=== PATIENT | female | born 1930 | race Caucasian/White ===

== ENCOUNTER 2016-09-10 16:58 | Inpatient (IN) | payer OTHER ==
[~2016-09-10] VITALS: Ht 160 cm; Wt 58.8 kg
[~2016-09-10 16:58] MED LIST: ANT25 PO; ASPI-435 PO; ATEN-175 PO; ATOR-22 PO; CHOL100027 PO; CITA10TA8 PO; DOCU100C PO; DOXE10CA PO; GABA1CAP4 PO; LEVO100T7 PO; LOSA1TAB PO; MULTTAB58 PO; PRD/1 PO; SALI0.6517 NAE; ZNTT/150 PO; ZOLP5TAB PO
[2016-09-10] MEDS ORDERED: SODIUM CHLORIDE 0.9% 1000ML 1,000 ML IV SCH (17:04)
--- NOTE | 2016-09-10 17:08 | EMERGENCY ROOM VISIT NOTE ---
History Report prepared by Marianna: Oz Fish Under the Supervision of: Dr. Shane Francois D.O. First contact with patient: 16:58 Stated Complaint: SEVERE HEADACHE, RT EYE VISION WEAKNESS History of Present Illness The patient is an 85 year old female who presents to the Emergency Room with complaints of a possible acute left-sided CVA that was detected on MRI prior to arrival. The patient had a [facility] for right vision changes she has been having. The patient was missing half of her visual field from the right eye, which has been slowly recovering but is still not back to normal. The patient has had a diffuse headache all week. She denies nausea, vomiting, chest pain, or shortness of breath. The paramedics note no neurological deficits. The patient denies tobacco or alcohol use. The patient had two strokes this past year for which she has seen a Neurologist. She denies any recent head trauma. 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 A total of 10 systems reviewed and were otherwise negative. Past Medical & Surgical Medical Problems: (1) Cerebrovascular disease (2) Chronic steroid use (3) CKD (chronic kidney disease), stage III (4) Depression (5) Diabetes mellitus, type II (6) Diverticular disease of colon (7) Dyslipidemia (8) Essential hypertension (9) History of adenomatous polyp of colon (10) Hypothyroidism (11) Osteoporosis (12) Pancreatic cyst (13) Paroxysmal atrial fibrillation (14) Polymyalgia rheumatica Surgical Problems: (1) Status post cholecystectomy (2) Status post hysterectomy Family History Heart disease FATHER MOTHER Social History Alcohol Use: none Occupation Status: retired Current/Historical Medications Scheduled Aspirin (Aspirin), 325 MG PO DAILY Atenolol (Tenormin), 100 MG PO DAILY Atorvastatin (Lipitor), 20 MG PO DAILY Cholecalciferol (Vitamin D 1000 Unit), 5,000 INTER.UNIT PO DAILY Citalopram Hydrobromide (Celexa), 10 MG PO DAILY Cyclosporine (Ophth) (Restasis), 1 DROP OPB DAILY Doxepin (Sinequan), 10 MG PO HS Fluticasone Propionate (Nasal) (Flonase Allergy Relief), 2 SPRAYS DEBBIE DAILY Gabapentin (Gabapentin), 300 MG PO QAM Gabapentin (Gabapentin), 600 MG PO QPM Levothyroxine Sodium (Levothyroxine Sodium), 1 TAB PO DAILY Losartan Potassium (Cozaar), 1 TAB PO DAILY Multiple Vitamin (Multivitamin), 1 TAB PO DAILY Polyethylene (Miralax), 17 GM PO DAILY Prednisone (Prednisone), 2 MG PO DAILY Scheduled PRN Acetaminophen (Tylenol), 650 MG PO BID PRN for Pain Meclizine HCl (Meclizine HCl), 25 MG PO TID PRN for DIZZINESS Ranitidine (Zantac), 150 MG PO DAILY PRN for INDIGESTION Zolpidem Tartrate (Ambien), 5 MG PO HS PRN for Sleep Allergies Coded Allergies: Lisinopril (Verified Allergy, Intermediate, RASH, 09/10/16) Penicillins (Verified Allergy, Intermediate, EDEMA, 09/10/16) Codeine (Verified Adverse Reaction, Intermediate, NAUSEA, VOMITING, 09/10/16 ) Physical Exam Vital Signs Date Time Temp Pulse Resp B/P Pulse Ox O2 Delivery O2 Flow Rate FiO2 09/10/16 18:00 66 20 207/79 99 Room Air 09/10/16 17:13 63 09/10/16 17:08 97 Room Air 09/10/16 17:08 36.5 61 16 220/103 97 Room Air Physical Exam GENERAL: Patient is awake, alert, and in no acute distress. Patient is resting comfortably and showing no signs of anxiety EYES: The conjunctivae are clear. The pupils are round and reactive. EARS, NOSE, MOUTH AND THROAT: The nose is without any evidence of any deformity. Mucous membranes are moist tongue is midline NECK: The neck is nontender and supple. RESPIRATORY: Normal respiratory effort is noted there is no evidence of wheezing rhonchi or rales CARDIOVASCULAR: Regular rate and rhythm noted there no murmurs rubs or gallops normal S1 normal S2 GASTROINTESTINAL: The abdomen is soft. Bowel sounds are present in all quadrants. Abdomen is nontender MUSCULOSKELETAL/EXTREMITIES: There is no evidence of gross deformity full range of motion is noted in the hips and shoulders SKIN: There is no obvious evidence of any rash. There are no petechiae, pallor or cyanosis noted. NEUROLOGIC: Patient is awake alert and oriented x3 strength is symmetric patellar reflexes are 2+ bilaterally Medical Decision & Procedures ER Provider Diagnostic Interpretation: X-ray results as stated below per interpretation by me and the radiologist. SINGLE VIEW CHEST CLINICAL HISTORY: Headache. Visual changes. FINDINGS: 2 AP, portable, upright chest radiographs are compared to study dated 07/12/2015. The examination is degraded by portable technique and patient rotation. The heart is top normal for projection. The mediastinal contour is within normal limits. The pulmonary vasculature is noncongested. Chronic interstitial thickening is unchanged. The lungs and pleural spaces are clear. No pneumothorax is seen. The skeletal structures are osteopenic. The bony thorax is grossly intact. IMPRESSION: No active disease in the chest. Electronically signed by: Maged Rosario M.D. 09/10/2016 5:30 PM Dictated Date/Time: 09/10/2016 5:29 PM Laboratory Results 09/10/16 17:55 Red Blood Count 4.83, Mean Corpuscular Volume 89.9, Mean Corpuscular Hemoglobin 29.8, Mean Corpuscular Hemoglobin Concent 33.2, Mean Platelet Volume 12.0, Neutrophils (%) (Auto) 61.2, Lymphocytes (%) (Auto) 30.4, Monocytes (%) (Auto) 5.5, Eosinophils (%) (Auto) 2.1, Basophils (%) (Auto) 0.5, Neutrophils # (Auto) 6.84, Lymphocytes # (Auto) 3.40, Monocytes # (Auto) 0.61, Eosinophils # (Auto) 0.23, Basophils # (Auto) 0.06 09/10/16 17:55 Test 09/10/16 17:04 09/10/16 17:30 09/10/16 17:55 Bedside Glucose 127 mg/dl (70-90) White Blood Count 11.17 K/uL (4.8-10.8) Red Blood Count 4.83 M/uL (4.2-5.4) Hemoglobin 14.4 g/dL (12.0-16.0) Hematocrit 43.4 % (37-47) Mean Corpuscular Volume 89.9 fL (80-100) Mean Corpuscular Hemoglobin 29.8 pg (25-34) Mean Corpuscular Hemoglobin Concent 33.2 g/dl (32-36) Platelet Count 135 K/uL (130-400) Mean Platelet Volume 12.0 fL (7.4-10.4) Neutrophils (%) (Auto) 61.2 % Lymphocytes (%) (Auto) 30.4 % Monocytes (%) (Auto) 5.5 % Eosinophils (%) (Auto) 2.1 % Basophils (%) (Auto) 0.5 % Neutrophils # (Auto) 6.84 K/uL (1.4-6.5) Lymphocytes # (Auto) 3.40 K/uL (1.2-3.4) Monocytes # (Auto) 0.61 K/uL (0.11-0.59) Eosinophils # (Auto) 0.23 K/uL (0-0.5) Basophils # (Auto) 0.06 K/uL (0-0.2) RDW Standard Deviation 43.0 fL (36.4-46.3) RDW Coefficient of Variation 13.0 % (11.5-14.5) Immature Granulocyte % (Auto) 0.3 % Immature Granulocyte # (Auto) 0.03 K/uL (0.00-0.02) Prothrombin Time 9.9 SECONDS (9.0-12.0) Prothromb Time International Ratio 0.9 (0.9-1.1) Activated Partial Thromboplast Time 24.1 SECONDS (21.0-31.0) Partial Thromboplastin Ratio 0.9 Anion Gap 9.0 mmol/L (3-11) Est Creatinine Clear Calc Drug Dose 35.6 ml/min Estimated GFR () 61.1 Estimated GFR (Non- 52.7 BUN/Creatinine Ratio 22.3 (10-20) Calcium Level 9.3 mg/dl (8.5-10.1) Total Creatine Kinase 45 U/L (26-192) Creatine Kinase MB 0.8 ng/ml (0.5-3.6) Creatine Kinase MB Ratio 1.8 (0-3.0) Troponin I < 0.015 ng/ml (0-0.045) Laboratory results per my review. Medications Administered Medications (Trade) Dose Ordered Sig/Nicolasa Route Start Time Stop Time Status Last Admin Dose Admin Sodium Chloride (Nss 1000ml) 1,000 ml @ 50 mls/hr Q20H IV 09/10/16 17:04 10/10/16 17:03 09/10/16 17:49 50 MLS/HR Labetalol HCl (Normodyne IV) 10 mg NOW STAT IV 09/10/16 17:32 09/10/16 17:33 DC 09/10/16 17:39 10 MG ECG Indication: other Rate (beats per minute): 65 Rhythm: sinus rhythm Findings: PVC, no acute ischemic change Comparison ECG Date: 2015 Change: no significant change ED Course 1700: The patient was evaluated in room B9. A complete history and physical examination were performed. 170: NSS 1000 ml @ 50 mls/hr. 1714: Spoke with [facility]. The patient will be evaluated. 173: Labetalol HCl 10 mg IV. Medical Decision Prior records/ancillary studies reviewed and summarized above. Nursing notes reviewed. The patient's history was concerning for CVA. Differential diagnosis: Etiologies such as metabolic, infection, hypo/hyperglycemia, electrolyte abnormalities, cardiac sources, intracerebral event, toxicologic, neurologic, as well as others were entertained. The patient is an 85-year-old female who presented to the emergency department for a stroke. The patient has been having posterior circulation complaints including difficulty with her right I and visual complaints with her right eye over the last week. She saw her primary care physician and was scheduled for an MRI the brain. The patient had the MRI the brain today and was sent directly over to our emergency department for what appears to be a subacute occipital ischemic stroke. I discussed the patient's laboratory and radiographic studies with her. Her visual complaints have improved at this time. Her blood pressure was very elevated and she was treated with IV labetalol. [facility] They have agreed to evaluate the patient in the emergency department for formal stroke workup. Given the number of ischemic strokes were noted on the MRI I do feel the patient may need a formal evaluation for a dysrhythmia which could be causing the patient's repeated ischemic stroke. Consults Time Called: 1709 Consulting Physician: [facility]. Returned Call: [phone]: Spoke with [facility]. The patient will be evaluated. Impression Primary Impression: Acute CVA (cerebrovascular accident) Scribe Attestation The scribe's documentation has been prepared under my direction and personally reviewed by me in its entirety. I confirm that the note above accurately reflects all work, treatment, procedures, and medical decision making performed by me. Departure Information Dispostion Being Evaluated By Hospitalist
[2016-09-10] MEDS ORDERED: LABETALOL HCL IV 5 MG/ML 20ML ONE (17:29)
--- NOTE | 2016-09-10 17:31 | DIAGNOSTIC IMAGING REPORT ---
SINGLE VIEW CHEST CLINICAL HISTORY: Headache. Visual changes. FINDINGS: 2 AP, portable, upright chest radiographs are compared to study dated 07/12/2015. The examination is degraded by portable technique and patient rotation. The heart is top normal for projection. The mediastinal contour is within normal limits. The pulmonary vasculature is noncongested. Chronic interstitial thickening is unchanged. The lungs and pleural spaces are clear. No pneumothorax is seen. The skeletal structures are osteopenic. The bony thorax is grossly intact. IMPRESSION: No active disease in the chest. Electronically signed by: Maged Rosario M.D. 09/10/2016 5:30 PM Dictated Date/Time: 09/10/2016 5:29 PM
[2016-09-10] MEDS ORDERED: LABETALOL HCL IV 5 MG/ML 20ML IV STA (17:32)
[2016-09-10] MEDS ORDERED: ACETAMINOPHEN 500 MG TAB PO STA (18:08)
[2016-09-10] MEDS ORDERED: CLOPIDOGREL BISULFATE 75 MG TAB PO ONE (18:08)
[2016-09-10 18:10] LABS: BASO % 0.5 %; BASO ABS # 0.06 K/uL (0-0.2); COMPLETE YES; EOS % 2.1 %; HEMATOCRIT 43.4 % (37-47); IG% 0.3 %; LYMPH % 30.4 %; MEAN CELL VOLUME 89.9 fL (80-100); MEAN CORPUSCULAR HEMOGLOBIN 29.8 pg (25-34); MEAN CORPUSCULAR HGB CONC 33.2 g/dl (32-36); MONO % 5.5 %; NEUT % 61.2 %; PLATELET COUNT 135 K/uL (130-400); RED BLOOD COUNT 4.83 M/uL (4.2-5.4); WHITE BLOOD COUNT 11.17 K/uL (4.8-10.8)
[2016-09-10] MEDS ORDERED: ONDANSETRON INJ 2 MG/ML 2 ML VIAL IV PRN (18:15)
[2016-09-10] MEDS ORDERED: PHARMACIST DISCHARGE MED REC CONSULT PRN (18:15)
[2016-09-10] MEDS ORDERED: ACETAMINOPHEN 500 MG TAB PO ONE (18:26)
[2016-09-10] MEDS ORDERED: ASPI325T45 PO (18:28)
[2016-09-10] MEDS ORDERED: MRLP17X PO (18:28)
[2016-09-10] MEDS ORDERED: FLUT0.15 NAE (18:28)
[2016-09-10] MEDS ORDERED: LOSA100T65 PO (18:28)
[2016-09-10] MEDS ORDERED: TYL325X PO (18:28)
[2016-09-10] MEDS ORDERED: MECLIZINE HCL 25 MG TAB PO PRN (18:30)
[2016-09-10] MEDS ORDERED: RANITIDINE HCL 150 MG TAB PO PRN (18:30)
[2016-09-10] MEDS ORDERED: CLOPIDOGREL BISULFATE 75 MG TAB ONE (18:31)
[2016-09-10] MEDS ORDERED: CYCL0.052 OPB (18:32)
[2016-09-10 18:33] LABS: BLOOD UREA NITROGEN 22 mg/dl (7-18); BUN/CREATININE RATIO 22.3 (10-20); CALCIUM 9.3 mg/dl (8.5-10.1); CARBON DIOXIDE 26 mmol/L (21-32); CHLORIDE 107 mmol/L (98-107); CREATININE 0.99 mg/dl (0.60-1.20); GLUCOSE 127 mg/dl (70-99); INR 0.9 (0.9-1.1); PARTIAL THROMBOPLASTIN RATIO 0.9; POTASSIUM 3.7 mmol/L (3.5-5.1); PROTHROMBIN TIME (PATIENT) 9.9 SECONDS (9.0-12.0); SODIUM 142 mmol/L (136-145)
[2016-09-10 18:38] LABS: CKMB/CK RATIO 1.8 (0-3.0)
[2016-09-10] MEDS ORDERED: GLUCAGON FOR INJ 1 MG VIAL SQ PRN (18:45)
[2016-09-10] MEDS ORDERED: DEXTROSE 50% 50 ML SYR IV PRN (18:45)
[2016-09-10] MEDS ORDERED: GLUCOSE 10 TABS/TUBE PO PRN (18:45)
[2016-09-10] MEDS ORDERED: GLUCOSE 40% GEL 15 GM TUBE PO PRN (18:45)
[2016-09-10 19:22] VITALS: BP_SYST 193; BP_SYST 205; BP_DIAS 75; BP_DIAS 96; PULSE 69; TEMP 36.5; O2SAT 94; Ht 160 cm; Wt 58.8 kg
[2016-09-10 19:45] VITALS: BP 193/96; PULSE 70; TEMP 36.5; O2SAT 96
[2016-09-10] MEDS: GABAPENTIN 600 MG TAB PO SCH (20:35)
[2016-09-10] MEDS: DOXEPIN HCL 10 MG CAP PO SCH (20:35)
--- NOTE | 2016-09-10 21:11 | History and Physical ---
History & Physical Date & Time of Service: Sep 10, 2016 at 18:31 Chief Complaint: Severe Headache, Rt Eye Vision Weakness Primary Care Physician: Liu Antunez M.D. History of Present Illness Source: patient, clinic records This is an 85 y/o female with PMH of multiple CVAs, chart history of PAF, DM type 2, HTN, HL, and other problems listed below who was sent to the ED by ambulance for abnormal outpatient brain MRI. Pt follows with Dr. Antunez for primary care and Dr. Miguel for neurology. Pt reports right eye vision loss and headache starting 1.5 weeks ago. She did not go the ER. She was seen by Dr. Antunez for routine follow up on 09/03 and MRI was ordered. Pt states vision loss has gradually improved but still slightly off from baseline. She states GALINDO felt like ice pick stabbing between her eyes at onset but now is frontal pressure. GALINDO partially improves with Tylenol at home. She did not take Tylenol yet today. Currently rates pain 5/10. She admits to similar headaches in the past. She reports chronic intermittent palpitations. Denies photophobia, phonophobia, diplopia, speech or swallowing difficultly, focal weakness or numbness, balance chest pain, SOB, abdominal pain, N/V/D, urinary changes. Pt admits to hx of PAF but is unsure when it was diagnosed. States last cardiology visit was 10 years ago in [place]. She has not been on anticoagulation. She had a Holter done in 2012 without any sustained arrhythmias. Her 2012 and 2013 EKGs in [facility] show sinus rhythm. No hx of brain bleed or GI bleed. Pt had similar vision loss in 2015. Aspirin was increased to 325 mg daily by PCP. MRI showed no acute infarct. She was seen by neurology, Dr. Miguel and aspirin was continued. Pt denies missing any medications including aspirin and BP meds. Past Medical/Surgical History Medical Problems: (1) Cerebrovascular disease Permanent Comment: s/p right occipital stroke per MRI Status: Chronic (2) Chronic steroid use Permanent Comment: on prednisone for PMR Status: Chronic (3) CKD (chronic kidney disease), stage III Status: Chronic (4) Depression Status: Chronic (5) Diabetes mellitus, type II Permanent Comment: diet-controlled Status: Chronic (6) Diverticular disease of colon Status: Chronic (7) Dyslipidemia Status: Chronic (8) Essential hypertension Status: Chronic (9) History of adenomatous polyp of colon Status: Chronic (10) Hypothyroidism Status: Chronic (11) Osteoporosis Status: Chronic (12) Pancreatic cyst Status: Chronic (13) Paroxysmal atrial fibrillation Status: Chronic (14) Polymyalgia rheumatica Status: Chronic Surgical Problems: (1) Status post cholecystectomy Status: Chronic (2) Status post hysterectomy Status: Chronic Family History Heart disease FATHER MOTHER Social History Smoking Status: Never Smoker Alcohol Use: adamately states no etoh use for past 1 year. outside of the room family told nurse 3 drinks per week. Drug Use: none Occupational Status: retired Immunizations History of Influenza Vaccine: Yes History of Pneumococcal: Yes Allergies Coded Allergies: Lisinopril (Verified Allergy, Intermediate, RASH, 09/10/16) Penicillins (Verified Allergy, Intermediate, EDEMA, 09/10/16) Codeine (Verified Adverse Reaction, Intermediate, NAUSEA, VOMITING, 09/10/16 ) Home Medications Scheduled Apixaban (Eliquis), 5 MG PO BID Atenolol (Tenormin), 100 MG PO DAILY Atorvastatin (Lipitor), 20 MG PO DAILY Cholecalciferol (Vitamin D 1000 Unit), 5,000 INTER.UNIT PO DAILY Citalopram Hydrobromide (Celexa), 10 MG PO DAILY Cyclosporine (Ophth) (Restasis), 1 DROP OPB DAILY Doxepin (Sinequan), 10 MG PO HS Fluticasone Propionate (Nasal) (Flonase Allergy Relief), 2 SPRAYS DEBBIE DAILY Gabapentin (Gabapentin), 300 MG PO QAM Gabapentin (Gabapentin), 600 MG PO QPM Levothyroxine Sodium (Levothyroxine Sodium), 1 TAB PO DAILY Losartan Potassium (Cozaar), 1 TAB PO DAILY Multiple Vitamin (Multivitamin), 1 TAB PO DAILY Polyethylene (Miralax), 17 GM PO DAILY Prednisone (Prednisone), 2 MG PO DAILY Scheduled PRN Acetaminophen (Tylenol), 650 MG PO BID PRN for Pain Meclizine HCl (Meclizine HCl), 25 MG PO TID PRN for DIZZINESS Ranitidine (Zantac), 150 MG PO DAILY PRN for INDIGESTION Zolpidem Tartrate (Ambien), 5 MG PO HS PRN for Sleep Review of Systems Ten point review of systems performed with pertinent positives and negatives noted in HPI. Physical Exam Vital Signs Date Time Temp Pulse Resp B/P Pulse Ox O2 Delivery O2 Flow Rate FiO2 09/10/16 18:00 66 20 207/79 99 Room Air 09/10/16 17:13 63 09/10/16 17:08 97 Room Air 09/10/16 17:08 36.5 61 16 220/103 97 Room Air General Appearance: WD/WN, no apparent distress, + pertinent finding (pleasant alert elderly female, no distress, family at bedside) Head: normocephalic, atraumatic Eyes: normal inspection, PERRL, EOMI, sclerae normal ENT: hearing grossly normal, pharynx normal Neck: supple, trachea midline Respiratory/Chest: lungs clear, normal breath sounds, no respiratory distress, no accessory muscle use Cardiovascular: regular rate, rhythm, no murmur Abdomen/GI: normal bowel sounds, non tender, soft Extremities/Musculoskelatal: no calf tenderness, no pedal edema Neurologic/Psych: meat hostess II-XII nml as tested, no motor/sensory deficits, alert, normal mood/affect, oriented x 3, + pertinent finding (visual field testing WNL bilatererally. finger to nose intact) Skin: normal color, warm/dry Diagnostics Laboratory Results Results Past 24 Hours Test 09/10/16 17:04 09/10/16 17:30 09/10/16 17:55 Range/Units Creatine Kinase MB Ratio 0-3.0 Bedside Glucose 127 70-90 mg/dl White Blood Count 11.17 4.8-10.8 K/uL Red Blood Count 4.83 4.2-5.4 M/uL Hemoglobin 14.4 12.0-16.0 g/dL Hematocrit 43.4 37-47 % Mean Corpuscular Volume 89.9 80-100 fL Mean Corpuscular Hemoglobin 29.8 25-34 pg Mean Corpuscular Hemoglobin Concent 33.2 32-36 g/dl Platelet Count 135 130-400 K/uL Mean Platelet Volume 12.0 7.4-10.4 fL Neutrophils (%) (Auto) 61.2 % Lymphocytes (%) (Auto) 30.4 % Monocytes (%) (Auto) 5.5 % Eosinophils (%) (Auto) 2.1 % Basophils (%) (Auto) 0.5 % Neutrophils # (Auto) 6.84 1.4-6.5 K/uL Lymphocytes # (Auto) 3.40 1.2-3.4 K/uL Monocytes # (Auto) 0.61 0.11-0.59 K/uL Eosinophils # (Auto) 0.23 0-0.5 K/uL Basophils # (Auto) 0.06 0-0.2 K/uL RDW Standard Deviation 43.0 36.4-46.3 fL RDW Coefficient of Variation 13.0 11.5-14.5 % Immature Granulocyte % (Auto) 0.3 % Immature Granulocyte # (Auto) 0.03 0.00-0.02 K/uL Diagnostic Radiology SINGLE VIEW CHEST CLINICAL HISTORY: Headache. Visual changes. FINDINGS: 2 AP, portable, upright chest radiographs are compared to study dated 07/12/2015. The examination is degraded by portable technique and patient rotation. The heart is top normal for projection. The mediastinal contour is within normal limits. The pulmonary vasculature is noncongested. Chronic interstitial thickening is unchanged. The lungs and pleural spaces are clear. No pneumothorax is seen. The skeletal structures are osteopenic. The bony thorax is grossly intact. IMPRESSION: No active disease in the chest. Outpatient MRI brain without contrast 09/10/16 impression per radiologist: 1. Acute infarct in the left occipital region; possibilities include boundary zone infarction between the left MCA and left FIELD AIDE territory, less likely embolic in this region. No evidence of hemorrhagic conversion on gradient echo. 2. Old infarcts in the right occipital region, unchanged from 07/02/2016, finding also a raise in the possibility of boundary zone infarct. Changes of laminar cortical necrosis are present. 3. Neighboring but distinct old right parietal region infarct, unchanged from 07/02/2016. 4. Mild -moderate old infarct is again noted in the upper left temporal lobe, unchanged from prior. 5. Small old infarcts again noted in the posterolateral left occipital lobe, unchanged from prior. 6. Very small old left cerebellar infarct. 7. Old lacunar infarcts in the bilateral deep hale nuclei, unchanged. 8. Mild chronic white matter microvascular ischemic changes are again noted, unchanged. EKG sinus rhythm with occasional PVC, rate 65, no ST or T wave abnormality Impression Assessment and Plan ACUTE LEFT OCCIPITAL INFARCT Onset of symptoms 1.5 weeks ago Outpatient MRI brain 09/10/16 + acute left occipital infarct, + multiple old strokes Check carotid doppler, echo w/ bubble study On aspirin 324 mg; states she is compliant; will add Plavix Risk factors- DM well controlled- recent A1c 7.1; HL- continue statin, check lipid panel in am, HTN- received labetalol for SBP of 220 in ER -> improved to 180s- 190s; hx PAF not on anticoagulation currently in NSR Neuro checks Consult neurology Consult cardiology to assess for cardioembolic source PT and OT evaluations HEADACHE Try acetaminophen as it helped her at home Consult neurology HYPERTENSION BP was elevated to 220 systolic in ER; given Labetalol -> improved to 180s-190s Held losartan and decreased atenolol to 50 mg daily to avoid aggressive lowering of BP Monitor BP closely PAROXYSMAL ATRIAL FIBRILLATION Currently in NSR Continue atenolol at reduced dose for now Not on anticoagulation Holter in 2012 without any sustained arrhythmias; 2012 and 2013 EKGs in [facility] show sinus rhythm DM TYPE 2 Diet controlled A1c 7.1 on 09/03/16 HYPOTHYROIDISM Continue levothyroxine POLYMYALGIA RHEUMATICA Continue chronic prednisone DEPRESSION Continue citalopram and doxepin DVT PROPHYLAXIS SCDs since patient is on aspirin and plavix CODE STATUS Full code per my discussion with the patient DISPOSITION Lives alone Follows with Dr. Antunez for primary care Patient seen in collaboration with Dr. Billy. Please see his addendum. Attending Addendum Pt was seen and examined. Agreed with [facility]'s assessment and Plan. 85 y/o female with PMH of multiple CVAs, chart history of PAF, DM type 2, HTN, HL was sent to the ED by ambulance after MRI head showed acute left occipital infarct. The MRI was ordered for right eye vision loss and headache starting 1.5 weeks ago. Denies any numbness, weakness, slurred speech, palpitation and SOB. General- No acute distress Head- atraumatic Eyes- PERRL, EOMI ENT- oropharynx clear Neck- supple, no JVD Lungs- clear to auscultation and percussion Heart- regular rhythm; no murmur Abdomen- normal bowel sounds, soft Extremities- no calf tenderness; peripheral pulses intact Neuro- alert, oriented x 3; PERRL, EOMI; no facial palsy; no dysarthria; motor 5 /5 bilaterally A/P ACUTE LEFT OCCIPITAL INFARCT Recent Outpatient MRI brain showed 09/10/16 showed acute left occipital infarct, + multiple old strokes Check carotid doppler, echo w/ bubble study Asa and plavix Neuro checks Consult neurology Consult cardiology to assess for cardioembolic source PT and OT evaluation Lab, Imaging and ekg reviewed Please refer to [facility]'s documentation for other problems Rip Billy MD VTE Prophylaxis VTE Risk Assessment Done? Y/N: Yes Risk Level: High
[2016-09-10 21:20] VITALS: BP 152/77; PULSE 68; TEMP 36.5; O2SAT 93
[2016-09-10] MEDS ORDERED: ZOLPIDEM TARTRATE 5 MG TAB PO ONE (21:45)
--- NOTE | 2016-09-10 22:32 | DIAGNOSTIC IMAGING REPORT ---
ULTRASOUND OF THE CAROTID ARTERIES CLINICAL HISTORY: Strokelike symptoms. Headache. Visual change. COMPARISON STUDY: No priors. TECHNIQUE: Real-time, grayscale, and color Doppler sonography of the carotid arteries is performed. Images are reviewed in the transverse and longitudinal planes. FINDINGS: Blood pressure in the right arm measures 157/61 and blood pressure in the left arm measures 171/75. The carotid arteries are patent bilaterally and demonstrate antegrade flow. There is mild to moderate echogenic shadowing atherosclerotic plaque seen in the carotid bulbs bilaterally. Normal doppler arterial waveforms are seen throughout. Velocity measurements are listed below. Common carotid peak systolic velocity (cm/sec): RIGHT: 69 LEFT: 71 ICA proximal peak systolic velocity (cm/sec): RIGHT: 51 LEFT: 43 ICA mid peak systolic velocity (cm/sec): RIGHT: 57 LEFT: 50 ICA distal peak systolic velocity (cm/sec): RIGHT: 62 LEFT: 48 ICA/CC peak systolic ratio: RIGHT: 0.9 LEFT: 0.7 Antegrade flow was shown in the vertebral arteries. The external carotid arteries are patent. IMPRESSION: 1. Atherosclerotic plaque with no sonographic evidence of hemodynamically significant stenosis in the right or left carotid arterial system. 2. Antegrade flow is shown in the vertebral arteries. Electronically signed by: Maged Rosario M.D. 09/10/2016 10:31 PM Dictated Date/Time: 09/10/2016 10:29 PM
[2016-09-11] VITALS (9 sets, daily range): BP systolic 120–186; BP diastolic 71–95; PULSE 60–74; TEMP 36.3–36.7; O2SAT 94–99
[2016-09-11] MEDS: ACETAMINOPHEN 325 MG TAB PO PRN ×2 (00:16→07:48)
[2016-09-11] MEDS ORDERED: ZOLPIDEM TARTRATE 5 MG TAB PO SCH (00:45)
[2016-09-11] MEDS: LEVOTHYROXINE 100 MCG TAB PO SCH (06:32)
[2016-09-11 07:13] LABS: BASO % 0.6 %; BASO ABS # 0.05 K/uL (0-0.2); COMPLETE YES; EOS % 5.1 %; HEMATOCRIT 40.2 % (37-47); IG% 0.1 %; LYMPH % 35.7 %; LYMPH ABS # 2.88 K/uL (1.2-3.4); MEAN CELL VOLUME 92.2 fL (80-100); MEAN CORPUSCULAR HEMOGLOBIN 30.3 pg (25-34); MEAN CORPUSCULAR HGB CONC 32.8 g/dl (32-36); MEAN PLATELET VOLUME 11.8 fL (7.4-10.4); MONO % 8.3 %; NEUT % 50.2 %; PLATELET COUNT 121 K/uL (130-400); RED BLOOD COUNT 4.36 M/uL (4.2-5.4); WHITE BLOOD COUNT 8.07 K/uL (4.8-10.8)
[2016-09-11 07:39] LABS: BUN/CREATININE RATIO 23.8 (10-20); CALCIUM 8.6 mg/dl (8.5-10.1); CREATININE 0.88 mg/dl (0.60-1.20); POTASSIUM 3.6 mmol/L (3.5-5.1)
[2016-09-11 07:42] LABS: CHOLESTEROL/HDL RATIO 2.8
[2016-09-11] MEDS: ATORVASTATIN 20 MG TAB PO SCH (07:48)
[2016-09-11] MEDS: CITALOPRAM 20 MG TAB PO SCH (07:48)
[2016-09-11] MEDS: GABAPENTIN 300 MG CAP PO SCH (07:48)
[2016-09-11] MEDS: CLOPIDOGREL BISULFATE 75 MG TAB PO SCH (07:49)
[2016-09-11] MEDS: MULTIVITAMIN TAB PO SCH (07:49)
[2016-09-11] MEDS: POLYETHYLENE (MIRALAX) 17 GM PACK PO SCH (07:51)
[2016-09-11] MEDS: FLUTICASONE PROPIONATE NA SPR 16 GM BTL NAE SCH (07:51)
[2016-09-11] MEDS: CHOLECALCIFEROL 1000 INTER.UNIT TAB PO SCH (07:51)
--- NOTE | 2016-09-11 08:56 | ECHOCARDIOGRAM REPORT ---
*NOTICE TO RECEIVING [employer] [employer] [facility] This information is strictly Confidential and protected under [place] law. [place] law prohibits you from making any further disclosure of this information unless further disclosure is expressly permitted by the written consent of the person to whom it pertains or is authorized by law. A general authorization for the release of medical or other information is not sufficient for this purpose. Hospital accepts no responsibility if the information is made available to any other person, INCLUDING THE PATIENT. Interpretation Summary * Name: BENJI GUERRERO Study Date: 09/11/2016 06:55 AM BP: 169/73 mmHg * Patient Location: 216 HR: 67 * : 1930 (M/d/yyyy) Gender: Female Height: 63 in * Age: 85 yrs Ethnicity: CA Weight: 134 lb * Ordering Physician: Sapphire Yates * Referring Physician: ANTONETTE * Performed By: Cynthia Alfaro RDCS * * Reason For Study: STROKE * BSA: 1.6 m2 * History: STROKE * The study was technically adequate. * There is no comparison study available. * -- Conclusions -- * Left ventricular systolic function is normal. * Ejection Fraction = 65-70%. * There is moderate concentric left ventricular hypertrophy. * The left atrium is mildly dilated. * Grade I diastolic dysfunction, (abnormal relaxation pattern). * Mild aortic regurgitation. * There is mild mitral regurgitation. Procedure Details * A saline contrast injection was performed to assess for cardiac shunting. * The injection was performed through an intravenous line in the left arm. * The attending nurse who injected the saline contrast was LENO NG. * A total of 20 cc of agitated saline was given. * A complete two-dimensional transthoracic echocardiogram was performed (2D, M-mode, Doppler and color flow Doppler). Left Ventricle * The left ventricle is normal in size. * There is moderate concentric left ventricular hypertrophy. * Ejection Fraction = 65-70%. * Left ventricular systolic function is normal. * The left ventricular wall motion is normal. Right Ventricle * The right ventricle is normal size. * The right ventricular systolic function is normal as assessed by tricuspid annular plane systolic excursion (TAPSE) (normal >1.5 cm). Atria * The left atrium is mildly dilated. * Right atrial size is normal. * There is no evidence of atrial septal defect, but resolution does not allow assessment for a patent foramen ovale. Mitral Valve * The mitral valve is normal. * There is no mitral valve stenosis. * There is mild mitral regurgitation. Tricuspid Valve * The tricuspid valve is normal. * There is no tricuspid stenosis. * There is trace tricuspid regurgitation. * Doppler findings do not suggest pulmonary hypertension. Aortic Valve * The aortic valve is trileaflet. * Aortic stenosis is absent. * Mild aortic regurgitation. Pulmonic Valve * The pulmonary valve is not well seen, but the Doppler examination is normal without significant regurgitation or stenosis. Great Vessels * The aortic root is normal size. Pericardium/Pleural * There is no pericardial effusion. Great Vessels * Normal inferior vena cava diameter and respiratory variation suggests normal central venous pressure. Left Ventricular Diastolic Function * Grade I diastolic dysfunction, (abnormal relaxation pattern). MMode 2D Measurements and Calculations IVSd 1.5 cm IVSs 1.8 cm LVIDd 3.3 cm LVIDs 2.0 cm LVPWd 1.3 cm LVPWs 1.5 cm IVS/LVPW 1.1 FS 38.8 % EDV(Teich) 44.5 ml ESV(Teich) 13.1 ml EF(Teich) 70.4 % EDV(cubed) 36.3 ml ESV(cubed) 8.3 ml EF(cubed) 77.1 % % IVS thick 25.7 % % LVPW thick 11.3 % LV mass(C)d 160.4 grams LV mass(C)dI 98.3 grams/m\S\2 LV mass(C)s 121.4 grams LV mass(C)sI 74.5 grams/m\S\2 SV(Teich) 31.3 ml SI(Teich) 19.2 ml/m\S\2 SV(cubed) 28.0 ml SI(cubed) 17.1 ml/m\S\2 Ao root diam 3.3 cm Ao root area 8.4 cm\S\2 LA dimension 4.3 cm LA/Ao 1.3 LVAd ap4 18.1 cm\S\2 LVLd ap4 7.1 cm EDV(MOD-sp4) 41.8 ml LVAs ap4 7.8 cm\S\2 LVLs ap4 5.0 cm ESV(MOD-sp4) 13.1 ml EF(MOD-sp4) 68.7 % LVAd ap2 16.6 cm\S\2 LVLd ap2 6.7 cm EDV(MOD-sp2) 34.3 ml LVAs ap2 7.2 cm\S\2 LVLs ap2 4.9 cm ESV(MOD-sp2) 11.1 ml EF(MOD-sp2) 67.6 % SV(MOD-sp4) 28.7 ml SI(MOD-sp4) 17.6 ml/m\S\2 SV(MOD-sp2) 23.2 ml SI(MOD-sp2) 14.2 ml/m\S\2 Doppler Measurements and Calculations MV E max mini 52.4 cm/sec MV A max imni 76.6 cm/sec MV E/A 0.68 MV dec time 0.38 sec Ao V2 max 80.2 cm/sec Ao max PG 2.6 mmHg Ao max PG (full) 1.3 mmHg LV V1 max PG 1.2 mmHg LV V1 max 55.8 cm/sec TR max mini 210.4 cm/sec
[2016-09-11] MEDS ORDERED: ASPIRIN 325 MG ECTAB PO SCH (09:00)
--- NOTE | 2016-09-11 09:30 | Progress Note ---
Medicine Progress Note Date & Time of Visit: Sep 11, 2016 at 09:06. Subjective Pt was seen and examined She was in the bathroom doing her make up Pt said that she feels fine she denies any chest pain, palpitation dizziness and sob she said that her peripheral vision is better she is very anxious to go home today Objective Last 8 Hrs Date Time Temp Pulse Resp B/P Pulse Ox O2 Delivery O2 Flow Rate FiO2 09/11/16 07:58 36.7 67 18 169/73 94 Room Air 09/11/16 04:21 36.3 61 18 120/71 97 Room Air 09/11/16 04:00 Room Air Physical Exam: General- very pleasant, no acute distress Head- atraumatic Eyes- PERRL, EOMI, anicteric ENT- oropharynx clear Neck- supple, no JVD Lungs- clear to auscultation and percussion Heart- regular rhythm; no murmur Abdomen- normal bowel sounds, soft Extremities- no pretibial edema, no calf tenderness Neuro- alert, oriented x 3; PERRL, EOMI; no facial palsy; no dysarthria Skin- warm & dry Laboratory Results: Last 24 Hours Test 09/10/16 17:04 09/10/16 17:30 09/10/16 17:55 09/10/16 20:18 Bedside Glucose 127 mg/dl 133 mg/dl White Blood Count 11.17 K/uL Red Blood Count 4.83 M/uL Hemoglobin 14.4 g/dL Hematocrit 43.4 % Mean Corpuscular Volume 89.9 fL Mean Corpuscular Hemoglobin 29.8 pg Mean Corpuscular Hemoglobin Concent 33.2 g/dl Platelet Count 135 K/uL Mean Platelet Volume 12.0 fL Neutrophils (%) (Auto) 61.2 % Lymphocytes (%) (Auto) 30.4 % Monocytes (%) (Auto) 5.5 % Eosinophils (%) (Auto) 2.1 % Basophils (%) (Auto) 0.5 % Neutrophils # (Auto) 6.84 K/uL Lymphocytes # (Auto) 3.40 K/uL Monocytes # (Auto) 0.61 K/uL Eosinophils # (Auto) 0.23 K/uL Basophils # (Auto) 0.06 K/uL RDW Standard Deviation 43.0 fL RDW Coefficient of Variation 13.0 % Immature Granulocyte % (Auto) 0.3 % Immature Granulocyte # (Auto) 0.03 K/uL Prothrombin Time 9.9 SECONDS Prothromb Time International Ratio 0.9 Activated Partial Thromboplast Time 24.1 SECONDS Partial Thromboplastin Ratio 0.9 Sodium Level 142 mmol/L Potassium Level 3.7 mmol/L Chloride Level 107 mmol/L Carbon Dioxide Level 26 mmol/L Anion Gap 9.0 mmol/L Blood Urea Nitrogen 22 mg/dl Creatinine 0.99 mg/dl Est Creatinine Clear Calc Drug Dose 35.6 ml/min Estimated GFR () 61.1 Estimated GFR (Non- 52.7 BUN/Creatinine Ratio 22.3 Random Glucose 127 mg/dl Calcium Level 9.3 mg/dl Total Creatine Kinase 45 U/L Creatine Kinase MB 0.8 ng/ml Creatine Kinase MB Ratio 1.8 Troponin I < 0.015 ng/ml Test 09/11/16 06:30 09/11/16 06:59 White Blood Count 8.07 K/uL Red Blood Count 4.36 M/uL Hemoglobin 13.2 g/dL Hematocrit 40.2 % Mean Corpuscular Volume 92.2 fL Mean Corpuscular Hemoglobin 30.3 pg Mean Corpuscular Hemoglobin Concent 32.8 g/dl Platelet Count 121 K/uL Mean Platelet Volume 11.8 fL Neutrophils (%) (Auto) 50.2 % Lymphocytes (%) (Auto) 35.7 % Monocytes (%) (Auto) 8.3 % Eosinophils (%) (Auto) 5.1 % Basophils (%) (Auto) 0.6 % Neutrophils # (Auto) 4.05 K/uL Lymphocytes # (Auto) 2.88 K/uL Monocytes # (Auto) 0.67 K/uL Eosinophils # (Auto) 0.41 K/uL Basophils # (Auto) 0.05 K/uL RDW Standard Deviation 44.8 fL RDW Coefficient of Variation 13.1 % Immature Granulocyte % (Auto) 0.1 % Immature Granulocyte # (Auto) 0.01 K/uL Sodium Level 143 mmol/L Potassium Level 3.6 mmol/L Chloride Level 108 mmol/L Carbon Dioxide Level 26 mmol/L Anion Gap 9.0 mmol/L Blood Urea Nitrogen 21 mg/dl Creatinine 0.88 mg/dl Est Creatinine Clear Calc Drug Dose 40.1 ml/min Estimated GFR () 70.4 Estimated GFR (Non- 60.8 BUN/Creatinine Ratio 23.8 Random Glucose 124 mg/dl Calcium Level 8.6 mg/dl Triglycerides Level 96 mg/dl Cholesterol Level 146 mg/dl HDL Cholesterol 53 mg/dl LDL Cholesterol, Calculated 74 mg/dl VLDL Cholesterol, Calculated 19 mg/dl Cholesterol/HDL Ratio 2.8 Bedside Glucose 125 mg/dl Assessment & Plan ACUTE LEFT OCCIPITAL INFARCT Onset of symptoms 1.5 weeks ago Hx of P. Afib not on anticoagulant Possible cardiac etiology MRI brain done outpatient on 09/10/16 showed acute left occipital infarct, + multiple old strokes Carotid u/s shown no Atherosclerotic plaque with no sonographic evidence of hemodynamically significant stenosis in the right or left carotid arterial system Will get an MRA of the head Echo showed normal wall motion with normal EF On plavix and aspirin for now will discussed with Neuro if ok to start her on eliquis 5 mg BID for the Afib If we ok with neuro, will d/c aspirin and will not continue plavix since pt has no significant vascular disease Continue Neuro checks Neurology consulting, waiting for input HEADACHE Try acetaminophen as it helped her at home Stable HYPERTENSION BP was elevated to 220 systolic in ER; given Labetalol -> improved to 180s-190s Held losartan and decreased atenolol to 50 mg daily to avoid aggressive lowering of BP Monitor BP closely PAROXYSMAL ATRIAL FIBRILLATION Currently in NSR Continue atenolol Not on anticoagulation Holter in 2013 without any sustained arrhythmias; 2012 and 2013 EKGs in [facility] show sinus rhythm Case discussed with Cardiology that recommends to start pt on Eliquis 5 mg BID if ok with neuro due to the recent stroke (risk of hemorrhage) Echo Left ventricular systolic function is normal. * Ejection Fraction = 65-70%. * There is moderate concentric left ventricular hypertrophy. * The left atrium is mildly dilated. * Grade I diastolic dysfunction, (abnormal relaxation pattern). * Mild aortic regurgitation. * There is mild mitral regurgitation. DM TYPE 2 Diet controlled A1c 7.1 on 09/03/16 HYPOTHYROIDISM Continue levothyroxine POLYMYALGIA RHEUMATICA Continue chronic prednisone DEPRESSION Continue citalopram and doxepin DVT PROPHYLAXIS SCDs since patient is on aspirin and plavix CODE STATUS Full code DISPOSITION Consultants: Cardiology Neuro Current Inpatient Medications: Current Inpatient Medications Medications (Trade) Dose Ordered Sig/Nicolasa Route Start Time Stop Time Status Last Admin Dose Admin Clopidogrel Bisulfate (plAVix TAB) 75 mg QAM PO 09/11/16 09:00 4/2/17 08:59 09/11/16 07:49 75 MG Miscellaneous Information (Pharmacist Discharge Med Rec Consult) 1 ea UD PRN N/A 09/10/16 18:15 10/10/16 18:14 Acetaminophen (Tylenol Tab) 650 mg Q4H PRN PO 09/10/16 18:15 10/10/16 18:14 09/11/16 07:48 650 MG Ondansetron HCl (Zofran Inj) 4 mg Q6H PRN IV 09/10/16 18:15 10/10/16 18:14 Aspirin (Ecotrin Tab) 325 mg DAILY PO 09/11/16 09:00 10/11/16 08:59 09/11/16 07:49 325 MG Atorvastatin Calcium (Lipitor Tab) 20 mg DAILY PO 09/11/16 09:00 10/11/16 08:59 09/11/16 07:48 20 MG Cholecalciferol (Vitamin D Tab) 5,000 inter.unit DAILY PO 09/11/16 09:00 10/11/16 08:59 09/11/16 07:51 5,000 INTER.UNIT Citalopram Hydrobromide (celeXA TAB) 10 mg DAILY PO 09/11/16 09:00 10/11/16 08:59 09/11/16 07:48 10 MG Doxepin HCl (Sinequan Cap) 10 mg HS PO 09/10/16 21:00 10/10/16 20:59 09/10/16 20:35 10 MG Fluticasone Propionate (Flonase Nasal [place]) 2 sprays DAILY DEBBIE 09/11/16 09:00 10/11/16 08:59 09/11/16 07:51 2 SPRAYS Gabapentin (Neurontin Cap) 300 mg QAM PO 09/11/16 09:00 10/11/16 08:59 09/11/16 07:48 300 MG Gabapentin (Neurontin Tab) 600 mg QPM PO 09/10/16 21:00 10/10/16 20:59 09/10/16 20:35 600 MG Levothyroxine Sodium (Synthroid Tab) 100 mcg DAILYBB PO 09/11/16 06:00 10/11/16 06:59 09/11/16 06:32 100 MCG Meclizine HCl (Antivert Tab) 25 mg TID PRN PO 09/10/16 18:30 10/10/16 18:29 Multivitamins (Multivitamin Tab) 1 tab DAILY PO 09/11/16 09:00 10/11/16 08:59 09/11/16 07:49 1 TAB Polyethylene (Miralax Powder Packet) 17 gm DAILY PO 09/11/16 09:00 10/11/16 08:59 09/11/16 07:51 17 GM Prednisone (PredniSONE TAB) 2 mg DAILY PO 09/11/16 09:00 10/11/16 08:59 09/11/16 07:50 2 MG Ranitidine HCl (zANTac TAB) 150 mg DAILY PRN PO 09/10/16 18:30 10/10/16 18:29 09/11/16 07:49 150 MG Atenolol (Tenormin Tab) 50 mg DAILY PO 09/11/16 09:00 10/11/16 08:59 09/11/16 07:50 50 MG Glucose (Glucose 40% Gel) 15-30 GRAMS 15 GRAMS... UD PRN PO 09/10/16 18:45 10/10/16 18:44 Glucose (Glucose Chew Tab) 4-8 Tablets 4 Tabl... UD PRN PO 09/10/16 18:45 10/10/16 18:44 Dextrose (Dextrose 50% 50ML Syringe) 25-50ML OF 50% DW IV FOR... UD PRN IV 09/10/16 18:45 10/10/16 18:44 Glucagon (Glucagon Inj) 1 mg UD PRN SQ 09/10/16 18:45 10/10/16 18:44
--- NOTE | 2016-09-11 10:03 | CARDIOLOGY CONSULTATION ---
DATE OF CONSULTATION: 09/11/2016 REFERRING PHYSICIAN: Rip Billy MD REASON FOR CONSULTATION: Cerebrovascular accident, rule out cardioembolic source. CHIEF COMPLAINT ON ADMISSION: Headache and visual changes. HISTORY OF PRESENT ILLNESS: Ms. Hinojosa is an 85-year-old female with a past medical history of multiple cerebrovascular accident, diabetes, hypertension, and atrial fibrillation. She presented to her family physician's office secondary to right-sided visual field deficit and headache, which began approximately 2 weeks ago. An MRI was ordered and performed as an outpatient, demonstrating an acute infarct in the left occipital region with the boundary between the MCA and POWER LINEMAN territory. She was referred to the Emergency Department. The patient was admitted to the progressive care unit. Telemetry demonstrates sinus rhythm. Her headache is mild this morning. Her visual field deficit has resolved. Denies palpitations, lightheadedness, dizziness, syncope or near syncope. A 24-hour Holter monitor was performed in 2012 and read as short salvos of atrial fibrillation. Repeat ECG since that time had demonstrated sinus rhythm. She was prescribed Plavix by the internal medicine service. A neurology consult is pending. REVIEW OF SYSTEMS: The pertinent positive noted above, a comprehensive 10-system review is otherwise negative. PAST MEDICAL HISTORY: 1. Cerebrovascular disease with MRI evidence of multiple prior cerebrovascular accidents in multiple territories including lacunar infarcts. 2. Paroxysmal atrial fibrillation per 24-hour Holter monitor on 08/18/2012. 3. Hypothyroidism. 4. Hypertension. 5. Diabetes. 6. Dyslipidemia. 7. Polymyalgia rheumatica. 8. Tremor. 9. TMJ disorder. 10. Depression. 11. Alcohol abuse. 12. Pancreatic cyst. 13. Multiple PACs. PAST SURGICAL HISTORY: 1. Umbilical hernia repair. 2. Laparoscopic cholecystectomy. 3. Hysterectomy. 4. Breast biopsy. 5. Colonoscopy. 6. EGD. FAMILY HISTORY: Negative for premature CAD or sudden cardiac ; however noncontributory given the patient's advanced age. SOCIAL HISTORY: Lifelong nonsmoker. Former alcohol abuse; however, no alcohol use for 1 year. Per review of records, a family friend told the medical staff that she drinks approximately 3 alcoholic beverages per week. ALLERGIES: LISINOPRIL, PENICILLIN, AND CODEINE. HOME MEDICATIONS: 1. Aspirin 325 mg daily. 2. Atenolol 100 mg daily. 3. Lipitor 20 mg daily. 4. Celexa 10 mg daily. 5. Doxepin 10 mg at bedtime. 6. Restasis daily. 7. Flonase 2 sprays daily. 8. Gabapentin 300 mg in morning and 600 at night. 9. Synthroid 1 tab daily. 10. Losartan 100 mg daily. 11. Multivitamin daily. 12. Polyethylene glycol 17 grams daily. 13. Prednisone daily. 14. Tylenol as needed. 15. Meclizine as needed. 16. Zantac as needed. 17. Ambien as needed. CAROTID DUPLEX: Mild bilateral plaque without hemodynamically significant stenosis, anterograde flow noted in the vertebral arteries. CHEST X-RAY: No active disease. LABORATORY DATA: White blood cell count 8.07, hemoglobin is 13.2, and platelet count is 121. Sodium 142, potassium 2.6, chloride 100, CO2 is 26, BUN is 29, and creatinine 0.88. Troponin negative. LDL is 74. INR is 0.9. Tox screen is pending. Telemetry demonstrates sinus rhythm. PHYSICAL EXAMINATION: VITAL SIGNS: Temperature is 36.7 degrees centigrade, pulse 67 beats per minute and regular, respiratory rate 18 breaths, and blood pressure 169/73. GENERAL: NAD, awake, alert and oriented x3. HEENT: Mucous membranes are moist. No scleral icterus. Conjunctivae pink. NECK: Supple without JVD or HJR. No carotid bruit. HEART: Regular with a normal S1 and S2. There is no murmur, rub, or gallop. LUNGS: Clear without rales, rhonchi or wheeze. ABDOMEN: Soft and nontender. No rebound or guarding. EXTREMITIES: Warm and dry without clubbing, cyanosis, or edema. NEUROLOGIC: Demonstrates no focal motor deficit. No evidence of visual field deficit. Cranial nerves are grossly intact. FINAL IMPRESSION: 1. Complex 85-year-old female admitted with acute left occipital region infarct per outpatient MRI. Evidence of multiple old infarcts per imaging. 2. Paroxysmal atrial fibrillation, currently sinus rhythm. 3. Preserved left ventricular systolic function with evidence of hypertensive heart disease. 4. Hypertension -- uncontrolled on admission in the setting of cerebrovascular accident -- trending downward. 5. Diabetes type 2. 6. Polymyalgia rheumatica. 7. Mild carotid vascular plaque. PLAN AND RECOMMENDATIONS: I had a long discussion with the patient regarding her imaging study demonstrating multiple old cerebrovascular accidents as well as evidence of acute infarct as described above. With prior 24-hour Holter monitor demonstrating short salvos of atrial fibrillation, I recommend anticoagulation. The risks versus benefits of DOAC versus Coumadin were reviewed at length. The patient is agreeable to Eliquis 5 mg twice daily. With recent infarct, beginning of anticoagulation will be reviewed with neurology. If there is no objection from their perspective, we will begin Eliquis today. Aspirin will be discontinued as well as Plavix. She will continue statin therapy in addition to her current antihypertensive medications. I would not aggressively lower her blood pressure today. Recommend a gradual reduction over the next 48 hours. Consider low-dose calcium channel jorgel uis if needed. Continue telemetry monitoring during hospitalization. Thanks for allowing me to take part in the care of your patient. JULES
[2016-09-11 10:13] LABS: URINE APPEARANCE CLEAR (CLEAR); URINE BILIRUBIN NEG (NEG); URINE COLOR YELLOW; URINE NITRITE NEG (NEG); URINE SPECIFIC GRAVITY 1.014 (1.000-1.030); UROBILINOGEN NEG (NEG)
[2016-09-11 10:17] LABS: MANUAL MICROSCOPIC REQUIRED? NO; REVIEW REQ? NO
[2016-09-11 10:43] LABS: BENZODIAZEPINE, URINE NEG (NEG); COCAINE,URINE NEG (NEG); PHENCYCLIDINE, URINE NEG (NEG)
--- NOTE | 2016-09-11 12:55 | Neurology Consultation ---
Neurology Consultation Date of Consultation: Sep 11, 2016. Attending Physician: Rip Billy M.D. Primary Care Physician: Liu Antunez M.D. Reason for Consultation: CVA History of Present Illness Source: patient Mera is a 85 year old female with PMH of multiple CVAs, AF, DM type 2, HTN, HL. She was at the outpatient MRI unit in [place] and an acute stroke was see. She states right eye vision loss and headache starting 1.5 weeks ago. When she was at her PCP appointment an MRI was ordered. She did have a ice pick stabbing between her eyes at onset but now is frontal pressure. She has chronic headaches. She reports chronic intermittent palpitations. She is on no anticoagulation for her afib aspirin only . She had a Holter done in 2012 without any sustained arrhythmias. She denies CP, SOB, abdominal pain, weakness , numbness tingling, N, V, falls, +right peripheral vision changes, Past Medical/Surgical History Medical Problems: (1) Acute CVA (cerebrovascular accident) Status: Acute (2) Hypertensive urgency Status: Acute (3) Intractable abdominal pain Status: Acute Social History Alcohol Use: adamately states no etoh use for past 1 year. outside of the room family told nurse 3 drinks per week. Drug Use: none Occupation Status: retired Allergies Coded Allergies: Lisinopril (Verified Allergy, Intermediate, RASH, 09/10/16) Penicillins (Verified Allergy, Intermediate, EDEMA, 09/10/16) Codeine (Verified Adverse Reaction, Intermediate, NAUSEA, VOMITING, 09/10/16 ) Current Inpatient Medications Current Inpatient Medications Medications (Trade) Dose Ordered Sig/Nicolasa Route Start Time Stop Time Status Last Admin Dose Admin Clopidogrel Bisulfate (plAVix TAB) 75 mg QAM PO 09/11/16 09:00 10/11/16 08:59 09/11/16 07:49 75 MG Miscellaneous Information (Pharmacist Discharge Med Rec Consult) 1 ea UD PRN N/A 09/10/16 18:15 10/10/16 18:14 Acetaminophen (Tylenol Tab) 650 mg Q4H PRN PO 09/10/16 18:15 10/10/16 18:14 09/11/16 07:48 650 MG Ondansetron HCl (Zofran Inj) 4 mg Q6H PRN IV 09/10/16 18:15 10/10/16 18:14 Atorvastatin Calcium (Lipitor Tab) 20 mg DAILY PO 09/11/16 09:00 10/11/16 08:59 09/11/16 07:48 20 MG Cholecalciferol (Vitamin D Tab) 5,000 inter.unit DAILY PO 09/11/16 09:00 10/11/16 08:59 09/11/16 07:51 5,000 INTER.UNIT Citalopram Hydrobromide (celeXA TAB) 10 mg DAILY PO 09/11/16 09:00 10/11/16 08:59 09/11/16 07:48 10 MG Doxepin HCl (Sinequan Cap) 10 mg HS PO 09/10/16 21:00 10/10/16 20:59 09/10/16 20:35 10 MG Fluticasone Propionate (Flonase Nasal [place]) 2 sprays DAILY DEBBIE 09/11/16 09:00 10/11/16 08:59 09/11/16 07:51 2 SPRAYS Gabapentin (Neurontin Cap) 300 mg QAM PO 09/11/16 09:00 10/11/16 08:59 09/11/16 07:48 300 MG Gabapentin (Neurontin Tab) 600 mg QPM PO 09/10/16 21:00 10/10/16 20:59 09/10/16 20:35 600 MG Levothyroxine Sodium (Synthroid Tab) 100 mcg DAILYBB PO 09/11/16 06:00 10/11/16 06:59 09/11/16 06:32 100 MCG Meclizine HCl (Antivert Tab) 25 mg TID PRN PO 09/10/16 18:30 10/10/16 18:29 Multivitamins (Multivitamin Tab) 1 tab DAILY PO 09/11/16 09:00 10/11/16 08:59 09/11/16 07:49 1 TAB Polyethylene (Miralax Powder Packet) 17 gm DAILY PO 09/11/16 09:00 10/11/16 08:59 09/11/16 07:51 17 GM Prednisone (PredniSONE TAB) 2 mg DAILY PO 09/11/16 09:00 10/11/16 08:59 09/11/16 07:50 2 MG Ranitidine HCl (zANTac TAB) 150 mg DAILY PRN PO 09/10/16 18:30 10/10/16 18:29 09/11/16 07:49 150 MG Atenolol (Tenormin Tab) 50 mg DAILY PO 09/11/16 09:00 10/11/16 08:59 09/11/16 07:50 50 MG Glucose (Glucose 40% Gel) 15-30 GRAMS 15 GRAMS... UD PRN PO 09/10/16 18:45 10/10/16 18:44 Glucose (Glucose Chew Tab) 4-8 Tablets 4 Tabl... UD PRN PO 09/10/16 18:45 10/10/16 18:44 Dextrose (Dextrose 50% 50ML Syringe) 25-50ML OF 50% DW IV FOR... UD PRN IV 09/10/16 18:45 10/10/16 18:44 Glucagon (Glucagon Inj) 1 mg UD PRN SQ 09/10/16 18:45 10/10/16 18:44 Physical Exam Vital Signs (Past 24 Hrs): Date Time Temp Pulse Resp B/P Pulse Ox O2 Delivery O2 Flow Rate FiO2 09/11/16 11:36 36.5 61 18 157/72 96 Room Air 09/11/16 08:52 74 96 09/11/16 08:00 Room Air 09/11/16 07:58 36.7 67 18 169/73 94 Room Air 09/11/16 04:21 36.3 61 18 120/71 97 Room Air 09/11/16 04:00 Room Air 09/11/16 01:01 177/81 09/11/16 00:16 36.6 62 18 186/92 97 Room Air 09/10/16 23:59 Room Air 09/10/16 21:20 36.5 68 16 152/77 93 Room Air 09/10/16 20:00 Room Air 09/10/16 19:45 36.5 70 16 193/96 96 Room Air 09/10/16 19:22 36.5 69 18 193/96 94 Room Air 205/75 09/10/16 18:35 70 15 213/98 97 Room Air 09/10/16 18:00 66 20 207/79 99 Room Air 09/10/16 17:13 63 09/10/16 17:08 97 Room Air 09/10/16 17:08 36.5 61 16 220/103 97 Room Air Physical Exam: Constitutional: appearance nourished, healthy and normal Ears, Nose, Mouth and Throat: mucous membranes moist, no injection and skin normal, eyes normal Cardiovascular: normal S-1 and S-2 and regular rate and rhythm Respiratory: clear to auscultation (CTA) and no rales, rhonchi or wheeze Musculoskeletal: no peripheral edema and good distal pulses Skin: no stigmata of neurocutaneous disease noted and normal and intact Eyes: extraocular muscles intact (EOMI) and pupils equal, round and reactive to light (PERRL), gross peripheral vision intact NEUROLOGIC EXAMINATION: Mental status: Alert and interactive Oriented to full date and location Oriented to person Speech fluent with no evidence of aphasia Cranial Nerves smile eye brow raise symmetric, tongue midline Reflexes: Deep tendon reflexes were symmetrical and graded 2/5. Plantar responses were flexor. Sensory: no deficit to cool or vibration Coordination: Romberg absent Gait/Stance: Posture normal. Gait normal: with steady with steps, base, and tandem gait. Motor: Negative for pronator drift of out stretched arms with eyes closed. Strength: biceps triceps hand director of corporate strategy intrinsics 5/5 bilaterally, hip flex plantar flex ext 5 /5 bilaterally Laboratory Results Past 24 Hours: 09/11/16 06:30 Red Blood Count 4.36, Mean Corpuscular Volume 92.2, Mean Corpuscular Hemoglobin 30.3, Mean Corpuscular Hemoglobin Concent 32.8, Mean Platelet Volume 11.8, Neutrophils (%) (Auto) 50.2, Lymphocytes (%) (Auto) 35.7, Monocytes (%) (Auto) 8.3, Eosinophils (%) (Auto) 5.1, Basophils (%) (Auto) 0.6, Neutrophils # (Auto) 4.05, Lymphocytes # (Auto) 2.88, Monocytes # (Auto) 0.67, Eosinophils # (Auto) 0.41, Basophils # (Auto) 0.05 09/11/16 06:30 Test 09/10/16 17:55 09/11/16 06:30 09/11/16 09:44 09/11/16 11:01 Prothrombin Time 9.9 SECONDS (9.0-12.0) Prothromb Time International Ratio 0.9 (0.9-1.1) Activated Partial Thromboplast Time 24.1 SECONDS (21.0-31.0) Partial Thromboplastin Ratio 0.9 Total Creatine Kinase 45 U/L (26-192) Creatine Kinase MB 0.8 ng/ml (0.5-3.6) Creatine Kinase MB Ratio 1.8 (0-3.0) Troponin I < 0.015 ng/ml (0-0.045) White Blood Count 8.07 K/uL (4.8-10.8) Red Blood Count 4.36 M/uL (4.2-5.4) Hemoglobin 13.2 g/dL (12.0-16.0) Hematocrit 40.2 % (37-47) Mean Corpuscular Volume 92.2 fL (80-100) Mean Corpuscular Hemoglobin 30.3 pg (25-34) Mean Corpuscular Hemoglobin Concent 32.8 g/dl (32-36) Platelet Count 121 K/uL (130-400) Mean Platelet Volume 11.8 fL (7.4-10.4) Neutrophils (%) (Auto) 50.2 % Lymphocytes (%) (Auto) 35.7 % Monocytes (%) (Auto) 8.3 % Eosinophils (%) (Auto) 5.1 % Basophils (%) (Auto) 0.6 % Neutrophils # (Auto) 4.05 K/uL (1.4-6.5) Lymphocytes # (Auto) 2.88 K/uL (1.2-3.4) Monocytes # (Auto) 0.67 K/uL (0.11-0.59) Eosinophils # (Auto) 0.41 K/uL (0-0.5) Basophils # (Auto) 0.05 K/uL (0-0.2) RDW Standard Deviation 44.8 fL (36.4-46.3) RDW Coefficient of Variation 13.1 % (11.5-14.5) Immature Granulocyte % (Auto) 0.1 % Immature Granulocyte # (Auto) 0.01 K/uL (0.00-0.02) Anion Gap 9.0 mmol/L (3-11) Est Creatinine Clear Calc Drug Dose 40.1 ml/min Estimated GFR () 70.4 Estimated GFR (Non- 60.8 BUN/Creatinine Ratio 23.8 (10-20) Calcium Level 8.6 mg/dl (8.5-10.1) Triglycerides Level 96 mg/dl (0-150) Cholesterol Level 146 mg/dl (0-200) HDL Cholesterol 53 mg/dl LDL Cholesterol, Calculated 74 mg/dl VLDL Cholesterol, Calculated 19 mg/dl Cholesterol/HDL Ratio 2.8 Urine Color YELLOW Urine Appearance CLEAR (CLEAR) Urine pH 6.0 (4.5-7.5) Urine Specific [place] 1.014 (1.000-1.030) Urine Protein NEG (NEG) Urine Glucose (UA) TRACE (NEG) Urine Ketones NEG (NEG) Urine Occult Blood NEG (NEG) Urine Nitrite NEG (NEG) Urine Bilirubin NEG (NEG) Urine Urobilinogen NEG (NEG) Urine Leukocyte Esterase NEG (NEG) Urine Opiates Screen NEG (NEG) Urine Methadone, Qualitative NEG (NEG) Urine Barbiturates NEG (NEG) Urine Phencyclidine (PCP) Level NEG (NEG) Ur Amphetamine/Methamphetamine NEG (NEG) MDMA (Ecstasy) Screen NEG (NEG) Urine Benzodiazepines Screen NEG (NEG) Urine Cocaine Metabolite NEG (NEG) Urine Marijuana (THC) NEG (NEG) Bedside Glucose 158 mg/dl (70-90) Imaging Carotid doppler- Atherosclerotic plaque with no sonographic evidence of hemodynamically significant stenosis in the right or left carotid arterial system. Antegrade flow is shown in the vertebral arteries. CXR- No active disease in the chest. TTE Left ventricular systolic function is normal. * Ejection Fraction = 65-70%. * There is moderate concentric left ventricular hypertrophy. * The left atrium is mildly dilated. * Grade I diastolic dysfunction, (abnormal relaxation pattern). * Mild aortic regurgitation. * There is mild mitral regurgitation. NO ASD Impression 85 year old female s/p acute CVA with history of past CVA and afib Plan 1. optimize blood pressure control, LDL <70, and any other controllable risk factors 2. PT/OT/Speech-does not appear to be any needs or deficit 3. cards would like to start Eliquis for afib- ok from neurology stand point would stop plavix when started 4. ophthalmology exam as an outpatient due to vision changes 5. cardiology for follow up with afib- likely the cause of the multiple history of stroke 6. would wait 48 hours to start eliquis CT head prior to starting. I have seen and discussed above patient with Dr Sandoval Miguel, neurology I know this woman from prior visits about one year ago she is now here for a recent left occipital cva with virtually no symptoms and virtualy nothing on exam which is what happened lsst year MRI show old areas of right occipital infarction and a new area in the left occiput and the interpretaion suggesss "watershed mechanisms " rather than embolic but she has a history of paroxysmal a fib and was on asa she now has continued hypertension but the images do not look like PRES apparently and she does have a migraine hstory. At present would go with asa and plavix but will defer to cardilogy if they want to go with eliquis as long as we get and the imaging study to exclude secondary post cva bleeding ( not uncommon in occipital cva ) discussed with Su Mathews and agree with above will check bck tomorrow Sandoval Miguel MD
[2016-09-11] MEDS ORDERED: ZOLPIDEM TARTRATE 5 MG TAB PO PRN (18:30)
[2016-09-11] MEDS: GABAPENTIN 600 MG TAB PO SCH (20:39)
[2016-09-11] MEDS: DOXEPIN HCL 10 MG CAP PO SCH (20:39)
[2016-09-12 00:18] VITALS: BP 130/71; PULSE 72; TEMP 36.3; O2SAT 95
[2016-09-12 03:58] VITALS: BP 130/74; PULSE 73; TEMP 36.7; O2SAT 94
[2016-09-12] MEDS: LEVOTHYROXINE 100 MCG TAB PO SCH (06:23)
[2016-09-12 06:54] LABS: BASO % 0.7 %; BASO ABS # 0.05 K/uL (0-0.2); COMPLETE YES; EOS % 6.6 %; HEMATOCRIT 40.2 % (37-47); IG% 0.1 %; LYMPH % 34.7 %; LYMPH ABS # 2.58 K/uL (1.2-3.4); MEAN CELL VOLUME 90.7 fL (80-100); MEAN CORPUSCULAR HEMOGLOBIN 30.2 pg (25-34); MEAN CORPUSCULAR HGB CONC 33.3 g/dl (32-36); MEAN PLATELET VOLUME 11.9 fL (7.4-10.4); MONO % 8.3 %; NEUT % 49.6 %; PLATELET COUNT 130 K/uL (130-400); RED BLOOD COUNT 4.43 M/uL (4.2-5.4); WHITE BLOOD COUNT 7.43 K/uL (4.8-10.8)
[2016-09-12 07:21] LABS: BUN/CREATININE RATIO 26.1 (10-20); CALCIUM 8.8 mg/dl (8.5-10.1); CREATININE 0.94 mg/dl (0.60-1.20); POTASSIUM 3.9 mmol/L (3.5-5.1)
[2016-09-12] MEDS: POLYETHYLENE (MIRALAX) 17 GM PACK PO SCH (07:57)
[2016-09-12] MEDS: MULTIVITAMIN TAB PO SCH (07:57)
[2016-09-12] MEDS: FLUTICASONE PROPIONATE NA SPR 16 GM BTL NAE SCH (07:57)
[2016-09-12] MEDS: ATORVASTATIN 20 MG TAB PO SCH (07:58)
[2016-09-12] MEDS: GABAPENTIN 300 MG CAP PO SCH (07:58)
[2016-09-12] MEDS: CITALOPRAM 20 MG TAB PO SCH (07:58)
[2016-09-12] MEDS: CLOPIDOGREL BISULFATE 75 MG TAB PO SCH (07:58)
[2016-09-12] MEDS: CHOLECALCIFEROL 1000 INTER.UNIT TAB PO SCH (08:00)
[2016-09-12 08:07] VITALS: BP 166/89; PULSE 69; TEMP 36.5; O2SAT 98
--- NOTE | 2016-09-12 09:10 | Progress Note ---
Medicine Progress Note Date & Time of Visit: Sep 12, 2016 at 09:01. Subjective Pt was seen and examined Lying in bed comfortable with no distress Pt said that she feels fine she said that her peripheral vision is back to normal she is very anxious to go home tonight because she plans to go dancing denies any chest pain, palpitation, dizziness and sob Objective Last 8 Hrs Date Time Temp Pulse Resp B/P Pulse Ox O2 Delivery O2 Flow Rate FiO2 09/12/16 08:07 36.5 69 18 166/89 98 Room Air 09/12/16 08:00 Room Air 09/12/16 04:00 Room Air 09/12/16 03:58 36.7 73 17 130/74 94 Room Air Physical Exam: General- very pleasant, no acute distress Head- atraumatic Eyes- PERRL, EOMI ENT- oropharynx clear Neck- supple, no JVD Lungs- clear to auscultation and percussion Heart- regular rhythm; no murmur Abdomen- normal bowel sounds, soft Extremities- no pretibial edema, no calf tenderness Neuro- alert, oriented x 3; PERRL, EOMI; no facial palsy; no dysarthria Skin- warm & dry Laboratory Results: Last 24 Hours Test 09/11/16 09:44 09/11/16 11:01 09/11/16 16:17 09/11/16 20:40 Urine Color YELLOW Urine Appearance CLEAR Urine pH 6.0 Urine Specific [place] 1.014 Urine Protein NEG Urine Glucose (UA) TRACE Urine Ketones NEG Urine Occult Blood NEG Urine Nitrite NEG Urine Bilirubin NEG Urine Urobilinogen NEG Urine Leukocyte Esterase NEG Urine Opiates Screen NEG Urine Methadone, Qualitative NEG Urine Barbiturates NEG Urine Phencyclidine (PCP) Level NEG Ur Amphetamine/Methamphetamine NEG MDMA (Ecstasy) Screen NEG Urine Benzodiazepines Screen NEG Urine Cocaine Metabolite NEG Urine Marijuana (THC) NEG Bedside Glucose 158 mg/dl 175 mg/dl 185 mg/dl Test 09/12/16 06:32 09/12/16 06:35 Bedside Glucose 137 mg/dl White Blood Count 7.43 K/uL Red Blood Count 4.43 M/uL Hemoglobin 13.4 g/dL Hematocrit 40.2 % Mean Corpuscular Volume 90.7 fL Mean Corpuscular Hemoglobin 30.2 pg Mean Corpuscular Hemoglobin Concent 33.3 g/dl Platelet Count 130 K/uL Mean Platelet Volume 11.9 fL Neutrophils (%) (Auto) 49.6 % Lymphocytes (%) (Auto) 34.7 % Monocytes (%) (Auto) 8.3 % Eosinophils (%) (Auto) 6.6 % Basophils (%) (Auto) 0.7 % Neutrophils # (Auto) 3.68 K/uL Lymphocytes # (Auto) 2.58 K/uL Monocytes # (Auto) 0.62 K/uL Eosinophils # (Auto) 0.49 K/uL Basophils # (Auto) 0.05 K/uL RDW Standard Deviation 43.5 fL RDW Coefficient of Variation 13.2 % Immature Granulocyte % (Auto) 0.1 % Immature Granulocyte # (Auto) 0.01 K/uL Sodium Level 143 mmol/L Potassium Level 3.9 mmol/L Chloride Level 107 mmol/L Carbon Dioxide Level 30 mmol/L Anion Gap 6.0 mmol/L Blood Urea Nitrogen 25 mg/dl Creatinine 0.94 mg/dl Est Creatinine Clear Calc Drug Dose 37.5 ml/min Estimated GFR () 65.0 Estimated GFR (Non- 56.1 BUN/Creatinine Ratio 26.1 Random Glucose 148 mg/dl Calcium Level 8.8 mg/dl Assessment & Plan ACUTE LEFT OCCIPITAL INFARCT Onset of symptoms 1.5 weeks ago Hx of P. Afib not on anticoagulant Possible cardiac etiology MRI brain done outpatient on 09/10/16 showed acute left occipital infarct, + multiple old strokes Carotid u/s shown no Atherosclerotic plaque with no sonographic evidence of hemodynamically significant stenosis in the right or left carotid arterial system Will get an MRA of the head Echo showed normal wall motion with normal EF On plavix and aspirin for now will discussed with Neuro if ok to start her on eliquis 5 mg BID for the Afib If we ok with neuro, will d/c aspirin and will not continue plavix since pt has no significant vascular disease Continue Neuro checks Neurology consulting, waiting for input 09/12 Neuro recommends to repeat the CT to r/o any post cva bleeding CT head pending will waiting for the ct result before starting the eliquis if ok with neuro continue neuro check HEADACHE Try acetaminophen as it helped her at home Stable HYPERTENSION BP was elevated to 220 systolic in ER; given Labetalol -> improved to 180s-190s will resume her BP meds Monitor BP closely PAROXYSMAL ATRIAL FIBRILLATION Currently in NSR Continue atenolol Not on anticoagulation Holter in 2013 without any sustained arrhythmias; 2013 and 2013 EKGs in [facility] show sinus rhythm Case discussed with Cardiology that recommends to start pt on Eliquis 5 mg BID if ok with neuro due to the recent stroke (risk of hemorrhage) Echo Left ventricular systolic function is normal. * Ejection Fraction = 65-70%. * There is moderate concentric left ventricular hypertrophy. * The left atrium is mildly dilated. * Grade I diastolic dysfunction, (abnormal relaxation pattern). * Mild aortic regurgitation. * There is mild mitral regurgitation. DM TYPE 2 Diet controlled A1c 7.1 on 09/03/16 HYPOTHYROIDISM Continue levothyroxine POLYMYALGIA RHEUMATICA Continue chronic prednisone DEPRESSION Continue citalopram and doxepin DVT PROPHYLAXIS SCDs since patient is on aspirin and plavix CODE STATUS Full code DISPOSITION Consultants: Cardiology Neuro PT/OT Current Inpatient Medications: Current Inpatient Medications Medications (Trade) Dose Ordered Sig/Nicolasa Route Start Time Stop Time Status Last Admin Dose Admin Clopidogrel Bisulfate (plAVix TAB) 75 mg QAM PO 09/11/16 09:00 10/11/16 08:59 09/12/16 07:58 75 MG Miscellaneous Information (Pharmacist Discharge Med Rec Consult) 1 ea UD PRN N/A 09/10/16 18:15 10/10/16 18:14 Acetaminophen (Tylenol Tab) 650 mg Q4H PRN PO 09/10/16 18:15 10/10/16 18:14 09/11/16 07:48 650 MG Ondansetron HCl (Zofran Inj) 4 mg Q6H PRN IV 09/10/16 18:15 10/10/16 18:14 Atorvastatin Calcium (Lipitor Tab) 20 mg DAILY PO 09/11/16 09:00 10/11/16 08:59 09/12/16 07:58 20 MG Cholecalciferol (Vitamin D Tab) 5,000 inter.unit DAILY PO 09/11/16 09:00 10/11/16 08:59 09/11/16 07:51 5,000 INTER.UNIT Citalopram Hydrobromide (celeXA TAB) 10 mg DAILY PO 09/11/16 09:00 10/11/16 08:59 09/12/16 07:58 10 MG Doxepin HCl (Sinequan Cap) 10 mg HS PO 09/10/16 21:00 10/10/16 20:59 09/11/16 20:39 10 MG Fluticasone Propionate (Flonase Nasal [place]) 2 sprays DAILY DEBBIE 09/11/16 09:00 10/11/16 08:59 09/12/16 07:57 2 SPRAYS Gabapentin (Neurontin Cap) 300 mg QAM PO 09/11/16 09:00 10/11/16 08:59 09/12/16 07:58 300 MG Gabapentin (Neurontin Tab) 600 mg QPM PO 09/10/16 21:00 10/10/16 20:59 09/11/16 20:39 600 MG Levothyroxine Sodium (Synthroid Tab) 100 mcg DAILYBB PO 09/11/16 06:00 10/11/16 06:59 09/12/16 06:23 100 MCG Meclizine HCl (Antivert Tab) 25 mg TID PRN PO 09/10/16 18:30 10/10/16 18:29 Multivitamins (Multivitamin Tab) 1 tab DAILY PO 09/11/16 09:00 10/11/16 08:59 09/12/16 07:57 1 TAB Polyethylene (Miralax Powder Packet) 17 gm DAILY PO 09/11/16 09:00 10/11/16 08:59 09/11/16 07:51 17 GM Prednisone (PredniSONE TAB) 2 mg DAILY PO 09/11/16 09:00 10/11/16 08:59 09/12/16 07:58 2 MG Ranitidine HCl (zANTac TAB) 150 mg DAILY PRN PO 09/10/16 18:30 10/10/16 18:29 09/11/16 07:49 150 MG Atenolol (Tenormin Tab) 50 mg DAILY PO 09/11/16 09:00 10/11/16 08:59 09/12/16 07:59 50 MG Glucose (Glucose 40% Gel) 15-30 GRAMS 15 GRAMS... UD PRN PO 09/10/16 18:45 10/10/16 18:44 Glucose (Glucose Chew Tab) 4-8 Tablets 4 Tabl... UD PRN PO 09/10/16 18:45 10/10/16 18:44 Dextrose (Dextrose 50% 50ML Syringe) 25-50ML OF 50% DW IV FOR... UD PRN IV 09/10/16 18:45 10/10/16 18:44 Glucagon (Glucagon Inj) 1 mg UD PRN SQ 09/10/16 18:45 10/10/16 18:44 Zolpidem Tartrate (Ambien Tab) 5 mg HS PRN PO 09/11/16 18:30 10/11/16 18:29 09/11/16 21:57 5 MG
--- NOTE | 2016-09-12 10:08 | DIAGNOSTIC IMAGING REPORT ---
CT SCAN OF THE BRAIN WITHOUT IV CONTRAST CLINICAL HISTORY: Stroke. COMPARISON STUDY: CT of the brain dated 12/01/2013. TECHNIQUE: Unenhanced axial CT scan of the brain is performed from the vertex to the skull base. CT DOSE: 537.48 mGy.cm FINDINGS: Brain parenchyma: There are small subacute versus chronic cortical infarcts identified in the right posterior parietal lobe and both occipital lobes. A small chronic lacunar infarct is identified in the right caudate head. There are age-related involutional changes noting [id number] patchy subcortical and periventricular microangiopathic change. There is no hemorrhage, mass effect, or evidence of acute territorial ischemia by CT criteria. Bernal-white matter is preserved. No extra-axial fluid collection is seen. Ventricles, sulci, cisterns: Prominent secondary to involutional change. Intracranial vasculature: There is atherosclerotic calcification of the cavernous carotid arteries. Calvarium: Unremarkable. Sinuses and mastoids: The visualized paranasal sinuses are clear. The mastoid air cells are well pneumatized. Orbits: The bony orbits are grossly intact. There are bilateral ocular lens implants. IMPRESSION: 1. There is no hemorrhage, mass effect, or evidence of acute territorial ischemia by CT criteria. 2. There are small and subacute versus chronic cortical infarcts identified in the right posterior parietal lobe and both occipital lobes. These are age indeterminant but new from 2013. Correlation with the clinical history and any interval outside imaging studies will be required. Electronically signed by: Maged Rosario M.D. 09/12/2016 10:07 AM Dictated Date/Time: 09/12/2016 10:02 AM
[2016-09-12] MEDS ORDERED: LOSARTAN POTASSIUM 50 MG TAB PO ONE (10:45)
[2016-09-12 11:56] VITALS: BP 159/79; PULSE 84; TEMP 36.7; O2SAT 97
--- NOTE | 2016-09-12 13:35 | PROGRESS NOTE ---
DATE: 09/12/2016 SUBJECTIVE: Mera looks well today. She is absolutely asymptomatic according to her in terms of her visual field loss and her headache is better. Certainly on exam she is awake, alert, oriented in 3 spheres with no cranial nerve deficits. Visual john are full to confrontation. I really cannot pick out any field cut on the right, which was the new area of involvement nor can I find anything on the left, which was the site of her prior event about a year or so ago. She has normal gait, station and coordination. There is no drift or pronation sign. Reflexes are symmetrical. Toes downgoing. Her CAT scan done today reveals no evidence for hemorrhage in the area of infarction, but does reveal the zones of infarction described on the MRI, although less well defined by CT. Cardiology has apparently been contacted about her, a 2-week CardioNet monitor is going to be placed and Eliquis is going to be started at 5 mg twice a day, so at this point Dr. Billy and I discussed her case and I recommended that we stop the aspirin and the Plavix, start her on the Eliquis. She is going to have to see Dr. Mabry in followup and I can probably look at her again in a month. She does have headaches. It is possible that some of these events have been migrainous with complicated features including stroke, but she does have a history of atrial fibrillation, not that well documented by her EKGs, but with subjective palpitations from time to time. If indeed we can document this then continued Eliquis therapy would be reasonable. She is insisting on going home today, so at this point I think plans are pretty well outlined and followups will be arranged. JULES
[2016-09-12] MEDS ORDERED: APIXABAN 2.5 MG TAB PO ONE (14:30)
[2016-09-12] MEDS ORDERED: APIX1TAB3 PO (15:55)
--- NOTE | 2016-09-12 16:08 | Discharge Instructions ---
Discharge Instructions Admission Reason for Admission: Acute Cva (Cerebrovascular Accident) Discharge Discharge Diagnosis / Problem: ACUTE LEFT OCCIPITAL INFARCT, HTN, Paroxysmal AFIB Discharge Goals Goal(s): Decrease discomfort, Improve function, Improve disease control Activity Recommendations Activity Limitations: resume your previous activity (as tolerated) . Instructions / Follow-Up Instructions / Follow-Up Please follow up with your primary care physician dr. Antunez on 09/18 @1:30 pm Follow up with Cardiology Dr. Mabry on 10/09 @2:45 pm at [facility] Follow up with Neurology Dr. Miguel on 10/08 @ 1:50 pm Please stop the aspirin. Since your are on blood thinner, avoid taking NSAID such as motrin, ibuprofen, aleve, naproxen due to the risk of bleeding If you become at risk of fall, please notify your physicians that they can stop the eliquis Medication Instructions: Eliquis Your condition is typically treated with an anticoagulant. Anticoagulants will thin your blood to help prevent new clots. * You should take her medication exactly as directed. * Never skip a dose. * Never take a double dose. If you miss a dose, take it as soon as you remember. Call your Primary Care doctor if you experience any of the following: * Chest Pain * Sudden Shortness of Breath * Rapid or pounding heart beat * Fainting * Dizziness * Cough with blood or bloody sputum * Bruises * Heavy or uncontrolled bleeding * Blood in your urine, stool or vomit * Black or tarry stools Follow Up: It is important for you to keep your follow up appointments with your medical provider. Risk Factors for Stroke: You can reduce your chances of stroke by working with your medical provider to adopt a healthy lifestyle. Some specific ways to lower your chance of stroke are: * If you are a smoker, now is the time to stop smoking cigarettes * If you are diabetic, improve the control of your blood sugars * Avoid excessive amounts of alcohol * Control high blood pressure * Lose weight if you are overweight * Be sure to lead an active lifestyle * Eat a healthy diet low in salt, cholesterol and fat You should know about other risk factors for stroke that you are unable to control. These include: * Age 55 years or older * Male gender * Certain racial groups: , or / * Family History of Stroke, Mini stroke or Heart Attack * Sickle Cell Disease Follow Up: It is important for you to keep your follow up appointments with your medical provider. Current Hospital Diet Patient's current hospital diet: AHA Diet (Heart Healthy), Diabetes Type 2 Diet Discharge Diet Recommended Diet: AHA Diet (Heart Healthy) Pending Studies Studies pending at discharge: no Laboratory Results Lipid Panel Test 09/11/16 06:30 Range/Units Triglycerides Level 96 0-150 mg/dl Cholesterol Level 146 0-200 mg/dl HDL Cholesterol 53 mg/dl Cholesterol/HDL Ratio 2.8 LDL Cholesterol, Calculated 74 mg/dl Medical Emergencies . Who to Call and When: Medical Emergencies: Call 911 immediately if you experience any of the following warning signs and symptoms of Stroke: * Sudden numbness or weakness of the face, arm or leg, especially on one side of the body * Sudden confusion, trouble speaking or understanding * Sudden trouble seeing in one or both eyes * Sudden trouble walking, dizziness, loss of balance or coordination * Sudden severe headache with no cause Do not delay calling 911 if you experience any warning signs or symptoms of a stroke. Delay in seeking medical attention may affect what treatments can be given to you. . Non-Emergent Contact Non-Emergency issues call your: Primary Care Provider Call Non-Emergent contact if: you have any medication questions . . "Provider Documentation" section prepared by Rip Billy. Stroke Core Measures Reason no t-PA for Stroke: Treatment not indicated Reason no antithrom by day 2: Treatment not indicated Reason no antithrom at D/C: Treatment not indicated Reason no statin at D/C: Treatment provided - N/A Reason no anticoag w/a fib: Treatment provided - N/A VTE Core Measure Inpt VTE Proph given/why not?: Other Anticoagulation
[2016-09-12 16:17] VITALS: BP 159/79; PULSE 84; TEMP 36.7; O2SAT 97
--- NOTE | 2016-09-12 19:10 | Pharmacy Progress Note ---
Pharmacist Stroke Counseling Date of Service Sep 12, 2016. Scope Pharmacy has been consulted to provide medication discharge counseling for this patient admitted with ischemic stroke as per the Pharmacist Discharge Counseling for Stroke Patients Protocol. Medications on Discharge New Medications: Apixaban (Eliquis) 5 Mg Tab 5 MG PO BID for 30 Days, #60 TAB Continued Medications: Acetaminophen (Tylenol) 325 Mg Tab 650 MG PO BID PRN for Pain Atenolol (Tenormin) 100 Mg Tab 100 MG PO DAILY, TAB Atorvastatin (Lipitor) 20 Mg Tab 20 MG PO DAILY, TAB Cholecalciferol (Vitamin D 1000 Unit) 1,000 Unit Cap 5000 INTER.UNIT PO DAILY, CAP Citalopram Hydrobromide (Celexa) 10 Mg Tab 10 MG PO DAILY, TAB Cyclosporine (Ophth) (Restasis) 0.05 % Emu 1 DROP OPB DAILY, #60 Doxepin (Sinequan) 10 Mg Cap 10 MG PO HS, CAP Fluticasone Propionate (Nasal) (Flonase Allergy Relief) 50 Mcg/Act Spr 2 SPRAYS DEBBIE DAILY Gabapentin (Gabapentin) 300 Mg Cap 300 MG PO QAM for 30 Days, #90 CAP 1 Refill Gabapentin (Gabapentin) 300 Mg Cap 600 MG PO QPM for 30 Days, #90 CAP 3 Refills Levothyroxine Sodium (Levothyroxine Sodium) 100 Mcg Tab 1 TAB PO DAILY for 90 Days, #90 TAB 3 Refills Losartan Potassium (Cozaar) 100 Mg Tab 1 TAB PO DAILY for 30 Days, #30 TAB 5 Refills Meclizine HCl (Meclizine HCl) 25 Mg Tab 25 MG PO TID PRN for DIZZINESS Multiple Vitamin (Multivitamin) 1 Tab Tab 1 TAB PO DAILY, TAB Polyethylene (Miralax) 17 Gm Pow 17 GM PO DAILY Prednisone (Prednisone) 1 Mg Tab 2 MG PO DAILY, TAB Ranitidine (Zantac) 150 Mg Tab 150 MG PO DAILY PRN for INDIGESTION, TAB Zolpidem Tartrate (Ambien) 5 Mg Tab 5 MG PO HS PRN for Sleep, TAB Discontinued Medications: Aspirin (Aspirin) 325 Mg Tab 325 MG PO DAILY Action The above medications, specifically ones for stroke treatment/prophylaxis, have been reviewed in detail with the patient and/or patient procurement representative(s) prior to discharge. This includes indication, common adverse reactions, drug interactions, and medication administration. Medication counseling has been employed using the teach-back method to ensure understanding. Outcome The patient and/or patient procurement representative(s) have demonstrated understanding of the medications. Please note, they are aware that the pharmacist will call them within 72 hours post-discharge to confirm that the appropriate medications are being taken and answer any further medication related questions the patient might have at that time. Contact information Individual to be contacted: Patient Relationship to patient (if applicable): N/A Phone number: [phone] Best time to call: N/A Additional comments: Spoke with patient regarding starting Eliquis and stopping full strength aspirin. She indicated she understood fully. She was not having problems with the aspirin but had failed it. She will take an additional dose of Eliquis tonight. She was made aware of side effects. She has been on Lipitor for quite sometime and does not have any problems with it. Thank you for allowing pharmacy to be involved in the care of this patient. Please call [phone] or [phone] with any additional questions
[2016-09-12] MEDS ORDERED: APIXABAN 2.5 MG TAB PO SCH (22:00)
[2016-09-13] MEDS ORDERED: LOSARTAN POTASSIUM 50 MG TAB PO SCH (09:00)
[2016-09-13] MEDS ORDERED: APIX1TAB3 PO (14:57)
--- NOTE | 2016-09-14 14:23 | Pharmacy Progress Note ---
Pharmacist Post D/C Phone Note Date of phone call: Sep 14, 2016. Individual with whom pharmacist spoke to: patient The following questions were reviewed during the phone call with responses listed below each: Can you tell me the medications that you are currently taking as well as when and how you take each medication? - yes within reason. Knew that she was taking Eliquis and NOT aspirin. Able to list off a good number and I verified some important ones. When have you missed any doses of your medications? - Yes. There was a mix up with the pharmacy and who had the prescription. 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 Took one dose on Wednesday. What side effects are you having from your medications? - None so far What questions do you have about your medications? - Questioned if she could take acetaminophen. Counseled to take only 3 grams /day maximum. What problems are you having obtaining your medications? - See above. When is your next appointment with your primary care doctor? - Additional comments: - patient very knowledgeable. As per the Pharmacist Discharge Counseling for Stroke Patients Protocol, this phone call has been completed within 72 hours of discharge. Thank you for allowing us to be involved in the care of this patient.
--- NOTE | 2016-09-15 08:33 | Discharge Summary ---
Discharge Summary Date of Service Sep 15, 2016. Discharge Summary Admission Date: Sep 10, 2016 at 18:07 Discharge Date: Sep 12, 2016 Discharge Disposition: Home Principal Diagnosis: ACUTE LEFT OCCIPITAL INFARCT Secondary Diagnoses/Problems: ACUTE LEFT OCCIPITAL INFARCT HTN Paroxysmal AFIB HYPOTHYROIDISM HTN Headache POLYMYALGIA RHEUMATICA DM II Procedures: CT SCAN OF THE BRAIN WITHOUT IV CONTRAST CLINICAL HISTORY: Stroke. COMPARISON STUDY: CT of the brain dated 12/01/2013. TECHNIQUE: Unenhanced axial CT scan of the brain is performed from the vertex to the skull base. CT DOSE: 537.48 mGy.cm FINDINGS: Brain parenchyma: There are small subacute versus chronic cortical infarcts identified in the right posterior parietal lobe and both occipital lobes. A small chronic lacunar infarct is identified in the right caudate head. There are age-related involutional changes noting [id number] patchy subcortical and periventricular microangiopathic change. There is no hemorrhage, mass effect, or evidence of acute territorial ischemia by CT criteria. Bernal-white matter is preserved. No extra-axial fluid collection is seen. Ventricles, sulci, cisterns: Prominent secondary to involutional change. Intracranial vasculature: There is atherosclerotic calcification of the cavernous carotid arteries. Calvarium: Unremarkable. Sinuses and mastoids: The visualized paranasal sinuses are clear. The mastoid air cells are well pneumatized. Orbits: The bony orbits are grossly intact. There are bilateral ocular lens implants. IMPRESSION: 1. There is no hemorrhage, mass effect, or evidence of acute territorial ischemia by CT criteria. 2. There are small and subacute versus chronic cortical infarcts identified in the right posterior parietal lobe and both occipital lobes. These are age indeterminant but new from 2013. Correlation with the clinical history and any interval outside imaging studies will be required. Electronically signed by: Maged Rosario M.D. 09/12/2016 10:07 AM Dictated Date/Time: 09/12/2016 10:02 AM ULTRASOUND OF THE CAROTID ARTERIES CLINICAL HISTORY: Strokelike symptoms. Headache. Visual change. COMPARISON STUDY: No priors. TECHNIQUE: Real-time, grayscale, and color Doppler sonography of the carotid arteries is performed. Images are reviewed in the transverse and longitudinal planes. FINDINGS: Blood pressure in the right arm measures 157/61 and blood pressure in the left arm measures 171/75. The carotid arteries are patent bilaterally and demonstrate antegrade flow. There is mild to moderate echogenic shadowing atherosclerotic plaque seen in the carotid bulbs bilaterally. Normal doppler arterial waveforms are seen throughout. Velocity measurements are listed below. Common carotid peak systolic velocity (cm/sec): RIGHT: 69 LEFT: 71 ICA proximal peak systolic velocity (cm/sec): RIGHT: 51 LEFT: 43 ICA mid peak systolic velocity (cm/sec): RIGHT: 57 LEFT: 50 ICA distal peak systolic velocity (cm/sec): RIGHT: 62 LEFT: 48 ICA/CC peak systolic ratio: RIGHT: 0.9 LEFT: 0.7 Antegrade flow was shown in the vertebral arteries. The external carotid arteries are patent. IMPRESSION: 1. Atherosclerotic plaque with no sonographic evidence of hemodynamically significant stenosis in the right or left carotid arterial system. 2. Antegrade flow is shown in the vertebral arteries. Electronically signed by: Maged Rosario M.D. 09/10/2016 10:31 PM Dictated Date/Time: 09/10/2016 10:29 PM Consultations: Cardiology Neuro PT/OT Medication Reconciliation New Medications: Apixaban (Eliquis) 5 Mg Tab 5 MG PO BID for 30 Days, #60 TAB Continued Medications: Acetaminophen (Tylenol) 325 Mg Tab 650 MG PO BID PRN for Pain Atenolol (Tenormin) 100 Mg Tab 100 MG PO DAILY, TAB Atorvastatin (Lipitor) 20 Mg Tab 20 MG PO DAILY, TAB Cholecalciferol (Vitamin D 1000 Unit) 1,000 Unit Cap 5000 INTER.UNIT PO DAILY, CAP Citalopram Hydrobromide (Celexa) 10 Mg Tab 10 MG PO DAILY, TAB Cyclosporine (Ophth) (Restasis) 0.05 % Emu 1 DROP OPB DAILY, #60 Doxepin (Sinequan) 10 Mg Cap 10 MG PO HS, CAP Fluticasone Propionate (Nasal) (Flonase Allergy Relief) 50 Mcg/Act Spr 2 SPRAYS DEBBIE DAILY Gabapentin (Gabapentin) 300 Mg Cap 300 MG PO QAM for 30 Days, #90 CAP 1 Refill Gabapentin (Gabapentin) 300 Mg Cap 600 MG PO QPM for 30 Days, #90 CAP 3 Refills Levothyroxine Sodium (Levothyroxine Sodium) 100 Mcg Tab 1 TAB PO DAILY for 90 Days, #90 TAB 3 Refills Losartan Potassium (Cozaar) 100 Mg Tab 1 TAB PO DAILY for 30 Days, #30 TAB 5 Refills Meclizine HCl (Meclizine HCl) 25 Mg Tab 25 MG PO TID PRN for DIZZINESS Multiple Vitamin (Multivitamin) 1 Tab Tab 1 TAB PO DAILY, TAB Polyethylene (Miralax) 17 Gm Pow 17 GM PO DAILY Prednisone (Prednisone) 1 Mg Tab 2 MG PO DAILY, TAB Ranitidine (Zantac) 150 Mg Tab 150 MG PO DAILY PRN for INDIGESTION, TAB Zolpidem Tartrate (Ambien) 5 Mg Tab 5 MG PO HS PRN for Sleep, TAB Discontinued Medications: Aspirin (Aspirin) 325 Mg Tab 325 MG PO DAILY Admission Information HPI (per Admitting provider): This is an 85 y/o female with PMH of multiple CVAs, chart history of PAF, DM type 2, HTN, HL, and other problems listed below who was sent to the ED by ambulance for abnormal outpatient brain MRI. Pt follows with Dr. Antunez for primary care and Dr. Miguel for neurology. Pt reports right eye vision loss and headache starting 1.5 weeks ago. She did not go the ER. She was seen by Dr. Antunez for routine follow up on 09/03 and MRI was ordered. Pt states vision loss has gradually improved but still slightly off from baseline. She states GALINDO felt like ice pick stabbing between her eyes at onset but now is frontal pressure. GALINDO partially improves with Tylenol at home. She did not take Tylenol yet today. Currently rates pain 5/10. She admits to similar headaches in the past. She reports chronic intermittent palpitations. Denies photophobia, phonophobia, diplopia, speech or swallowing difficultly, focal weakness or numbness, balance chest pain, SOB, abdominal pain, N/V/D, urinary changes. Pt admits to hx of PAF but is unsure when it was diagnosed. [facility] last cardiology visit was 10 years ago in [place]. She has not been on anticoagulation. She had a Holter done in 2013 without any sustained arrhythmias. Her 2012 and 2013 EKGs in [facility] show sinus rhythm. No hx of brain bleed or GI bleed. Pt had similar vision loss in 2015. Aspirin was increased to 325 mg daily by PCP. MRI showed no acute infarct. She was seen by neurology, Dr. Miguel and aspirin was continued. Pt denies missing any medications including aspirin and BP meds. 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 finger to nose intact) Skin: normal color, warm/dry Hospital Course ACUTE LEFT OCCIPITAL INFARCT Onset of symptoms 1.5 weeks ago Hx of P. Afib not on anticoagulant Possible cardiac etiology MRI brain done outpatient on 09/10/16 showed acute left occipital infarct, + multiple old strokes Carotid u/s shown no Atherosclerotic plaque with no sonographic evidence of hemodynamically significant stenosis in the right or left carotid arterial system Will get an MRA of the head Echo showed normal wall motion with normal EF On plavix and aspirin for now will discussed with Neuro if ok to start her on eliquis 5 mg BID for the Afib If we ok with neuro, will d/c aspirin and will not continue plavix since pt has no significant vascular disease Continue Neuro checks Neurology consulting, waiting for input 09/12 Neuro recommends to repeat the CT to r/o any post cva bleeding CT head pending will waiting for the ct result before starting the eliquis if ok with neuro continue neuro check HEADACHE Try acetaminophen as it helped her at home Stable HYPERTENSION BP was elevated to 220 systolic in ER; given Labetalol -> improved to 180s-190s will resume her BP meds Monitor BP closely PAROXYSMAL ATRIAL FIBRILLATION Currently in NSR Continue atenolol Not on anticoagulation Holter in 2012 without any sustained arrhythmias; 2012 and 2013 EKGs in [facility] show sinus rhythm Case discussed with Cardiology that recommends to start pt on Eliquis 5 mg BID if ok with neuro due to the recent stroke (risk of hemorrhage) Echo Left ventricular systolic function is normal. * Ejection Fraction = 65-70%. * There is moderate concentric left ventricular hypertrophy. * The left atrium is mildly dilated. * Grade I diastolic dysfunction, (abnormal relaxation pattern). * Mild aortic regurgitation. * There is mild mitral regurgitation. DM TYPE 2 Diet controlled A1c 7.1 on 09/03/16 HYPOTHYROIDISM Continue levothyroxine POLYMYALGIA RHEUMATICA Continue chronic prednisone DEPRESSION Continue citalopram and doxepin DVT PROPHYLAXIS SCDs since patient is on aspirin and plavix CODE STATUS Full code DISPOSITION Total time spent on discharge = 35 minutes This includes examination of the patient, discharge planning, medication reconciliation, and communication with other providers. Discharge Instructions Discharge Instructions Admission Reason for Admission: Acute Cva (Cerebrovascular Accident) Discharge Discharge Diagnosis / Problem: ACUTE LEFT OCCIPITAL INFARCT, HTN, Paroxysmal AFIB Discharge Goals Goal(s): Decrease discomfort, Improve function, Improve disease control Activity Recommendations Activity Limitations: resume your previous activity (as tolerated) . Instructions / Follow-Up Instructions / Follow-Up Please follow up with your primary care physician dr. Antunez on 09/18 @1:30 pm Follow up with Cardiology Dr. Mabry on 10/09 @2:45 pm at [facility] Follow up with Neurology Dr. Miguel on 10/08 @ 1:50 pm Please stop the aspirin. Since your are on blood thinner, avoid taking NSAID such as motrin, ibuprofen, aleve, naproxen due to the risk of bleeding If you become at risk of fall, please notify your physicians that they can stop the eliquis Medication Instructions: Eliquis Your condition is typically treated with an anticoagulant. Anticoagulants will thin your blood to help prevent new clots. * You should take her medication exactly as directed. * Never skip a dose. * Never take a double dose. If you miss a dose, take it as soon as you remember. Call your Primary Care doctor if you experience any of the following: * Chest Pain * Sudden Shortness of Breath * Rapid or pounding heart beat * Fainting * Dizziness * Cough with blood or bloody sputum * Bruises * Heavy or uncontrolled bleeding * Blood in your urine, stool or vomit * Black or tarry stools Follow Up: It is important for you to keep your follow up appointments with your medical provider. Risk Factors for Stroke: You can reduce your chances of stroke by working with your medical provider to adopt a healthy lifestyle. Some specific ways to lower your chance of stroke are: * If you are a smoker, now is the time to stop smoking cigarettes * If you are diabetic, improve the control of your blood sugars * Avoid excessive amounts of alcohol * Control high blood pressure * Lose weight if you are overweight * Be sure to lead an active lifestyle * Eat a healthy diet low in salt, cholesterol and fat You should know about other risk factors for stroke that you are unable to control. These include: * Age 55 years or older * Male gender * Certain racial groups: , or / * Family History of Stroke, Mini stroke or Heart Attack * Sickle Cell Disease Follow Up: It is important for you to keep your follow up appointments with your medical provider. Current Hospital Diet Patient's current hospital diet: AHA Diet (Heart Healthy), Diabetes Type 2 Diet Discharge Diet Recommended Diet: AHA Diet (Heart Healthy) Pending Studies Studies pending at discharge: no Laboratory Results Lipid Panel Test 09/11/16 06:30 Range/Units Triglycerides Level 96 0-150 mg/dl Cholesterol Level 146 0-200 mg/dl HDL Cholesterol 53 mg/dl Cholesterol/HDL Ratio 2.8 LDL Cholesterol, Calculated 74 mg/dl Medical Emergencies . Who to Call and When: Medical Emergencies: Call 911 immediately if you experience any of the following warning signs and symptoms of Stroke: * Sudden numbness or weakness of the face, arm or leg, especially on one side of the body * Sudden confusion, trouble speaking or understanding * Sudden trouble seeing in one or both eyes * Sudden trouble walking, dizziness, loss of balance or coordination * Sudden severe headache with no cause Do not delay calling 911 if you experience any warning signs or symptoms of a stroke. Delay in seeking medical attention may affect what treatments can be given to you. . Non-Emergent Contact Non-Emergency issues call your: Primary Care Provider Call Non-Emergent contact if: you have any medication questions . . "Provider Documentation" section prepared by Rip Billy. Stroke Core Measures Reason no t-PA for Stroke: Treatment not indicated Reason no antithrom by day 2: Treatment not indicated Reason no antithrom at D/C: Treatment not indicated Reason no statin at D/C: Treatment provided - N/A Reason no anticoag w/a fib: Treatment provided - N/A VTE Core Measure Inpt VTE Proph given/why not?: Other Anticoagulation Additional Copies To Liu Antunez M.D.
== END 2016-09-12 17:02 | disposition home or self-care (01) | DRG 66 ==
LOC: ENRESERVTM → CANRESERV → ENRESERVDT → EDBD 16:58 → C.EDB 17:00 → C.2T 18:07
PROVIDERS: ADMIT Internal Medicine; ATTEND Internal Medicine
DX: I63.8 Other cerebral infarction (principal); H54.61 Unqualified visual loss, right eye, normal vision left eye; R51 Headache; I48.0 Paroxysmal atrial fibrillation; I11.9 Hypertensive heart disease without heart failure; E11.9 Type 2 diabetes mellitus without complications; M35.3 Polymyalgia rheumatica; G43.909 Migraine, unspecified, not intractable, without status migrainosus; E03.9 Hypothyroidism, unspecified; E78.5 Hyperlipidemia, unspecified; F32.9 Major depressive disorder, single episode, unspecified; Z79.52 Long term (current) use of systemic steroids; Z79.82 Long term (current) use of aspirin; Z79.899 Other long term (current) drug therapy

== ENCOUNTER 2019-01-12 11:48 | Inpatient (IN) ==
[2019-01-12] MEDS ORDERED: SODIUM CHLORIDE 0.9% 1000ML 1,000 ML IV SCH (12:45)
[2019-01-12 13:04] LABS: Basophils # (auto) 0.03 K/uL (0-0.2); Basophils % (auto) 0.2 %; Eosinophils # (auto) 0.96 K/uL (0-0.5); Eosinophils % (auto) 7.2 %; Hematocrit (blood only) 36.1 % (37-47); Hemoglobin 11.3 g/dL (12.0-16.0); Immature Granulocytes # (auto) 0.07 K/uL (0.00-0.02); Immature Granulocytes % (auto) 0.5 %; Lymphocytes % (auto) 11.2 %; Mean Corpuscular Hgb Conc 31.3 g/dL (32-36); Mean Corpuscular Volume 85.5 fL (80-100); Mean Platelet Volume 11.4 fL (7.4-10.4); Monocytes # (auto) 0.55 K/uL (0.11-0.59); Monocytes % (auto) 4.1 %; Neutrophils # (auto) 10.31 K/uL (1.4-6.5); Neutrophils % (auto) 76.8 %; Platelet Count 137 K/uL (130-400); RDW Coefficient of Variation 15.3 % (11.5-14.5); RDW Standard Deviation 47.4 fL (36.4-46.3); Red Blood Count 4.22 M/uL (4.2-5.4); White Blood Count 13.42 K/uL (4.8-10.8)
[2019-01-12 13:05] LABS: Appearance Urine Clear (Clear); Bilirubin Urine Negative (Negative); Blood Urine Negative (Negative); Color Urine Yellow; Glucose Urine UA Negative (Negative); Ketones Urine Negative (Negative); Leukocyte Esterase Urine Negative (Negative); Nitrite Urine Negative (Negative); Protein Urine Negative (Negative); Urobilinogen Urine Negative (Negative); pH Urine 6.5 (4.5-7.5)
[2019-01-12 13:16] LABS: Partial Thromboplastin Ratio 0.9; Partial Thromboplastin Time 23.5 Seconds (21.0-31.0); Prothrombin Time 9.9 Seconds (9.0-12.0)
[2019-01-12 13:21] LABS: BUN Creatinine Ratio 28.4 (10-20); Calcium 8.8 mg/dl (8.5-10.1); Creatinine Clr Calc Pharmacy 40.2 ml/min; Est GFR (Non-African American) 63.9
[2019-01-12] MEDS: MoRPHine SULFATE 2 MG/ML CARP IV PRN ×3 (13:23→20:23)
--- NOTE | 2019-01-12 13:39 | XRay Report ---
XR hip RT min 2V HISTORY: 88 years-old Female hip injury acute right hip pain status post trauma COMPARISON: None available TECHNIQUE: 2 views of the right hip FINDINGS: There is acute transcervical fracture about the right proximal femur demonstrating several millimeter s impaction with 11 mm superior lateral displacement. Mild right hip osteoarthritis. Demineralized ap pearance of the bones. No acute pelvic fracture notified. Moderate soft tissue swelling. IMPRESSION: Acute displaced and mildly impacted transcervical fracture of the right femur. The above report was generated using voice recognition software. It may contain grammatical, syntax o r spelling errors. Electronically signed by: Juan C Dsouza M.D. 01/12/2019 1:38 PM
--- NOTE | 2019-01-12 13:42 | XRay Report ---
XR chest 1V portable HISTORY: 88 years-old Female hip injury acute right hip fracture status post fall COMPARISON: Chest radiograph 06/16/2018 TECHNIQUE: Supine AP view of the chest FINDINGS: Cardiomediastinal and hilar silhouettes are within normal limits. Calcification of the thoracic aorti c arch. There is no pneumothorax, pleural effusion, focal airspace consolidation or overt pulmonary e emily. Degenerative changes of the shoulders and spine. IMPRESSION: No acute process. The above report was generated using voice recognition software. It may contain grammatical, syntax o r spelling errors. Electronically signed by: Juan C Dsouza M.D. 01/12/2019 1:41 PM
[2019-01-12] MEDS ORDERED: MoRPHine SULFATE 2 MG/ML CARP IV STA (14:16)
--- NOTE | 2019-01-12 14:23 | History & Physical Report ---
Date of Service January 12, 2019 Assessment & Plan (1) Closed right femoral fracture: Hip fracture S/P mechanical Fall Hip X ray: Acute mildly displaced and impacted transcervical fracture of the right femur redemonstrated. Mid and distal portions of the right femur appear intact. Pain control, IV fluids Type and cross CXR: no acute process DVT Px: SCDs for now Orthopedics consulted NPO after midnight Hold Aspirin, Eliquis bowel regimen to prevent constipation PT/OT when appropriate May need rehab placement Monitor for for post op anemia Patient is at moderate risk fo for cardiopulmonary complications given her comorbidities and age. HTN BP elevated likely situational due to pain Missed HTN meds today Restart home medications: Leukocytosis No obvious source of infection UA: Normal CXR: no acute process Monitor DM II: Will hold oral diabetic meds Last A1c: 6.6 on 06/23/18 started on ISS, Accu checks, Diabetic diet Paroxysmal afib On Eliquis for anticoagulation Currently in sinus Continue atenolol Hypothyroidism Continue levothyroxine Dyslipidemia Continue atorvastatin Polymyalgia rheumatica on chronic prednisone Check vitamin D level H/O CVA Continue aspirin, Lipitor CKD III Cr at baseline Monitor renal function Avoid Nephrotoxic agents as able DVT Px: SCDs for now Re: Needs Surgical Procedure History of Present Illness Chief Complaint: Fall, Right Hip Pian Primary Care Provider: Liu Antunez MD Patient is an 88-year-old female with history of diabetes, depression, paroxysmal afib on Eliquis, hypothyroidism, hypertension, dyslipidemia, polymyalgia rheumatica on chronic prednisone, history of CVA, CKD III and other problems presents with right hip pain after a fall this morning. Patient was trying to get out of bed but accidentally stepped on a rug leading to slipping and fall on her right side. Patient complains of right hip pain, [id number], sharp, worsens with any movement, improves with pain medications and rest. She reports chronic numbness in feet due to diabetes which has been unchanged. Her blood pressure is elevated, while in ED likely situational secondary to severe pain. She admits to not taking her medications today. Her last Eliquis dose is yesterday morning. Denies any history of chest pain, SOB, dizziness, pedal edema, diaphoresis, cough, wheezing, fever, chills, head trauma, LOC, headache, change in vision, double/blurry vision, nausea, vomiting, abdominal pain, dysuria, diarrhea. Allergies Allergy/AdvReac Type Severity Reaction Status Date / Time ertapenem [From [facility]] Allergy Intermediate RASH/ITCHIN Verified 01/12/19 12:53 G lisinopril Allergy Intermediate RASH Verified 01/12/19 12:53 Penicillins Allergy Intermediate EDEMA Verified 01/12/19 12:53 codeine AdvReac Intermediate NAUSEA, Verified 01/12/19 12:53 VOMITING Home Medications Home Medications Medication Instructions Recorded Confirmed Type apixaban 5 mg PO BIDM 06/13/18 01/12/19 History aspirin [Aspirin Low Dose] 81 mg PO QAM 06/13/18 01/12/19 History atorvastatin 40 mg PO QAM 06/13/18 01/12/19 History citalopram 10 mg PO QAM 06/13/18 01/12/19 History fluticasone propionate [Flonase 1 spray INTRANASAL UD 06/13/18 01/12/19 History Allergy Relief] gabapentin 300 mg PO BIDM 06/13/18 01/12/19 History metformin 500 mg PO BIDM 06/13/18 01/12/19 History prednisone 2 mg PO QAM 06/13/18 01/12/19 History albuterol sulfate 2 inha INH Q6H PRN #6.7 gm 06/17/18 01/12/19 Rx acetaminophen [Tylenol Extra 500 mg PO Q6H PRN 01/12/19 01/12/19 History Strength] atenolol 50 mg PO QAM 01/12/19 01/12/19 History biotin 1,000 mcg PO DAILY 01/12/19 01/12/19 History cyclosporine 1 drp OPHTHALMIC (EYE) DAILY 01/12/19 01/12/19 History docusate sodium 100 mg PO BID 01/12/19 01/12/19 History doxepin 10 mg PO HS 01/12/19 01/12/19 History gabapentin 600 mg PO HS 01/12/19 01/12/19 History levothyroxine 50 mcg PO QAM 01/12/19 01/12/19 History losartan 25 mg PO QAM 01/12/19 01/12/19 History magnesium chloride [Mag 64] 128 mg PO BID 01/12/19 01/12/19 History meclizine 25 mg PO TID PRN 01/12/19 01/12/19 History ranitidine HCl 150 mg PO BID 01/12/19 01/12/19 History Past Med/Surg History Medical History Essential hypertension (Chronic) Osteoporosis (Chronic) Cerebrovascular disease (Chronic) "s/p right occipital stroke per MRI" Hypothyroidism (Chronic) Polymyalgia rheumatica (Chronic) Diabetes mellitus, type II (Chronic) CKD (chronic kidney disease), stage III (Chronic) Pancreatic cyst (Chronic) Dyslipidemia (Chronic) History of adenomatous polyp of colon (Chronic) Diverticular disease of colon (Chronic) Paroxysmal atrial fibrillation (Chronic) Depression (Chronic) Surgical History History of hernia repair (Resolved) Status post cholecystectomy (Chronic) Status post hysterectomy (Chronic) Family History Other Family history non-contributory Social History Preferred Language: Cymro Communication Ability: Effective Radiology Services Manager Required: Yes Beliefs That Will Affect Care: None marital status: / Current Living Situation: Alone Current Living Situation Comment: family assists w/ care Other Information That Helps Us Care for You: No other: uses cane occassionally Feels Safe at Home: Yes Safety Concerns: Feels Safe At This Time Smoking Status: Never smoker Hx Alcohol Use: Yes Alcohol type: wine Hx Substance Use: No Review of Systems Review of Systems: All systems reviewed & are unremarkable except as noted in HPI & below Physical Exam Physical Exam: Physical Exam: Vitals signs as noted above General Appearance:Elderly, Moderately built and nourished, Mild distress due to leg pain Head: normocephalic, Atraumatic Eyes: normal inspection, EOMI Neck: supple, Trachea midline Respiratory/Chest: Normal breath sounds, CTA Cardiovascular: S1, S2, No murmur Abdomen/GI:Soft, Non tender, Bowel sounds present Extremities/Musculoskelatal:normal inspection, no edema, RLE shortened and externally rotated Neurologic/Psych:AAOX3, grossly no focal neurological deficits Skin: normal color, warm Results & Data Vital Signs (Past 12 Hours) Vital Signs Temp Pulse Pulse Resp BP BP Pulse Ox 01/12/19 13:21 70 20 184/99 H 94 01/12/19 12:03 36.7 C 80 18 190/77 H 98 Laboratory Results Short CBC 01/12/19 Range/Units 12:54 WBC 13.42 H (4.8-10.8) K/uL Hgb 11.3 L (12.0-16.0) g/dL Hct 36.1 L (37-47) % Plt Count 137 (130-400) K/uL BMP 01/12/19 12:54 Sodium 144 Potassium 4.0 Chloride 110 H Carbon Dioxide 28 BUN 24 H Creatinine 0.83 Glucose 151 H Calcium 8.8 Urine 01/12/19 Range/Units 12:00 Urine Color Yellow Urine Appearance Clear (Clear) Urine pH 6.5 (4.5-7.5) Ur Specific [place] 1.010 (1.000-1.030) Urine Protein Negative (Negative) Urine Glucose (UA) Negative (Negative) Diagnostic Findings Femur X ray: 1. Acute mildly displaced and impacted transcervical fracture of the right femur redemonstrated. 2. Mid and distal portions of the right femur appear intact. CXR: No acute process. ECG Additional Comments: EKG: NSR, QTC:457, no significant change when compared to prior EKG . (1) Closed right femoral fracture Encounter type: initial encounter Fracture alignment: displaced
--- NOTE | 2019-01-12 14:32 | Emergency Department Note ---
Entered by Shantel Kee acting as a scribe for History of Present Illness General Chief complaint: Hip Pain Stated complaint: Hip pain Time Seen by Provider: 01/12/19 12:28 Source: patient and RN notes reviewed Mode of arrival: EMS Limitations: no limitations History of Present Illness Provider complaint: fall Onset (ago): hour(s) ([facility]) Location: hip and right Pain Consistency: + other (episode) Maximum Pain Intensity: 10 Current Pain Intensity: 10 Quality: + other (fall) Associated symptoms: + other (right hip pain) The patient is an 88 year old female who presents to the ER via EMS following a fall that occurred this morning. The RN reports that the patient fell and slipped on her rug this morning, landing on her right side. The patient states that she has had right hip pain since which she notes is exacerbated by movement and relieved by lying still. She rates her pain a 10/10 with movement. Home Medications Home Medications Medication Instructions Recorded Confirmed Type apixaban 5 mg PO BIDM 06/13/18 01/12/19 History aspirin [Aspirin Low Dose] 81 mg PO QAM 06/13/18 01/12/19 History atorvastatin 40 mg PO QAM 06/13/18 01/12/19 History citalopram 10 mg PO QAM 06/13/18 01/12/19 History fluticasone propionate [Flonase 1 spray INTRANASAL UD 06/13/18 01/12/19 History Allergy Relief] gabapentin 300 mg PO BIDM 06/13/18 01/12/19 History metformin 500 mg PO BIDM 06/13/18 01/12/19 History prednisone 2 mg PO QAM 06/13/18 01/12/19 History albuterol sulfate 2 inha INH Q6H PRN #6.7 gm 06/17/18 01/12/19 Rx acetaminophen [Tylenol Extra 500 mg PO Q6H PRN 01/12/19 01/12/19 History Strength] atenolol 50 mg PO QAM 01/12/19 01/12/19 History biotin 1,000 mcg PO DAILY 01/12/19 01/12/19 History gabapentin 600 mg PO HS 01/12/19 01/12/19 History levothyroxine 50 mcg PO QAM 01/12/19 01/12/19 History losartan 25 mg PO QAM 01/12/19 01/12/19 History magnesium chloride [Mag 64] 128 mg PO BID 01/12/19 01/12/19 History meclizine 25 mg PO TID PRN 01/12/19 01/12/19 History Allergies Allergy/AdvReac Type Severity Reaction Status Date / Time ertapenem [From [facility]] Allergy Intermediate RASH/ITCHIN Verified 01/12/19 12:53 G lisinopril Allergy Intermediate RASH Verified 01/12/19 12:53 Penicillins Allergy Intermediate EDEMA Verified 01/12/19 12:53 codeine AdvReac Intermediate NAUSEA, Verified 01/12/19 12:53 VOMITING Past Med/Surg History Medical History Essential hypertension (Chronic) Osteoporosis (Chronic) Cerebrovascular disease (Chronic) "s/p right occipital stroke per MRI" Hypothyroidism (Chronic) Polymyalgia rheumatica (Chronic) Diabetes mellitus, type II (Chronic) CKD (chronic kidney disease), stage III (Chronic) Pancreatic cyst (Chronic) Dyslipidemia (Chronic) History of adenomatous polyp of colon (Chronic) Diverticular disease of colon (Chronic) Paroxysmal atrial fibrillation (Chronic) Depression (Chronic) Surgical History History of hernia repair (Resolved) Status post cholecystectomy (Chronic) Status post hysterectomy (Chronic) Family History Other Family history non-contributory Social History Preferred Language: Urdu Communication Ability: Effective Beliefs That Will Affect Care: None marital status: / Current Living Situation: Alone Current Living Situation Comment: family assists w/ care other: uses cane occassionally Feels Safe at Home: Yes Smoking Status: Never smoker Hx Alcohol Use: Yes Alcohol type: wine Hx Substance Use: No Review of Systems See HPI for pertinent positives & negatives. and A total of 10 systems reviewed and were otherwise negative Physical Exam Vital Signs Vital Signs - 24 hr 01/12/19 12:03 01/12/19 13:21 01/12/19 13:23 Temperature 36.7 C Temperature Source Oral Sepsis Recent Fever Within 48 Hours No Sepsis New/Unexplained Change in Mental Status No Sepsis Action Taken by Nursing No Action Required Pulse Rate 80 75 Pulse Rate [Apical] 70 Pulse Rate from SpO2 Sensor Respiratory Rate 18 20 17 Blood Pressure 190/77 H 210/83 H Blood Pressure [Left Arm] 184/99 H Blood Pressure Mean 114 125 Blood Pressure Mean [Left Arm] 127 Pulse Oximetry 98 94 Oxygen Delivery Method Room Air Room Air 01/12/19 13:30 01/12/19 13:32 01/12/19 13:40 Temperature Temperature Source Sepsis Recent Fever Within 48 Hours Sepsis New/Unexplained Change in Mental Status Sepsis Action Taken by Nursing Pulse Rate 75 74 77 Pulse Rate [Apical] Pulse Rate from SpO2 Sensor 75 74 78 Respiratory Rate 16 18 19 Blood Pressure 213/91 H Blood Pressure [Left Arm] Blood Pressure Mean 131 Blood Pressure Mean [Left Arm] Pulse Oximetry 92 93 93 Oxygen Delivery Method 01/12/19 13:50 01/12/19 14:00 01/12/19 14:01 Temperature Temperature Source Sepsis Recent Fever Within 48 Hours Sepsis New/Unexplained Change in Mental Status Sepsis Action Taken by Nursing Pulse Rate 77 75 74 Pulse Rate [Apical] Pulse Rate from SpO2 Sensor 77 76 74 Respiratory Rate 24 16 15 Blood Pressure 179/94 H Blood Pressure [Left Arm] Blood Pressure Mean 122 Blood Pressure Mean [Left Arm] Pulse Oximetry 92 95 Oxygen Delivery Method 01/12/19 14:10 01/12/19 14:15 01/12/19 14:17 Temperature Temperature Source Sepsis Recent Fever Within 48 Hours Sepsis New/Unexplained Change in Mental Status Sepsis Action Taken by Nursing Pulse Rate 72 75 78 Pulse Rate [Apical] Pulse Rate from SpO2 Sensor 72 75 77 Respiratory Rate 16 19 14 Blood Pressure 179/94 H 179/94 H Blood Pressure [Left Arm] Blood Pressure Mean 122 122 Blood Pressure Mean [Left Arm] Pulse Oximetry 92 92 90 Oxygen Delivery Method 01/12/19 14:18 01/12/19 14:19 01/12/19 14:20 Temperature Temperature Source Sepsis Recent Fever Within 48 Hours Sepsis New/Unexplained Change in Mental Status Sepsis Action Taken by Nursing Pulse Rate 74 73 72 Pulse Rate [Apical] Pulse Rate from SpO2 Sensor 74 73 72 Respiratory Rate 18 22 19 Blood Pressure 179/94 H 179/94 H Blood Pressure [Left Arm] Blood Pressure Mean 122 122 Blood Pressure Mean [Left Arm] Pulse Oximetry 94 92 90 Oxygen Delivery Method CONSTITUTIONAL/VITAL SIGNS: Reviewed / noted above. GENERAL: Non-toxic in appearance. INTEGUMENTARY: Warm, dry, and [place]. HEAD: Normocephalic. EYES: without scleral icterus or trauma. ENT/OROPHARYNX: clear and moist. LYMPHADENOPATHY/NECK: Is supple without lymphadenopathy or meningismus. RESPIRATORY: Lungs clear and equal. CARDIOVASCULAR: Regular rate and rhythm. GI/ABDOMEN: Soft and nontender. No organomegaly or pulsatile mass. No rebound or guarding. Normal bowel sounds. EXTREMITIES: Warm and well perfused. Tenderness to palpation of the right hip. Pain in right hip with axial loading of right leg. BACK: No CVA tenderness. NEUROLOGICAL: Intact without focal deficits. PSYCHIATRIC: normal affect. MUSCULOSKELETAL: Normally developed with good muscle tone. Course 1236: Past medical records reviewed. The patient was evaluated in room C3. A complete history and physical examination was performed. 1420: I discussed the [facility] He will evaluate the patient for further management. 1435: [facility] was consulted about the case. Administered Medications Sodium Chloride (Nss 1000ml) 1,000 mls @ 150 mls/hr IV .[id number] [facility] Stop: 01/12/19 19:24 Last Admin: 01/12/19 13:23 Dose: 150 mls/hr Documented by: [id number] Morphine Sulfate (Morphine Sulfate) 2 mg IV Q1H PRN PRN Reason: Moderate Pain (Rating 3,4,5,6) Stop: 01/26/19 12:44 Last Admin: 01/12/19 13:23 Dose: 2 mg Documented by: [id number] Discontinued Medications Morphine Sulfate (Morphine Sulfate) 2 mg IV NOW STA Stop: 01/12/19 14:17 Last Admin: 01/12/19 14:20 Dose: 2 mg Documented by: [id number] Medical Decision Making Differential Diagnosis Differential diagnosis includes: fracture, dislocation, neurovascular compromise, compartment syndrome, soft tissue injury, as well as others were entertained. Medical Records Attestation: I reviewed the patient's medical records. Home Medications Current Medication List: was personally reviewed by me Laboratory Data Attestation: I reviewed the patient's lab results. Result diagrams: 01/12/19 12:54 01/12/19 12:54 Lab Results 01/12/19 01/12/19 01/12/19 Range/Units 12:00 12:54 12:54 WBC 13.42 H (4.8-10.8) K/uL RBC 4.22 (4.2-5.4) M/uL Hgb 11.3 L (12.0-16.0) g/dL Hct 36.1 L (37-47) % MCV 85.5 (80-100) fL MCH 26.8 (25-34) pg MCHC 31.3 L (32-36) g/dL RDW Std Deviation 47.4 H (36.4-46.3) fL RDW Coeff of Umm 15.3 H (11.5-14.5) % Plt Count 137 (130-400) K/uL MPV 11.4 H (7.4-10.4) fL Immature Gran % (Auto) 0.5 % Neut % (Auto) 76.8 % Lymph % (Auto) 11.2 % [place] % (Auto) 4.1 % Eos % (Auto) 7.2 % Baso % (Auto) 0.2 % Immature Gran # (Auto) 0.07 H (0.00-0.02) K/uL Neut # (Auto) 10.31 H (1.4-6.5) K/uL Lymph # (Auto) 1.50 (1.2-3.4) K/uL [place] # (Auto) 0.55 (0.11-0.59) K/uL Eos # (Auto) 0.96 H (0-0.5) K/uL Baso # (Auto) 0.03 (0-0.2) K/uL PT 9.9 (9.0-12.0) Seconds INR 1.0 (0.9-1.1) APTT 23.5 (21.0-31.0) Seconds PTT Ratio 0.9 Sodium (136-145) mmol/L Potassium (3.5-5.1) mmol/L Chloride (98-107) mmol/L Carbon Dioxide (21-32) mmol/L Anion Gap (3-11) BUN (7-18) mg/dl Creatinine (0.6-1.2) mg/dl Est Cr Clr Drug Dosing ml/min Est GFR ( Amer) Est GFR (Non-Af Amer) BUN/Creatinine Ratio (10-20) Glucose (70-99) mg/dl Calcium (8.5-10.1) mg/dl Urine Color Yellow Urine Appearance Clear (Clear) Urine pH 6.5 (4.5-7.5) Ur Specific [place] 1.010 (1.000-1.030) Urine Protein Negative (Negative) Urine Glucose (UA) Negative (Negative) Urine Ketones Negative (Negative) Urine Blood Negative (Negative) Urine Nitrite Negative (Negative) Urine Bilirubin Negative (Negative) Urine Urobilinogen Negative (Negative) Ur Leukocyte Esterase Negative (Negative) Blood Type Antibody Screen 01/12/19 01/12/19 Range/Units 12:54 13:12 WBC (4.8-10.8) K/uL RBC (4.2-5.4) M/uL Hgb (12.0-16.0) g/dL Hct (37-47) % MCV (80-100) fL MCH (25-34) pg MCHC (32-36) g/dL RDW Std Deviation (36.4-46.3) fL RDW Coeff of Umm (11.5-14.5) % Plt Count (130-400) K/uL MPV (7.4-10.4) fL Immature Gran % (Auto) % Neut % (Auto) % Lymph % (Auto) % [place] % (Auto) % Eos % (Auto) % Baso % (Auto) % Immature Gran # (Auto) (0.00-0.02) K/uL Neut # (Auto) (1.4-6.5) K/uL Lymph # (Auto) (1.2-3.4) K/uL [place] # (Auto) (0.11-0.59) K/uL Eos # (Auto) (0-0.5) K/uL Baso # (Auto) (0-0.2) K/uL PT (9.0-12.0) Seconds INR (0.9-1.1) APTT (21.0-31.0) Seconds PTT Ratio Sodium 144 (136-145) mmol/L Potassium 4.0 (3.5-5.1) mmol/L Chloride 110 H (98-107) mmol/L Carbon Dioxide 28 (21-32) mmol/L Anion Gap 6.0 (3-11) BUN 24 H (7-18) mg/dl Creatinine 0.83 (0.6-1.2) mg/dl Est Cr Clr Drug Dosing 40.2 ml/min Est GFR ( Amer) 74.0 Est GFR (Non-Af Amer) 63.9 BUN/Creatinine Ratio 28.4 H (10-20) Glucose 151 H (70-99) mg/dl Calcium 8.8 (8.5-10.1) mg/dl Urine Color Urine Appearance (Clear) Urine pH (4.5-7.5) Ur Specific [place] (1.000-1.030) Urine Protein (Negative) Urine Glucose (UA) (Negative) Urine Ketones (Negative) Urine Blood (Negative) Urine Nitrite (Negative) Urine Bilirubin (Negative) Urine Urobilinogen (Negative) Ur Leukocyte Esterase (Negative) Blood Type B Positive Antibody Screen NEGATIVE Imaging Data Radiologist's Impression: Radiology results as stated below per my review and the radiologist's interpretation: XR hip RT min 2V HISTORY: 88 years-old Female hip injury acute right hip pain status post trauma COMPARISON: None available TECHNIQUE: 2 views of the right hip FINDINGS: There is acute transcervical fracture about the right proximal femur demonstrating several millimeters impaction with 11 mm superior lateral displacement. Mild right hip osteoarthritis. Demineralized appearance of the bones. No acute pelvic fracture notified. Moderate soft tissue swelling. IMPRESSION: Acute displaced and mildly impacted transcervical fracture of the right femur. The above report was generated using voice recognition software. It may contain grammatical, syntax or spelling errors. Electronically signed by: Juan C Dsouza M.D. 01/12/2019 1:38 PM XR chest 1V portable HISTORY: 88 years-old Female hip injury acute right hip fracture status post fall COMPARISON: Chest radiograph 06/16/2018 TECHNIQUE: Supine AP view of the chest FINDINGS: Cardiomediastinal and hilar silhouettes are within normal limits. Calcification of the thoracic aortic arch. There is no pneumothorax, pleural effusion, focal airspace consolidation or overt pulmonary edema. Degenerative changes of the shoulders and spine. IMPRESSION: No acute process. The above report was generated using voice recognition software. It may contain grammatical, syntax or spelling errors. Electronically signed by: Juan C Dsouza M.D. 01/12/2019 1:41 PM ECG Data Attestation: I personally reviewed and interpreted this ECG as follows: Indication: weakness Rate (beats per minute): 72 Rhythm: normal sinus Findings: no ST elevation and no ectopy Blood Pressure Blood Pressure Findings: Elevated blood pressure Blood Pressure Disposition: further management by hospitalist MARISOL Narrative This is an 88-year-old female who presents to the ED with a chief complaint of right hip pain after slipping on a rug at home. The patient denies loss of consciousness. She complains of right hip pain. An x-ray reveals an acute displaced transcervical fracture of the right femur. The patient's blood work was unremarkable. Chest x-ray was clear. I spoke with the hospitalist, Dr. Watt as well as Dr. Burroughs from orthopedics. The patient will be admitted. She was treated here with IV morphine for pain. She was also given some maintenance IV fluids. Blood work was unremarkable. Urine did not show infection. Impression & Plan Closed right femoral fracture Discharge Plan Visit Data Chief Complaint: Hip Pain Stated Complaint: Hip pain ED Provider: Ricardo Burch Discharge Problem: Closed right femoral fracture Patient Disposition: Being Evaluated by Hospitalist Forms Stand Alone Forms: My [facility] Prescriptions Prescriptions: No Action atorvastatin 40 mg Tablet 40 mg PO QAM RF: 0 aspirin [Aspirin Low Dose] 81 mg Tablet,Delayed Release (Dr/Ec) 81 mg PO QAM RF: 0 fluticasone propionate [Flonase Allergy Relief] 50 mcg/actuation [place],Suspension 1 spray Intranasal UD RF: 0 metformin 500 mg Tablet 500 mg PO BIDM RF: 0 citalopram 10 mg Tablet 10 mg PO QAM RF: 0 prednisone 1 mg Tablet 2 mg PO QAM RF: 0 gabapentin 300 mg Capsule 300 mg PO BIDM RF: 0 apixaban 5 mg Tablet 5 mg PO BIDM RF: 0 albuterol sulfate 90 mcg/actuation HFA aerosol inhaler 2 inha INH Q6H PRN (Reason: shortness of breath or wheezing) Qty: 6.7 RF: 3 acetaminophen [Tylenol Extra Strength] 500 mg Tablet 500 mg PO Q6H PRN (Reason: Pain) RF: 0 meclizine 25 mg Tablet 25 mg PO TID PRN (Reason: Vertigo) RF: 0 levothyroxine 50 mcg tablet 50 mcg PO QAM RF: 0 losartan 25 mg tablet 25 mg PO QAM RF: 0 gabapentin 300 mg capsule 600 mg PO HS RF: 0 atenolol 50 mg tablet 50 mg PO QAM RF: 0 magnesium chloride [Mag 64] 64 mg tablet,delayed release (DR/EC) 128 mg PO BID RF: 0 biotin 1,000 mcg Tablet,Chewable 1,000 mcg PO DAILY RF: 0 Referrals Referrals: Liu Antunez MD [Primary Care Provider] - Discharge Problem: Closed right femoral fracture Qualifiers: Encounter type: initial encounter Fracture alignment: displaced The scribe's documentation has been prepared under my direction and personally reviewed by me in its entirety. I confirm that the note above accurately reflects all work, treatment, procedures, and medical decision making performed by me.
--- NOTE | 2019-01-12 15:36 | XRay Report ---
XR femur RT 2V routine HISTORY: 88 years-old Female hip fx follow-up study in a patient with acute right hip fracture COMPARISON: Right hip radiographs of same day TECHNIQUE: 2 views of the right femur FINDINGS: Demineralized appearance of the bones. Mildly displaced and impacted transcervical fracture of the ri ght femur redemonstrated. The mid and distal portions of the right femur appear intact. 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 IMPRESSION: 1. Acute mildly displaced and impacted transcervical fracture of the right femur redemonstrated. 2. Mid and distal portions of the right femur appear intact. The above report was generated using voice recognition software. It may contain grammatical, syntax o r spelling errors. Electronically signed by: Juan C Dsouza M.D. 01/12/2019 3:35 PM
[2019-01-12] MEDS ORDERED: ALBUT/IPRATROP 3MG/0.5MG NEB 3 ML VIAL NEB PRN (16:45)
[2019-01-12] MEDS ORDERED: ACETAMINOPHEN 1,000 MG/100 ML VIAL IV PRN (16:45)
[2019-01-12] MEDS ORDERED: ONDANSETRON INJ 2 MG/ML 2 ML VIAL IV PRN (16:45)
[2019-01-12] MEDS ORDERED: DEXTROSE 50% 50 ML SYRINGE IV PRN (16:45)
[2019-01-12] MEDS ORDERED: GLUCOSE 10 TABS/TUBE PO PRN (16:45)
[2019-01-12] MEDS ORDERED: NALOXONE HCL 0.4 MG/1 ML VIAL/CARP IV PRN (16:45)
[2019-01-12] MEDS ORDERED: GLUCOSE 40% GEL 15 GM TUBE PO PRN (16:45)
[2019-01-12] MEDS ORDERED: OXYCODONE HCL IR 5 MG TAB (IMMEDIATE RELEASE) PO PRN (16:45)
[2019-01-12] MEDS ORDERED: MECLIZINE HCL 25 MG TAB PO PRN (16:45)
[2019-01-12] MEDS ORDERED: GLUCAGON FOR INJ 1 MG VIAL SQ PRN (16:45)
[2019-01-12] MEDS ORDERED: CARBOHYDRATES FOR HYPOGLYCEMIA PO PRN (16:45)
[2019-01-12] MEDS ORDERED: POLYETHYLENE (MIRALAX) 17 GM PACK PO PRN (16:45)
[2019-01-12] MEDS: INSULIN ASPART 100 UNITS/ML 3 ML PEN SC SCH ×2 (18:19→20:30)
[2019-01-12] MEDS: LOSARTAN POTASSIUM 25 MG TAB PO SCH (18:21)
[2019-01-12] MEDS: GABAPENTIN 300 MG CAP PO SCH ×2 (18:21→20:29)
[2019-01-12] MEDS: ATENOLOL 50 MG TABLET PO SCH (18:21)
[2019-01-12] MEDS: SODIUM CHLORIDE 0.9% 1000ML 1,000 ML IV SCH (18:34)
[2019-01-12] MEDS ORDERED: ALBUTEROL 0.083% NEBU SOLN 3 ML VIAL NEB PRN (18:52)
[2019-01-12] MEDS ORDERED: LABETALOL HCL IV 5 MG/ML 20ML IV PRN (19:52)
[2019-01-12] MEDS: DOCUSATE SODIUM 100 MG CAP PO SCH (20:26)
[2019-01-12] MEDS: DOXEPIN HCL 10 MG CAPSULE PO SCH (20:28)
[2019-01-12] MEDS: MAGNESIUM CHLORIDE 64MG DELAYED REL TAB PO SCH (20:29)
--- NOTE | 2019-01-12 20:56 | Orthopedic Consultation ---
Date of Consultation January 12, 2019 Assessment & Plan (1) Closed right femoral fracture: The patient is a 89-year-old female with displaced right femoral neck fracture sustained after a fall from standing height. I indicated the patient for right hip hemiarthroplasty. The patient was informed of the risks and benefits of surgery, which include but not limited to infection, bleeding, blood clots, damage to nerves, vessels, bone and soft tissue, dislocation, leg length discrepancy, need for additional surgery and . The patient chose to move forward with surgical intervention and informed consent was obtained. Alternatives included no surgery and risks of no surgery would result in inability to ambulate, bedbound medical complications including ulcerations pneumonia DVTs. Patient wished to proceed with surgical intervention. 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 after midnight Thank you for the consultation History of Present Illness Reason for Consultation: Right hip fracture Attending Physician: Sandoval Guan MD History of Present Illness Patient is an 88-year-old female with significant past medical history of diabetes, depression, paroxysmal afib on Eliquis, hypothyroidism, hypertension, dyslipidemia, polymyalgia rheumatica on chronic prednisone, history of CVA, CKD III and other problems presents with right hip pain after a fall this morning. Patient reports fall after getting out of bed this morning onto her right side. Immediate pain and inability to ambulate on her right leg. Denies any associated injuries. Denies hitting head or loss of consciousness. Patient reports the last time she took her Eliquis medication was 7 3 AM. Denies any numbness and tingling to right lower extremity. Allergies Allergy/AdvReac Type Severity Reaction Status Date / Time ertapenem [From Invanz] Allergy Intermediate RASH/ITCHIN Verified 01/12/19 12:53 G lisinopril Allergy Intermediate RASH Verified 01/12/19 12:53 Penicillins Allergy Intermediate EDEMA Verified 01/12/19 12:53 codeine AdvReac Intermediate NAUSEA, Verified 01/12/19 12:53 VOMITING Home Medications Home Medications Medication Instructions Recorded Confirmed Type apixaban 5 mg PO BIDM 06/13/18 01/12/19 History aspirin [Aspirin Low Dose] 81 mg PO QAM 06/13/18 01/12/19 History atorvastatin 40 mg PO QAM 06/13/18 01/12/19 History citalopram 10 mg PO QAM 06/13/18 01/12/19 History fluticasone propionate [Flonase 1 spray INTRANASAL UD 06/13/18 01/12/19 History Allergy Relief] gabapentin 300 mg PO BIDM 06/13/18 01/12/19 History metformin 500 mg PO BIDM 06/13/18 01/12/19 History prednisone 2 mg PO QAM 06/13/18 01/12/19 History albuterol sulfate 2 inha INH Q6H PRN #6.7 gm 06/17/18 01/12/19 Rx acetaminophen [Tylenol Extra 500 mg PO Q6H PRN 01/12/19 01/12/19 History Strength] atenolol 50 mg PO QAM 01/12/19 01/12/19 History biotin 1,000 mcg PO DAILY 01/12/19 01/12/19 History cyclosporine 1 drp OPHTHALMIC (EYE) DAILY 01/12/19 01/12/19 History docusate sodium 100 mg PO BID 01/12/19 01/12/19 History doxepin 10 mg PO HS 01/12/19 01/12/19 History gabapentin 600 mg PO HS 01/12/19 01/12/19 History levothyroxine 50 mcg PO QAM 01/12/19 01/12/19 History losartan 25 mg PO QAM 01/12/19 01/12/19 History magnesium chloride [Mag 64] 128 mg PO BID 01/12/19 01/12/19 History meclizine 25 mg PO TID PRN 01/12/19 01/12/19 History ranitidine HCl 150 mg PO BID 01/12/19 01/12/19 History Patient History Medical History Essential hypertension (Chronic) Osteoporosis (Chronic) Cerebrovascular disease (Chronic) "s/p right occipital stroke per MRI" Hypothyroidism (Chronic) Polymyalgia rheumatica (Chronic) Diabetes mellitus, type II (Chronic) CKD (chronic kidney disease), stage III (Chronic) Pancreatic cyst (Chronic) Dyslipidemia (Chronic) History of adenomatous polyp of colon (Chronic) Diverticular disease of colon (Chronic) Paroxysmal atrial fibrillation (Chronic) Depression (Chronic) Surgical History History of hernia repair (Resolved) Status post cholecystectomy (Chronic) Status post hysterectomy (Chronic) Family History Other Family history non-contributory Social History Preferred Language: Icelandic Communication Ability: sleeping District Agent Required: Yes Beliefs That Will Affect Care: None marital status: / Current Living Situation: Alone Current Living Situation Comment: family assists w/ care Other Information That Helps Us Care for You: No other: uses cane occassionally Feels Safe at Home: Yes Safety Concerns: Feels Safe At This Time Smoking Status: Never smoker Hx Alcohol Use: Yes Alcohol type: wine Hx Substance Use: No Review of Systems Review of Systems: All systems reviewed & are unremarkable except as noted in HPI & below Constitutional: as per Subjective / HPI Physical Exam Physical Exam: RLE NVSI +EHL/FHL/TA/GS SILT grossly, +2 DP pulse, compartments soft NT, short and externally rotated. Skin overlying right hip clean dry and intact. Constitutional: WD/WN, vitals as above Results & Data Vital Signs (Past 12 Hours) Vital Signs Temp Pulse Pulse Resp BP BP BP 01/12/19 19:00 36.7 C 87 18 122/78 01/12/19 18:45 36.7 C 86 20 184/109 H 01/12/19 18:04 113 H 22 161/87 H 01/12/19 16:45 92 H 01/12/19 16:07 86 18 151/119 H 01/12/19 15:50 85 01/12/19 15:40 83 22 01/12/19 15:31 83 125/94 01/12/19 15:30 36.7 C 82 90 18 191/109 H 184/109 H 01/12/19 15:27 81 27 H 191/109 H 01/12/19 15:23 79 20 191/109 H 01/12/19 15:20 79 20 01/12/19 15:10 78 20 01/12/19 15:01 83 18 191/109 H 01/12/19 15:00 85 21 01/12/19 14:50 81 17 01/12/19 14:40 115 H 17 01/12/19 14:31 72 21 146/66 H 01/12/19 14:30 74 16 01/12/19 14:20 72 19 01/12/19 14:19 73 22 179/94 H 01/12/19 14:18 74 18 179/94 H 01/12/19 14:17 78 14 179/94 H 01/12/19 14:15 75 19 179/94 H 01/12/19 14:10 72 16 01/12/19 14:01 74 15 179/94 H 01/12/19 14:00 75 16 01/12/19 13:50 77 24 01/12/19 13:40 77 19 01/12/19 13:32 74 18 01/12/19 13:30 75 16 213/91 H 01/12/19 13:23 75 17 210/83 H 01/12/19 13:21 70 20 184/99 H 01/12/19 12:03 36.7 C 80 18 190/77 H Pulse Ox 01/12/19 19:00 96 01/12/19 18:45 96 01/12/19 18:04 95 01/12/19 16:45 01/12/19 16:07 100 01/12/19 15:50 100 01/12/19 15:40 99 01/12/19 15:31 99 01/12/19 15:30 96 01/12/19 15:27 93 01/12/19 15:23 97 01/12/19 15:20 99 01/12/19 15:10 97 01/12/19 15:01 96 01/12/19 15:00 94 01/12/19 14:50 99 01/12/19 14:40 90 01/12/19 14:31 90 01/12/19 14:30 93 01/12/19 14:20 90 01/12/19 14:19 92 01/12/19 14:18 94 01/12/19 14:17 90 01/12/19 14:15 92 01/12/19 14:10 92 01/12/19 14:01 95 01/12/19 14:00 01/12/19 13:50 92 01/12/19 13:40 93 01/12/19 13:32 93 01/12/19 13:30 92 01/12/19 13:23 01/12/19 13:21 94 01/12/19 12:03 98 Diagnostic Findings XR femur RT 2V routine HISTORY: 88 years-old Female hip fx follow-up study in a patient with acute right hip fracture COMPARISON: Right hip radiographs of same day TECHNIQUE: 2 views of the right femur FINDINGS: Demineralized appearance of the bones. Mildly displaced and impacted transcervical fracture of the right femur redemonstrated. The mid and distal portions of the right femur appear intact. 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 IMPRESSION: 1. Acute mildly displaced and impacted transcervical fracture of the right femur redemonstrated. 2. Mid and distal portions of the right femur appear intact. XR hip RT min 2V HISTORY: 88 years-old Female hip injury acute right hip pain status post trauma COMPARISON: None available TECHNIQUE: 2 views of the right hip FINDINGS: There is acute transcervical fracture about the right proximal femur demonstrating several millimeters impaction with 11 mm superior lateral displacement. Mild right hip osteoarthritis. Demineralized appearance of the bones. No acute pelvic fracture notified. Moderate soft tissue swelling. IMPRESSION: Acute displaced and mildly impacted transcervical fracture of the right femur. (1) Closed right femoral fracture Encounter type: initial encounter Fracture alignment: displaced
[2019-01-12] MEDS ORDERED: FLUTICASONE PROPIONATE NA SPR 16 GM BTL PRN (21:00)
[2019-01-12] MEDS: CYCLOSPORINE EYE SCH (23:38)
[2019-01-13] MEDS ORDERED: CLINDAMYCIN 600 MG/54 ML BAG IV SCH (06:00)
[2019-01-13] MEDS ORDERED: ROPIVACAINE 0.5% HCL/PF 150 MG, BUPIVACAINE 0.5% MPF 30 ML, EPINEPHrine 0.15 MG, Ketoro... INFIL SCH (06:00)
[2019-01-13] MEDS ORDERED: CEFAZOLIN 2000MG 2,000 MG/15 ML SYR IV SCH (06:00)
[2019-01-13] MEDS: LEVOTHYROXINE SODIUM 50 MCG TABLET PO SCH (06:08)
[2019-01-13] MEDS: SODIUM CHLORIDE 0.9% 1000ML 1,000 ML IV SCH ×3 (06:08→20:41)
[2019-01-13 07:05] LABS: Basophils # (auto) 0.03 K/uL (0-0.2); Basophils % (auto) 0.2 %; Eosinophils # (auto) 1.08 K/uL (0-0.5); Eosinophils % (auto) 8.1 %; Hematocrit (blood only) 35.4 % (37-47); Hemoglobin 10.6 g/dL (12.0-16.0); Immature Granulocytes # (auto) 0.03 K/uL (0.00-0.02); Immature Granulocytes % (auto) 0.2 %; Lymphocytes # (auto) 1.89 K/uL (1.2-3.4); Lymphocytes % (auto) 14.2 %; Mean Corpuscular Hgb Conc 29.9 g/dL (32-36); Mean Corpuscular Volume 89.4 fL (80-100); Mean Platelet Volume 12.1 fL (7.4-10.4); Monocytes # (auto) 0.62 K/uL (0.11-0.59); Monocytes % (auto) 4.7 %; Neutrophils # (auto) 9.64 K/uL (1.4-6.5); Neutrophils % (auto) 72.6 %; Platelet Count 138 K/uL (130-400); RDW Coefficient of Variation 15.2 % (11.5-14.5); RDW Standard Deviation 50.1 fL (36.4-46.3); Red Blood Count 3.96 M/uL (4.2-5.4); White Blood Count 13.29 K/uL (4.8-10.8)
[2019-01-13 07:38] LABS: Estimated Average Glucose 154 mg/dl
[2019-01-13 07:43] LABS: BUN Creatinine Ratio 27.1 (10-20); Calcium 8.2 mg/dl (8.5-10.1); Creatinine Clr Calc Pharmacy 36.3 ml/min; Est GFR (African American) 65.3; Est GFR (Non-African American) 56.4; Potassium 4.1 mmol/L (3.5-5.1)
[2019-01-13] MEDS: INSULIN ASPART 100 UNITS/ML 3 ML PEN SC SCH ×4 (08:54→22:44)
[2019-01-13] MEDS: CYCLOSPORINE EYE SCH ×2 (08:55→16:28)
[2019-01-13] MEDS: GABAPENTIN 300 MG CAP PO SCH ×3 (08:56→21:46)
[2019-01-13] MEDS: MAGNESIUM CHLORIDE 64MG DELAYED REL TAB PO SCH ×2 (08:57→21:47)
[2019-01-13] MEDS: CITALOPRAM 20 MG TAB PO SCH (08:57)
[2019-01-13] MEDS: LOSARTAN POTASSIUM 25 MG TAB PO SCH (08:58)
[2019-01-13] MEDS: DOCUSATE SODIUM 100 MG CAP PO SCH ×2 (08:59→21:45)
[2019-01-13] MEDS: ATORVASTATIN 40 MG TAB PO SCH (08:59)
[2019-01-13] MEDS: ATENOLOL 50 MG TABLET PO SCH (09:00)
[2019-01-13] MEDS: predniSONE 1 MG TAB PO SCH (09:00)
[2019-01-13] MEDS: MoRPHine SULFATE 2 MG/ML CARP IV PRN (09:13)
[2019-01-13] MEDS ORDERED: ORTHO JOINT ANESTHETIC ONE (13:17)
[2019-01-13] MEDS ORDERED: BACITRACIN INJ 50,000 UNIT VIAL ONE (13:17)
--- NOTE | 2019-01-13 13:38 | Anesthesiology Consultation ---
Date of Service January 13, 2019 Assessment & Plan (1) Encounter for pre-operative examination: Chart Review Chart Review: Acceptable Risk for Surgery History Surgery Operation Date: 01/13/19 07:00 Proposed Procedures p Right Hip Hemiarthroplasty - Bradford Marcano DO Height/Weight Height: 5 ft 3 in Weight: 56.699 kg Allergies Allergy/AdvReac Type Severity Reaction Status Date / Time ertapenem [From Invanz] Allergy Intermediate RASH/ITCHIN Verified 01/12/19 12:53 G lisinopril Allergy Intermediate RASH Verified 01/12/19 12:53 Penicillins Allergy Intermediate EDEMA Verified 01/12/19 12:53 codeine AdvReac Intermediate NAUSEA, Verified 01/12/19 12:53 VOMITING Medications Home Medications Medication Instructions Recorded Confirmed Last Taken apixaban 5 mg PO BIDM 06/13/18 01/12/19 01/11/19 aspirin [Aspirin Low Dose] 81 mg PO QAM 06/13/18 01/12/19 01/11/19 atorvastatin 40 mg PO QAM 06/13/18 01/12/19 01/11/19 citalopram 10 mg PO QAM 06/13/18 01/12/19 01/11/19 fluticasone propionate [Flonase 1 spray INTRANASAL UD 06/13/18 01/12/19 01/11/19 Allergy Relief] gabapentin 300 mg PO BIDM 06/13/18 01/12/19 01/11/19 metformin 500 mg PO BIDM 06/13/18 01/12/19 01/11/19 prednisone 2 mg PO QAM 06/13/18 01/12/19 01/11/19 albuterol sulfate 2 inha INH Q6H PRN #6.7 gm 06/17/18 01/12/19 Unknown acetaminophen [Tylenol Extra 500 mg PO Q6H PRN 01/12/19 01/12/19 01/11/19 14:00 Strength] 1000mg atenolol 50 mg PO QAM 01/12/19 01/12/19 01/11/19 biotin 1,000 mcg PO DAILY 01/12/19 01/12/19 01/11/19 cyclosporine 1 drp OPHTHALMIC (EYE) DAILY 01/12/19 01/12/19 Unknown docusate sodium 100 mg PO BID 01/12/19 01/12/19 Unknown doxepin 10 mg PO HS 01/12/19 01/12/19 Unknown gabapentin 600 mg PO HS 01/12/19 01/12/19 01/11/19 levothyroxine 50 mcg PO QAM 01/12/19 01/12/19 01/11/19 losartan 25 mg PO QAM 01/12/19 01/12/19 01/11/19 magnesium chloride [Mag 64] 128 mg PO BID 01/12/19 01/12/19 01/11/19 meclizine 25 mg PO TID PRN 01/12/19 01/12/19 Unknown ranitidine HCl 150 mg PO BID 01/12/19 01/12/19 Unknown Active Medications Generic Name Dose Route Start Last Admin Trade Name Karlosq PRN Reason Stop Dose Admin Atenolol 50 mg 01/12/19 16:45 01/13/19 09:00 Tenormin PO 02/11/19 16:44 50 mg QAM YAMEL Administration Atorvastatin Calcium 40 mg 01/13/19 09:00 01/13/19 08:59 Lipitor PO 02/12/19 08:59 40 mg QAM YAMEL Administration Citalopram Hydrobromide 10 mg 01/13/19 09:00 01/13/19 08:57 Celexa PO 02/12/19 08:59 10 mg QAM YAMEL Administration Docusate Sodium 100 mg 01/12/19 21:00 01/13/19 08:59 Colace PO 02/11/19 20:59 100 mg BID YAMEL Administration Doxepin HCl 10 mg 01/12/19 21:00 01/12/19 20:28 Doxepin Hcl PO 02/11/19 20:59 10 mg HS YAMEL Administration Gabapentin 300 mg 01/12/19 17:00 01/13/19 08:56 Neurontin PO 02/11/19 16:59 300 mg BIDM YAMEL Administration Gabapentin 600 mg 01/12/19 21:00 01/12/19 20:29 Neurontin PO 02/11/19 20:59 600 mg HS YAMEL Administration Sodium Chloride 1,000 mls @ 75 mls/hr 01/12/19 16:45 01/13/19 06:08 Nss 1000ml IV 02/11/19 16:44 75 mls/hr .[id number] YAMEL Administration Acetaminophen 1,000 mg in 100 mls @ 400 mls/hr 01/12/19 16:45 01/12/19 18:34 Ofirmev IV 02/11/19 16:44 Infused Q8H PRN Infusion Pain Insulin Aspart 0 units 01/12/19 16:45 01/13/19 12:01 Novolog Flexpen SC 02/11/19 16:44 Not Given ACHS YAMEL Levothyroxine Sodium 50 mcg 01/13/19 06:30 01/13/19 06:08 Synthroid PO 02/12/19 06:29 50 mcg DAILYBB YAMEL Administration Losartan Potassium 25 mg 01/12/19 16:45 01/13/19 08:58 Cozaar PO 02/11/19 16:44 25 mg QAM YAMEL Administration Magnesium Chloride 128 mg 01/12/19 21:00 01/13/19 08:57 Slow-Mag PO 02/11/19 20:59 128 mg BID YAMEL Administration Miscellaneous 1 ea 01/13/19 00:00 01/13/19 08:55 Order Awaiting Action N/A 02/12/19 00:00 Not Given QS YAMEL Morphine Sulfate 2 mg 01/12/19 16:45 01/13/19 09:13 Morphine Sulfate IV 01/26/19 16:44 2 mg Q3H PRN Administration Pain Oxycodone HCl 5 mg 01/12/19 16:45 01/13/19 06:08 Roxicodone Immediate Rel PO 01/26/19 16:44 5 mg Q4H PRN Administration MODERATE Pain (Scale 4,5,6) Prednisone 2 mg 01/13/19 09:00 01/13/19 09:00 Prednisone PO 02/12/19 08:59 2 mg QAM YAMEL Administration Ranitidine HCl 150 mg 01/12/19 21:00 01/13/19 08:57 Zantac PO 02/11/19 20:59 150 mg BID YAMEL Administration NPO Date Last Intake of Fluids: 01/13/19 Time Last Intake of Fluids: 08:00 Last Intake of Fluids Comment: sip if water with meds Date Last Intake of Solids: 01/12/19 Time Last Intake of Solids: 18:00 Past Medical History Medical History Essential hypertension (Chronic) Osteoporosis (Chronic) Cerebrovascular disease (Chronic) "s/p right occipital stroke per MRI" Hypothyroidism (Chronic) Polymyalgia rheumatica (Chronic) Diabetes mellitus, type II (Chronic) CKD (chronic kidney disease), stage III (Chronic) Pancreatic cyst (Chronic) Dyslipidemia (Chronic) History of adenomatous polyp of colon (Chronic) Diverticular disease of colon (Chronic) Paroxysmal atrial fibrillation (Chronic) Depression (Chronic) Past Family History Family History Other Family history non-contributory Past Surgical History Surgical History History of hernia repair (Resolved) Status post cholecystectomy (Chronic) Status post hysterectomy (Chronic) Social History Smoking Status: Never smoker Hx Alcohol Use: Yes Alcohol type: wine alcohol intake frequency: holidays/special occasions only Hx Substance Use: No Physical Exam Vital Signs Last Vital Signs Temp 36.6 C 01/13/19 13:16 Pulse 79 01/13/19 13:16 Resp 18 01/13/19 13:16 BP 141/69 H 01/13/19 13:16 Pulse Ox 97 01/13/19 13:16 Testing Laboratory Results 01/13/19 06:26 01/13/19 06:26 PT 9.9 Seconds (9.0-12.0) 01/12/19 12:54 INR 1.0 (0.9-1.1) 01/12/19 12:54 APTT 23.5 Seconds (21.0-31.0) 01/12/19 12:54 Hemoglobin A1c 7.0 % (4.5-5.6) H 01/13/19 06:26 Urine Color Yellow 01/12/19 12:00 Urine Appearance Clear (Clear) 01/12/19 12:00 Urine pH 6.5 (4.5-7.5) 01/12/19 12:00 Ur Specific [place] 1.010 (1.000-1.030) 01/12/19 12:00 Urine Protein Negative (Negative) 01/12/19 12:00 Urine Glucose (UA) Negative (Negative) 01/12/19 12:00 Urine Ketones Negative (Negative) 01/12/19 12:00 Urine Nitrite Negative (Negative) 01/12/19 12:00 Ur Leukocyte Esterase Negative (Negative) 01/12/19 12:00 Blood Type B Positive 01/12/19 13:12 Antibody Screen NEGATIVE 01/12/19 13:12 01/13/19 01/13/19 11:05 07:16 POC Glucose 128 H 129 H Electrocardiogram Date: 01/12/19 Findings: + NSR @ (72) Chest X-Ray Date: 01/12/19 Findings: + NAD Echocardiogram Date: 12/31/18 EF: 60% LV Function: normal Valvular Disease: + no significant valvular disease
[2019-01-13] MEDS ORDERED: fentaNYL citrate 100 MCG/2 ML VIAL ONE ×2 (13:42→14:48)
[2019-01-13] MEDS ORDERED: PROPOFOL IV EMULSION 10 MG/ML 20 ML VIAL IV ONE (13:42)
[2019-01-13] MEDS ORDERED: LIDOCAINE HCL 2% 2 ML VIAL/AMP(20MG/ML) INFIL ONE (13:42)
[2019-01-13] MEDS ORDERED: MIDAZOLAM HCL 1 MG/ML 2ML VIAL ONE (13:42)
[2019-01-13] MEDS ORDERED: ATROPINE SULFATE 0.1 MG/ML 10ML SYR IV PRN (13:52)
[2019-01-13] MEDS ORDERED: HYDROmorphone INJ 1 MG/ML SYRINGE IV PRN (13:52)
[2019-01-13] MEDS ORDERED: ONDANSETRON INJ 2 MG/ML 2 ML VIAL IV PRN (13:52)
[2019-01-13] MEDS ORDERED: LABETALOL HCL IV 5 MG/ML 20ML IV PRN (13:52)
--- NOTE | 2019-01-13 14:09 | History & Physical Bridge Note ---
Date of Service January 13, 2019 History & Physical Bridge Note I have examined the patient, reviewed the History & Physical and in the interval since the performance of the History & Physical I have noted the following changes of clinical significance: no changes noted
[2019-01-13] MEDS ORDERED: HYDROmorphone INJ 2 MG/ML SYR/VIAL ONE (15:01)
[2019-01-13] MEDS ORDERED: NEOSTIGMINE METHYLSULFATE 5 MG/5 ML SYR ONE (15:01)
[2019-01-13] MEDS ORDERED: ONDANSETRON INJ 2 MG/ML 2 ML VIAL ONE (15:01)
[2019-01-13] MEDS ORDERED: GLYCOPYRROLATE 0.2 MG/ML VIAL ONE (15:01)
--- NOTE | 2019-01-13 16:19 | Post Operative Brief Note ---
Immediate Post Op Note v1 Date of Surgery January 13, 2019 Pre & Post Diagnosis Operation Date: 01/13/19 07:00 Pre-Op Diagnosis: RIGHT HIP FRACTURE Post-Op Diagnosis: RIGHT HIP FRACTURE Procedure Operation Date: 01/13/19 07:00 Actual Procedures p Right Hip Hemiarthroplasty(Right) - Bradford Marcano DO Surgeon Bradford Marcano DO Fluorescent Solution Mixer none Estimated Blood Loss 85 Findings Consistent with Post-Op Diagnosis Fluids 1000 CC LR Specimens femoral head Drains Tejeda Catheter (16 indonesian) Complications none Disposition Disposition: Recovery Room Overlapping Procedure I was present for: the critical portions of procedure. I was immediately available: during the entire case. Back up surgeon: was not required during procedure.
--- NOTE | 2019-01-13 16:21 | Operative Report ---
Post Operative Report Pre & Post Diagnosis Operation Date: 01/13/19 07:00 Pre-Op Diagnosis: RIGHT HIP FRACTURE Post-Op Diagnosis: RIGHT HIP FRACTURE Procedure Operation Date: 01/13/19 07:00 Actual Procedures p Right Hip Hemiarthroplasty(Right) - Bradford Marcano DO Surgeon Bradford Marcano DO Portable Grinding Machine Operator none Estimated Blood Loss 85 Findings Consistent with Post-Op Diagnosis Specimens Femoral head Drains None Disposition Disposition: Recovery Room Indications The patient is a 88-year-old female with displaced right femoral neck fracture sustained after a fall from standing height. The patient was medically stabilized on 01/13/2019. I indicated the patient for right hip hemiarthroplasty. The patient in for was informed of the risks and benefits of surgery, which include but not limited to infection, bleeding, blood clots, damage to nerves, vessels, bone and soft tissue, dislocation, leg length discrepancy, need for additional surgery and . The patient in for collectively chose to move forward with surgical intervention and informed consent was obtained. Description of Procedure Following induction of adequate general anesthesia, the patient was transferred to the OR table and placed in the lateral decubitus position with left hip down. The right hip was prepped and draped in usual sterile manner. A posterior incision was made. Subcutaneous tissue was sharply dissected. Electro cautery was used for hemostasis. Fascia was incised throughout the length of the wound and the piriformis was identified. A #1 Vicryl suture was used to tage the piriformis. The short external rotators were divided from the posterior aspect of the femur and a capsulotomy was performed. A second #1 Vicryl suture was used to tag the capsule. Next, I turned my attention to the femoral neck fracture. The fracture was relatively high on the calcar and decision was made to proceed with the oscillating saw and create the calcar osteotomy. This bone fragment was removed. Following this, tenaculum and cob elevater was utilized to remove the femoral head. The head was measured on the back table and the 47 mm femoral head was chosen as the size to be used. Next, attention was turned to the acetabulum which was found to have no significant arthritis. All bony debris was removed. A sponge was placed in the acetabulum. Attention was then turned to the proximal femur where box osteotome was used to gain access to the femoral canal. A canal finder and power lateralizing reamer were utilized to further open. Sequential raspings were taken up to a size 13, which was sunk completely and trial reduction was carried out and a 28 +3.5 mm femoral head was chosen the size to be used with the 46 bipolar cup. Following a trial reduction, the hip was found to be stable to 45 degrees of internal rotation and 90 degrees of flexion with equal leg lengths. The calcar reamer was utilized to smooth the calcar and the instruments and trial components were removed. The hip was thoroughly irrigated with pulsatile irrigation. The canal was irrigated and dried, cement restrictor was placed and [place] cement was mixed. The size 12 low demand fracture stem was placed with a 11 mm centralizer and this was held in position well. All excess cement was removed and cement hardened. Following insertion of final stem component another trial reduction was carried out and again a +3 point neck size was chosen as the size to be used. The final head and neck was impacted into position and the hip was reduced and stablity assess and was found to be stable to 45 degrees of internal rotation and 90 degrees of flexion. The wound was again irrigated. Mago-incisional soft tissue was injected with the [place] [employer] which includes a combination of Ropivicaine 0.5% 150mg, Bupivicaine 0.5%/Epinephrine 1:200,000 30ml, Toradol 30mg, Dexamethasone 4mg, Ketamine 10mg, Clonidine 100mcg and NSS 30ml solution. The capsulebwas repaired using #5 fiberwire sutures through drill holes. Following this, the short external rotators were reapproximated to the posterior aspect of the femur also through drill holes and these were tied. Once again the wound was copiously irrigated with sterile saline solution with bacitracin. Fascia was closed using #1 Vicryl [id number] sutures, subcutaneous tissue was closed using 2-0 vicryl, and skin was closed with bakari. Sterile dress ings Silverlon were applied and abduction pillow placed between the legs. The patient tolerated the procedure well and was taken to recovery room in stable condition. I attest to the content of the Intraoperative Record and any orders documented therein. Any exceptions are noted below.
--- NOTE | 2019-01-13 16:44 | Orthopedic Progress Note ---
Date of Service January 13, 2019 Assessment & Plan (1) Closed right femoral fracture: Status post right hip hemiarthroplasty -Clinda x24 -DVT prophylaxis: SCDs, teds, Lovenox daily -Weight-bear as tolerates right lower extremity -Posterior hip precautions -PT/OT when medically stable -Maintain Silverlon dressing x7 days -Postoperative x-ray pending -A.m. labs Subjective Postoperative progress note The patient was seen and examined resting in the PACU, still waking up from general anesthesia, arousable, comfortable appearing. Review of Systems Review of Systems: All systems reviewed & are unremarkable except as noted in HPI & below Constitutional: as per Subjective / HPI Physical Exam Physical Exam: Physical exam is limited secondary to patient still coming out of general anesthesia, +2 dorsalis pedis pulse, compartment soft nontender, augie ssing clean dry and intact, abduction pillow in place. Constitutional: WD/WN, vitals as above Results & Data Vital Signs (Past 12 Hours) Vital Signs Temp Pulse Pulse Resp BP BP Pulse Ox 01/13/19 13:16 36.6 C 79 18 141/69 H 97 01/13/19 11:47 83 01/13/19 11:24 36.5 C 62 20 134/79 96 01/13/19 07:10 36.8 C 81 20 141/81 H 93 (1) Closed right femoral fracture Encounter type: initial encounter Fracture alignment: displaced
[2019-01-13] MEDS ORDERED: PHENYLEPHRINE 100MCG/ML 5ML SYR ONE (16:46)
[2019-01-13] MEDS ORDERED: ALBUMIN HUMAN 5% 12.5 GM/250 ML VIAL IV ONE (16:48)
--- NOTE | 2019-01-13 17:31 | XRay Report ---
XR hip RT min 2V CLINICAL HISTORY: Post-Operative implant position COMPARISON STUDY: Right femur 01/12/2019. FINDINGS: The patient is status post a right hip hemiarthroplasty. The hardware appears intact. No fr acture or dislocation. Soft tissue gas within the lateral right hip consistent with postoperative flavia nge. IMPRESSION: Status post right hip hemiarthroplasty. No evidence for hardware complication. Electronically signed by: Jeffrey Sloan M.D. 01/13/2019 5:30 PM
--- NOTE | 2019-01-13 17:51 | Anesthesiology Progress Note ---
Date of Service January 13, 2019 Anesthesia Post Procedure Vital Signs Vital Signs: Temp Pulse Pulse Resp BP BP BP 01/13/19 17:20 74 12 105/53 L 01/13/19 17:16 77 20 96/47 L 01/13/19 17:15 84 19 01/13/19 17:10 76 14 105/53 L 01/13/19 17:05 76 14 92/49 L 01/13/19 17:00 75 14 93/52 L 01/13/19 16:55 76 20 92/52 L 01/13/19 16:51 77 14 105/69 01/13/19 16:50 79 16 01/13/19 16:48 78 13 62/49 L 01/13/19 16:46 76 14 67/35 L 01/13/19 16:45 77 14 01/13/19 16:43 75 14 86/41 L 01/13/19 16:42 76 19 01/13/19 16:40 76 17 90/52 L 01/13/19 16:39 78 19 91/45 L 01/13/19 16:38 37.4 C 78 76 17 83/46 L 105/69 01/13/19 13:16 36.6 C 79 18 141/69 H 01/13/19 11:47 83 01/13/19 11:24 36.5 C 62 20 134/79 01/13/19 07:10 36.8 C 81 20 141/81 H 01/13/19 03:16 36.9 C 81 22 130/71 01/13/19 00:10 75 01/12/19 23:25 36.7 C 72 22 116/75 01/12/19 19:00 36.7 C 87 18 122/78 01/12/19 18:45 36.7 C 86 20 184/109 H 01/12/19 18:04 113 H 22 161/87 H Pulse Ox 01/13/19 17:20 95 01/13/19 17:16 01/13/19 17:15 01/13/19 17:10 97 01/13/19 17:05 94 01/13/19 17:00 100 01/13/19 16:55 95 01/13/19 16:51 100 01/13/19 16:50 95 01/13/19 16:48 87 L 01/13/19 16:46 94 01/13/19 16:45 95 01/13/19 16:43 94 01/13/19 16:42 92 01/13/19 16:40 92 01/13/19 16:39 92 01/13/19 16:38 92 01/13/19 13:16 97 01/13/19 11:47 01/13/19 11:24 96 01/13/19 07:10 93 01/13/19 03:16 95 01/13/19 00:10 01/12/19 23:25 94 01/12/19 19:00 96 01/12/19 18:45 96 01/12/19 18:04 95 Pain Intensity Right Hip: Pain Intensity: 0 Transfer of Care Handoff Completed per policy Notes Mental Status: alert / awake / arousable and participated in evaluation Patient Amnestic to Procedure: Yes Nausea / Vomiting: adequately controlled Pain: adequately controlled Airway Patency, RR, SpO2: stable & adequate BP & HR: stable & adequate Hydration State: stable & adequate Anesthetic Complications: no major complications apparent and Pt Satisfied with anesthetic care Notes: Ms. Hinojosa was mildly hypotensive in the recovery room and was treated with several doses of phenylephrine and 250ml 5% albumin. Her blood pressure responded nicely and she then maintained her blood pressure without any support. She became more awake and alert. Oxygen was slowly weaned but will still require supplemental oxygen on the floor. I felt it was best to go back to her telemetry bed where she can be monitored more closely as opposed to a regular med-surg room. She will be ordered continuous pulse oximetry.
[2019-01-13] MEDS ORDERED: ACETAMINOPHEN 325 MG TAB PO PRN (18:49)
[2019-01-13] MEDS ORDERED: OXYCODONE HCL IR 5 MG TAB (IMMEDIATE RELEASE) PO PRN (18:49)
[2019-01-13] MEDS ORDERED: NALOXONE HCL 0.4 MG/1 ML VIAL/CARP IV PRN (18:49)
[2019-01-13] MEDS ORDERED: COUGH DROP (SUGAR FREE) LOZ 24 LOZ/1 BOX BUCCAL PRN (18:49)
[2019-01-13] MEDS: DOXEPIN HCL 10 MG CAPSULE PO SCH (21:46)
[2019-01-13] MEDS: CLINDAMYCIN 600 MG in DEXTROSE 5% 50 ML IV SCH (21:47)
[2019-01-13] MEDS: SENNA 8.6 MG TAB PO SCH ×2 (21:48→22:02)
--- NOTE | 2019-01-13 21:57 | Hospitalist Progress Note ---
Date of Service January 13, 2019 Assessment & Plan (1) Closed right femoral fracture: Suffered transcervical fracture of right hip after mechanical fall. Right hip arthroplasty performed by Dr. Marcano. (2) Paroxysmal atrial fibrillation: Currently in normal sinus rhythm. Continue a atenolol. Resume apixaban when okay from surgical perspective. (3) Cerebrovascular disease: History of occipital stroke. Underlying paroxysmal atrial fibrillation. Resume apixaban when able. (4) Essential hypertension: Continue atenolol and losartan. (5) CKD (chronic kidney disease), stage III: Serum creatinine this morning 0.92. Follow. (6) Diabetes mellitus, type II: Diabetes mellitus type 2 managed with metformin at home. Hold metformin during hospital stay. Lantus/NovoLog per protocol. Fasting blood sugar today = 129. (7) Hypothyroidism: Continue levothyroxine. (8) Osteoporosis: 25 hydroxy vitamin D level 15. Start vitamin D supplementation postoperatively. (9) Polymyalgia rheumatica: Continue prednisone. (10) DNR (do not resuscitate): Per advanced directives. (11) DVT prophylaxis: SCDs. Resume apixaban when able. Ambulate as tolerated. (12) Discharge planning issues: Anticipated need for skilled care. Family Medicine follow-up with Dr. Antunez. Subjective Recheck for hip fracture and other problems. Patient seen in their room around 19:30. Right hip arthroplasty performed this afternoon by Dr. Marcano. EBL 85 ml. Received 1 L IV fluids. Still sedated at time of my assessment. Review of Systems Review of Systems: Unobtainable due to reduced consciousness Physical Exam Constitutional: no acute distress Respiratory: no respiratory distress Auscultation: lungs clear to auscultation bilaterally Cardiovascular: Rate/Rhythm: regular rate and regular rhythm Heart Sounds: no gallop Vessels: no JVD Extremities: no calf tenderness and no edema Gastrointestinal (Abdomen): normal bowel sounds, soft, nontender, no hepatosplenomegaly Musculoskeletal: TEDS and SCD's applied Skin: no rashes, warm and dry Psychiatric: Orientation: + not alert Results & Data Vital Signs (Past 12 Hours) Vital Signs Temp Pulse Pulse Resp BP BP BP 01/13/19 19:45 36.6 C 72 22 110/68 01/13/19 18:52 36.6 C 72 16 95/59 L 01/13/19 18:27 37.1 C 01/13/19 18:25 71 16 01/13/19 18:20 72 12 104/62 01/13/19 18:15 67 14 109/68 01/13/19 18:10 70 18 111/50 L 01/13/19 18:05 71 14 111/49 L 01/13/19 18:00 68 20 109/66 01/13/19 17:55 71 13 101/55 L 01/13/19 17:53 37.1 C 01/13/19 17:50 72 17 01/13/19 17:45 69 15 99/56 L 01/13/19 17:40 72 13 98/55 L 01/13/19 17:35 72 14 93/44 L 01/13/19 17:30 70 12 104/63 01/13/19 17:29 70 12 104/56 L 01/13/19 17:25 71 13 01/13/19 17:20 74 12 105/53 L 01/13/19 17:16 77 20 96/47 L 01/13/19 17:15 84 19 01/13/19 17:10 76 14 105/53 L 01/13/19 17:05 76 14 92/49 L 01/13/19 17:00 75 14 93/52 L 01/13/19 16:55 76 20 92/52 L 01/13/19 16:51 77 14 105/69 01/13/19 16:50 79 16 01/13/19 16:48 78 13 62/49 L 01/13/19 16:46 76 14 67/35 L 01/13/19 16:45 77 14 01/13/19 16:43 75 14 86/41 L 01/13/19 16:42 76 19 01/13/19 16:40 76 17 90/52 L 01/13/19 16:39 78 19 91/45 L 01/13/19 16:38 37.4 C 78 76 17 83/46 L 105/69 01/13/19 13:16 36.6 C 79 18 141/69 H 01/13/19 11:47 83 01/13/19 11:24 36.5 C 62 20 134/79 Pulse Ox 01/13/19 19:45 97 01/13/19 18:52 92 01/13/19 18:27 94 01/13/19 18:25 96 01/13/19 18:20 91 01/13/19 18:15 93 01/13/19 18:10 91 01/13/19 18:05 96 01/13/19 18:00 92 01/13/19 17:55 92 01/13/19 17:53 93 01/13/19 17:50 94 01/13/19 17:45 93 01/13/19 17:40 94 01/13/19 17:35 96 01/13/19 17:30 95 01/13/19 17:29 98 01/13/19 17:25 93 01/13/19 17:20 95 01/13/19 17:16 01/13/19 17:15 01/13/19 17:10 97 01/13/19 17:05 94 01/13/19 17:00 100 01/13/19 16:55 95 01/13/19 16:51 100 01/13/19 16:50 95 01/13/19 16:48 87 L 01/13/19 16:46 94 01/13/19 16:45 95 01/13/19 16:43 94 01/13/19 16:42 92 01/13/19 16:40 92 01/13/19 16:39 92 01/13/19 16:38 92 01/13/19 13:16 97 01/13/19 11:47 01/13/19 11:24 96 (1) Closed right femoral fracture Encounter type: initial encounter Fracture alignment: displaced
[2019-01-14] MEDS: CYCLOSPORINE EYE SCH ×3 (00:41→15:44)
[2019-01-14] MEDS: LEVOTHYROXINE SODIUM 50 MCG TABLET PO SCH (06:02)
[2019-01-14] MEDS: CLINDAMYCIN 600 MG in DEXTROSE 5% 50 ML IV SCH (06:02)
--- NOTE | 2019-01-14 06:26 | Orthopedic Progress Note ---
Date of Service January 14, 2019 Assessment & Plan (1) Closed right femoral fracture: POD #1 Status post right hip hemiarthroplasty -Clinda x24 -DVT prophylaxis: SCDs, teds, Lovenox daily -Weight-bear as tolerates right lower extremity -Posterior hip precautions -PT/OT when medically stable -Maintain Silverlon dressing x7 days -Post op X-ray demonstrates s/p right hip hemiarthroplasty, no evidence of hardware complications -A.m. labs- pending Subjective POD #1 s/p right hip hemiarthroplasty denies CP/SOB denies Fever/Chills somewhat confused this am but intermittent, able to answer most questions appropriately Physical Exam Physical Exam: Vital Signs Temp 36.1 C L 01/14/19 04:00 Pulse 76 01/14/19 04:00 Resp 18 01/14/19 04:00 BP 122/72 01/14/19 04:00 Pulse Ox 92 01/14/19 04:00 Intake & Output 01/13/19 01/13/19 01/14/19 06:59 18:59 06:59 Intake Total 867.5 / 1562.5 3341.25 / 4139.25 798 / 4139.25 Output Total 1725 / 1725 85 / 335 250 / 335 Balance -857.5 / -162.5 3256.25 / 3804.25 548 / 3804.25 Weight 56.699 kg Intake: IV 867.5 / 1562.5 951.25 / 1199.25 248 / 1199.25 Cleocin 600 mg In D5w 50 ml @ 54 / 54 100 mls/hr IV Q8H YAMEL Rx#: [id number] CLEOCIN 600 mg In 54 ml @ 100 54 / 54 mls/hr IV PREO P YAMEL Rx#: [id number] Nss 1000ML 1,0 00 ml @ 75 mls/hr 867.5 / 867.5 951.25 / 1091.25 140 / 1091.25 IV .[id number] SC H Rx#:[id number] IV Perioperative 1999 / 1999 Oral 0 / 0 390 / 940 550 / 940 Output: Estimated Blood Loss 85 / 85 Urine Amount (Ca theter) 1725 / 1725 250 / 250 Tejeda/Indwelli ng 1725 / 1725 250 / 250 Constitutional: no acute distress Musculoskeletal: Right Hip: silverlon dressing clean and dry, calf SNT, NVDI, able to wiggle toes, ankle plantar/dorsiflexion without pain Results & Data Vital Signs (Past 12 Hours) Vital Signs Temp Pulse Pulse Resp BP Pulse Ox 01/14/19 04:00 36.1 C L 76 18 122/72 92 01/13/19 23:54 37 C 78 20 102/63 96 01/13/19 20:00 71 01/13/19 19:45 36.6 C 72 22 110/68 97 01/13/19 18:52 36.6 C 72 16 95/59 L 92 01/13/19 18:27 37.1 C 94 01/13/19 18:25 71 16 96 Laboratory Results labs pending Diagnostic Findings XR hip RT min 2V CLINICAL HISTORY: Post-Operative implant position COMPARISON STUDY: Right femur 01/12/2019. FINDINGS: The patient is status post a right hip hemiarthroplasty. The hardware appears intact. No fracture or dislocation. Soft tissue gas within the lateral right hip consistent with postoperative change. IMPRESSION: Status post right hip hemiarthroplasty. No evidence for hardware complication. (1) Closed right femoral fracture Encounter type: initial encounter Fracture alignment: displaced
[2019-01-14 06:33] LABS: Basophils # (auto) 0.03 K/uL (0-0.2); Basophils % (auto) 0.3 %; Eosinophils % (auto) 5.1 %; Hematocrit (blood only) 28.2 % (37-47); Hemoglobin 8.5 g/dL (12.0-16.0); Immature Granulocytes # (auto) 0.03 K/uL (0.00-0.02); Immature Granulocytes % (auto) 0.3 %; Lymphocytes # (auto) 1.12 K/uL (1.2-3.4); Lymphocytes % (auto) 9.5 %; Mean Corpuscular Hgb Conc 30.1 g/dL (32-36); Mean Corpuscular Volume 90.1 fL (80-100); Mean Platelet Volume 11.7 fL (7.4-10.4); Monocytes # (auto) 0.61 K/uL (0.11-0.59); Monocytes % (auto) 5.2 %; Neutrophils # (auto) 9.38 K/uL (1.4-6.5); Neutrophils % (auto) 79.6 %; Platelet Count 104 K/uL (130-400); RDW Coefficient of Variation 15.6 % (11.5-14.5); RDW Standard Deviation 51.2 fL (36.4-46.3); Red Blood Count 3.13 M/uL (4.2-5.4); White Blood Count 11.77 K/uL (4.8-10.8)
[2019-01-14 07:07] LABS: Calcium 7.6 mg/dl (8.5-10.1); Creatinine Clr Calc Pharmacy 42.4 ml/min; Est GFR (African American) 69.9; Est GFR (Non-African American) 60.3; Potassium 4.7 mmol/L (3.5-5.1)
[2019-01-14] MEDS: SODIUM CHLORIDE 0.9% 1000ML 1,000 ML IV SCH (07:47)
[2019-01-14] MEDS: ATORVASTATIN 40 MG TAB PO SCH (07:47)
[2019-01-14] MEDS: CITALOPRAM 20 MG TAB PO SCH (07:47)
[2019-01-14] MEDS: predniSONE 1 MG TAB PO SCH (07:50)
[2019-01-14] MEDS: LOSARTAN POTASSIUM 25 MG TAB PO SCH (07:50)
[2019-01-14] MEDS: DOCUSATE SODIUM 100 MG CAP PO SCH ×2 (07:51→20:30)
[2019-01-14] MEDS: MAGNESIUM CHLORIDE 64MG DELAYED REL TAB PO SCH ×2 (07:51→20:22)
[2019-01-14] MEDS: ATENOLOL 50 MG TABLET PO SCH (07:52)
[2019-01-14] MEDS: ENOXAPARIN INJ 40 MG/0.4 ML SYR SQ SCH (07:52)
[2019-01-14] MEDS: INSULIN ASPART 100 UNITS/ML 3 ML PEN SC SCH ×4 (07:57→20:25)
[2019-01-14] MEDS: GABAPENTIN 300 MG CAP PO SCH ×3 (07:58→20:26)
--- NOTE | 2019-01-14 08:27 | XRay Report ---
XR chest 1V portable HISTORY: hypoxia COMPARISON: Chest 01/12/2019. FINDINGS: Small linear density left lung base favor subsegmental atelectasis. Otherwise, lungs are cl ear. The heart is normal in size. No pleural effusions. No pneumothorax. IMPRESSION: No acute process. Electronically signed by: Jeffrey Sloan M.D. 01/14/2019 8:25 AM
--- NOTE | 2019-01-14 10:09 | Anesthesiology Progress Note ---
Date of Service January 14, 2019 Anesthesia Post Procedure Vital Signs Vital Signs: Temp Pulse Pulse Resp BP BP BP 01/14/19 08:00 36.9 C 74 74 H 102/66 01/14/19 07:30 01/14/19 07:00 36.6 C 79 20 98/62 L 01/14/19 04:00 36.1 C L 76 18 122/72 01/13/19 23:54 37 C 78 20 102/63 01/13/19 20:00 71 01/13/19 19:45 36.6 C 72 22 110/68 01/13/19 18:52 36.6 C 72 16 95/59 L 01/13/19 18:27 37.1 C 01/13/19 18:25 71 16 01/13/19 18:20 72 12 104/62 01/13/19 18:15 67 14 109/68 01/13/19 18:10 70 18 111/50 L 01/13/19 18:05 71 14 111/49 L 01/13/19 18:00 68 20 109/66 01/13/19 17:55 71 13 101/55 L 01/13/19 17:53 37.1 C 01/13/19 17:50 72 17 01/13/19 17:45 69 15 99/56 L 01/13/19 17:40 72 13 98/55 L 01/13/19 17:35 72 14 93/44 L 01/13/19 17:30 70 12 104/63 01/13/19 17:29 70 12 104/56 L 01/13/19 17:25 71 13 01/13/19 17:20 74 12 105/53 L 01/13/19 17:16 77 20 96/47 L 01/13/19 17:15 84 19 01/13/19 17:10 76 14 105/53 L 01/13/19 17:05 76 14 92/49 L 01/13/19 17:00 75 14 93/52 L 01/13/19 16:55 76 20 92/52 L 01/13/19 16:51 77 14 105/69 01/13/19 16:50 79 16 01/13/19 16:48 78 13 62/49 L 01/13/19 16:46 76 14 67/35 L 01/13/19 16:45 77 14 01/13/19 16:43 75 14 86/41 L 01/13/19 16:42 76 19 01/13/19 16:40 76 17 90/52 L 01/13/19 16:39 78 19 91/45 L 01/13/19 16:38 37.4 C 78 76 17 83/46 L 105/69 01/13/19 13:16 36.6 C 79 18 141/69 H 01/13/19 11:47 83 01/13/19 11:24 36.5 C 62 20 134/79 Pulse Ox Pulse Ox 01/14/19 08:00 95 95 01/14/19 07:30 95 01/14/19 07:00 98 01/14/19 04:00 92 01/13/19 23:54 96 01/13/19 20:00 01/13/19 19:45 97 01/13/19 18:52 92 01/13/19 18:27 94 01/13/19 18:25 96 01/13/19 18:20 91 01/13/19 18:15 93 01/13/19 18:10 91 01/13/19 18:05 96 01/13/19 18:00 92 01/13/19 17:55 92 01/13/19 17:53 93 01/13/19 17:50 94 01/13/19 17:45 93 01/13/19 17:40 94 01/13/19 17:35 96 01/13/19 17:30 95 01/13/19 17:29 98 01/13/19 17:25 93 01/13/19 17:20 95 01/13/19 17:16 01/13/19 17:15 01/13/19 17:10 97 01/13/19 17:05 94 01/13/19 17:00 100 01/13/19 16:55 95 01/13/19 16:51 100 01/13/19 16:50 95 01/13/19 16:48 87 L 01/13/19 16:46 94 01/13/19 16:45 95 01/13/19 16:43 94 01/13/19 16:42 92 01/13/19 16:40 92 01/13/19 16:39 92 01/13/19 16:38 92 01/13/19 13:16 97 01/13/19 11:47 01/13/19 11:24 96 Pain Intensity Right Hip: Pain Intensity: 0 Head: Pain Intensity: 6 Transfer of Care Handoff Completed per policy Notes Mental Status: alert / awake / arousable and participated in evaluation Patient Amnestic to Procedure: Yes Nausea / Vomiting: adequately controlled Pain: adequately controlled Airway Patency, RR, SpO2: stable & adequate BP & HR: stable & adequate Hydration State: stable & adequate Anesthetic Complications: no major complications apparent and Pt Satisfied with anesthetic care
[2019-01-14] MEDS: HYDROmorphone INJ 0.5 MG/0.5 ML SYR IV PRN ×2 (12:40→20:17)
[2019-01-14] MEDS ORDERED: HYDROCORTISONE SOD SUCCINATE 100 MG/2 ML VIAL IV ONE (14:36)
--- NOTE | 2019-01-14 18:54 | Hospitalist Progress Note ---
Date of Service January 14, 2019 Assessment & Plan (1) Closed right femoral fracture: Suffered transcervical fracture of right hip after mechanical fall. Right hip arthroplasty performed by Dr. Marcano 01/13. POD # 1. Analgesics, PT, OT. (2) Paroxysmal atrial fibrillation: Currently in normal sinus rhythm. Continue atenolol. Resume apixaban when okay from surgical perspective. (3) Cerebrovascular disease: History of occipital stroke. Underlying paroxysmal atrial fibrillation. Resume apixaban when able. (4) Essential hypertension: BP's low at times. Continue atenolol and losartan with hold parameters. (5) CKD (chronic kidney disease), stage III: Serum creatinine this morning 0.87. Follow. (6) Diabetes mellitus, type II: Diabetes mellitus type 2 managed with metformin at home. Hold metformin during hospital stay. Lantus/NovoLog per protocol. Fasting blood sugar today = 136. (7) Hypothyroidism: Continue levothyroxine. (8) Osteoporosis: 25 hydroxy vitamin D level 15. Start vitamin D supplementation postoperatively. (9) Polymyalgia rheumatica: Continue prednisone. (10) Chronic steroid use: Chronic prednisone therapy for PMR. Systolic BP in 90's this morning. IV hydrocortisone 25 mg today; repeat PRN. (11) Altered mental status: Postop delirium. Treat postop pain as needed, but try to use low dose analgesics. Avoid meds with anticholinergic side effects whenever possible. (12) Acute blood loss anemia: Hgb 11.3 --> 8.5. Acute blood loss anemia secondary to hip fracture. No need for transfusion at this time per guidelines. Follow. (13) DNR (do not resuscitate): Per advanced directives. (14) DVT prophylaxis: SCDs. Resume apixaban when able. Ambulate as tolerated. (15) Discharge planning issues: Anticipated need for skilled care. Family Medicine follow-up with Dr. Antunez. Son given update by phone. Jairo Kee Subjective Recheck for hip fracture and other problems. Patient seen in their room around 15:00. Confused. Desats when not wearing O2. No fever. No chest pain. No cough or SOB. Not passing any stool yet. Still has Tejeda catheter. Pain well-controlled. Review of Systems: Constitutional- no fever. Cardiac- as noted above. Pulmonary- as noted above. GI- as noted above. - as noted above. Otherwise, as noted above. Physical Exam Constitutional: no acute distress Respiratory: no respiratory distress Auscultation: lungs clear to auscultation bilaterally Cardiovascular: Rate/Rhythm: regular rate and regular rhythm Heart Sounds: no gallop Vessels: no JVD Extremities: no calf tenderness and no edema Gastrointestinal (Abdomen): normal bowel sounds, soft, nontender, no hepatosplenomegaly Skin: no rashes, warm and dry Psychiatric: Orientation: alert; + not oriented x 3 (oriented to person and hospital, not date) Results & Data Vital Signs (Past 12 Hours) Vital Signs Temp Pulse Pulse Resp BP BP Pulse Ox 01/14/19 16:00 01/14/19 15:27 36.3 C L 68 18 116/72 100 01/14/19 11:57 36.4 C L 78 17 96/60 L 95 01/14/19 08:00 36.9 C 74 74 H 102/66 95 01/14/19 07:30 01/14/19 07:00 36.6 C 79 20 98/62 L 98 Pulse Ox 01/14/19 16:00 95 01/14/19 15:27 01/14/19 11:57 01/14/19 08:00 95 01/14/19 07:30 95 01/14/19 07:00 Laboratory Results Abnormal Lab Results 01/13/19 01/14/19 01/14/19 20:56 06:16 06:16 WBC 11.77 H RBC 3.13 L Hgb 8.5 L Hct 28.2 L MCV 90.1 MCH 27.2 MCHC 30.1 L RDW Std Deviation 51.2 H RDW Coeff of Umm 15.6 H Plt Count 104 L MPV 11.7 H Immature Gran % (Auto) 0.3 Neut % (Auto) 79.6 Lymph % (Auto) 9.5 [place] % (Auto) 5.2 Eos % (Auto) 5.1 Baso % (Auto) 0.3 Immature Gran # (Auto) 0.03 H Neut # (Auto) 9.38 H Lymph # (Auto) 1.12 L [place] # (Auto) 0.61 H Eos # (Auto) 0.60 H Baso # (Auto) 0.03 Sodium 138 Potassium 4.7 Chloride 109 H Carbon Dioxide 24 Anion Gap 5.0 BUN 25 H Creatinine 0.87 Est Cr Clr Drug Dosing 42.4 Est GFR ( Amer) 69.9 Est GFR (Non-Af Amer) 60.3 BUN/Creatinine Ratio 29.0 H Glucose 136 H POC Glucose 137 H Calcium 7.6 L 01/14/19 01/14/19 12:15 16:17 WBC RBC Hgb Hct MCV MCH MCHC RDW Std Deviation RDW Coeff of Umm Plt Count MPV Immature Gran % (Auto) Neut % (Auto) Lymph % (Auto) [place] % (Auto) Eos % (Auto) Baso % (Auto) Immature Gran # (Auto) Neut # (Auto) Lymph # (Auto) [place] # (Auto) Eos # (Auto) Baso # (Auto) Sodium Potassium Chloride Carbon Dioxide Anion Gap BUN Creatinine Est Cr Clr Drug Dosing Est GFR ( Amer) Est GFR (Non-Af Amer) BUN/Creatinine Ratio Glucose POC Glucose 182 H 141 H Calcium Diagnostic Findings PORTABLE CHEST X-RAY: IMPRESSION: No acute process. Electronically signed by: Jeffrey Sloan M.D. 01/14/2019 8:25 AM (1) Closed right femoral fracture Encounter type: initial encounter Fracture alignment: displaced
[2019-01-14] MEDS: DOXEPIN HCL 10 MG CAPSULE PO SCH (20:23)
[2019-01-14] MEDS: SENNA 8.6 MG TAB PO SCH (20:23)
[2019-01-14] MEDS: ACETAMINOPHEN 500 MG TAB PO SCH (20:31)
[2019-01-15] MEDS: CYCLOSPORINE EYE SCH ×4 (00:16→23:48)
[2019-01-15] MEDS: LEVOTHYROXINE SODIUM 50 MCG TABLET PO SCH (05:19)
--- NOTE | 2019-01-15 06:13 | Orthopedic Progress Note ---
Date of Service January 15, 2019 Assessment & Plan (1) Closed right femoral fracture: POD #2 Status post right hip hemiarthroplasty -DVT prophylaxis: SCDs, teds, ok to resume anticoagulants -Weight-bear as tolerates right lower extremity -Posterior hip precautions -PT/OT when medically stable -Maintain Silverlon dressing x7 days -Post op X-ray demonstrates s/p right hip hemiarthroplasty, no evidence of hardware complications -A.m. labs- pending; H/H on 01/14/19 was 8.5/28.2, recheck today Subjective POD #1 s/p right hip hemiarthroplasty denies CP/SOB denies Fever/Chills somewhat confused, however is aware that she has had hip surgery Review of Systems Cardiovascular: no chest pain and no dyspnea Physical Exam Physical Exam: Vital Signs Temp 36.6 C 01/15/19 03:14 Pulse 74 01/15/19 03:14 Resp 19 01/15/19 03:14 BP 167/68 H 01/15/19 03:16 Pulse Ox 100 01/15/19 03:14 Intake & Output 01/14/19 01/14/19 01/15/19 06:59 18:59 06:59 Intake Total 852 / 4193.25 1795.667 / 2595.66 7 800 / 2595.667 Output Total 250 / 335 200 / 500 300 / 500 Balance 602 / 3858.25 1595.667 / 2095.66 7 500 / 2095.667 Weight 66 kg 66 kg Intake: IV 302 / 1253.25 1620.667 / 1620.66 7 Cleocin 600 mg In D5w 50 ml @ 108 / 108 100 mls/hr IV Q8H YAMEL Rx#: [id number] CLEOCIN 600 mg In 54 ml @ 100 54 / 54 mls/hr IV PREO P YAMEL Rx#: [id number] Nss 1000ML 1,0 00 ml @ 85 mls/hr 140 / 1091.25 1620.667 / 1620.66 7 IV .[id number] SC H Rx#:[id number] Oral 550 / 940 175 / 975 800 / 975 Output: Urine Amount (Ca theter) 250 / 250 200 / 500 300 / 500 Tejeda/Indwelli ng 250 / 250 200 / 500 300 / 500 Constitutional: no acute distress Musculoskeletal: Right Hip: silverlon dressing clean and dry, calf SNT, NVDI, able to wiggle toes, ankle plantar/dorsiflexion without pain Results & Data Vital Signs (Past 12 Hours) Vital Signs Temp Pulse Resp BP BP Pulse Ox 01/15/19 03:16 167/68 H 01/15/19 03:14 36.6 C 74 19 172/82 H 100 01/14/19 23:25 36.4 C L 69 19 167/76 H 99 01/14/19 19:13 36.7 C 75 18 105/56 L 96 Laboratory Results Laboratory Results WBC 11.77 K/uL (4.8-10.8) H 01/14/19 06:16 RBC 3.13 M/uL (4.2-5.4) L 01/14/19 06:16 Hgb 8.5 g/dL (12.0-16.0) L 01/14/19 06:16 Hct 28.2 % (37-47) L 01/14/19 06:16 MCV 90.1 fL (80-100) 01/14/19 06:16 MCH 27.2 pg (25-34) 01/14/19 06:16 MCHC 30.1 g/dL (32-36) L 01/14/19 06:16 RDW Std Deviation 51.2 fL (36.4-46.3) H 01/14/19 06:16 RDW Coeff of Umm 15.6 % (11.5-14.5) H 01/14/19 06:16 Plt Count 104 K/uL (130-400) L 01/14/19 06:16 MPV 11.7 fL (7.4-10.4) H 01/14/19 06:16 Immature Gran % (Auto) 0.3 % 01/14/19 06:16 Neut % (Auto) 79.6 % 01/14/19 06:16 Lymph % (Auto) 9.5 % 01/14/19 06:16 [place] % (Auto) 5.2 % 01/14/19 06:16 Eos % (Auto) 5.1 % 01/14/19 06:16 Baso % (Auto) 0.3 % 01/14/19 06:16 Immature Gran # (Auto) 0.03 K/uL (0.00-0.02) H 01/14/19 06:16 Neut # (Auto) 9.38 K/uL (1.4-6.5) H 01/14/19 06:16 Lymph # (Auto) 1.12 K/uL (1.2-3.4) L 01/14/19 06:16 [place] # (Auto) 0.61 K/uL (0.11-0.59) H 01/14/19 06:16 Eos # (Auto) 0.60 K/uL (0-0.5) H 01/14/19 06:16 Baso # (Auto) 0.03 K/uL (0-0.2) 01/14/19 06:16 PT 9.9 Seconds (9.0-12.0) 01/12/19 12:54 INR 1.0 (0.9-1.1) 01/12/19 12:54 APTT 23.5 Seconds (21.0-31.0) 01/12/19 12:54 PTT Ratio 0.9 01/12/19 12:54 Sodium 138 mmol/L (136-145) 01/14/19 06:16 Potassium 4.7 mmol/L (3.5-5.1) 01/14/19 06:16 Chloride 109 mmol/L (98-107) H 01/14/19 06:16 Carbon Dioxide 24 mmol/L (21-32) 01/14/19 06:16 Anion Gap 5.0 (3-11) 01/14/19 06:16 BUN 25 mg/dl (7-18) H 01/14/19 06:16 Creatinine 0.87 mg/dl (0.6-1.2) 01/14/19 06:16 Est Cr Clr Drug Dosing 42.4 ml/min 01/14/19 06:16 Est GFR ( Amer) 69.9 01/14/19 06:16 Est GFR (Non-Af Amer) 60.3 01/14/19 06:16 BUN/Creatinine Ratio 29.0 (10-20) H 01/14/19 06:16 Glucose 136 mg/dl (70-99) H 01/14/19 06:16 POC Glucose 162 (70-99) H 01/14/19 20:03 Estimat Average Glucose 154 mg/dl 07/05/19 06:26 Hemoglobin A1c 7.0 % (4.5-5.6) H 01/13/19 06:26 Calcium 7.6 mg/dl (8.5-10.1) L 01/14/19 06:16 Magnesium 2.0 mg/dl (1.8-2.4) 01/13/19 06:26 25-OH Vitamin D Total 15.0 ng/ml (30-100) L 01/13/19 06:26 Urine Color Yellow 01/12/19 12:00 Urine Appearance Clear (Clear) 01/12/19 12:00 Urine pH 6.5 (4.5-7.5) 01/12/19 12:00 Ur Specific [place] 1.010 (1.000-1.030) 01/12/19 12:00 Urine Protein Negative (Negative) 01/12/19 12:00 Urine Glucose (UA) Negative (Negative) 01/12/19 12:00 Urine Ketones Negative (Negative) 01/12/19 12:00 Urine Blood Negative (Negative) 01/12/19 12:00 Urine Nitrite Negative (Negative) 01/12/19 12:00 Urine Bilirubin Negative (Negative) 01/12/19 12:00 Urine Urobilinogen Negative (Negative) 01/12/19 12:00 Ur Leukocyte Esterase Negative (Negative) 01/12/19 12:00 Blood Type B Positive 01/12/19 13:12 Antibody Screen NEGATIVE 01/12/19 13:12 (1) Closed right femoral fracture Encounter type: initial encounter Fracture alignment: displaced
[2019-01-15 06:43] LABS: Hematocrit (blood only) 25.9 % (37-47); Mean Corpuscular Hgb Conc 30.9 g/dL (32-36); Mean Corpuscular Volume 88.4 fL (80-100); Mean Platelet Volume 12.1 fL (7.4-10.4); Platelet Count 112 K/uL (130-400); RDW Coefficient of Variation 15.3 % (11.5-14.5); RDW Standard Deviation 49.5 fL (36.4-46.3); Red Blood Count 2.93 M/uL (4.2-5.4); White Blood Count 10.19 K/uL (4.8-10.8)
[2019-01-15 06:44] LABS: Basophils # (auto) 0.01 K/uL (0-0.2); Basophils % (auto) 0.1 %; Eosinophils # (auto) 0.24 K/uL (0-0.5); Eosinophils % (auto) 2.4 %; Immature Granulocytes # (auto) 0.02 K/uL (0.00-0.02); Immature Granulocytes % (auto) 0.2 %; Lymphocytes # (auto) 1.12 K/uL (1.2-3.4); Monocytes # (auto) 0.66 K/uL (0.11-0.59); Monocytes % (auto) 6.5 %; Neutrophils # (auto) 8.14 K/uL (1.4-6.5); Neutrophils % (auto) 79.8 %; Platelet Estimate Decreased (Normal)
[2019-01-15 06:57] LABS: BUN Creatinine Ratio 28.7 (10-20); Calcium 8.5 mg/dl (8.5-10.1); Creatinine Clr Calc Pharmacy 36.9 ml/min; Est GFR (African American) 59.1; Potassium 4.9 mmol/L (3.5-5.1)
[2019-01-15] MEDS: GABAPENTIN 300 MG CAP PO SCH ×3 (07:22→21:07)
[2019-01-15] MEDS: MAGNESIUM CHLORIDE 64MG DELAYED REL TAB PO SCH ×2 (07:23→21:07)
[2019-01-15] MEDS: ACETAMINOPHEN 500 MG TAB PO SCH ×2 (07:23→21:07)
[2019-01-15] MEDS: ATORVASTATIN 40 MG TAB PO SCH (07:24)
[2019-01-15] MEDS: ATENOLOL 50 MG TABLET PO SCH (07:24)
[2019-01-15] MEDS: CITALOPRAM 20 MG TAB PO SCH (07:24)
[2019-01-15] MEDS: predniSONE 1 MG TAB PO SCH (07:25)
[2019-01-15] MEDS: LOSARTAN POTASSIUM 25 MG TAB PO SCH (07:26)
[2019-01-15] MEDS: ENOXAPARIN INJ 40 MG/0.4 ML SYR SQ SCH (07:27)
[2019-01-15] MEDS: INSULIN ASPART 100 UNITS/ML 3 ML PEN SC SCH ×4 (07:52→21:13)
[2019-01-15] MEDS: DOCUSATE SODIUM 100 MG CAP PO SCH ×2 (09:36→21:05)
--- NOTE | 2019-01-15 17:24 | Hospitalist Progress Note ---
Date of Service January 15, 2019 Assessment & Plan (1) Closed right femoral fracture: Suffered transcervical fracture of right hip after mechanical fall. Right hip arthroplasty performed by Dr. Marcano 01/13. POD # 2. Analgesics, PT, OT. (2) Paroxysmal atrial fibrillation: Currently in normal sinus rhythm. Continue atenolol. Resume apixaban when okay from surgical perspective. (3) Cerebrovascular disease: History of occipital stroke. Underlying paroxysmal atrial fibrillation. Resume apixaban when able. (4) Essential hypertension: Hemodynamically stable. Continue atenolol and losartan with hold parameters. (5) CKD (chronic kidney disease), stage III: Serum creatinine this morning 1.00. Follow. (6) Diabetes mellitus, type II: Diabetes mellitus type 2 managed with metformin at home. Hold metformin during hospital stay. Lantus/NovoLog per protocol. Fasting blood sugar today = 173. (7) Hypothyroidism: Continue levothyroxine. (8) Osteoporosis: 25 hydroxy vitamin D level 15. Start vitamin D supplementation postoperatively. (9) Polymyalgia rheumatica: Continue prednisone. (10) Chronic steroid use: Chronic prednisone therapy for PMR. IV hydrocortisone PRN for physiologic stress / hemodynamic instability. (11) Altered mental status: Postop delirium. Treat postop pain as needed, but try to use low dose analgesics. Avoid meds with anticholinergic side effects whenever possible. (12) Acute blood loss anemia: Hgb 11.3 --> 8.0. Acute blood loss anemia secondary to hip fracture. No need for transfusion at this time per guidelines. Follow. (13) DNR (do not resuscitate): Per advanced directives. (14) DVT prophylaxis: SCDs preop. SQ enoxaparin initially postop. Transition to chronic anticoagulation with apixaban. Ambulate as tolerated. (15) Discharge planning issues: Anticipated need for skilled care. Family Medicine follow-up with Dr. Antunez. Contact info: Jairo Kee (son) Subjective Recheck for hip fracture and other problems. Patient seen in their room around 09:30. Ongoing confusion. No fever. No chest pain. No cough or SOB. Not passing any stool yet. Still has Tejeda catheter. Pain well-controlled. Review of Systems: Constitutional- no fever. Cardiac- as noted above. Pulmonary- as noted above. GI- as noted above. - as noted above. Otherwise, as noted above. Physical Exam Constitutional: no acute distress Respiratory: no respiratory distress Auscultation: lungs clear to auscultation bilaterally Cardiovascular: Rate/Rhythm: regular rate and regular rhythm Heart Sounds: no gallop Vessels: no JVD Extremities: no calf tenderness and no edema Gastrointestinal (Abdomen): normal bowel sounds, soft, nontender, no hepatosplenomegaly Skin: no rashes, warm and dry Psychiatric: Orientation: alert and oriented to person; + not oriented to place and + not oriented to time Cognition: + recent memory not intact Results & Data Vital Signs (Past 12 Hours) Vital Signs Temp Pulse Pulse Resp BP Pulse Ox Pulse Ox 01/15/19 15:21 36.5 C 69 20 173/86 H 100 01/15/19 11:00 36.6 C 69 16 168/90 H 99 99 01/15/19 09:00 68 01/15/19 08:00 36.6 C 74 18 146/76 H 99 99 01/15/19 07:00 36.6 C 72 18 146/76 H 99 99 Laboratory Results Laboratory Results - last 24 hr 01/14/19 01/15/19 01/15/19 20:03 05:59 05:59 WBC 10.19 RBC 2.93 L Hgb 8.0 L Hct 25.9 L MCV 88.4 MCH 27.3 MCHC 30.9 L RDW Std Deviation 49.5 H RDW Coeff of Umm 15.3 H Plt Count 112 L MPV 12.1 H Immature Gran % (Auto) 0.2 Neut % (Auto) 79.8 Lymph % (Auto) 11.0 [place] % (Auto) 6.5 Eos % (Auto) 2.4 Baso % (Auto) 0.1 Immature Gran # (Auto) 0.02 Neut # (Auto) 8.14 H Lymph # (Auto) 1.12 L [place] # (Auto) 0.66 H Eos # (Auto) 0.24 Baso # (Auto) 0.01 Platelet Estimate Decreased L Sodium 137 Potassium 4.9 Chloride 108 H Carbon Dioxide 23 Anion Gap 6.0 BUN 29 H Creatinine 1.00 Est Cr Clr Drug Dosing 36.9 Est GFR ( Amer) 59.1 Est GFR (Non-Af Amer) 51.0 BUN/Creatinine Ratio 28.7 H Glucose 169 H POC Glucose 162 H Calcium 8.5 01/15/19 01/15/19 01/15/19 07:48 12:06 16:52 WBC RBC Hgb Hct MCV MCH MCHC RDW Std Deviation RDW Coeff of Umm Plt Count MPV Immature Gran % (Auto) Neut % (Auto) Lymph % (Auto) [place] % (Auto) Eos % (Auto) Baso % (Auto) Immature Gran # (Auto) Neut # (Auto) Lymph # (Auto) [place] # (Auto) Eos # (Auto) Baso # (Auto) Platelet Estimate Sodium Potassium Chloride Carbon Dioxide Anion Gap BUN Creatinine Est Cr Clr Drug Dosing Est GFR ( Amer) Est GFR (Non-Af Amer) BUN/Creatinine Ratio Glucose POC Glucose 173 H 166 H 146 H Calcium (1) Closed right femoral fracture Encounter type: initial encounter Fracture alignment: displaced
[2019-01-15] MEDS: SENNA 8.6 MG TAB PO SCH (21:07)
[2019-01-15] MEDS: DOXEPIN HCL 10 MG CAPSULE PO SCH (21:10)
[2019-01-15] MEDS ORDERED: COUGH DROP (SUGAR FREE) LOZ 24 LOZ/1 BOX BUCCAL PRN (21:58)
[2019-01-15] MEDS: TRAMADOL HCL 50 MG TABLET PO PRN (23:35)
[2019-01-16] MEDS: LEVOTHYROXINE SODIUM 50 MCG TABLET PO SCH (06:00)
[2019-01-16 07:09] LABS: Basophils # (auto) 0.03 K/uL (0-0.2); Basophils % (auto) 0.3 %; Eosinophils # (auto) 1.15 K/uL (0-0.5); Eosinophils % (auto) 10.5 %; Hematocrit (blood only) 27.7 % (37-47); Hemoglobin 8.2 g/dL (12.0-16.0); Immature Granulocytes # (auto) 0.03 K/uL (0.00-0.02); Immature Granulocytes % (auto) 0.3 %; Lymphocytes % (auto) 16.4 %; Mean Corpuscular Hgb Conc 29.6 g/dL (32-36); Mean Corpuscular Volume 88.8 fL (80-100); Monocytes # (auto) 0.82 K/uL (0.11-0.59); Monocytes % (auto) 7.5 %; Neutrophils # (auto) 7.16 K/uL (1.4-6.5); Platelet Count 162 K/uL (130-400); RDW Coefficient of Variation 15.6 % (11.5-14.5); RDW Standard Deviation 50.7 fL (36.4-46.3); Red Blood Count 3.12 M/uL (4.2-5.4); White Blood Count 10.99 K/uL (4.8-10.8)
[2019-01-16 07:27] LABS: BUN Creatinine Ratio 28.9 (10-20); Calcium 9.2 mg/dl (8.5-10.1); Creatinine Clr Calc Pharmacy 37.9 ml/min; Est GFR (African American) 60.5; Est GFR (Non-African American) 52.2; Potassium 4.6 mmol/L (3.5-5.1)
--- NOTE | 2019-01-16 07:40 | Anesthesiology Progress Note ---
Date of Service January 16, 2019 Anesthesia Post Procedure Vital Signs Vital Signs: Temp Pulse Pulse Pulse Resp BP BP 01/16/19 00:08 36.9 C 73 14 173/82 H 01/15/19 15:21 36.5 C 69 20 173/86 H 01/15/19 11:00 36.6 C 69 16 168/90 H 01/15/19 09:00 68 01/15/19 08:00 36.6 C 74 18 146/76 H Pulse Ox Pulse Ox 01/16/19 00:08 98 01/15/19 15:21 100 01/15/19 11:00 99 99 01/15/19 09:00 01/15/19 08:00 99 99 Pain Intensity Right Hip: Pain Intensity: 8 Head: Pain Intensity: 5 Notes Mental Status: alert / awake / arousable Patient Amnestic to Procedure: Yes Nausea / Vomiting: adequately controlled Pain: adequately controlled Airway Patency, RR, SpO2: stable & adequate BP & HR: stable & adequate Hydration State: stable & adequate Anesthetic Complications: no major complications apparent and Pt Satisfied with anesthetic care
[2019-01-16] MEDS: APIXABAN 5 MG TABLET PO SCH ×2 (09:05→16:25)
[2019-01-16] MEDS: MAGNESIUM CHLORIDE 64MG DELAYED REL TAB PO SCH ×2 (09:05→20:02)
[2019-01-16] MEDS: LOSARTAN POTASSIUM 25 MG TAB PO SCH (09:06)
[2019-01-16] MEDS: ATORVASTATIN 40 MG TAB PO SCH (09:06)
[2019-01-16] MEDS: CITALOPRAM 20 MG TAB PO SCH (09:06)
[2019-01-16] MEDS: ATENOLOL 50 MG TABLET PO SCH (09:06)
[2019-01-16] MEDS: predniSONE 1 MG TAB PO SCH (09:06)
[2019-01-16] MEDS: GABAPENTIN 300 MG CAP PO SCH ×3 (09:06→20:02)
[2019-01-16] MEDS: CYCLOSPORINE EYE SCH ×3 (09:07→23:20)
[2019-01-16] MEDS: INSULIN ASPART 100 UNITS/ML 3 ML PEN SC SCH ×4 (09:08→20:51)
[2019-01-16] MEDS: ACETAMINOPHEN 500 MG TAB PO SCH ×2 (09:17→20:02)
[2019-01-16] MEDS: DOCUSATE SODIUM 100 MG CAP PO SCH ×2 (09:18→20:02)
--- NOTE | 2019-01-16 12:38 | Orthopedic Progress Note ---
Date of Service January 16, 2019 Assessment & Plan (1) Closed right femoral fracture: Status post right hip hemiarthroplasty POD#3 -DVT prophylaxis: SCDs, teds, ok to resume anticoagulants -Weight-bear as tolerates right lower extremity -Posterior hip precautions -PT/OT when medically stable -Maintain Silverlon dressing x7 days -Post op X-ray demonstrates s/p right hip hemiarthroplasty, no evidence of hardware complications -A.m. labs- Hgb 8.2 Orthopedics will sign off, DC instructions provided Subjective Post Operative Progress Note Patient seen sitting up in bed, comfortable, denies complaints, pain well controlled, no acute issues. Review of Systems Review of Systems: All systems reviewed & are unremarkable except as noted in HPI & below Constitutional: as per Subjective / HPI Physical Exam Physical Exam: RLE NVSI +EHL/FHL/TA/GS SILT grossly, +2 DP pulse, compartments soft NT, dressing cdi. Constitutional: WD/WN, vitals as above Results & Data Vital Signs (Past 12 Hours) Vital Signs Temp Pulse Resp BP Pulse Ox 01/16/19 10:33 91 01/16/19 08:06 36.7 C 72 18 169/91 H 100 (1) Closed right femoral fracture Encounter type: initial encounter Fracture alignment: displaced
--- NOTE | 2019-01-16 19:26 | Hospitalist Progress Note ---
Date of Service January 16, 2019 Assessment & Plan (1) Closed right femoral fracture: Suffered transcervical fracture of right hip after mechanical fall. Right hip arthroplasty performed by Dr. Marcano 01/13. POD # 3. Weight bearing as tolerated / posterior hip precautions. Analgesics, PT, OT. (2) Paroxysmal atrial fibrillation: Currently in normal sinus rhythm. Continue atenolol. Resume apixaban. (3) Cerebrovascular disease: History of occipital stroke. Underlying paroxysmal atrial fibrillation. Resume apixaban. (4) Essential hypertension: Hemodynamically stable. Continue atenolol and losartan with hold parameters. (5) CKD (chronic kidney disease), stage III: Serum creatinine this morning 0.98. Follow. (6) Diabetes mellitus, type II: Diabetes mellitus type 2 managed with metformin at home. Hold metformin during hospital stay. Lantus/NovoLog per protocol. Fasting blood sugar today = 143. (7) Hypothyroidism: Continue levothyroxine. (8) Osteoporosis: 25 hydroxy vitamin D level 15. Start vitamin D supplementation postoperatively. (9) Polymyalgia rheumatica: Continue prednisone. (10) Chronic steroid use: Chronic prednisone therapy for PMR. IV hydrocortisone PRN for physiologic stress / hemodynamic instability. (11) Altered mental status: Postop delirium. Improving. Treat postop pain as needed, but try to use low dose analgesics. Avoid meds with anticholinergic side effects whenever possible. (12) Acute blood loss anemia: Hgb 11.3 --> 8.0 --> 8.2. Acute blood loss anemia secondary to hip fracture. No need for transfusion at this time per guidelines. Follow. (13) DNR (do not resuscitate): Per advanced directives. (14) DVT prophylaxis: SCDs preop. SQ enoxaparin initially postop. Transition to chronic anticoagulation with apixaban. Ambulate as tolerated. (15) Discharge planning issues: Anticipated need for skilled care. Family Medicine follow-up with Dr. Antunez. Granddaughter visiting this morning and given update. Contact info: Jairo Kee (son) Subjective Recheck for hip fracture and other problems. Patient seen in their room around 12:10. Less confused. No fever. No chest pain. No cough or SOB. Passing flatus and stool. Tejeda cath removed; voiding without difficulty. Pain well-controlled. Review of Systems: Constitutional- no fever. Cardiac- as noted above. Pulmonary- as noted above. GI- as noted above. - as noted above. Otherwise, as noted above. Physical Exam Constitutional: no acute distress Respiratory: no respiratory distress Auscultation: lungs clear to auscultation bilaterally Cardiovascular: Rate/Rhythm: regular rate and regular rhythm Heart Sounds: no gallop Vessels: no JVD Extremities: no calf tenderness and no edema Gastrointestinal (Abdomen): normal bowel sounds, soft, nontender, no hepatosplenomegaly Musculoskeletal: Extremities: + extremities abnormal to inspection (right hip bandaged) Skin: no rashes, warm and dry Psychiatric: Orientation: alert, oriented to person and oriented to place; + not oriented to time ("January 1919") Results & Data Vital Signs (Past 12 Hours) Vital Signs Temp Pulse Resp BP Pulse Ox 01/16/19 14:59 36.7 C 67 18 168/74 H 92 01/16/19 10:33 91 01/16/19 08:06 36.7 C 72 18 169/91 H 100 Laboratory Results Laboratory Results - last 24 hr 01/15/19 01/16/19 01/16/19 20:58 06:41 06:41 WBC 10.99 H RBC 3.12 L Hgb 8.2 L Hct 27.7 L MCV 88.8 MCH 26.3 MCHC 29.6 L RDW Std Deviation 50.7 H RDW Coeff of Umm 15.6 H Plt Count 162 MPV 12.0 H Immature Gran % (Auto) 0.3 Neut % (Auto) 65.0 Lymph % (Auto) 16.4 [place] % (Auto) 7.5 Eos % (Auto) 10.5 Baso % (Auto) 0.3 Immature Gran # (Auto) 0.03 H Neut # (Auto) 7.16 H Lymph # (Auto) 1.80 [place] # (Auto) 0.82 H Eos # (Auto) 1.15 H Baso # (Auto) 0.03 Sodium 139 Potassium 4.6 Chloride 110 H Carbon Dioxide 22 Anion Gap 7.0 BUN 28 H Creatinine 0.98 Est Cr Clr Drug Dosing 37.9 Est GFR ( Amer) 60.5 Est GFR (Non-Af Amer) 52.2 BUN/Creatinine Ratio 28.9 H Glucose 148 H POC Glucose 194 H Calcium 9.2 07/08/19 07/08/19 07/08/19 08:10 12:15 17:10 WBC RBC Hgb Hct MCV MCH MCHC RDW Std Deviation RDW Coeff of Umm Plt Count MPV Immature Gran % (Auto) Neut % (Auto) Lymph % (Auto) [place] % (Auto) Eos % (Auto) Baso % (Auto) Immature Gran # (Auto) Neut # (Auto) Lymph # (Auto) [place] # (Auto) Eos # (Auto) Baso # (Auto) Sodium Potassium Chloride Carbon Dioxide Anion Gap BUN Creatinine Est Cr Clr Drug Dosing Est GFR ( Amer) Est GFR (Non-Af Amer) BUN/Creatinine Ratio Glucose POC Glucose 143 H 166 H 139 H Calcium (1) Closed right femoral fracture Encounter type: initial encounter Fracture alignment: displaced
[2019-01-16] MEDS: DOXEPIN HCL 10 MG CAPSULE PO SCH (20:02)
[2019-01-16] MEDS: SENNA 8.6 MG TAB PO SCH (20:02)
[2019-01-16] MEDS: CALCIUM 600MG + VIT D 400 IU TAB PO SCH (20:06)
[2019-01-16] MEDS ORDERED: INSULIN GLARGINE SOLOSTAR 100 UNITS/ML 3 ML PEN SC STA (21:45)
[2019-01-16] MEDS ORDERED: LOSARTAN POTASSIUM 50 MG TAB PO STA (23:51)
[2019-01-17] MEDS: TRAMADOL HCL 50 MG TABLET PO PRN (02:39)
[2019-01-17] MEDS: LEVOTHYROXINE SODIUM 50 MCG TABLET PO SCH (05:51)
[2019-01-17 07:13] LABS: Basophils # (auto) 0.06 K/uL (0-0.2); Basophils % (auto) 0.6 %; Eosinophils # (auto) 1.42 K/uL (0-0.5); Eosinophils % (auto) 13.6 %; Hemoglobin 8.4 g/dL (12.0-16.0); Immature Granulocytes # (auto) 0.05 K/uL (0.00-0.02); Immature Granulocytes % (auto) 0.5 %; Lymphocytes # (auto) 2.29 K/uL (1.2-3.4); Mean Corpuscular Hgb Conc 31.1 g/dL (32-36); Mean Corpuscular Volume 87.4 fL (80-100); Mean Platelet Volume 11.2 fL (7.4-10.4); Monocytes # (auto) 0.81 K/uL (0.11-0.59); Monocytes % (auto) 7.8 %; Neutrophils # (auto) 5.78 K/uL (1.4-6.5); Neutrophils % (auto) 55.5 %; Platelet Count 171 K/uL (130-400); RDW Coefficient of Variation 15.6 % (11.5-14.5); RDW Standard Deviation 50.2 fL (36.4-46.3); Red Blood Count 3.09 M/uL (4.2-5.4); White Blood Count 10.41 K/uL (4.8-10.8)
[2019-01-17] MEDS: CYCLOSPORINE EYE SCH ×3 (08:33→23:33)
[2019-01-17] MEDS: CITALOPRAM 20 MG TAB PO SCH (08:36)
[2019-01-17] MEDS: APIXABAN 5 MG TABLET PO SCH ×2 (08:36→17:02)
[2019-01-17] MEDS: ATORVASTATIN 40 MG TAB PO SCH (08:37)
[2019-01-17] MEDS: CALCIUM 600MG + VIT D 400 IU TAB PO SCH ×2 (08:37→20:55)
[2019-01-17] MEDS: GABAPENTIN 300 MG CAP PO SCH ×3 (08:37→20:55)
[2019-01-17] MEDS: ATENOLOL 50 MG TABLET PO SCH (08:38)
[2019-01-17] MEDS: MAGNESIUM CHLORIDE 64MG DELAYED REL TAB PO SCH ×2 (08:38→20:55)
[2019-01-17] MEDS: ACETAMINOPHEN 500 MG TAB PO SCH ×2 (08:39→20:53)
[2019-01-17] MEDS: DOCUSATE SODIUM 100 MG CAP PO SCH ×2 (08:39→20:53)
[2019-01-17] MEDS: INSULIN ASPART 100 UNITS/ML 3 ML PEN SC SCH ×4 (08:41→21:02)
[2019-01-17] MEDS: INSULIN GLARGINE SOLOSTAR 100 UNITS/ML 3 ML PEN SC SCH ×2 (08:42→21:01)
[2019-01-17] MEDS: predniSONE 1 MG TAB PO SCH (09:21)
[2019-01-17 15:11] LABS: Appearance Urine Clear (Clear); Bilirubin Urine Negative (Negative); Blood Urine Negative (Negative); Color Urine Yellow; Glucose Urine UA Negative (Negative); Ketones Urine Negative (Negative); Leukocyte Esterase Urine Negative (Negative); Nitrite Urine Negative (Negative); Protein Urine Negative (Negative); Specific Gravity Urine 1.013 (1.000-1.030); Urobilinogen Urine Negative (Negative); pH Urine 6.5 (4.5-7.5)
--- NOTE | 2019-01-17 15:11 | Hospitalist Progress Note ---
Date of Service January 17, 2019 Assessment & Plan (1) Lightheadedness: C/o Light headedness today AM -Vitals stable -H & H stable -Monitor (2) Closed right femoral fracture: -Suffered transcervical fracture of right hip after mechanical fall. -Right hip arthroplasty performed by Dr. Marcano / - POD # 4. -Weight bearing as tolerated / posterior hip precautions. -Pain Mx -PT/OT (3) Paroxysmal atrial fibrillation: -Currently in normal sinus rhythm. -Continue atenolol. -Resume apixaban. (4) Cerebrovascular disease: -History of occipital stroke. -Underlying paroxysmal atrial fibrillation. -Resume apixaban. (5) Essential hypertension: -Hemodynamically stable. -Continue atenolol and losartan with hold parameters. (6) CKD (chronic kidney disease), stage III: Stable (7) Diabetes mellitus, type II: Diabetes mellitus type 2 managed with metformin at home. -Hold metformin during hospital stay. -Lantus/NovoLog per protocol. (8) Hypothyroidism: -Continue levothyroxine. (9) Osteoporosis: -25 hydroxy vitamin D level 15. -Started vitamin D supplementation postoperatively. (10) Polymyalgia rheumatica: -Continue prednisone 2 mg daily. (11) Chronic steroid use: -Chronic prednisone therapy for PMR. -IV hydrocortisone PRN for physiologic stress / hemodynamic instability. (12) Altered mental status: -Postop delirium- Improved. -Avoid meds with anticholinergic side effects whenever possible. (13) Acute blood loss anemia: Hgb 11.3 --> 8.0 --> 8.4 -Acute blood loss anemia secondary to hip fracture. -Monitor (14) DNR (do not resuscitate): -Per advanced directives. (15) DVT prophylaxis: SCDs preop. SQ enoxaparin initially postop. Transition to chronic anticoagulation with apixaban. Ambulate as tolerated. (16) Discharge planning issues: -Anticipated need for skilled care- has a bed at [facility]. Likely discharge in AM -Family Medicine follow-up with Dr. Antunez. Contact info: Jairo Kee (son) Subjective Patient felt a little lightheaded today. Vitals were stable. Continues to feel a little weak. Denies any nausea, vomiting, diarrhea. No chest pain, shortness of breath, fever, chills. Physical Exam Physical Exam: GENERAL- AAOX3, No acute distress NECK- Supple, no JVD LUNGS- Air entry bilaterally equal. No rales, rhonchi, crackles, wheezes heard. HEART- Regular rate and rhythm. No murmurs ABDOMEN- Soft, non tender, non distended, Bowel sounds heard. EXTREMITIES- S/P Right hip arthroplasty NEUROMUSCULAR- AAOX3, Grossly no focal deficits Results & Data Vital Signs (Past 12 Hours) Vital Signs Temp Pulse Resp BP BP Pulse Ox 01/17/19 12:15 70 18 192/79 H 96 01/17/19 09:28 169/86 H 01/17/19 07:48 36.9 C 74 18 183/98 H 185/87 H 94 01/17/19 04:00 76 177/87 H (1) Closed right femoral fracture Encounter type: initial encounter Fracture alignment: displaced
[2019-01-17] MEDS: DOXEPIN HCL 10 MG CAPSULE PO SCH (20:54)
[2019-01-17] MEDS: SENNA 8.6 MG TAB PO SCH (20:55)
--- NOTE | 2019-01-17 23:23 | Hospitalist Progress Note ---
Date of Service January 17, 2019 Subjective Made aware by RN of uncontrolled SBP. SBP 170-200s the last 24 hours. Patient asymptomatic as per RN. Cardiac rate 60s to 70s AP Hypertensive urgency Top normal potassium levels Change Atenolol to Coreg. Continue losartan at current dose, consider increasing level in a.m. if BP still uncontrolled and serum potassium less than 4.5. Will relay to AM provider. Results & Data Vital Signs (Past 12 Hours) Vital Signs Temp Pulse Resp BP BP Pulse Ox 01/17/19 23:07 36.9 C 72 16 207/94 H 190/92 H 93 01/17/19 15:58 91 01/17/19 15:15 36.7 C 71 18 198/85 H 96 01/17/19 12:15 70 18 192/79 H 96
[2019-01-17] MEDS ORDERED: CARVEDILOL 3.125 MG TAB PO SCH (23:25)
[2019-01-18] MEDS: TRAMADOL HCL 50 MG TABLET PO PRN (04:05)
[2019-01-18 05:15] LABS: Basophils # (auto) 0.07 K/uL (0-0.2); Basophils % (auto) 0.6 %; Eosinophils # (auto) 1.78 K/uL (0-0.5); Eosinophils % (auto) 15.3 %; Hemoglobin 9.3 g/dL (12.0-16.0); Immature Granulocytes # (auto) 0.05 K/uL (0.00-0.02); Immature Granulocytes % (auto) 0.4 %; Lymphocytes # (auto) 2.25 K/uL (1.2-3.4); Lymphocytes % (auto) 19.3 %; Mean Platelet Volume 10.5 fL (7.4-10.4); Monocytes # (auto) 1.03 K/uL (0.11-0.59); Monocytes % (auto) 8.8 %; Neutrophils # (auto) 6.47 K/uL (1.4-6.5); Neutrophils % (auto) 55.6 %; Platelet Count 195 K/uL (130-400); RDW Coefficient of Variation 15.4 % (11.5-14.5); Red Blood Count 3.49 M/uL (4.2-5.4); White Blood Count 11.65 K/uL (4.8-10.8)
[2019-01-18] MEDS ORDERED: CARVEDILOL 3.125 MG TAB PO SCH (05:30)
[2019-01-18] MEDS: LEVOTHYROXINE SODIUM 50 MCG TABLET PO SCH (05:39)
[2019-01-18 05:44] LABS: BUN Creatinine Ratio 21.2 (10-20); Calcium 9.5 mg/dl (8.5-10.1); Creatinine Clr Calc Pharmacy 43.6 ml/min; Est GFR (African American) 71.9; Potassium 3.4 mmol/L (3.5-5.1)
[2019-01-18] MEDS ORDERED: POTASSIUM CHLORIDE 20 MEQ TABCR PO STA ×2 (06:57→13:08)
[2019-01-18] MEDS ORDERED: LOSARTAN POTASSIUM 50 MG TAB PO SCH ×2 (07:00→09:00)
[2019-01-18] MEDS: CALCIUM 600MG + VIT D 400 IU TAB PO SCH (08:05)
[2019-01-18] MEDS: GABAPENTIN 300 MG CAP PO SCH (08:05)
[2019-01-18] MEDS: CITALOPRAM 20 MG TAB PO SCH (08:05)
[2019-01-18] MEDS: MAGNESIUM CHLORIDE 64MG DELAYED REL TAB PO SCH (08:05)
[2019-01-18] MEDS: ATORVASTATIN 40 MG TAB PO SCH (08:05)
[2019-01-18] MEDS: CYCLOSPORINE EYE SCH (08:06)
[2019-01-18] MEDS: predniSONE 1 MG TAB PO SCH (08:06)
[2019-01-18] MEDS: APIXABAN 5 MG TABLET PO SCH (08:06)
[2019-01-18] MEDS: ACETAMINOPHEN 500 MG TAB PO SCH (08:07)
[2019-01-18] MEDS: DOCUSATE SODIUM 100 MG CAP PO SCH (08:07)
[2019-01-18] MEDS: INSULIN ASPART 100 UNITS/ML 3 ML PEN SC SCH ×2 (09:35→13:07)
[2019-01-18] MEDS: INSULIN GLARGINE SOLOSTAR 100 UNITS/ML 3 ML PEN SC SCH (09:36)
--- NOTE | 2019-01-18 13:34 | Hospitalist Progress Note ---
Date of Service January 18, 2019 Assessment & Plan (1) Closed right femoral fracture: -Suffered transcervical fracture of right hip after mechanical fall. -Right hip arthroplasty performed by Dr. Marcano 7/5 - POD # 5. -Weight bearing as tolerated / posterior hip precautions. -Pain Mx -PT/OT (2) Paroxysmal atrial fibrillation: -Currently in normal sinus rhythm. -Continue atenolol. -Resumed apixaban. (3) Cerebrovascular disease: -History of occipital stroke. -Underlying paroxysmal atrial fibrillation. -Resumed apixaban. (4) Essential hypertension: -Elevated but now down to 158/81 -Atenolol was changed to coreg overnight -Monitor closely outpatient. If continues to have elevated BP, consider increasing dose of losartan (5) CKD (chronic kidney disease), stage III: -Stable near baseline (6) Diabetes mellitus, type II: Diabetes mellitus type 2 managed with metformin at home. -Hold metformin during hospital stay. -Lantus/NovoLog per protocol. (7) Hypothyroidism: -Continue levothyroxine. (8) Osteoporosis: -25 hydroxy vitamin D level 15. -Started vitamin D supplementation postoperatively. (9) Polymyalgia rheumatica: -Continue prednisone 2 mg daily. (10) Chronic steroid use: -Chronic prednisone therapy for PMR. (11) Altered mental status: -Postop delirium- Resolved, back to baseline- AAOX2 -Avoid meds with anticholinergic side effects whenever possible. (12) Acute blood loss anemia: Hgb 11.3 --> 8.0 --> 8.4 -Acute blood loss anemia secondary to hip fracture. -Monitor (13) DNR (do not resuscitate): -Per advanced directives. (14) DVT prophylaxis: SCDs preop. SQ enoxaparin post op for at least 2 weeks Transition to chronic anticoagulation with apixaban. Ambulate as tolerated. (15) Discharge planning issues: -Ok to discharge to [facility] today -Family Medicine follow-up with Dr. Antunez. Contact info: Jairo Kee (son) Updated him about discharge plan. Subjective Patient is doing much better. Patient does have some generalized weakness. Eager to be discharged. Pain is tolerable. No chest pain, nausea, vomiting, lightheadedness, fever, chills. Physical Exam Physical Exam: GENERAL- AAOX3, No acute distress NECK- Supple, no JVD LUNGS- Air entry bilaterally equal. No rales, rhonchi, crackles, wheezes heard. HEART- Regular rate and rhythm. No murmurs ABDOMEN- Soft, non tender, non distended, Bowel sounds heard. EXTREMITIES- S/P Right hip arthroplasty NEUROMUSCULAR- AAOX3, Grossly no focal deficits Results & Data Vital Signs (Past 12 Hours) Vital Signs Temp Pulse Pulse Pulse Resp BP BP 01/18/19 10:37 158/81 H 01/18/19 07:36 36.6 C 79 18 178/80 H 181/91 H 01/18/19 05:38 77 180/92 H 01/18/19 04:51 78 172/96 H Pulse Ox 01/18/19 10:37 01/18/19 07:36 95 01/18/19 05:38 01/18/19 04:51 (1) Closed right femoral fracture Encounter type: initial encounter Fracture alignment: displaced
--- NOTE | 2019-01-18 13:43 | Discharge Summary ---
Date of Service January 18, 2019 Admission HPI Per Admitting Provider Patient is an 88-year-old female with history of diabetes, depression, paroxysmal afib on Eliquis, hypothyroidism, hypertension, dyslipidemia, polymyalgia rheumatica on chronic prednisone, history of CVA, CKD III and other problems presents with right hip pain after a fall this morning. Patient was trying to get out of bed but accidentally stepped on a rug leading to slipping and fall on her right side. Patient complains of right hip pain, [id number], sharp, worsens with any movement, improves with pain medications and rest. She reports chronic numbness in feet due to diabetes which has been unchanged. Her blood pressure is elevated, while in ED likely situational secondary to severe pain. She admits to not taking her medications today. Her last Eliquis dose is yesterday morning. Denies any history of chest pain, SOB, dizziness, pedal edema, diaphoresis, cough, wheezing, fever, chills, head trauma, LOC, headache, change in vision, double/blurry vision, nausea, vomiting, abdominal pain, dysuria, diarrhea. Principal Diagnosis 1. Closed right femoral fracture S/P Right Hip Arthroplasty 2. Post operative delirium 3. HTN, uncont 4. Hypokalemia 5. Acute blood loss anemia Secondary diagnoses on discharge 1. CKD stage 3 2. Diabetes mellitus type 2 3. History of occipital stroke 4. History of paroxysmal atrial fibrillation 5. Hypothyroidism 6. Vitamin D deficiency/osteoporosis 7. Polymyalgia rheumatica on chronic steroids 8. Physical deconditioning Discharge Exam GENERAL- AAOX3, No acute distress NECK- Supple, no JVD LUNGS- Air entry bilaterally equal. No rales, rhonchi, crackles, wheezes heard. HEART- Regular rate and rhythm. No murmurs ABDOMEN- Soft, non tender, non distended, Bowel sounds heard. EXTREMITIES- S/P Right hip arthroplasty NEUROMUSCULAR- AAOX3, Grossly no focal deficits Discharge Data Allergies Allergy/AdvReac Type Severity Reaction Status Date / Time ertapenem [From Invanz] Allergy Intermediate RASH/ITCHIN Verified 01/12/19 12:53 G lisinopril Allergy Intermediate RASH Verified 01/12/19 12:53 Penicillins Allergy Intermediate EDEMA Verified 01/12/19 12:53 codeine AdvReac Intermediate NAUSEA, Verified 01/12/19 12:53 VOMITING Consultations 01/12/19 14:40 Consult Orthopedic Surgery Stat 01/12/19 16:45 Consult Case Management - Discharge Planning Routine Consult Orthopedic Surgery Routine 01/13/19 18:49 Consult Case Management - Discharge Planning Routine Procedures Performed Operation Date: 01/13/19 07:00 Actual Procedures p Right Hip Hemiarthroplasty(Right) - Bradford Marcano DO Hospital Course (1) Closed right femoral fracture: -Suffered transcervical fracture of right hip after mechanical fall. -Right hip arthroplasty performed by Dr. Marcano 7/5 - POD # 5. -Weight bearing as tolerated / posterior hip precautions. -Pain Mx -PT/OT (2) Paroxysmal atrial fibrillation: -Currently in normal sinus rhythm. -Continue atenolol. -Resumed apixaban. (3) Cerebrovascular disease: -History of occipital stroke. -Underlying paroxysmal atrial fibrillation. -Resumed apixaban. (4) Essential hypertension: -Elevated but now down to 158/81 -Atenolol was changed to coreg overnight -Monitor closely outpatient. If continues to have elevated BP, consider increasi ng dose of losartan (5) CKD (chronic kidney disease), stage III: -Stable near baseline (6) Diabetes mellitus, type II: Diabetes mellitus type 2 managed with metformin at home. -Hold metformin during hospital stay. -Lantus/NovoLog per protocol. (7) Hypothyroidism: -Continue levothyroxine. (8) Osteoporosis: -25 hydroxy vitamin D level 15. -Started vitamin D supplementation postoperatively. (9) Polymyalgia rheumatica: -Continue prednisone 2 mg daily. (10) Chronic steroid use: -Chronic prednisone therapy for PMR. (11) Altered mental status: -Postop delirium- Resolved, back to baseline- AAOX2 -Avoid meds with anticholinergic side effects whenever possible. (12) Acute blood loss anemia: Hgb 11.3 --> 8.0 --> 8.4 -Acute blood loss anemia secondary to hip fracture. -Monitor (13) DNR (do not resuscitate): -Per advanced directives. (14) DVT prophylaxis: SCDs preop. SQ enoxaparin post op for at least 2 weeks Transition to chronic anticoagulation with apixaban. Ambulate as tolerated. (15) Discharge planning issues: -Ok to discharge to [facility] today -Family Medicine follow-up with Dr. Antunez. Contact info: Jairo Kee (son) Updated him about discharge plan. Total Time Total Time Spent Total Time Spent (In Minutes): 40 minutes Discharge Plan Discharge Items Patient Disposition: Transfer Inpatient Rehab Fac Reason For Visit: RIGHT HIP FRACTURE Discharge Diagnosis: 1. Closed right femoral fracture status post right hip arthroplasty 2. Acute blood loss anemia 3. Postoperative delirium Discharge Goals: Decrease discomfort and Improve function Activity: As commented below Activity Comment: PT/OT for right hip arthroplasty as recommended Non-emergency contact: Primary Care Provider Call non-emergency contact if: your symptoms worsen Follow-up/Referrals: Liu Antunez MD [Primary Care Provider] - (Arrange for outpatient follow-up visit within 1 week of discharge from the rehab) Diet: Carb Consistent or DM2 and Heart Healthy Addtl Provider Instructions: Medication changes 1. Discontinued atenolol and started her on Coreg 6.25 mg p.o. twice a day due to uncontrolled blood pressure. 2. New medication- Tramadol 25 mg 6 hours as needed for moderate pain 3. New medication- Tylenol 650 mg PO q 4-6 hours as needed for mild-moderate pain 4. New medication- Senna q HS and colace bid- made adjustments per response Monitor 1. Blood pressure as changes made to medications during this admission. If continues to have elevated blood pressure, consider increasing dose of losartan UOC DISCHARGE INSTRUCTIONS: HIP FRACTURE SELF CARE INSTRUCTIONS: A. You are to ambulate with a walker or crutches for approximately 6 weeks. B. You are WEIGHT BEARING TOLERATE on your operative lower extremity for at least 6 weeks. C. Wear low heeled shoes with non-slip soles D. Be sure that your floors are free of things that could trip you throw rugs, electrical cords, and small objects. Avoid wet and waxed floors, especially with crutches/walker/cane. E. Try to walk several times a day with rest periods between. F. You may shower 48 hours after surgery and get the incision area wet, but DO NOT soak or submerge incision area in water. (No baths, swimming pools, hot tubs) G. You may have a large, band-aid like dressing over your incision (Aquacel). This will remain on your incision for 7 days, and then can be removed. You CAN shower with this on. If incision is leaking through the dressing, please call the office . H. Do NOT apply soap or any ointment/lotions directly over incision. I. You may use ice as needed to operative site. J. Maintain posterior hip precautions at all times. No bending, crossing legs, laying on your side or squatting past 90 degrees. SPECIAL CARE INSTRUCTIONS: VERY IMPORTANT TO READ AND REVIEW A. You may be at risk for phlebitis or blood clots. a. Wear surgical stockings (DAISY hose) for 2 weeks after surgery to improve circulation and reduce swelling. b. Take home medication Eliquis as directed. This is your blood thinner. c. If you are on Coumadin- you will have daily/weekly blood work to monitor your levels. This will be done by either your family physician/drainage engineer (if you are on Coumadin chronically) versus your orthopedic surgeon. Expect a phone call the day of or the day after your blood work is drawn to adjust your dose accordingly. B. There are a few signs you need to watch for after you are home. Call [facility] at [phone] if you experience any of the following: a. If you have a temperature of 101 degrees or higher. b. Sudden increase in pain in your hip not relieved by rest or pain medication. c. Any fluid or drainage from the incision; redness of the incision. d. Shortness of breath or chest pain. C. Call your physician if: a. Temperature is greater than 101 degrees (F). b. Pain is not relieved by prescribed pain medications. c. Increase drainage or redness from incision. d. Unanswered questions or concerns. D. Pain Medication: a. You will be prescribed pain medication upon discharge that should last till your first post-operative appointment. b. If you experience nausea and/or skin rash, discontinue this medication and contact our office for an alternative medication. c. Caution- narcotic pain medication can cause const ipation. FOLLOW UP VISIT: Please call [facility] at [phone] to schedule a follow up appointment 10-14 days from the date of your surgery date. Prescriptions: New sennosides [Senokot] 8.6 mg Tablet 17.2 mg PO HS 14 Days Qty: 28 RF: 0 tramadol 50 mg Tablet 25 mg PO Q6H PRN (Reason: moderate pain) 10 Days Qty: 30 RF: 0 carvedilol 3.125 mg Tablet 6.25 mg PO BID 30 Days Qty: 120 RF: 0 Caltrate 600-D Plus Minerals 600 mg calcium- 800 unit-50 mg Tablet 1 tab PO BID 30 Days Qty: 60 RF: 0 acetaminophen 650 mg tablet extended release 650 mg PO Q6 PRN (Reason: mild moderate pain) Qty: 20 RF: 0 Continued atorvastatin 40 mg Tablet 40 mg PO QAM RF: 0 aspirin [Aspirin Low Dose] 81 mg Tablet,Delayed Release (Dr/Ec) 81 mg PO QAM RF: 0 fluticasone propionate [Flonase Allergy Relief] 50 mcg/actuation [place] berta 1 spray Intranasal UD RF: 0 metformin 500 mg Tablet 500 mg PO BIDM RF: 0 citalopram 10 mg Tablet 10 mg PO QAM RF: 0 prednisone 1 mg Tablet 2 mg PO QAM RF: 0 gabapentin 300 mg Capsule 300 mg PO BIDM RF: 0 apixaban 5 mg Tablet 5 mg PO BIDM RF: 0 albuterol sulfate 90 mcg/actuation HFA aerosol inhaler 2 inha INH Q6H PRN (Reason: shortness of breath or wheezing) Qty: 6.7 RF: 3 acetaminophen [Tylenol Extra Strength] 500 mg Tablet 500 mg PO Q6H PRN (Reason: Pain) RF: 0 meclizine 25 mg Tablet 25 mg PO TID PRN (Reason: Vertigo) RF: 0 levothyroxine 50 mcg tablet 50 mcg PO QAM RF: 0 losartan 25 mg tablet 25 mg PO QAM RF: 0 gabapentin 300 mg capsule 600 mg PO HS RF: 0 magnesium chloride [Mag 64] 64 mg tablet,delayed release (DR/EC) 128 mg PO BID RF: 0 biotin 1,000 mcg Tablet,Chewable 1,000 mcg PO DAILY RF: 0 doxepin 10 mg Capsule 10 mg PO HS RF: 0 ranitidine HCl 150 mg Tablet 150 mg PO BID RF: 0 docusate sodium 100 mg Tablet 100 mg PO BID RF: 0 cyclosporine 0.05 % Drops 1 drp OPHTHALMIC (EYE) DAILY RF: 0 Discontinued atenolol 50 mg tablet 50 mg PO QAM RF: 0 Stand-Alone Forms: Count Includes [facility] Discharge Orders: Discharge Order (Routine); Ordered 01/18/19 Ordered By: Kiersten Pisano Skilled Items Patient informed of condition?: Yes DNR: Yes Discharge Level of Care: Acute rehab Communicable Disease: No Discharge Prognosis: Stable Admission Data Admit Date/Time: 01/12/19 15:51 Attending Provider: Kiersten Pisano Admit Provider: Satish Bethea Primary Care Provider: Liu Antunez Other Providers: Bradford Marcano John C. Service: Medical
== END 2019-01-18 17:00 | DRG 470 ==
LOC: ED 11:48 → SUATTDRO 15:51 → 2W 15:51 → 2S 01-13 16:23 → 3W 01-15 10:50

== ENCOUNTER 2019-05-16 13:46 | Inpatient (IN) ==
[2019-05-16] MEDS ORDERED: fentaNYL citrate 100 MCG/2 ML VIAL IV STA (14:54)
[2019-05-16 15:23] LABS: Basophils # (auto) 0.05 K/uL (0-0.2); Basophils % (auto) 0.4 %; Eosinophils % (auto) 2.4 %; Hemoglobin 10.8 g/dL (12.0-16.0); Immature Granulocytes # (auto) 0.03 K/uL (0.00-0.02); Immature Granulocytes % (auto) 0.2 %; Lymphocytes # (auto) 2.01 K/uL (1.2-3.4); Lymphocytes % (auto) 15.8 %; Mean Corpuscular Hemoglobin 23.8 pg (25-34); Mean Corpuscular Volume 79.3 fL (80-100); Mean Platelet Volume 11.9 fL (7.4-10.4); Monocytes % (auto) 6.3 %; Neutrophils # (auto) 9.55 K/uL (1.4-6.5); Neutrophils % (auto) 74.9 %; Platelet Count 182 K/uL (130-400); RDW Coefficient of Variation 16.9 % (11.5-14.5); RDW Standard Deviation 48.7 fL (36.4-46.3); Red Blood Count 4.54 M/uL (4.2-5.4); White Blood Count 12.74 K/uL (4.8-10.8)
[2019-05-16 15:33] LABS: Partial Thromboplastin Ratio 0.9; Partial Thromboplastin Time 23.8 Seconds (21.0-31.0); Prothrombin Time 10.3 Seconds (9.0-12.0)
--- NOTE | 2019-05-16 15:42 | XRay Report ---
XR hip LT 2V w pelvis CLINICAL HISTORY: LEFT HIP PAIN. FELL 4 DAYS AGO trauma. Pain. COMPARISON: None. DISCUSSION: Pre-existing total right hip arthroplasty. Could contact between prosthetic and underlyin g bone. Old fracture right pubic ring. No acute process of the left hip. No evidence for fracture or acetabular protrusion. There is no evid ence for soft tissue swelling. IMPRESSION: Chronic and postoperative change. No acute process. The above report was generated using voice recognition software. It may contain grammatical, syntax or spelling errors. Electronically signed by: Attila Asher M.D. 05/16/2019 3:41 PM
[2019-05-16 15:46] LABS: BUN Creatinine Ratio 29.1 (10-20); Calcium 9.3 mg/dl (8.5-10.1); Creatinine Clr Calc Pharmacy 31.2 ml/min; Est GFR (African American) 54.4; Potassium 3.2 mmol/L (3.5-5.1)
--- NOTE | 2019-05-16 15:49 | Emergency Department Note ---
General (ED) Blank Date of Service May 16, 2019 I saw and attended to the care of this patient in conjunction with Dr. Flannery; please see his documentation for all pertinent information. I agree with the assessment and plan as outlined in his documentation. Resident Activity Tracking Resident Involvement: Resident Care Provided Care Provided: Adult ED
[2019-05-16] MEDS ORDERED: ACETAMINOPHEN 1,000 MG/100 ML VIAL IV STA (15:52)
--- NOTE | 2019-05-16 16:47 | CT Scan Report ---
CT lumbar spine wo con CT DOSE: 1291.22 mGy.cm HISTORY: Trauma fall TECHNIQUE: Multiaxial CT images of the lumbar spine were performed and reformatted in the sagittal an d coronal plane without the use of contrast. A dose lowering technique was utilized adhering to the principles of ALARA. COMPARISON: None. FINDINGS: No fractures. No subluxation. Paraspinal soft tissues are unremarkable. Moderate degenerati ve disc changes throughout. Osteopenia. No evidence for compression deformity. Vacuum disc L5-S1. IMPRESSION: 1. Significant degenerative change. 2. Osteopenia. 3. No acute bony abnormality. The above report was generated using voice recognition software. It may contain grammatical, syntax or spelling errors. Electronically signed by: Attila Asher M.D. 05/16/2019 4:45 PM
--- NOTE | 2019-05-16 17:21 | CT Scan Report ---
CT SCAN OF THE PELVIS WITHOUT IV CONTRAST; CT SCAN OF THE LEFT HIP WITHOUT IV CONTRAST CLINICAL HISTORY: Fall. Left hip pain. COMPARISON STUDY: Radiographs of the left hip and bony pelvis dated 05/16/2019. Pelvic CT dated 07/12/19 16. TECHNIQUE: CT scan of the pelvis is performed from the pelvic inlet to the proximal femora. CT scan o f the left hip is performed from the bony pelvis to the left femoral shaft. Images for both examinati ons are reviewed in the axial, sagittal, and coronal planes. IV contrast was not administered for thi s examination. A dose lowering technique was utilized adhering to the principles of ALARA. The examin ation is degraded by streak artifact from a right hip arthroplasty. FINDINGS: The skeletal structures are osteopenic. There is chronic posttraumatic deformity of the rig ht pubic ring. A right hip arthroplasty is in near-anatomic alignment. No acute fracture is seen invo lving the hips or bony pelvis. There is no evidence of osteonecrosis of the left femoral head. Mild d egenerative joint space narrowing is seen in the left hip. There is no significant joint effusion. No lytic or blastic lesion is seen. Lumbosacral spondylosis is partially visualized. There is generaliz ed symmetric atrophy of the regional musculature. No intramuscular hemorrhage is identified. Mild sof t tissue contusion overlies the left hip. Postoperative change overlies the right hip. The bladder is normal as visualized. The uterus is surgically absent. No adnexal lesion is seen. Atherosclerotic ca lcification is noted in the distal abdominal aorta and iliac arteries. There is advanced sigmoid dive rticulosis without CT evidence of acute diverticulitis. No free fluid is seen in the cul-de-sac. No p elvic sidewall or inguinal adenopathy is identified. IMPRESSION: 1. There is no evidence of fracture involving the hips or bony pelvis. 2. Soft tissue contusion overlies the left hip. Dictated: 05/16/2019 4:45 PM Transcribed: 05/16/2019 5:09 PM Susan [id number] [email or web address] Electronically signed by: Maged Rosario M.D. 05/16/2019 5:20 PM
[2019-05-16] MEDS ORDERED: HYDROmorphone INJ 0.5 MG/0.5 ML SYR IV PRN (18:19)
--- NOTE | 2019-05-16 18:34 | History & Physical Report ---
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 -Fell [address] with soft tissue contusion overlying left hip. No evidence of fracture involving hips or bony pelvis on CT pelvis -Given fentanyl and Tylenol in ED. Pain still an 8/10 -Possible gluteal muscle strain in addition to hip contusion. Will defer further imaging to ortho. Routine consult placed (has followed with [facility] in the past) -Scheduled Tylenol, oxycodone PRN for moderate pain, dilaudid for severe pain (hold for lethargy or confusion). Warm compresses apply to hip -Pain management consult in setting of h/o falls, elderly age -PT/OT evaluation, discharge planning. Likely to need placement (3) Hypokalemia: Replaced with 40meq KCl -Monitor with daily BMP (4) Essential hypertension: Elevated in the setting of uncontrolled pain. BP currently 175/67 -Optimize pain control -Continue atenolol, losartan (5) Paroxysmal atrial fibrillation: Continue atenolol (6) CKD (chronic kidney disease), stage III: Kidney function at baseline -Continue to monitor (7) Diabetes mellitus, type II: A1c of 5.9 in Feb 2019 -Hold home agents -SSI while in-patient -BSG AC HS (8) Polymyalgia rheumatica: Continue chronic prednisone (9) Hypothyroidism: Continue levothyroxine (10) Cerebrovascular disease: H/o multiple CVAs, most recent L thalamic infarct in 12/27 -Continue Eliquis DVT Ppx: Eliquis Code status: DNR per discussion with patient PCP: [place] Dispo: Admitted to [facility]. Plan to return home once medically stable. Patient seen in collaboration with Dr. Rangel. Please see addendum. 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 Patient states that she went to sit down but her recliner slid back behind her and she fell, landing on left side. Since fall, has been experiencing constant sharp pain with some radiation down left leg. Home tylenol and tramadol not controlling pain. Has been attempting to ambulate with cane but is having increasing levels of difficulty so came into ED for further evaluation. History of right hip fracture after fall in January after which she lived with her son until a few weeks ago, when she moved back to into her own place. In ED, found to have elevated BP in the setting of uncontrolled pain. BP now 175/67. Mild leukocytosis of 12.7 in the setting of chronic prednisone. Hip CT with soft tissue contusion overlying left hip. No evidence of fracture involving hips or bony pelvis on CT pelvis. Denies fever, chills, lightheadedness, visual changes, chest pain, SOB, nausea, vomiting, abdominal pain, dysuria or diarrhea. Allergies Allergy/AdvReac Type Severity Reaction Status Date / Time ertapenem [From Invanz] Allergy Intermediate RASH/ITCHIN Verified 05/16/19 16:47 G lisinopril Allergy Intermediate RASH Verified 05/16/19 16:47 Penicillins Allergy Intermediate EDEMA Verified 05/16/19 16:47 codeine AdvReac Intermediate NAUSEA, Verified 05/16/19 16:47 VOMITING Home Medications Home Medications Medication Instructions Recorded Confirmed Type apixaban 5 mg PO BIDM 06/13/18 05/16/19 History atorvastatin 40 mg PO QAM 06/13/18 05/16/19 History fluticasone propionate [Flonase 1 spray INTRANASAL UD 06/13/18 05/16/19 History Allergy Relief] gabapentin 300 mg PO BIDM 06/13/18 05/16/19 History metformin 500 mg PO BIDM 06/13/18 05/16/19 History prednisone 2 mg PO QAM 06/13/18 05/16/19 History biotin 1,000 mcg PO DAILY 01/12/19 05/16/19 History gabapentin 600 mg PO HS 01/12/19 05/16/19 History magnesium chloride [Mag 64] 128 mg PO BID 01/12/19 05/16/19 History meclizine 25 mg PO TID PRN 01/12/19 05/16/19 History ranitidine HCl 150 mg PO BID PRN 01/12/19 05/16/19 History alendronate [Fosamax] 70 mg PO WK 05/16/19 05/16/19 History aspirin 81 mg PO DAILY 05/16/19 05/16/19 History atenolol 50 mg PO DAILY 05/16/19 05/16/19 History calcium carbonate-vitamin D3 1 tab PO BID 05/16/19 05/16/19 History [Calcium 500 + D] doxepin 10 mg PO HS 05/16/19 05/16/19 History hydroxyzine HCl 25 mg PO TID PRN 05/16/19 05/16/19 History levothyroxine 75 mcg PO DAILY 05/16/19 05/16/19 History losartan [Cozaar] 50 mg PO DAILY 05/16/19 05/16/19 History tramadol 25 mg PO Q6H PRN 05/16/19 05/16/19 History Past Med/Surg History Medical History Essential hypertension (Chronic) Osteoporosis (Chronic) Hypothyroidism (Chronic) Polymyalgia rheumatica (Chronic) Diabetes mellitus, type II (Chronic) CKD (chronic kidney disease), stage III (Chronic) Pancreatic cyst (Chronic) Dyslipidemia (Chronic) History of adenomatous polyp of colon (Chronic) Diverticular disease of colon (Chronic) Paroxysmal atrial fibrillation (Chronic) Depression (Chronic) Surgical History History of hernia repair (Resolved) Status post cholecystectomy (Chronic) Status post hysterectomy (Chronic) Family History Other Heart disease Social History Preferred Language: Fijian Communication Ability: sleeping Materials Intern Required: Yes Beliefs That Will Affect Care: None marital status: / Current Living Situation: Alone Current Living Situation Comment: family assists w/ care other: uses cane occassionally Feels Safe at Home: Yes Smoking Status: Never smoker Hx Alcohol Use: Yes Alcohol type: wine Hx Substance Use: No Review of Systems Review of Systems: At least ten systems reviewed and negative except as noted in the HPI. Physical Exam Physical Exam: General Appearance: WD/WN, vitals as above, elderly female, grimacing and groaning from pain Head: normocephalic, atraumatic Eyes: normal inspection, PERRL, conjunctivae normal, anicteric sclerae ENT: external ear and nose normal, oropharynx normal Neck: trachea midline, no thyromegaly normal visual inspection Respiratory: lungs clear to auscultation, no wheeze, rales, rhonchi. Normal insp/exp effort, no accessory muscle use Cardiovascular: regular rate, rhythm, no murmur appreciated, normal peripheral pulses. Vessels: no JVD or carotid bruit Chest: normal inspection of chest Abdomen/GI: normal bowel sounds, soft, nontender, no hepatosplenomegaly Extremities/Musculoskelatal: no cyanosis or clubbing, extremities motor strength 5/5. + L buttocks/lateral hip with ecchymosis. TTP, no edema Neurologic: PERRL, EOMI, accommodation nl, no face palsy, no dysarthria CN's II-XI intact bilaterally and moves all extremities Psychiatric: A+Ox3, euthymic affect Skin: no rashes, normal color, warm/dry Results & Data Vital Signs (Past 12 Hours) Vital Signs Temp Pulse Pulse Resp BP Pulse Ox 05/16/19 17:22 80 18 97 05/16/19 13:40 36.9 C 75 20 219/77 H 98 Laboratory Results Short CBC 05/16/19 Range/Units 15:11 WBC 12.74 H (4.8-10.8) K/uL Hgb 10.8 L (12.0-16.0) g/dL Hct 36.0 L (37-47) % Plt Count 182 (130-400) K/uL [facility] 05/16/19 15:11 Sodium 140 Potassium 3.2 L Chloride 105 Carbon Dioxide 27 BUN 31 H Creatinine 1.07 Glucose 188 H Calcium 9.3 Diagnostic Findings Hip/pelvis XR: IMPRESSION: Chronic and postoperative change. No acute process. Lumbar spine CT: IMPRESSION: 1. Significant degenerative change. 2. Osteopenia. 3. No acute bony abnormality. Hip CT: IMPRESSION: 1. There is no evidence of fracture involving the hips or bony pelvis. 2. Soft tissue contusion overlies the left hip. Pelvis CT: IMPRESSION: 1. There is no evidence of fracture involving the hips or bony pelvis. 2. Soft tissue contusion overlies the left hip. Code Status & VTE Plan VTE Prophylaxis Plan VTE Prophylaxis will be ordered: Yes Supervising Physician Co-Signing Physician Notes I, Dr. Zachary Rangel, have seen and examined the patient and would like to comment that Mera Hinojosa is an 88 year old female who fell 5 days ago and has CONTUSION OF LEFT HIP (bruising of left gluteus) but due to complaints of uncontrolled pain and AMBULATORY DYSFUNCTION, patient came to the ED for further evaluation and on imaging there is Soft tissue contusion that overlies the left hip but no evidence of fracture. Patient reports that she feels like a knot near her left gluteus muscle and pain that runs down the left leg. On physical exam of buttock: Other than greenish blue discoloration of the left buttock, there does not not appear to be any unusual fluctuance or abnormal muscle mass. Blood pressure: elevated with systolic blood pressure as 175 but this is improvement of previous 219/77 Heart: regular rate Lungs: clear to auscultation bilaterally Abdomen: soft, nontender, positive bowel sounds Extremities: patient was able to move upper and lower extremities while sitting up on ED hospital bed In the assessment, the patient clearly has pain and low pain tolerance with pain also exacerbating underlying HYPERTENSION for which patient is on losartan and atenolol. Will continue these anti-hypertensives for now. Review of notes that atenolol was chose over metoprolol for management of ATRIAL FIBRILLATION in outpatient cardiology records to avoid orthostatic hypotension. Can continue patients home dose gabapentin for neuropathic pain. Acetaminophen prn for mild pain of fever. Oxycodone prn for moderate pain. Dilaudid prn for severe pain. However patient is also systemically anticoagulated with Eliqus for atrial fibrillation and there can be side effects of excessive pain medication such as increased risked or sedation or hypotension and leading to recurrent fall. Recognizing this balance, will consult Pain Management service. Consult Orthopedics as there is possibility that patient may have gluteus or quadriceps tear. However, will not order MRI imaging unless recommended by orthopedics because if there is no surgical intervention for these suspected problems then an MRI would outweigh the cons of financial cost of testing or risk of worsening patients known CHRONIC KIDNEY DISEASE with IV contrast. Agree with other assessment and plans as documented by physician public relations assistant My colleague Dr. Vanagala will be following the patient as hospitalist starting on 05/17/19
--- NOTE | 2019-05-16 19:39 | Emergency Department Note ---
Entered by Terri Mantilla acting as a scribe for History of Present Illness General Chief complaint: Fall Stated complaint: fall/ L hip pain Time Seen by Provider: 05/16/19 14:47 Source: patient Mode of arrival: ambulatory Limitations: no limitations History of Present Illness Onset (ago): day(s) 4 Location: lower extremity (left leg) Radiation: non-radiation Pain Consistency: + constant Maximum Pain Intensity: 10 Current Pain Intensity: 10 Relieved By: + none Exacerbated By: + movement Associated symptoms: + other (+numbness in left lower leg, -LOC) Treatments prior to arrival: none The patient is an 88 year old female who presents to the ED with complaints of a fall that occurred 4 days ago. She arrives to the ED via BLS. She fell 4 days ago from a seated position and landed on her left hip. She had the hip replaced in January 2019. She has been using a wheelchair and cane at home. She states the pain in her left hip has become extreme, and rates her discomfort as a 10/10 in severity. Movement worsens her pain. She states she has experienced some numbness in her left lower leg. She thinks the leg may be broken. She did not sustain any other injuries or lose consciousness during the fall. Home Medications Home Medications Medication Instructions Recorded Confirmed Type apixaban 5 mg PO BIDM 06/13/18 05/16/19 History atorvastatin 40 mg PO QAM 06/13/18 05/16/19 History fluticasone propionate [Flonase 1 spray INTRANASAL UD 06/13/18 05/16/19 History Allergy Relief] gabapentin 300 mg PO BIDM 06/13/18 05/16/19 History metformin 500 mg PO BIDM 06/13/18 05/16/19 History prednisone 2 mg PO QAM 06/13/18 05/16/19 History biotin 1,000 mcg PO DAILY 01/12/19 05/16/19 History gabapentin 600 mg PO HS 01/12/19 05/16/19 History magnesium chloride [Mag 64] 128 mg PO BID 01/12/19 05/16/19 History meclizine 25 mg PO TID PRN 01/12/19 05/16/19 History ranitidine HCl 150 mg PO BID PRN 01/12/19 05/16/19 History alendronate [Fosamax] 70 mg PO WK 05/16/19 05/16/19 History aspirin 81 mg PO DAILY 05/16/19 05/16/19 History atenolol 50 mg PO DAILY 05/16/19 05/16/19 History calcium carbonate-vitamin D3 1 tab PO BID 05/16/19 05/16/19 History [Calcium 500 + D] doxepin 10 mg PO HS 05/16/19 05/16/19 History hydroxyzine HCl 25 mg PO TID PRN 05/16/19 05/16/19 History levothyroxine 75 mcg PO DAILY 05/16/19 05/16/19 History losartan [Cozaar] 50 mg PO DAILY 05/16/19 05/16/19 History tramadol 25 mg PO Q6H PRN 05/16/19 05/16/19 History Allergies Allergy/AdvReac Type Severity Reaction Status Date / Time ertapenem [From Invanz] Allergy Intermediate RASH/ITCHIN Verified 05/16/19 16:47 G lisinopril Allergy Intermediate RASH Verified 05/16/19 16:47 Penicillins Allergy Intermediate EDEMA Verified 05/16/19 16:47 codeine AdvReac Intermediate NAUSEA, Verified 05/16/19 16:47 VOMITING Past Med/Surg History Medical History Essential hypertension (Chronic) Osteoporosis (Chronic) Hypothyroidism (Chronic) Polymyalgia rheumatica (Chronic) Diabetes mellitus, type II (Chronic) CKD (chronic kidney disease), stage III (Chronic) Pancreatic cyst (Chronic) Dyslipidemia (Chronic) History of adenomatous polyp of colon (Chronic) Diverticular disease of colon (Chronic) Paroxysmal atrial fibrillation (Chronic) Depression (Chronic) Surgical History History of hernia repair (Resolved) Status post cholecystectomy (Chronic) Status post hysterectomy (Chronic) Family History Other Heart disease Social History Preferred Language: Panamanian Communication Ability: sleeping Ultrasound Coordinator Required: Yes Beliefs That Will Affect Care: None marital status: / Current Living Situation: Alone Current Living Situation Comment: family assists w/ care other: uses cane occassionally Feels Safe at Home: Yes Smoking Status: Never smoker Hx Alcohol Use: Yes Alcohol type: wine Hx Substance Use: No Review of Systems See HPI for pertinent positives & negatives. and A total of 10 systems reviewed and were otherwise negative Physical Exam Vital Signs Vital Signs - 24 hr 05/16/19 13:40 05/16/19 17:22 05/16/19 19:00 Temperature 36.9 C Temperature Source Oral Sepsis Recent Fever Within 48 Hours No Sepsis Action Taken by Nursing No Action Required Pulse Rate 75 Pulse Rate [Apical] 80 72 Respiratory Rate 20 18 16 Respiratory Effort / Characteristics Non-Labored Spontaneous Non-Labored Respiratory Depth Normal Normal Respiratory Pattern Regular Regular Blood Pressure 219/77 H Blood Pressure [Right Arm] 175/67 H 180/77 H Blood Pressure Mean 124 Blood Pressure Mean [Right Arm] 103 111 Blood Pressure Position Lying Blood Pressure Position [Right Arm] Lying Pulse Oximetry 98 97 100 Oxygen Delivery Method Room Air Room Air 05/16/19 19:34 Temperature Temperature Source Sepsis Recent Fever Within 48 Hours Sepsis Action Taken by Nursing Pulse Rate 72 Pulse Rate [Apical] Respiratory Rate 16 Respiratory Effort / Characteristics Respiratory Depth Respiratory Pattern Blood Pressure 180/78 H Blood Pressure [Right Arm] Blood Pressure Mean Blood Pressure Mean [Right Arm] Blood Pressure Position Blood Pressure Position [Right Arm] Pulse Oximetry 99 Oxygen Delivery Method Room Air GENERAL: Awake, alert, tearful and uncomfortable-appearing HENT: Normocephalic, atraumatic. EYES: Normal conjunctiva. Sclera non-icteric. NECK: Supple. No nuchal rigidity. RESPIRATORY: Clear to auscultation. No wheezes. Normal respiratory effort. CARDIAC: Normal rate. Normal rhythm. Extremities warm and well perfused. GI: Soft, non-distended. No tenderness to palpation. No rebound or guarding. RECTAL: Deferred. MUSCULOSKELETAL: Atraumatic. Chest examination reveals no tenderness. There is no CVA tenderness to palpation. LOWER EXTREMITIES: Healing left hip contusion, pain to left hip with ROM, 1+ left DP pulse. NEURO: No facial droop or slurred speech. Moving all extremities. SKIN: Warm and dry. No rash or jaundice noted. Course 1500: The patient was evaluated in room C2A and a complete history and physical were performed. 1725: I reevaluated the patient. She is resting comfortably. I discussed her results and my recommendation she remain in the hospital for further evaluation and management and she is agreeable with the plan. 1736: I discussed the patients case with Masha Kenyon PA-C, [facility]. The patient will be further evaluated. Consultations Consultation #1: I discussed the patients case with Masha Kenyon PA-C, [facility] [place] [facility]. The patient will be further evaluated. Time: 17:36 Administered Medications Discontinued Medications Fentanyl Citrate (Fentanyl Citrate) 50 mcg IV NOW STA Stop: 05/16/19 14:55 Last Admin: 05/16/19 15:09 Dose: 50 mcg Documented by: [id number] Acetaminophen (Ofirmev) 1,000 mg in 100 mls @ 400 mls/hr IV NOW STA Stop: 05/16/19 16:06 Last Infusion: 05/16/19 16:37 Dose: 0 mls/hr Documented by: [id number] Admin: 05/16/19 16:02 Dose: 400 mls/hr Documented by: [id number] Medical Decision Making Differential Diagnosis Differential diagnoses include major intracranial, cervical, spinal, thoracic, abdominal, pelvic and neurologic injury. Fracture, contusion, sprain, strain, laceration, abrasions included as well. Medical Records Attestation: I reviewed the patient's medical records. Home Medications Current Medication List: was personally reviewed by me Laboratory Data Attestation: I reviewed the patient's lab results. Result diagrams: 05/16/19 15:11 05/16/19 15:11 Lab Results 05/16/19 05/16/19 05/16/19 Range/Units 15:11 15:11 15:11 WBC 12.74 H (4.8-10.8) K/uL RBC 4.54 (4.2-5.4) M/uL Hgb 10.8 L (12.0-16.0) g/dL Hct 36.0 L (37-47) % MCV 79.3 L (80-100) fL MCH 23.8 L (25-34) pg MCHC 30.0 L (32-36) g/dL RDW Std Deviation 48.7 H (36.4-46.3) fL RDW Coeff of Umm 16.9 H (11.5-14.5) % Plt Count 182 (130-400) K/uL MPV 11.9 H (7.4-10.4) fL Immature Gran % (Auto) 0.2 % Neut % (Auto) 74.9 % Lymph % (Auto) 15.8 % Mccone % (Auto) 6.3 % Eos % (Auto) 2.4 % Baso % (Auto) 0.4 % Immature Gran # (Auto) 0.03 H (0.00-0.02) K/uL Neut # (Auto) 9.55 H (1.4-6.5) K/uL Lymph # (Auto) 2.01 (1.2-3.4) K/uL [place] # (Auto) 0.80 H (0.11-0.59) K/uL Eos # (Auto) 0.30 (0-0.5) K/uL Baso # (Auto) 0.05 (0-0.2) K/uL PT 10.3 (9.0-12.0) Seconds INR 1.0 (0.9-1.1) APTT 23.8 (21.0-31.0) Seconds PTT Ratio 0.9 Sodium 140 (136-145) mmol/L Potassium 3.2 L (3.5-5.1) mmol/L Chloride 105 (98-107) mmol/L Carbon Dioxide 27 (21-32) mmol/L Anion Gap 8.0 (3-11) BUN 31 H (7-18) mg/dl Creatinine 1.07 (0.6-1.2) mg/dl Est Cr Clr Drug Dosing 31.2 ml/min Est GFR ( Amer) 54.4 Est GFR (Non-Af Amer) 47.0 BUN/Creatinine Ratio 29.1 H (10-20) Glucose 188 H (70-99) mg/dl Calcium 9.3 (8.5-10.1) mg/dl Imaging Data Radiologist's Impression: Radiology results as stated below per my review and the radiologist's interpretation: XR hip LT 2V w pelvis CLINICAL HISTORY: LEFT HIP PAIN. FELL 4 DAYS AGO trauma. Pain. COMPARISON: None. DISCUSSION: Pre-existing total right hip arthroplasty. Could contact between prosthetic and underlying bone. Old fracture right pubic ring. No acute process of the left hip. No evidence for fracture or acetabular protrusion. There is no evidence for soft tissue swelling. IMPRESSION: Chronic and postoperative change. No acute process. The above report was generated using voice recognition software. It may contain grammatical, syntax or spelling errors. Electronically signed by: Attila Asher M.D. 05/16/2019 3:[address] lumbar spine wo con CT DOSE: 1291.22 mGy.cm HISTORY: Trauma fall TECHNIQUE: Multiaxial CT images of the lumbar spine were performed and reformatted in the sagittal and coronal plane without the use of contrast. A dose lowering technique was utilized adhering to the principles of ALARA. COMPARISON: None. FINDINGS: No fractures. No subluxation. Paraspinal soft tissues are unremarkable. Moderate degenerative disc changes throughout. Osteopenia. No evidence for compression deformity. Vacuum disc L5-S1. IMPRESSION: 1. Significant degenerative change. 2. Osteopenia. 3. No acute bony abnormality. The above report was generated using voice recognition software. It may contain grammatical, syntax or spelling errors. Electronically signed by: Attila Asher M.D. 05/16/2019 4:[address] SCAN OF THE PELVIS WITHOUT IV CONTRAST; CT SCAN OF THE LEFT HIP WITHOUT IV CONTRAST CLINICAL HISTORY: Fall. Left hip pain. COMPARISON STUDY: Radiographs of the left hip and bony pelvis dated 05/16/2019. Pelvic CT dated 07/12/2015. TECHNIQUE: CT scan of the pelvis is performed from the pelvic inlet to the proximal femora. CT scan of the left hip is performed from the bony pelvis to the left femoral shaft. Images for both examinations are reviewed in the axial, sagittal, and coronal planes. IV contrast was not administered for this examination. A dose lowering technique was utilized adhering to the principles of ALARA. The examination is degraded by streak artifact from a right hip arthroplasty. FINDINGS: The skeletal structures are osteopenic. There is chronic posttraumatic deformity of the right pubic ring. A right hip arthroplasty is in near-anatomic alignment. No acute fracture is seen involving the hips or bony pelvis. There is no evidence of osteonecrosis of the left femoral head. Mild degenerative joint space narrowing is seen in the left hip. There is no significant joint effusion. No lytic or blastic lesion is seen. Lumbosacral spondylosis is partially visualized. There is generalized symmetric atrophy of the regional musculature. No intramuscular hemorrhage is identified. Mild soft tissue contusion overlies the left hip. Postoperative change overlies the right hip. The bladder is normal as visualized. The uterus is surgically absent. No adnexal lesion is seen. Atherosclerotic calcification is noted in the distal abdominal aorta and iliac arteries. There is advanced sigmoid diverticulosis without CT evidence of acute diverticulitis. No free fluid is seen in the cul-de-sac. No pelvic sidewall or inguinal adenopathy is identified. IMPRESSION: 1. There is no evidence of fracture involving the hips or bony pelvis. 2. Soft tissue contusion overlies the left hip. Dictated: 05/16/2019 4:45 PM Transcribed: 05/16/2019 5:09 PM Susan [id number] [facility] Electronically signed by: Magde Rosario M.D. 05/16/2019 5:20 PM ECG Data Attestation: I personally reviewed and interpreted this ECG as follows: Indication: + other (fall) Rate (beats per minute): 70 Rhythm: + normal sinus ECG [place]: + Normal ECG ST segments: no ST depression and no ST elevation ECG Findings: + Other (Normal intervals); no PACs and no PVCs Blood Pressure Blood Pressure Findings: Elevated blood pressure Blood Pressure Disposition: further management by hospitalist [facility] Narrative Resident Physician Supervision Note: I did perform an independent evaluation and examination of this patient as described. I also saw this patient in conjunction with the resident, Dr. Rosita Tian, DO and guided management for the patient. 88-year-old female with a past medical history including diabetes, atrial fibrillation on Eliquis, hyperthyroidism, hypertension, PMR on chronic prednisone, CKD presenting today for significant left hip pain. Evidently fell 4 days ago from a seated position. Had a right hip replaced in January and has been using a wheelchair and cane normally. Pain is extreme the left leg and she can feel touch. 10 out of 10 pain. Basic labs were obtained as well as imaging of the hip. Basic labs do show no evidence of renal dysfunction the slight hypokalemia is noted. Leukocytosis of 12 is noted of unclear significance although it appears that she runs high chronically. X-ray of the hip did not show an acute process giving her left hip pain. Given this I completed CT scans of her lumbar spine pelvis and left hip to exclude occult injury. Again she denies striking her head and do not believe an additional imaging there at this time. Given some fentanyl for pain as well as Tylenol. CTs of the lumbar spine pelvis and hip likely do not show any acute fracture. Contusion noted. A small amount of fentanyl and Tylenol she was able to arrange this hip so again I doubt fracture and doubt this dislocated based on imaging and exam now but significant pain and lives at home on anticoagulation do not feel she is deferred to go home at this point. Discussed with family who are in agreement. Discussed with the [facility] for observation overnight for some PT and pain control regimen optimization. Impression & Plan Fall, Left hip pain, Contusion of left hip Discharge Plan Visit Data Chief Complaint: Fall Stated Complaint: fall/ L hip pain ED Provider: Ruben Flannery ED Midlevel Provider: Rosita Tian Discharge Problem: Fall, Left hip pain, Contusion of left hip Patient Disposition: Being Evaluated by Hospitalist Discharge Instructions Interventions: ED Discharge Assessment Last Done: 05/16/19 19:34 Forms Stand Alone Forms: My [facility] Prescriptions Prescriptions: No Action atorvastatin 40 mg Tablet 40 mg PO QAM RF: 0 fluticasone propionate [Flonase Allergy Relief] 50 mcg/actuation [place],Suspension 1 spray Intranasal UD RF: 0 metformin 500 mg Tablet 500 mg PO BIDM RF: 0 prednisone 1 mg Tablet 2 mg PO QAM RF: 0 gabapentin 300 mg Capsule 300 mg PO BIDM RF: 0 apixaban 5 mg Tablet 5 mg PO BIDM RF: 0 meclizine 25 mg Tablet 25 mg PO TID PRN (Reason: Vertigo) RF: 0 gabapentin 300 mg capsule 600 mg PO HS RF: 0 magnesium chloride [Mag 64] 64 mg tablet,delayed release (DR/EC) 128 mg PO BID RF: 0 biotin 1,000 mcg Tablet,Chewable 1,000 mcg PO DAILY RF: 0 ranitidine HCl 150 mg Tablet 150 mg PO BID PRN (Reason: Acid Reflux) RF: 0 losartan [Cozaar] 50 mg tablet 50 mg PO DAILY RF: 0 alendronate [Fosamax] 70 mg Tablet 70 mg PO WK RF: 0 doxepin 10 mg capsule 10 mg PO HS RF: 0 levothyroxine 75 mcg tablet 75 mcg PO DAILY RF: 0 hydroxyzine HCl 25 mg Tablet 25 mg PO TID PRN (Reason: Insomnia) RF: 0 atenolol 50 mg tablet 50 mg PO DAILY RF: 0 aspirin 81 mg Tablet,Delayed Release (Dr/Ec) 81 mg PO DAILY RF: 0 calcium carbonate-vitamin D3 [Calcium 500 + D] 500 mg(1,250mg) -200 unit Tablet 1 tab PO BID RF: 0 tramadol 50 mg tablet 25 mg PO Q6H PRN (Reason: moderate pain) RF: 0 Referrals Referrals: Liu Antunez MD [Primary Care Provider] - The scribe's documentation has been prepared under my direction and personally reviewed by me in its entirety. I confirm that the note above accurately reflects all work, treatment, procedures, and medical decision making performed by me.
[2019-05-16] MEDS ORDERED: FLUTICASONE PROPIONATE NA SPR 16 GM BTL NAE PRN (20:08)
[2019-05-16] MEDS ORDERED: GLUCOSE 10 TABS/TUBE PO PRN (20:08)
[2019-05-16] MEDS ORDERED: DEXTROSE 50% 50 ML SYRINGE IV PRN (20:08)
[2019-05-16] MEDS ORDERED: GLUCOSE 40% GEL 15 GM TUBE PO PRN (20:08)
[2019-05-16] MEDS ORDERED: POTASSIUM CHLORIDE 20 MEQ TABCR PO STA (20:08)
[2019-05-16] MEDS ORDERED: GLUCAGON FOR INJ 1 MG VIAL SQ PRN (20:08)
[2019-05-16] MEDS ORDERED: CARBOHYDRATES FOR HYPOGLYCEMIA PO PRN (20:08)
[2019-05-16] MEDS: OXYCODONE HCL IR 5 MG TAB (IMMEDIATE RELEASE) PO PRN (20:17)
[2019-05-16] MEDS: LOSARTAN POTASSIUM 50 MG TAB PO SCH (21:13)
[2019-05-16] MEDS: ATENOLOL 50 MG TABLET PO SCH (21:14)
[2019-05-16] MEDS: ACETAMINOPHEN 500 MG TAB PO SCH (21:16)
[2019-05-16] MEDS: MAGNESIUM CHLORIDE 64MG DELAYED REL TAB PO SCH (21:17)
[2019-05-16] MEDS: CYCLOBENZAPRINE HCL 5 MG TAB PO SCH (21:17)
[2019-05-16] MEDS: CALCIUM 600MG + VIT D 400 IU TAB PO SCH (21:18)
[2019-05-16] MEDS: GABAPENTIN 600 MG TAB PO SCH (21:20)
[2019-05-16] MEDS: INSULIN ASPART 100 UNITS/ML 3 ML PEN SC SCH (21:23)
[2019-05-16] MEDS: DOXEPIN HCL 10 MG CAPSULE PO SCH (21:41)
[2019-05-16 21:59] LABS: Appearance Urine Clear (Clear); Bacteria Urine Automated Negative (Negative); Bilirubin Urine Negative (Negative); Blood Urine 1+ (Negative); Cast Urine Automated 0 /lpf (0-5); Color Urine Yellow; Glucose Urine UA Trace (Negative); Ketones Urine Negative (Negative); Leukocyte Esterase Urine Negative (Negative); Nitrite Urine Negative (Negative); Protein Urine Negative (Negative); RBC Urine Automated 0-4 /hpf (0-4); Specific Gravity Urine 1.011 (1.000-1.030); Urobilinogen Urine Negative (Negative)
[2019-05-16] MEDS ORDERED: ACETAMINOPHEN SOLN 500 MG/15.62 ML UDP PO SCH (22:00)
[2019-05-17] MEDS: LEVOTHYROXINE SODIUM 75 MCG TABLET PO SCH (05:49)
[2019-05-17] MEDS: ACETAMINOPHEN 500 MG TAB PO SCH ×3 (05:49→22:11)
[2019-05-17 06:24] LABS: Hematocrit (blood only) 35.2 % (37-47); Hemoglobin 10.5 g/dL (12.0-16.0); Mean Corpuscular Hemoglobin 23.8 pg (25-34); Mean Corpuscular Hgb Conc 29.8 g/dL (32-36); Mean Corpuscular Volume 79.6 fL (80-100); Mean Platelet Volume 11.7 fL (7.4-10.4); Platelet Count 168 K/uL (130-400); RDW Coefficient of Variation 17.2 % (11.5-14.5); RDW Standard Deviation 50.2 fL (36.4-46.3); Red Blood Count 4.42 M/uL (4.2-5.4)
[2019-05-17 07:02] LABS: BUN Creatinine Ratio 24.1 (10-20); Creatinine Clr Calc Pharmacy 33.7 ml/min; Est GFR (African American) 59.8; Est GFR (Non-African American) 51.6; Potassium 4.2 mmol/L (3.5-5.1)
[2019-05-17 08:07] LABS: Estimated Average Glucose 163 mg/dl; Hemoglobin A1C 7.3 % (4.5-5.6)
[2019-05-17] MEDS: OXYCODONE HCL IR 5 MG TAB (IMMEDIATE RELEASE) PO PRN (08:24)
[2019-05-17] MEDS: ATENOLOL 50 MG TABLET PO SCH (08:25)
[2019-05-17] MEDS: MAGNESIUM CHLORIDE 64MG DELAYED REL TAB PO SCH ×2 (08:25→20:42)
[2019-05-17] MEDS: LOSARTAN POTASSIUM 50 MG TAB PO SCH (08:25)
[2019-05-17] MEDS: ASPIRIN 81 MG ECTAB PO SCH (08:26)
[2019-05-17] MEDS: APIXABAN 2.5 MG TAB PO SCH ×2 (08:26→17:34)
[2019-05-17] MEDS: predniSONE 1 MG TAB PO SCH (08:26)
[2019-05-17] MEDS: ATORVASTATIN 40 MG TAB PO SCH (08:27)
[2019-05-17] MEDS: GABAPENTIN 300 MG CAP PO SCH ×2 (08:27→14:42)
[2019-05-17] MEDS: CYCLOBENZAPRINE HCL 5 MG TAB PO SCH ×2 (08:27→20:41)
[2019-05-17] MEDS: CALCIUM 600MG + VIT D 400 IU TAB PO SCH ×2 (08:28→20:43)
[2019-05-17] MEDS: INSULIN ASPART 100 UNITS/ML 3 ML PEN SC SCH ×4 (08:32→20:43)
[2019-05-17] MEDS ORDERED: NON-FORMULARY MEDICATION (Biotin 1,000 MCG) PO SCH (09:00)
--- NOTE | 2019-05-17 15:22 | Consultation Report ---
DATE OF CONSULTATION: 05/17/2019 HISTORY OF PRESENT ILLNESS: The patient is an 88-year-old white female who presents after having had a fall approximately 5 days earlier, having difficulty with pain in her left hip when trying to ambulate. The patient has undergone a previous right total hip arthroplasty by Dr. MEYER. Has no right hip or lower extremity complaints or complaints of pain along the right lateral hip in the region of her trochanteric bursa. She has had x-rays and CT scan, which I reviewed. Her x-rays are unremarkable. No fracture is noted. She has presence of a right total hip arthroplasty. Her left CT scan of the pelvis, pelvic ring and hip all unremarkable, no fracture, no pelvic ring fractures noted. She does have evidence of a soft tissue contusion over the region of her left hip. Discussed this with her. We will start physical therapy and progressive increase weightbearing as she is able to tolerate. ASSESSMENT: Contusion, left hip. PLAN: For progressive weightbearing therapy as tolerated. [facility]
--- NOTE | 2019-05-17 17:35 | Hospitalist Progress Note ---
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 Left hip contusion Mechanical fall Ambulatory dysfunction Hip CT with soft tissue contusion overlying left hip. No evidence of fracture involving hips or bony pelvis on CT pelvis Pain control Appreciate orthopedics input Consulted pain management as well PT OT Progressive weightbearing therapy as tolerated May need rehab placement (3) Hypokalemia: Resolved Replace and monitor electrolytes as needed (4) Essential hypertension: Slightly elevated, likely secondary to pain Pain control continue atenolol, losartan (5) Paroxysmal atrial fibrillation: Continue atenolol (6) CKD (chronic kidney disease), stage III: Creatinine at baseline Monitor renal function (7) Diabetes mellitus, type II: HbA1c 7.3 Hold p.o. meds Continue insulin therapy while hospitalized Monitor blood glucose levels (8) Polymyalgia rheumatica: Continue chronic prednisone (9) Hypothyroidism: Continue levothyroxine (10) Cerebrovascular disease: H/o multiple CVAs, most recent L thalamic infarct in 12/27 Continue Eliquis DVT Px: On Eliquis Code status: DNR/DNI Disposition: PT/OT May need rehab placement Subjective Patient is seen and examined at bedside Complaints of left hip pain radiating down the leg especially with movement Denies any chest pain, shortness of breath, dizziness, nausea, abdominal pain Offers no other complaints Review of Systems Review of Systems: All systems reviewed & are unremarkable except as noted in HPI & below Physical Exam Physical Exam: Physical Exam: Vitals signs as noted above General Appearance:Moderately built and nourished, mild distress Head: normocephalic, Atraumatic Eyes: normal inspection, EOMI Neck: supple, Trachea midline Respiratory/Chest: Normal breath sounds, CTA Cardiovascular: S1, S2, No murmur Abdomen/GI:Soft, Non tender, Bowel sounds present Extremities/Musculoskelatal:normal inspection, no edema, Left hip tender Neurologic/Psych:AAOX3, grossly no focal neurological deficits Skin: normal color, warm Results & Data Vital Signs (Past 12 Hours) Vital Signs Temp Pulse Pulse Resp BP BP Pulse Ox 05/17/19 16:05 67 05/17/19 15:34 36.7 C 68 20 157/80 H 95 05/17/19 11:26 36.6 C 63 18 173/82 H 98 05/17/19 07:43 36.6 C 59 L 18 170/72 H 96 05/17/19 07:24 64 Laboratory Results Short CBC 05/17/19 Range/Units 05:56 WBC 8.00 (4.8-10.8) K/uL Hgb 10.5 L (12.0-16.0) g/dL Hct 35.2 L (37-47) % Plt Count 168 (130-400) K/uL BMP 05/17/19 05:56 Sodium 141 Potassium 4.2 D Chloride 110 H Carbon Dioxide 26 BUN 24 H Creatinine 0.99 Glucose 129 H Calcium 9.0 Urine 05/16/19 Range/Units 20:22 Urine Color Yellow Urine Appearance Clear (Clear) Urine pH 7.0 (4.5-7.5) Ur Specific [place] 1.011 (1.000-1.030) Urine Protein Negative (Negative) Urine Glucose (UA) Trace H (Negative)
[2019-05-17] MEDS: GABAPENTIN 600 MG TAB PO SCH (20:42)
[2019-05-17] MEDS: DOXEPIN HCL 10 MG CAPSULE PO SCH (20:44)
[2019-05-18] MEDS: LEVOTHYROXINE SODIUM 75 MCG TABLET PO SCH (05:47)
[2019-05-18] MEDS: ACETAMINOPHEN 500 MG TAB PO SCH ×3 (05:47→20:32)
[2019-05-18 06:24] LABS: Hematocrit (blood only) 37.1 % (37-47); Hemoglobin 11.1 g/dL (12.0-16.0); Mean Corpuscular Hemoglobin 23.9 pg (25-34); Mean Corpuscular Hgb Conc 29.9 g/dL (32-36); Mean Platelet Volume 11.1 fL (7.4-10.4); Platelet Count 166 K/uL (130-400); RDW Coefficient of Variation 17.4 % (11.5-14.5); Red Blood Count 4.64 M/uL (4.2-5.4); White Blood Count 9.83 K/uL (4.8-10.8)
[2019-05-18 06:52] LABS: BUN Creatinine Ratio 23.9 (10-20); Calcium 10.3 mg/dl (8.5-10.1); Creatinine Clr Calc Pharmacy 34.4 ml/min; Est GFR (African American) 61.3; Est GFR (Non-African American) 52.9; Potassium 3.9 mmol/L (3.5-5.1)
[2019-05-18] MEDS: predniSONE 1 MG TAB PO SCH (08:34)
[2019-05-18] MEDS: LOSARTAN POTASSIUM 50 MG TAB PO SCH (08:34)
[2019-05-18] MEDS: APIXABAN 2.5 MG TAB PO SCH ×2 (08:35→16:05)
[2019-05-18] MEDS: ATENOLOL 50 MG TABLET PO SCH (08:35)
[2019-05-18] MEDS: ATORVASTATIN 40 MG TAB PO SCH (08:35)
[2019-05-18] MEDS: GABAPENTIN 300 MG CAP PO SCH ×2 (08:35→13:36)
[2019-05-18] MEDS: CYCLOBENZAPRINE HCL 5 MG TAB PO SCH ×2 (08:35→20:25)
[2019-05-18] MEDS: CALCIUM 600MG + VIT D 400 IU TAB PO SCH ×2 (08:36→20:25)
[2019-05-18] MEDS: MAGNESIUM CHLORIDE 64MG DELAYED REL TAB PO SCH ×2 (08:36→20:26)
[2019-05-18] MEDS: ASPIRIN 81 MG ECTAB PO SCH (08:36)
[2019-05-18] MEDS: INSULIN ASPART 100 UNITS/ML 3 ML PEN SC SCH ×4 (08:41→20:31)
[2019-05-18] MEDS ORDERED: COUGH DROP (SUGAR FREE) LOZ 24 LOZ/1 BOX BUCCAL ONE (08:48)
--- NOTE | 2019-05-18 14:58 | Pain Management Consultation ---
Date of Consultation May 18, 2019 Assessment & Plan (1) Contusion of left hip: 1. Patient is reporting minimal pain in the left lateral hip on today's examination. Reviewed imaging studies which reveal a contusion without evidence of fracture. Recommend patient increase her ambulatory activity and participate in PT/OT. Would recommend refraining from utilization of opiate therapy due to concerns over side effects as patient is indicating minimal discomfort at this time and discomfort does not appear to be a limiting factor in her ability to move/ambulate. There is no role for interventional treatment at this time. Present on Admission?: Yes History of Present Illness Reason for Consultation: Left hip pain Attending Physician: Satish Bethea MD History of Present Illness Mrs. Guerrero is an 88-year-old white female who was admitted with a predominant c omplaint of left-sided hip pain after a fall 5 days prior to admission. She reportedly went to sit down but as her recliner slid back she fell landing on her left side. She was experiencing constant sharp pain in the left lateral hip which was radiating to the lateral thigh stopping at the knee aggravated with ambulatory activity. The emergent evaluation included imaging of the left hip and pelvic area which revealed no evidence of fracture. There was evidence of a soft tissue contusion overlying the left hip at site of maximal tenderness. The patient is denying axial low back pain or lumbar radicular component to her pain complaints. She reports that her pain is improved upon today's evaluation compared to the past few days. She is rating her pain at a 2-3/10 at this time. Her pain is aggravated with positional change and movement. She has minimal pain in the supine position. She did not participate in PT/OT yesterday as the nurse reported the patient refused. The patient indicates that she is feeling better and wishes to "get out of the hospital". Patient has past medical history significant for diabetes mellitus, paroxysmal atrial fibrillation on Eliquis therapy chronically, labile hypertension, polymyalgia rheumatica on chronic steroid therapy as well as a left-sided thalamic CVA December 2017. The patient denies any ongoing utilization of tramadol at home in the outpatient setting. Patient reported use of tramadol after her right hip pain with SERGIO was completed within the past 1 year per her report. Patient has no further constitutional complaints at this time. Plan of care discussed with Dr. Sapphire Walker. Pain Assessment Full Body Front + Back: 1. Left lateral hip Pain scale - at its best (0-10): 2 Pain scale - at its worst (0-10): 3 Allergies Allergy/AdvReac Type Severity Reaction Status Date / Time ertapenem [From [facility]] Allergy Intermediate RASH/ITCHIN Verified 05/16/19 16:47 G lisinopril Allergy Intermediate RASH Verified 05/16/19 16:47 Penicillins Allergy Intermediate EDEMA Verified 05/16/19 16:47 codeine AdvReac Intermediate NAUSEA, Verified 05/16/19 16:47 VOMITING Home Medications Home Medications Medication Instructions Recorded Confirmed Type apixaban 5 mg PO BIDM 06/13/18 05/16/19 History atorvastatin 40 mg PO QAM 06/13/18 05/16/19 History fluticasone propionate [Flonase 1 spray INTRANASAL UD 06/13/18 05/16/19 History Allergy Relief] gabapentin 300 mg PO BIDM 06/13/18 05/16/19 History metformin 500 mg PO BIDM 06/13/18 05/16/19 History prednisone 2 mg PO QAM 06/13/18 05/16/19 History biotin 1,000 mcg PO DAILY 01/12/19 05/16/19 History gabapentin 600 mg PO HS 01/12/19 05/16/19 History magnesium chloride [Mag 64] 128 mg PO BID 01/12/19 05/16/19 History meclizine 25 mg PO TID PRN 01/12/19 05/16/19 History ranitidine HCl 150 mg PO BID PRN 01/12/19 05/16/19 History alendronate [Fosamax] 70 mg PO WK 05/16/19 05/16/19 History aspirin 81 mg PO DAILY 05/16/19 05/16/19 History atenolol 50 mg PO DAILY 05/16/19 05/16/19 History calcium carbonate-vitamin D3 1 tab PO BID 05/16/19 05/16/19 History [Calcium 500 + D] doxepin 10 mg PO HS 05/16/19 05/16/19 History hydroxyzine HCl 25 mg PO TID PRN 05/16/19 05/16/19 History levothyroxine 75 mcg PO DAILY 05/16/19 05/16/19 History losartan [Cozaar] 50 mg PO DAILY 05/16/19 05/16/19 History tramadol 25 mg PO Q6H PRN 05/16/19 05/16/19 History Pain History Pain Intensity Pain scale - at its best (0-10): 2 Pain scale - at its worst (0-10): 3 Patient History Medical History Essential hypertension (Chronic) Osteoporosis (Chronic) Cerebrovascular disease (Chronic) "s/p right occipital stroke per MRI" Hypothyroidism (Chronic) Polymyalgia rheumatica (Chronic) Diabetes mellitus, type II (Chronic) CKD (chronic kidney disease), stage III (Chronic) Pancreatic cyst (Chronic) Dyslipidemia (Chronic) History of adenomatous polyp of colon (Chronic) Diverticular disease of colon (Chronic) Paroxysmal atrial fibrillation (Chronic) Depression (Chronic) Surgical History History of hernia repair (Resolved) Status post cholecystectomy (Chronic) Status post hysterectomy (Chronic) Family History Other Heart disease Social History Preferred Language: Urdu Communication Ability: Effective [employer] Required: No Beliefs That Will Affect Care: None marital status: / Current Living Situation: Alone Current Living Situation Comment: family assists w/ care Other Information That Helps Us Care for You: No other: uses cane occassionally Feels Safe at Home: Yes Safety Concerns: Feels Safe At This Time Smoking Status: Never smoker Hx Alcohol Use: No Hx Substance Use: No Physical Exam Physical Exam: General: Patient lying quietly in exam room in no acute distress. Speech and thought process appropriate. Mood and affect appropriate. Cognition intact. Head: Normocephalic and atraumatic. Neck: Supple without adenopathy and full range of motion. Abdomen: Soft and nondistended. No organomegaly. Bowel sounds active. Back/spine: Nontender over the midline to palpation or percussion. No paravertebral, quadratus lumborum or gluteal muscular tenderness. Patient able to logroll towards her right side for physical exam. No focal SI or facet joint tenderness to provocative testing. Lower extremities: Patient has area of ecchymosis in the left lateral hip and is moderately tender to direct outpatient over the area of ecchymosis as well as the greater trochanteric region. SLR negative bilaterally. Hip nontender with internal/external rotation. No limitation throughout range of motion. Sensation was intact distally without deficit. Strength testing 4/5 with d orsiflexion, plantarflexion and hip flexion/extension. Neurologic: Cranial nerves grossly intact. Ambulatory function not witnessed. Results Diagnostic Review CT: non enhanced and reports reviewed CT Findings: [place], [place] [phone] CT Scan Report Patient: BENJI GUERRERO Date: 05/16/19 MR#: [id number]: [address] Acct ID:[id number]: Date: 1930[facility] Zip: [place] [address] Age: 88Location: ED Sex: F Room/Bed: Att Phy:Diagnosis: fall/ L hip pain Felecia Phy: Liu Antunez MDService Date: 05/16/19 Fam Phy:Interpreting Phy: Attila Asher MD Admit Phy: Ordering Phy: Ruben Flannery M.D. cc: ~ CT lumbar spine wo con CT DOSE: 1291.22 mGy.cm HISTORY: Trauma fall TECHNIQUE: Multiaxial CT images of the lumbar spine were performed and reformatted in the sagittal and coronal plane without the use of contrast. A dose lowering technique was utilized adhering to the principles of ALARA. COMPARISON: None. FINDINGS: No fractures. No subluxation. Paraspinal soft tissues are unremarkable. Moderate degenerative disc changes throughout. Osteopenia. No evidence for compression deformity. Vacuum disc L5-S1. IMPRESSION: 1. Significant degenerative change. 2. Osteopenia. 3. No acute bony abnormality. The above report was generated using voice recognition software. It may contain grammatical, syntax or spelling errors. Electronically signed by: Attila Asher M.D. 05/16/2019 4:45 PM Dictated: 05/16/19 1637 Transcribed: 05/16/19 1637 [place], [place] [phone] CT Scan Report Patient: BENJI GUERRERO Date: 05/16/19 MR#: [id number]: [address] Acct ID:[id number]: Date: 1930[facility] Zip: [place] [address] Age: 88Location: ED Sex: F Room/Bed: Att Phy:Diagnosis: fall/ L hip pain Felecia Phy: Liu Antunez MDService Date: 05/16/19 Fam Phy:Interpreting Phy: Maged Rosario MD Admit Phy: Ordering Phy: Ruben Flannery M.D. cc: ~ CT SCAN OF THE PELVIS WITHOUT IV CONTRAST; CT SCAN OF THE LEFT HIP WITHOUT IV CONTRAST CLINICAL HISTORY: Fall. Left hip pain. COMPARISON STUDY: Radiographs of the left hip and bony pelvis dated 05/16/2019. Pelvic CT dated 07/12/2015. TECHNIQUE: CT scan of the pelvis is performed from the pelvic inlet to the proximal femora. CT scan of the left hip is performed from the bony pelvis to the left femoral shaft. Images for both examinations are reviewed in the axial, sagittal, and coronal planes. IV contrast was not administered for this examination. A dose lowering technique was utilized adhering to the principles of ALARA. The examination is degraded by streak artifact from a right hip arthroplasty. FINDINGS: The skeletal structures are osteopenic. There is chronic posttraumatic deformity of the right pubic ring. A right hip arthroplasty is in near-anatomic alignment. No acute fracture is seen involving the hips or bony pelvis. There is no evidence of osteonecrosis of the left femoral head. Mild degenerative joint space narrowing is seen in the left hip. There is no significant joint effusion. No lytic or blastic lesion is seen. Lumbosacral spondylosis is partially visualized. There is generalized symmetric atrophy of the regional musculature. No intramuscular hemorrhage is identified. Mild soft tissue contusion overlies the left hip. Postoperative change overlies the right hip. The bladder is normal as visualized. The uterus is surgically absent. No adnexal lesion is seen. Atherosclerotic calcification is noted in the distal abdominal aorta and iliac arteries. There is advanced sigmoid diverticulosis without CT evidence of acute diverticulitis. No free fluid is seen in the cul-de-sac. No pelvic sidewall or inguinal adenopathy is identified. IMPRESSION: 1. There is no evidence of fracture involving the hips or bony pelvis. 2. Soft tissue contusion overlies the left hip. Dictated: 05/16/2019 4:45 PM Transcribed: 05/16/2019 5:09 PM Susan [id number] [facility] Electronically signed by: Maged Rosario M.D. 05/16/2019 5:20 PM Dictated: 05/16/19 1645 Transcribed: 05/16/19 1709 Radiology: reports reviewed Radiology Findings: [place], [place] [phone] XRay Report Patient: BENJI GUERRERO Date: 05/16/19 MR#: [id number]: [address] Acct ID:[id number]: Date: 1930[facility] Zip: [place] [address] Age: 88Location: ED Sex: F Room/Bed: Att Phy:Diagnosis: fall/ L hip pain Felecia Phy: Liu Antunez MDService Date: 05/16/19 Fam Phy:Interpreting Phy: Attila Asher MD Admit Phy: Ordering Phy: Ruben Flannery M.D. cc: ~ XR hip LT 2V w pelvis CLINICAL HISTORY: LEFT HIP PAIN. FELL 4 DAYS AGO trauma. Pain. COMPARISON: None. DISCUSSION: Pre-existing total right hip arthroplasty. Could contact between prosthetic and underlying bone. Old fracture right pubic ring. No acute process of the left hip. No evidence for fracture or acetabular protrusion. There is no evidence for soft tissue swelling. IMPRESSION: Chronic and postoperative change. No acute process. The above report was generated using voice recognition software. It may contain grammatical, syntax or spelling errors. Electronically signed by: Attila Asher M.D. 05/16/2019 3:41 PM Dictated: 05/16/19 1540 Transcribed: 05/16/19 1540
[2019-05-18] MEDS ORDERED: AMLODIPINE BESYLATE 5 MG TAB PO ONE ×2 (16:08→16:42)
--- NOTE | 2019-05-18 16:18 | Hospitalist Progress Note ---
Date of Service May 18, 2019 Assessment & Plan (1) Contusion of left hip: (2) Ambulatory dysfunction: Patient is an 88 yr female with H/O DM II, paroxysmal A Fib on Eliquis, labile hypertension, hypothyroidism, probably myalgia rheumatica on chronic prednisone, history of left-sided thalamic CVA in December 2017, CKD 3 and other medical problems listed below who presents with left hip pain after fall 5 days ago. Left hip contusion Mechanical fall Ambulatory dysfunction Hip CT with soft tissue contusion overlying left hip. No evidence of fracture involving hips or bony pelvis on CT pelvis Pain is controlled Appreciate orthopedics/Pain management Input Continue PT/OT Continue weightbearing as tolerated Needs rehab placement (3) Hypokalemia: Resolved Replace and monitor electrolytes as needed (4) Essential hypertension: Slightly elevated, likely secondary to pain Pain control Continue atenolol, losartan Adjust medications as needed (5) Paroxysmal atrial fibrillation: Continue atenolol On Eliquis for anticoagulation (6) CKD (chronic kidney disease), stage III: Cr at baseline Monitor renal function (7) Diabetes mellitus, type II: HbA1c 7.3 Hold p.o. meds Continue insulin therapy while hospitalized Monitor blood glucose levels (8) Polymyalgia rheumatica: Continue chronic prednisone (9) Hypothyroidism: Continue levothyroxine (10) Cerebrovascular disease: H/o multiple CVAs, most recent L thalamic infarct in 12/27 Continue Eliquis DVT Px: On Eliquis Code status: DNR/DNI Disposition: PT/OT Needs rehab placement Case management consulted Subjective Patient is seen and examined at bedside Left hip pain is much improved today Had PT OT earlier today, had some balance issues Need rehab placement No new complaints Discussed with patient, family at bedside in detail Denies any chest pain, SOB, dizziness, nausea, abdominal pain Review of Systems Review of Systems: All systems reviewed & are unremarkable except as noted in HPI & below Physical Exam Physical Exam: Physical Exam: Vitals signs as noted above General Appearance:Moderately built and nourished, mild distress Head: normocephalic, Atraumatic Eyes: normal inspection, EOMI Neck: supple, Trachea midline Respiratory/Chest: Normal breath sounds, CTA Cardiovascular: S1, S2, No murmur Abdomen/GI:Soft, Non tender, Bowel sounds present Extremities/Musculoskelatal:normal inspection, no edema, Left hip tender, contusion Neurologic/Psych:AAOX3, grossly no focal neurological deficits Skin: normal color, warm Results & Data Vital Signs (Past 12 Hours) Vital Signs Temp Pulse Pulse Resp BP BP Pulse Ox 05/18/19 15:07 36.7 C 71 14 170/82 H 98 05/18/19 14:04 94 05/18/19 11:51 36.5 C 68 14 169/82 H 97 05/18/19 07:24 37.0 C 75 18 160/82 H 93 05/18/19 07:17 77 05/18/19 04:45 37.0 C 79 20 174/78 H 94 Laboratory Results Short CBC 05/18/19 Range/Units 05:55 WBC 9.83 (4.8-10.8) K/uL Hgb 11.1 L (12.0-16.0) g/dL Hct 37.1 (37-47) % Plt Count 166 (130-400) K/uL BMP 05/18/19 05:55 Sodium 140 Potassium 3.9 Chloride 109 H Carbon Dioxide 27 BUN 23 H Creatinine 0.97 Glucose 145 H Calcium 10.3 H
[2019-05-18] MEDS ORDERED: LOSARTAN POTASSIUM 50 MG TAB PO STA (20:05)
[2019-05-18] MEDS: DOXEPIN HCL 10 MG CAPSULE PO SCH (20:27)
[2019-05-18] MEDS: GABAPENTIN 600 MG TAB PO SCH (20:28)
[2019-05-19] MEDS ORDERED: ATENOLOL 50 MG TABLET PO SCH (01:15)
[2019-05-19] MEDS: ACETAMINOPHEN 500 MG TAB PO SCH (05:51)
[2019-05-19] MEDS: LEVOTHYROXINE SODIUM 75 MCG TABLET PO SCH (05:51)
[2019-05-19] MEDS: predniSONE 1 MG TAB PO SCH (08:23)
[2019-05-19] MEDS: APIXABAN 2.5 MG TAB PO SCH (08:23)
[2019-05-19] MEDS: MAGNESIUM CHLORIDE 64MG DELAYED REL TAB PO SCH (08:23)
[2019-05-19] MEDS: CYCLOBENZAPRINE HCL 5 MG TAB PO SCH (08:23)
[2019-05-19] MEDS: CALCIUM 600MG + VIT D 400 IU TAB PO SCH (08:23)
[2019-05-19] MEDS: ASPIRIN 81 MG ECTAB PO SCH (08:24)
[2019-05-19] MEDS: ATORVASTATIN 40 MG TAB PO SCH (08:24)
[2019-05-19] MEDS: GABAPENTIN 300 MG CAP PO SCH (08:25)
[2019-05-19] MEDS: INSULIN ASPART 100 UNITS/ML 3 ML PEN SC SCH (08:26)
[2019-05-19] MEDS ORDERED: LOSARTAN POTASSIUM 50 MG TAB PO SCH (09:00)
[2019-05-19] MEDS ORDERED: AMLODIPINE BESYLATE 5 MG TAB PO SCH (09:00)
--- NOTE | 2019-05-19 11:14 | Hospitalist Progress Note ---
Date of Service May 19, 2019 Assessment & Plan (1) Contusion of left hip: (2) Ambulatory dysfunction: Patient is an 88 yr female with H/O DM II, paroxysmal A Fib on Eliquis, labile hypertension, hypothyroidism, probably myalgia rheumatica on chronic prednisone, history of left-sided thalamic CVA in December 2017, CKD 3 and other medical problems listed below who presents with left hip pain after fall 5 days ago. Left hip contusion Mechanical fall Ambulatory dysfunction Hip CT with soft tissue contusion overlying left hip. No evidence of fracture involving hips or bony pelvis on CT pelvis Pain is controlled Appreciate orthopedics/Pain management Input Continue PT/OT Continue weightbearing as tolerated Plan to discharge to rehab facility today (3) Hypokalemia: Resolved Replace and monitor electrolytes as needed (4) Essential hypertension: Slightly elevated, likely secondary to pain Pain control Continue atenolol, losartan Adjust medications as needed (5) Paroxysmal atrial fibrillation: Continue atenolol On Eliquis for anticoagulation (6) CKD (chronic kidney disease), stage III: Cr at baseline Monitor renal function (7) Diabetes mellitus, type II: HbA1c 7.3 Hold p.o. meds Continue insulin therapy while hospitalized Monitor blood glucose levels (8) Polymyalgia rheumatica: Continue chronic prednisone (9) Hypothyroidism: Continue levothyroxine (10) Cerebrovascular disease: H/o multiple CVAs, most recent L thalamic infarct in 12/27 Continue Eliquis DVT Px: On Eliquis Code status: DNR/DNI Disposition: PT/OT [facility] today Case management folowing Subjective Patient is seen and examined at bedside Doing much better today Left hip pain improved She was able to ambulate with walker Denies any chest pain, SOB, dizziness, nausea, abdominal pain Planned to be discharged to rehab facility today Review of Systems Review of Systems: All systems reviewed & are unremarkable except as noted in HPI & below Physical Exam Physical Exam: Physical Exam: Vitals signs as noted above General Appearance:Moderately built and nourished, mild distress Head: normocephalic, Atraumatic Eyes: normal inspection, EOMI Neck: supple, Trachea midline Respiratory/Chest: Normal breath sounds, CTA Cardiovascular: S1, S2, No murmur Abdomen/GI:Soft, Non tender, Bowel sounds present Extremities/Musculoskelatal:normal inspection, no edema, Left hip mild tender, contusion Neurologic/Psych:AAOX3, grossly no focal neurological deficits Skin: normal color, warm Results & Data Vital Signs (Past 12 Hours) Vital Signs Temp Pulse Pulse Resp BP BP Pulse Ox 05/19/19 08:00 65 05/19/19 07:31 36.5 C 63 16 138/83 98 05/19/19 04:06 36.5 C 65 18 151/73 H 96 05/19/19 01:45 72 195/98 H 95 05/19/19 00:17 36.5 C 69 19 174/85 H 97
--- NOTE | 2019-05-19 11:41 | Discharge Summary ---
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 Patient states that she went to sit down but her recliner slid back behind her and she fell, landing on left side. Since fall, has been experiencing constant sharp pain with some radiation down left leg. Home tylenol and tramadol not controlling pain. Has been attempting to ambulate with cane but is having increasing levels of difficulty so came into ED for further evaluation. History of right hip fracture after fall in January after which she lived with her son until a few weeks ago, when she moved back to into her own place. In ED, found to have elevated BP in the setting of uncontrolled pain. BP now 175/67. Mild leukocytosis of 12.7 in the setting of chronic prednisone. Hip CT with soft tissue contusion overlying left hip. No evidence of fracture involving hips or bony pelvis on CT pelvis. Denies fever, chills, lightheadedness, visual changes, chest pain, SOB, nausea, vomiting, abdominal p ain, dysuria or diarrhea. Admission Exam Per Admitting Provider General Appearance: WD/WN, vitals as above, elderly female, grimacing and groaning from pain Head: normocephalic, atraumatic Eyes: normal inspection, PERRL, conjunctivae normal, anicteric sclerae ENT: external ear and nose normal, oropharynx normal Neck: trachea midline, no thyromegaly normal visual inspection Respiratory: lungs clear to auscultation, no wheeze, rales, rhonchi. Normal insp/exp effort, no accessory muscle use Cardiovascular: regular rate, rhythm, no murmur appreciated, normal peripheral pulses. Vessels: no JVD or carotid bruit Chest: normal inspection of chest Abdomen/GI: normal bowel sounds, soft, nontender, no hepatosplenomegaly Extremities/Musculoskelatal: no cyanosis or clubbing, extremities motor strength 5/5. + L buttocks/lateral hip with ecchymosis. TTP, no edema Neurologic: PERRL, EOMI, accommodation nl, no face palsy, no dysarthria CN's II-XI intact bilaterally and moves all extremities Psychiatric: A+Ox3, euthymic affect Skin: no rashes, normal color, warm/dry Principal Diagnosis Left hip contusion Ambulatory dysfunction Hypokalemia--resolved Discharge Data Allergies Allergy/AdvReac Type Severity Reaction Status Date / Time ertapenem [From Invanz] Allergy Intermediate RASH/ITCHIN Verified 05/16/19 16:47 G lisinopril Allergy Intermediate RASH Verified 05/16/19 16:47 Penicillins Allergy Intermediate EDEMA Verified 05/16/19 16:47 codeine AdvReac Intermediate NAUSEA, Verified 05/16/19 16:47 VOMITING Consultations 05/16/19 17:38 ED Decision to Admit Stat 05/16/19 20:08 Consult Case Management - Discharge Planning Routine 05/17/19 08:00 Consult Orthopedic Surgery Routine Consult Pain Management Routine Procedures Performed Left Hip CT with soft tissue contusion overlying left hip. No evidence of fracture involving hips or bony pelvis on CT pelvis Pelvic CT:There is no evidence of fracture involving the hips or bony pelvis. Soft tissue contusion overlies the left hip. Lumbar CT:Significant degenerative change. Osteopenia. No acute bony abnormality. Head CT: No acute intracranial findings. 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 Left hip contusion Mechanical fall Ambulatory dysfunction Hip CT with soft tissue contusion overlying left hip. No evidence of fracture involving hips or bony pelvis on CT pelvis Pain is controlled Appreciate orthopedics/Pain management Input Continue PT/OT Continue weightbearing as tolerated Plan to discharge to rehab facility today (3) Hypokalemia: Resolved Replace and monitor electrolytes as needed (4) Essential hypertension: Slightly elevated, likely secondary to pain Pain control Continue atenolol, losartan Adjust medications as needed (5) Paroxysmal atrial fibrillation: Continue atenolol On Eliquis for anticoagulation (6) CKD (chronic kidney disease), stage III: Cr at baseline Monitor renal function (7) Diabetes mellitus, type II: HbA1c 7.3 Hold p.o. meds Continue insulin therapy while hospitalized Monitor blood glucose levels (8) Polymyalgia rheumatica: Continue chronic prednisone (9) Hypothyroidism: Continue levothyroxine (10) Cerebrovascular disease: H/o multiple CVAs, most recent L thalamic infarct in 12/27 Continue Eliquis DVT Px: On Eliquis Code status: DNR/DNI Disposition: PT/OT [facility] today Case management folowing Total Time Total Time Spent Total Time Spent (In Minutes): 37 minutes Total Time Includes: Examination of the Patient, Discharge Planning, Medication Reconciliation, Communication With Other Providers and Other Discharge Plan Discharge Items Patient Disposition: Transfer Inpatient Rehab Fac Reason For Visit: LEFT HIP CONTUSION, AMBULATORY DYSFUNCTION Discharge Diagnosis: Left hip contusion Ambulatory dysfunction Hypokalemia--resolved Activity: Per Instructions section Exercise/Sports: Gradually increase as tolerated Non-emergency contact: Primary Care Provider Call non-emergency contact if: you have any medication questions, your symptoms worsen, your pain is not controlled, your pain is worsening, your pain is unusual for you, your pain is concerning for you and you have a fever Follow-up/Referrals: Liu Antunez MD [Primary Care Provider] - Diet: Carb Consistent or DM2 Addtl Attending Provider Instructions: Follow-up with your primary care physician Dr. Antunez in 1 week upon discharge from rehab facility Follow-up with your orthopedic physician Inga/ if your hip pain does not resolve Seek immediate medical attention if your symptoms reoccur or worsen Pending Studies at Discharge: No Stand-Alone Forms: My [facility] Skilled Items Patient informed of condition?: Yes DNR: Yes Discharge Level of Care: Acute rehab Communicable Disease: No Discharge Prognosis: Improving Lines: None Urinary Catheter: No Medications and DC Order Prescriptions: New oxycodone 5 mg Tablet 5 mg PO Q8H PRN (Reason: pain) Qty: 0 RF: 0 cyclobenzaprine 5 mg Tablet 5 mg PO BID PRN (Reason: Spasms) Qty: 0 RF: 0 Continued atorvastatin 40 mg Tablet 40 mg PO QAM RF: 0 fluticasone propionate [Flonase Allergy Relief] 50 mcg/actuation [place],Suspension 1 spray Intranasal UD RF: 0 metformin 500 mg Tablet 500 mg PO BIDM RF: 0 prednisone 1 mg Tablet 2 mg PO QAM RF: 0 gabapentin 300 mg Capsule 300 mg PO BIDM RF: 0 apixaban 5 mg Tablet 5 mg PO BIDM RF: 0 meclizine 25 mg Tablet 25 mg PO TID PRN (Reason: Vertigo) RF: 0 gabapentin 300 mg capsule 600 mg PO HS RF: 0 magnesium chloride [Mag 64] 64 mg tablet,delayed release (DR/EC) 128 mg PO BID RF: 0 biotin 1,000 mcg Tablet,Chewable 1,000 mcg PO DAILY RF: 0 ranitidine HCl 150 mg Tablet 150 mg PO BID PRN (Reason: Acid Reflux) RF: 0 losartan [Cozaar] 50 mg tablet 50 mg PO DAILY RF: 0 alendronate [Fosamax] 70 mg Tablet 70 mg PO WK RF: 0 doxepin 10 mg capsule 10 mg PO HS RF: 0 levothyroxine 75 mcg tablet 75 mcg PO DAILY RF: 0 hydroxyzine HCl 25 mg Tablet 25 mg PO TID PRN (Reason: Insomnia) RF: 0 atenolol 50 mg tablet 50 mg PO DAILY RF: 0 aspirin 81 mg Tablet,Delayed Release (Dr/Ec) 81 mg PO DAILY RF: 0 calcium carbonate-vitamin D3 [Calcium 500 + D] 500 mg(1,250mg) -200 unit Tablet 1 tab PO BID RF: 0 tramadol 50 mg tablet 25 mg PO Q6H PRN (Reason: moderate pain) RF: 0 Discharge Orders: Discharge Order (Routine); Ordered 05/19/19 Ordered By: Satish Bethea Admission Data Admit Date/Time: 05/16/19 18:33 Attending Provider: Satish Bethea Admit Provider: Zachary Rangel Primary Care Provider: Liu Antunez Other Providers: Zachary Rangel ; Ector Jj ; Bib Buckner ; Alan North ; Genesis Marques Thomas J ; Janel Umanzor ; Brian Villalobos ; Attila Rodriguez ; Satya Romero ; Attila Cali Andrew J. ; Satya Hernandez ; Douglas Rae ; Gordon Bailon ; Dusty Puente ; Clyde Lyle ; Charles Laurent ; Janel Taylor ; Bradford Marcano ; Von Stephenson ; Sandoval Farooq ; Jony Torres ; [facility] Other Interventions: Discharge Summary Assessment (RN) Last Done: 05/19/19 11:43 DC Date/Time DO NOT enter until pt leaves facility: 05/19/19 12:24
== END 2019-05-19 12:24 | DRG 605 ==
LOC: ED 13:46 → SUATTDRO 18:33 → 2N 18:33

== ENCOUNTER 2021-01-04 16:59 | Inpatient (IN) ==
[2021-01-04] MEDS ORDERED: SODIUM CHLORIDE 0.9% 500 ML IV SCH (17:15)
--- NOTE | 2021-01-04 17:21 | Emergency Department Note ---
Impression & Plan Acute confusion, Stroke, Atrial fibrillation with rapid ventricular response ED Provider Note Provider: Ruben Flannery MD DATE OF SERVICE: 01/04/2021 CHIEF COMPLAINT: Confusion HISTORY OF PRESENT ILLNESS: Patient is a 89-year-old female history of A. fib on Eliquis, hypertension, hypothyroidism, PMR, CVA, CKD and presenting via ambulance from home today. Evidently was last seen by family approximately 2 days ago and they dropped her off at home with some groceries. Was found today by family members with the groceries spoiling on the table and the patient seated in a chair not acting right. Patient had some bruising on her left arm but the patient herself was then to provide significant history. EMS reports the patient will answer some questions but is not oriented. They report that her hearts been somewhat elevated and her blood sugars are normal limits. The reported temperature 100.4 F mother infrared scanner. Patient herself cannot provide significant history here. Son later reports that he found her altered and confused in a chair at home having not seen her since . This is not her baseline at all. REVIEW OF SYSTEMS: Patient unable to provide significant history given her altered mental status/confusion PAST MEDICAL HISTORY: As noted above MEDICATIONS:Patient unable to provide significant history given her altered mental status/confusion SOCIAL HISTORY:Patient unable to provide significant history given her altered mental status/confusion PHYSICAL EXAM: GENERAL: alert to verbal stimuli but not answering questions appropriately. Looking around the room. Will tell me her name or birthday. Head: normocephalic and atraumatic EYES: No injection, discharge or icterus. PERRL NECK: Trachea midline. Supple. ENT: Mucous membranes pink and somewhat dry LUNGS: Airway patent. No retractions. Breath sounds clear HEART: Tachycardia rate and rhythm. No chest wall tenderness ABDOMEN: Soft and non-tender, without guarding or rebound. SKIN: Acyanotic, warm, dry EXTREMITIES: Without swelling, tenderness or deformity except for an approximately 6 x 3 cm area of contusion with a skin tear in the left forearm. Soft compartments. NEUROLOGICAL: No focal deficits withdraws in all extremities but does not follow commands. No aphasia. No facial droop or slurred speech. EK bpm atrial fibrillation with rapid ventricular response left axis. V6 T wave inversions as well as in aVL and lead I with a left bundle branch block. Do not see significant ST depression. Compared to previous from May [id number] bundle branch block now appears present in atrial fibrillation CONTINUOUS CARDIAC MONITORING: was ordered and showed a heart rate of 100s-120s bpm in atrial fibrillation Patient's laboratory studies and imaging reviewed. Differential includes Infection, dehydration, metabolic abnormality, hypo/hyperglycemia, electrolyte disturbance, anemia, hypoxia, cardiac sources, intracerebral event, toxicologic, neurologic, as well as other pathologies. IMPRESSION/MEDICAL DECISION MAKING: Patient without significant focal deficits but appears quite confused here. Question of there is a fall given some bruising noted on left arm. CT the head and cervical spine as well as x-rays of the chest, pelvis, left arm were obtained. Patient's reported to be on Eliquis but unsure if she is been taking any medicines as it is unsure how long she is been in her chair at home. Labs were sent. Given some fluid hydration here initially before pursuing aggressive rate control. Significantly hypertensive initially. Again not following commands and requires redirection. No significant leukocytosis and very mild anemia. Mild hypokalemia but no severe electrolyte abnormality. No lactate elevation. CPK is not significantly elevated. Troponin detectable not abnormal. No evidence of transaminitis. No evidence of thyroid dysfunction. Covid negative. X-rays question possible right acromium/clavicle fracture. CT of the head, cervical spine, chest, abdomen pelvis was obtained. Per radiology interval development of right temporal lobe hypodensity consistent with a subacute infarct without acute hemorrhage. No other significant traumatic findings per the radiology report. The stroke could explain her confusion and mental status issues. Straight catheter urine was still being completed to exclude UTI. Given her A. fib RVR given a push of metoprolol as well as a gram of magnesium; question how well she would tolerate a drip given her confusion will try metoprolol before the diltiazem drip. Improve rate control with a dose of IV metoprolol. Did reach out to the contact number for the patient's son but there was no answer initially and I did not see him here in the emergency department. May have missed him due to some acuity with other patients. Did reach out to the secondary contact and updated her brother's that she was being admitted here to the hospital to call for further information. Did update the patient's son who later called in regarding findings. The hospitalist was updated. Not convinced there is UTI based on urine sample. DIAGNOSIS: Confusion, subacute stroke, A. fib RVR DISPOSITION: Hospitalist will evaluate Critical Care I have personally spent 32 minutes of critical care time in the direct management of this patient. This includes bedside care, interpretation of diagnostic studies, and testing, discussion with consultants, patient, and f amily members, and other required patient management activities. These 32 minutes is in excess of all separately billable procedures. Past Med/Surg History Medical History (Updated 01/04/21 @ 19:23 by Ruben Flannery M.D.) CKD (chronic kidney disease), stage III Depression Diabetes mellitus, type II Diverticular disease of colon Dyslipidemia Essential hypertension History of adenomatous polyp of colon Hypothyroidism Osteoporosis Pancreatic cyst Paroxysmal atrial fibrillation Polymyalgia rheumatica Surgical History History of hernia repair Status post cholecystectomy Status post hysterectomy Family History Other Heart disease Social History Smoking Status: Never smoker Hx Alcohol Use: No Hx Substance Use: No Preferred Language: [place]an Communication Ability: Effective Visual Impairment: No Limitations Reject Opener Required: No Beliefs That Will Affect Care: None marital status: / Current Living Situation: Alone Current Living Situation Comment: family assists w/ care other: uses cane occassionally Feels Safe at Home: Yes Assistive Devices: Glasses and Walker Allergies Allergies Allergy/AdvReac Type Severity Reaction Status Date / Time ertapenem [From Invanz] Allergy Intermediate RASH/ITCHIN Verified 05/16/19 16:47 G lisinopril Allergy Intermediate RASH Verified 05/16/19 16:47 Penicillins Allergy Intermediate EDEMA Verified 05/16/19 16:47 codeine AdvReac Intermediate NAUSEA, Verified 05/16/19 16:47 VOMITING Home Meds Home Medications Medication Instructions Recorded Confirmed atorvastatin 40 mg PO QAM 06/13/18 01/04/21 gabapentin 300 mg PO TID 06/13/18 01/04/21 prednisone 1 mg PO QAM 06/13/18 01/04/21 meclizine 25 mg PO TID PRN 01/12/19 01/04/21 aspirin 81 mg PO DAILY 05/16/19 01/04/21 doxepin 10 mg PO HS 05/16/19 01/04/21 hydroxyzine HCl 25 mg PO TID PRN 05/16/19 01/04/21 tramadol 25 mg PO Q6H PRN 05/16/19 01/04/21 apixaban [Eliquis] 2.5 mg PO BID 01/04/21 01/04/21 cyanocobalamin (vitamin B-12) 1,000 mcg PO DAILY 01/04/21 01/04/21 [Vitamin B-12] ferrous sulfate 325 mg PO BID 01/04/21 01/04/21 levothyroxine [Synthroid] 88 mcg PO DAILYBB 01/04/21 01/04/21 metoprolol succinate [Toprol XL] 50 mg PO DAILY 01/04/21 01/04/21 Results & Data (ED) Vital Signs Vital Signs - 24 hr 01/04/21 17:04 01/04/21 17:07 01/04/21 17:15 Pulse Rate 128 H 124 H 127 H Pulse Rate [Brachial] Pulse Rate from SpO2 Sensor 128 H Respiratory Rate 20 18 19 Respiratory Effort / Characteristics Non-Labored Spontaneous Respiratory Depth Normal Blood Pressure 179/109 H 179/109 H Blood Pressure [Left Arm] Blood Pressure Mean 132 132 Blood Pressure Mean [Left Arm] Blood Pressure Position Sitting Pulse Oximetry 98 96 97 Oxygen Delivery Method Room Air Room Air Sepsis Recent Fever Within 48 Hours Yes Sepsis New/Unexplained Change in Mental Status Yes Sepsis Action Taken by Nursing Physician Notified 01/04/21 17:24 01/04/21 17:30 01/04/21 17:31 Pulse Rate 129 H 133 H 131 H Pulse Rate [Brachial] Pulse Rate from SpO2 Sensor 128 H 131 H 131 H Respiratory Rate 19 17 17 Respiratory Effort / Characteristics Respiratory Depth Blood Pressure 170/117 H Blood Pressure [Left Arm] Blood Pressure Mean 134 Blood Pressure Mean [Left Arm] Blood Pressure Position Pulse Oximetry 97 98 98 Oxygen Delivery Method Sepsis Recent Fever Within 48 Hours Sepsis New/Unexplained Change in Mental Status Sepsis Action Taken by Nursing 01/04/21 17:37 01/04/21 17:40 01/04/21 17:50 Pulse Rate 130 H 121 H Pulse Rate [Brachial] Pulse Rate from SpO2 Sensor 125 H 117 H Respiratory Rate 15 13 Respiratory Effort / Characteristics Respiratory Depth Blood Pressure Blood Pressure [Left Arm] Blood Pressure Mean Blood Pressure Mean [Left Arm] Blood Pressure Position Pulse Oximetry 96 96 98 Oxygen Delivery Method Room Air Sepsis Recent Fever Within 48 Hours Sepsis New/Unexplained Change in Mental Status Sepsis Action Taken by Nursing 01/04/21 18:00 01/04/21 18:01 01/04/21 18:10 Pulse Rate 127 H 113 H 111 H Pulse Rate [Brachial] Pulse Rate from SpO2 Sensor 137 H 128 H 132 H Respiratory Rate 22 15 16 Respiratory Effort / Characteristics Respiratory Depth Blood Pressure 198/120 H Blood Pressure [Left Arm] Blood Pressure Mean 146 Blood Pressure Mean [Left Arm] Blood Pressure Position Pulse Oximetry 96 98 94 Oxygen Delivery Method Sepsis Recent Fever Within 48 Hours Sepsis New/Unexplained Change in Mental Status Sepsis Action Taken by Nursing 01/04/21 18:32 01/04/21 18:34 01/04/21 18:40 Pulse Rate 113 H 118 H 101 H Pulse Rate [Brachial] Pulse Rate from SpO2 Sensor 118 H Respiratory Rate 14 13 15 Respiratory Effort / Characteristics Respiratory Depth Blood Pressure 182/110 H Blood Pressure [Left Arm] Blood Pressure Mean 134 Blood Pressure Mean [Left Arm] Blood Pressure Position Pulse Oximetry 99 Oxygen Delivery Method Sepsis Recent Fever Within 48 Hours Sepsis New/Unexplained Change in Mental Status Sepsis Action Taken by Nursing 01/04/21 19:05 01/04/21 19:07 01/04/21 19:10 Pulse Rate Pulse Rate [Brachial] Pulse Rate from SpO2 Sensor 125 H Respiratory Rate Respiratory Effort / Characteristics Respiratory Depth Blood Pressure 198/126 H 165/141 H Blood Pressure [Left Arm] Blood Pressure Mean 150 149 Blood Pressure Mean [Left Arm] Blood Pressure Position Pulse Oximetry 97 Oxygen Delivery Method Sepsis Recent Fever Within 48 Hours Sepsis New/Unexplained Change in Mental Status Sepsis Action Taken by Nursing 01/04/21 19:20 01/04/21 19:23 01/04/21 19:30 Pulse Rate 157 H 118 H Pulse Rate [Brachial] 122 H Pulse Rate from SpO2 Sensor 129 H Respiratory Rate 23 16 20 Respiratory Effort / Characteristics Respiratory Depth Blood Pressure 190/110 H Blood Pressure [Left Arm] 165/141 H Blood Pressure Mean 136 Blood Pressure Mean [Left Arm] 149 Blood Pressure Position Pulse Oximetry 80 L 93 Oxygen Delivery Method Room Air Sepsis Recent Fever Within 48 Hours Sepsis New/Unexplained Change in Mental Status Sepsis Action Taken by Nursing 01/04/21 19:31 01/04/21 19:40 01/04/21 19:50 Pulse Rate 106 H 76 86 Pulse Rate [Brachial] 87 Pulse Rate from SpO2 Sensor Respiratory Rate 17 23 15 Respiratory Effort / Characteristics Respiratory Depth Blood Pressure Blood Pressure [Left Arm] 147/112 H Blood Pressure Mean Blood Pressure Mean [Left Arm] 123 Blood Pressure Position Pulse Oximetry Oxygen Delivery Method Sepsis Recent Fever Within 48 Hours Sepsis New/Unexplained Change in Mental Status Sepsis Action Taken by Nursing 01/04/21 19:51 01/04/21 20:00 01/04/21 20:01 Pulse Rate 86 83 84 Pulse Rate [Brachial] Pulse Rate from SpO2 Sensor 83 82 Respiratory Rate 15 15 14 Respiratory Effort / Characteristics Respiratory Depth Blood Pressure 147/112 H 206/105 H Blood Pressure [Left Arm] Blood Pressure Mean 123 138 Blood Pressure Mean [Left Arm] Blood Pressure Position Pulse Oximetry 100 100 Oxygen Delivery Method Sepsis Recent Fever Within 48 Hours Sepsis New/Unexplained Change in Mental Status Sepsis Action Taken by Nursing 01/04/21 20:10 01/04/21 20:20 01/04/21 20:30 Pulse Rate 84 93 H 91 H Pulse Rate [Brachial] Pulse Rate from SpO2 Sensor 84 89 90 Respiratory Rate 22 20 19 Respiratory Effort / Characteristics Respiratory Depth Blood Pressure Blood Pressure [Left Arm] Blood Pressure Mean Blood Pressure Mean [Left Arm] Blood Pressure Position Pulse Oximetry 100 98 100 Oxygen Delivery Method Sepsis Recent Fever Within 48 Hours Sepsis New/Unexplained Change in Mental Status Sepsis Action Taken by Nursing 01/04/21 20:31 Pulse Rate 88 Pulse Rate [Brachial] Pulse Rate from SpO2 Sensor 89 Respiratory Rate 16 Respiratory Effort / Characteristics Respiratory Depth Blood Pressure 185/112 H Blood Pressure [Left Arm] Blood Pressure Mean 136 Blood Pressure Mean [Left Arm] Blood Pressure Position Pulse Oximetry 100 Oxygen Delivery Method Sepsis Recent Fever Within 48 Hours Sepsis New/Unexplained Change in Mental Status Sepsis Action Taken by Nursing Laboratory Data Result diagrams: 01/04/21 17:22 01/04/21 17:22 Lab Results 01/04/21 01/04/21 01/04/21 Range/Units 17:22 17:22 17:22 WBC 8.91 (4.8-10.8) K/uL RBC 4.64 (4.2-5.4) M/uL Hgb 11.6 L (12.0-16.0) g/dL Hct 36.8 L (37-47) % MCV 79.3 L (80-100) fL MCH 25.0 (25-34) pg MCHC 31.5 L (32-36) g/dL RDW Std Deviation 58.7 H (36.4-46.3) fL RDW Coeff of Umm 20.0 H (11.5-14.5) % Plt Count 137 (130-400) K/uL Immature Gran % (Auto) 0.1 % Neut % (Auto) 70.6 % Lymph % (Auto) 19.9 % [place] % (Auto) 7.7 % Eos % (Auto) 1.3 % Baso % (Auto) 0.4 % Neut # (Auto) 6.28 (1.4-6.5) K/uL Lymph # (Auto) 1.77 (1.2-3.4) K/uL [place] # (Auto) 0.69 H (0.11-0.59) K/uL Eos # (Auto) 0.12 (0-0.5) K/uL Baso # (Auto) 0.04 (0-0.2) K/uL Immature Gran # (Auto) 0.01 (0.00-0.02) K/uL Platelet Estimate Normal (Normal) Anisocytosis Present PT 10.0 (9.0-12.0) Seconds INR 1.0 (0.9-1.1) Sodium 140 (136-145) mmol/L Potassium 3.2 L (3.5-5.1) mmol/L Chloride 106 (98-107) mmol/L Carbon Dioxide 20 L (21-32) mmol/L Anion Gap 14.0 H (3-11) BUN 29 H (7-18) mg/dl Creatinine 0.93 (0.6-1.2) mg/dl Est Cr Clr Drug Dosing 31.6 ml/min Est GFR ( Amer) 63.6 ml/min Est GFR (Non-Af Amer) 54.9 ml/min BUN/Creatinine Ratio 31.6 H (10-20) Glucose 140 H (70-99) mg/dl Lactate (0.4-2.0) mmol/L Calcium 9.3 (8.5-10.1) mg/dl Magnesium 1.8 (1.8-2.4) mg/dl Total Bilirubin 1.0 (0.2-1) mg/dl AST 27 (15-37) U/L ALT 18 (12-78) U/L Alkaline Phosphatase 106 (45-117) U/L Total Creatine Kinase 215 H (26-192) U/L Troponin I 0.021 (0-0.045) ng/ml Total Protein 7.4 (6.4-8.2) gm/dl Albumin 3.7 (3.4-5.0) gm/dl Globulin 3.7 (2.5-4.0) gm/dl Albumin/Globulin Ratio 1.0 (0.9-2) TSH 3.670 (0.300-4.500) uIu/ml Urine Color Urine Appearance (Clear) Urine pH (4.5-7.5) Ur Specific [place] (1.000-1.030) Urine Protein (Negative) Urine Glucose (UA) (Negative) Urine Ketones (Negative) Urine Blood (Negative) Urine Nitrite (Negative) Urine Bilirubin (Negative) Urine Urobilinogen (Negative) Ur Leukocyte Esterase (Negative) Urine WBC (Auto) (0-5) /hpf Urine RBC (Auto) (0-4) /hpf U Hyaline Cast (Auto) (0-5) /lpf U Epithel Cells (Auto) (0-5) /lpf Urine Bacteria (Auto) (Negative) Ur Renal Epithelial Cell (0-5) /lpf COVID-19 Eval Order SARS-CoV-2 (PCR) (Negative) 01/04/21 01/04/21 01/04/21 Range/Units 17:22 17:50 17:50 WBC (4.8-10.8) K/uL RBC (4.2-5.4) M/uL Hgb (12.0-16.0) g/dL Hct (37-47) % MCV (80-100) fL MCH (25-34) pg MCHC (32-36) g/dL RDW Std Deviation (36.4-46.3) fL RDW Coeff of Umm (11.5-14.5) % Plt Count (130-400) K/uL Immature Gran % (Auto) % Neut % (Auto) % Lymph % (Auto) % [place] % (Auto) % Eos % (Auto) % Baso % (Auto) % Neut # (Auto) (1.4-6.5) K/uL Lymph # (Auto) (1.2-3.4) K/uL [place] # (Auto) (0.11-0.59) K/uL Eos # (Auto) (0-0.5) K/uL Baso # (Auto) (0-0.2) K/uL Immature Gran # (Auto) (0.00-0.02) K/uL Platelet Estimate (Normal) Anisocytosis PT (9.0-12.0) Seconds INR (0.9-1.1) Sodium (136-145) mmol/L Potassium (3.5-5.1) mmol/L Chloride (98-107) mmol/L Carbon Dioxide (21-32) mmol/L Anion Gap (3-11) BUN (7-18) mg/dl Creatinine (0.6-1.2) mg/dl Est Cr Clr Drug Dosing ml/min Est GFR ( Amer) ml/min Est GFR (Non-Af Amer) ml/min BUN/Creatinine Ratio (10-20) Glucose (70-99) mg/dl Lactate 1.4 (0.4-2.0) mmol/L Calcium (8.5-10.1) mg/dl Magnesium (1.8-2.4) mg/dl Total Bilirubin (0.2-1) mg/dl AST (15-37) U/L ALT (12-78) U/L Alkaline Phosphatase (45-117) U/L Total Creatine Kinase (26-192) U/L Troponin I (0-0.045) ng/ml Total Protein (6.4-8.2) gm/dl Albumin (3.4-5.0) gm/dl Globulin (2.5-4.0) gm/dl Albumin/Globulin Ratio (0.9-2) TSH (0.300-4.500) uIu/ml Urine Color Urine Appearance (Clear) Urine pH (4.5-7.5) Ur Specific [place] (1.000-1.030) Urine Protein (Negative) Urine Glucose (UA) (Negative) Urine Ketones (Negative) Urine Blood (Negative) Urine Nitrite (Negative) Urine Bilirubin (Negative) Urine Urobilinogen (Negative) Ur Leukocyte Esterase (Negative) Urine WBC (Auto) (0-5) /hpf Urine RBC (Auto) (0-4) /hpf U Hyaline Cast (Auto) (0-5) /lpf U Epithel Cells (Auto) (0-5) /lpf Urine Bacteria (Auto) (Negative) Ur Renal Epithelial Cell (0-5) /lpf COVID-19 Eval Order Covid19 at [facility] SARS-CoV-2 (PCR) NEGATIVE (Negative) 01/04/21 Range/Units 19:20 WBC (4.8-10.8) K/uL RBC (4.2-5.4) M/uL Hgb (12.0-16.0) g/dL Hct (37-47) % MCV (80-100) fL MCH (25-34) pg MCHC (32-36) g/dL RDW Std Deviation (36.4-46.3) fL RDW Coeff of Umm (11.5-14.5) % Plt Count (130-400) K/uL Immature Gran % (Auto) % Neut % (Auto) % Lymph % (Auto) % [place] % (Auto) % Eos % (Auto) % Baso % (Auto) % Neut # (Auto) (1.4-6.5) K/uL Lymph # (Auto) (1.2-3.4) K/uL [place] # (Auto) (0.11-0.59) K/uL Eos # (Auto) (0-0.5) K/uL Baso # (Auto) (0-0.2) K/uL Immature Gran # (Auto) (0.00-0.02) K/uL Platelet Estimate (Normal) Anisocytosis PT (9.0-12.0) Seconds INR (0.9-1.1) Sodium (136-145) mmol/L Potassium (3.5-5.1) mmol/L Chloride (98-107) mmol/L Carbon Dioxide (21-32) mmol/L Anion Gap (3-11) BUN (7-18) mg/dl Creatinine (0.6-1.2) mg/dl Est Cr Clr Drug Dosing ml/min Est GFR ( Amer) ml/min Est GFR (Non-Af Amer) ml/min BUN/Creatinine Ratio (10-20) Glucose (70-99) mg/dl Lactate (0.4-2.0) mmol/L Calcium (8.5-10.1) mg/dl Magnesium (1.8-2.4) mg/dl Total Bilirubin (0.2-1) mg/dl AST (15-37) U/L ALT (12-78) U/L Alkaline Phosphatase (45-117) U/L Total Creatine Kinase (26-192) U/L Troponin I (0-0.045) ng/ml Total Protein (6.4-8.2) gm/dl Albumin (3.4-5.0) gm/dl Globulin (2.5-4.0) gm/dl Albumin/Globulin Ratio (0.9-2) TSH (0.300-4.500) uIu/ml Urine Color Yellow Urine Appearance Clear (Clear) Urine pH 6.0 (4.5-7.5) Ur Specific [place] 1.022 (1.000-1.030) Urine Protein Trace H (Negative) Urine Glucose (UA) 1+ H (Negative) Urine Ketones 4+ H (Negative) Urine Blood Negative (Negative) Urine Nitrite Negative (Negative) Urine Bilirubin Negative (Negative) Urine Urobilinogen Negative (Negative) Ur Leukocyte Esterase 1+ H (Negative) Urine WBC (Auto) 10-30 H (0-5) /hpf Urine RBC (Auto) 0-4 (0-4) /hpf U Hyaline Cast (Auto) 0 (0-5) /lpf U Epithel Cells (Auto) >30 H (0-5) /lpf Urine Bacteria (Auto) Negative (Negative) Ur Renal Epithelial Cell 5-10 H (0-5) /lpf COVID-19 Eval Order SARS-CoV-2 (PCR) (Negative) Administered Medications Discontinued Medications Sodium Chloride (Nss) 500 mls @ 999 mls/hr IV .Q31M YAMEL Stop: 01/04/21 17:45 Last Infusion: 01/04/21 17:51 Dose: 0 mls/hr Documented by: [id number] Admin: 01/04/21 17:19 Dose: 999 mls/hr Documented by: [id number] Magnesium Sulfate/Dextrose (Magnesium Sulfate / D5w) 1 gm in 100 mls @ 400 mls/hr IV Q15M YAMEL Stop: 01/04/21 19:29 Last Infusion: 01/04/21 20:34 Dose: 0 mls/hr Documented by: [id number] Admin: 01/04/21 19:30 Dose: 400 mls/hr Documented by: [id number] Metoprolol Tartrate (Metoprolol Tartrate 1 Mg/Ml Vial) 5 mg IV NOW STA Stop: 01/04/21 19:14 Last Admin: 01/04/21 19:30 Dose: 5 mg Documented by: [id number] Imaging Data Radiologist's Impression: Cervical Spine CT 01/04/21 17:09 CT OF THE CERVICAL SPINE CLINICAL HISTORY: Acute change in mental status. Trauma. Possible neck fracture COMPARISON STUDY: June 2018 CT DOSE: TECHNIQUE: CT scan of the cervical spine was performed from the skull base to the thoracic inlet. Images are reviewed in the axial, sagittal, and coronal planes. IV contrast was not administered for this examination. A dose lowering technique was utilized adhering to the principles of ALARA. FINDINGS: The visualized portions of the lung apices reveal no evidence of pneumothorax. The prevertebral soft tissues are normal. No acute fractures or traumatic subluxations are visualized. There are moderate multilevel degenerative changes. Mild anterolisthesis of C3 on C4 is stable and is felt to be arthritic The examination is motion degraded. IMPRESSION: 1. Motion degraded study 2. Multilevel degenerative change 3. No acute fractures or traumatic subluxations identified ACT 112: Negative or not required by law. Electronically signed by: Alphonse Hart M.D. 01/04/2021 7:08 PM Chest X-Ray 01/04/21 17:09 XR chest 1V portable CLINICAL HISTORY: weakness TRAUMA COMPARISON STUDY: 01/14/2019 FINDINGS: The cardiac and mediastinal contours are normal. There is no evidence of focal pulmonary consolidation. There is no evidence of failure. No pleural effusions are visualized.[There is mild nonspecific irregularity of the base the right acromion. This could be projectional. Correlation with patient's site of pain is recommended. IMPRESSION: 1. No active disease in the chest 2. Mild irregularity involving the base the right acromion possibly projectional. Correlation with the patient's site of pain recommended. Additional imaging recommended if the patient has tenderness in this location ACT 112: Negative or not required by law. Electronically signed by: Alphonse Hart M.D. 01/04/2021 5:39 PM Forearm X-Ray 01/04/21 17:09 XR forearm LT 2V CLINICAL HISTORY: Left forearm pain status post trauma COMPARISON: None. DISCUSSION: No acute fractures or dislocations are visualized. There is soft tissue swelling over the olecranon. IMPRESSION: No fractures or dislocations identified. ACT 112: Negative or not required by law. Electronically signed by: Alphonse Hart M.D. 01/04/2021 5:[address] 01/04/21 17:09 CT head/brain wo con CLINICAL HISTORY: Trauma. Confusion. COMPARISON STUDY: 01/25/2019 TECHNIQUE: Axial CT of the brain is performed from the vertex to the skull base. IV contrast was not administered for this examination. A dose lowering technique was utilized adhering to the principles of ALARA. CT DOSE: FINDINGS: There is a new right temporal lobe hypodensity, consistent with a subacute infarct. There is an old right parieto-occipital infarct. There is an old left occipital infarct. There is a old lacunar infarct in the right thalamus. There is no acute hemorrhage. There is no midline shift. No mass lesions are visualized in this noncontrast study. There are patchy white matter hypodensities likely on a small vessel basis. There is no evidence of pathologic ventricular dilatation. There is no evidence of acute sinusitis. No calvarial fractures are visualized. IMPRESSION: 1. Interval development of a right temporal lobe hypodensity, consistent with a subacute infarct 2. Moderate white matter disease in all bilateral cortical infarcts redemonstrated. 3. No acute hemorrhage ACT 112: Negative or not required by law. Electronically signed by: Alphonse Hart M.D. 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 No acute fractures or dislocations are visualized. There is no evidence for SI joint diastases. There is no symphysis diastases. IMPRESSION: No fractures or dislocations identified. ACT 112: Negative or not required by law. Electronically signed by: Alphonse Hart M.D. 01/04/2021 5:37 PM Abdomen/Pelvis CT 01/04/21 18:40 CT SCAN OF THE ABDOMEN AND PELVIS WITHOUT CONTRAST CLINICAL HISTORY: Pain status post trauma. Confusion. COMPARISON STUDY: July 2015 TECHNIQUE: CT scan of the abdomen and pelvis was performed from the lung bases to the proximal femurs. Images are reviewed in the axial, sagittal, and coronal planes. IV contrast was not administered for this examination. A dose lowering technique was utilized adhering to the principles of ALARA. CT DOSE: 2152.24 mGy.cm FINDINGS: Lower chest: There are no pleural effusions. There is no basilar pneumothorax. Liver: The unenhanced liver is normal in size, contour, and attenuation. There is no intrahepatic biliary ductal dilatation. Gallbladder: Surgically absent Spleen: Somewhat lobulated. No focal masses Pancreas: Unremarkable. Adrenal glands: Unremarkable. Kidneys: No renal, ureteral, or bladder calculi identified Bowel: There are no transition zones indicate bowel obstruction. The appendix appears normal. There is severe left colonic diverticulosis. There is no evidence of acute diverticulitis. Peritoneum: There is no intraperitoneal free air or abdominal ascites. Vasculature: The abdominal aorta is normal in course and caliber. Adenopathy: None. Pelvic viscera: The uterus appears surgically absent Skeletal structures: No acute fractures are visualized. There is a right hip arthroplasty. There is an old right pubic ramus fracture.. IMPRESSION: 1. Study limited by the lack of intravenous and oral contrast 2. No evidence of bowel obstruction. No evidence of free air 3. Normal appendix 4. Severe colonic diverticulosis. No evidence of acute diverticulitis 5. No renal, ureteral, or bladder calculi identified 6. No evidence of acute intra-abdominal or pelvic injury given the limitations of a noncontrast study. ACT 112: Negative or not required by law. Electronically signed by: Alphonse Hart M.D. 01/04/2021 7:[address] 01/04/21 18:40 CT chest diagnostic wo con CLINICAL HISTORY: Trauma. Confusion. COMPARISON STUDY: No previous studies for comparison. CT DOSE: TECHNIQUE: CT of the thorax was performed from the thoracic inlet to the lung bases. Images are reviewed in the axial, sagittal, and coronal planes. IV contrast was not administered for this examination. A dose lowering technique was utilized adhering to the principles of ALARA. FINDINGS: Thyroid: Imaged portions of the thyroid gland are normal in appearance. Thoracic aorta: The thoracic aorta is normal in course and caliber, noting sta ndard 3 vessel arch anatomy. Heart: There are coronary artery calcifications. There is no significant pericardial fluid. Lungs and pleural spaces: There is no pneumothorax. There is no evidence of pulmonary contusion. There are no pleural effusions. Mediastinum: There is no evidence of pathologic mediastinal lymphadenopathy. Aylin: There is no evidence of pathologic hilar adenopathy given the limitations of a noncontrast study. Axilla: There is no evidence of pathologic axillary lymphadenopathy. Upper abdomen: The right lobe the liver appears somewhat lobular. The spleen appears somewhat lobulated. Skeletal structures: No acute fractures are visualized. IMPRESSION: 1. No evidence of acute intrathoracic injury given the limitations of a noncontrast study. ACT 112: Negative or not required by law. Electronically signed by: Alphonse Hart M.D. 01/04/2021 7:16 PM Discharge Plan Visit Data Chief Complaint: Altered Mental Status Stated Complaint: AMS ED Provider: Ruben Flannery Discharge Problem: Acute confusion, Stroke, Atrial fibrillation with rapid ventricular response Patient Disposition: Being Evaluated by Hospitalist Forms Stand Alone Forms: [facility] [place] [employer] Prescriptions Prescriptions: No Action atorvastatin 40 mg Tablet 40 mg PO QAM RF: 0 prednisone 1 mg Tablet 1 mg PO QAM RF: 0 gabapentin 300 mg Capsule 300 mg PO TID RF: 0 meclizine 25 mg Tablet 25 mg PO TID PRN (Reason: Vertigo) RF: 0 doxepin 10 mg capsule 10 mg PO HS RF: 0 hydroxyzine HCl 25 mg Tablet 25 mg PO TID PRN (Reason: Insomnia) RF: 0 aspirin 81 mg Tablet,Delayed Release (Dr/Ec) 81 mg PO DAILY RF: 0 tramadol 50 mg tablet 25 mg PO Q6H PRN (Reason: moderate pain) RF: 0 metoprolol succinate [Toprol XL] 50 mg tablet extended release 24 hr 50 mg PO DAILY RF: 0 cyanocobalamin (vitamin B-12) [Vitamin B-12] 1,000 mcg tablet 1,000 mcg PO DAILY RF: 0 levothyroxine [Synthroid] 88 mcg tablet 88 mcg PO DAILYBB RF: 0 ferrous sulfate 325 mg (65 mg iron) Tablet 325 mg PO BID RF: 0 Eliquis 2.5 mg tablet 2.5 mg PO BID RF: 0 Referrals Referrals: Liu Antunez MD [Primary Care Provider] - Discharge Problem: Stroke Qualifiers: CVA mechanism: unspecified Qualified Code(s): I63.9 - Cerebral infarction, unspecified
[2021-01-04 17:34] LABS: Mean Corpuscular Hgb Conc 31.5 g/dL (32-36)
--- NOTE | 2021-01-04 17:38 | XRay Report ---
XR pelvis 1-2V routine CLINICAL HISTORY: Pain status post trauma COMPARISON: 05/16/2019 DISCUSSION: There is a bipolar right hip arthroplasty. No acute fractures or dislocations are visuali zed. There is no evidence for SI joint diastases. There is no symphysis diastases. IMPRESSION: No fractures or dislocations identified. ACT 112: Negative or not required by law. Electronically signed by: Alphonse Hart M.D. 01/04/2021 5:37 PM
--- NOTE | 2021-01-04 17:41 | XRay Report ---
XR chest 1V portable CLINICAL HISTORY: weakness TRAUMA COMPARISON STUDY: 01/14/2019 FINDINGS: The cardiac and mediastinal contours are normal. There is no evidence of focal pulmonary co nsolidation. There is no evidence of failure. No pleural effusions are visualized.[There is mild nons pecific irregularity of the base the right acromion. This could be projectional. Correlation with pat ient's site of pain is recommended. IMPRESSION: 1. No active disease in the chest 2. Mild irregularity involving the base the right acromion possibly projectional. Correlation with th e patient's site of pain recommended. Additional imaging recommended if the patient has tenderness in this location ACT 112: Negative or not required by law. Electronically signed by: Alphonse Hart M.D. 01/04/2021 5:39 PM
--- NOTE | 2021-01-04 17:42 | XRay Report ---
XR forearm LT 2V CLINICAL HISTORY: Left forearm pain status post trauma COMPARISON: None. DISCUSSION: No acute fractures or dislocations are visualized. There is soft tissue swelling over the olecranon. IMPRESSION: No fractures or dislocations identified. ACT 112: Negative or not required by law. Electronically signed by: Alphonse Hart M.D. 01/04/2021 5:41 PM
[2021-01-04 17:47] LABS: Hematocrit (blood only) 36.8 % (37-47); Hemoglobin 11.6 g/dL (12.0-16.0); Mean Corpuscular Volume 79.3 fL (80-100); RDW Standard Deviation 58.7 fL (36.4-46.3); Red Blood Count 4.64 M/uL (4.2-5.4); White Blood Count 8.91 K/uL (4.8-10.8)
[2021-01-04 17:51] LABS: Albumin Level 3.7 gm/dl (3.4-5.0); BUN Creatinine Ratio 31.6 (10-20); Calcium 9.3 mg/dl (8.5-10.1); Creatinine Clr Calc Pharmacy 31.6 ml/min; Est GFR (African American) 63.6 ml/min; Est GFR (Non-African American) 54.9 ml/min; Magnesium 1.8 mg/dl (1.8-2.4); Potassium 3.2 mmol/L (3.5-5.1)
[2021-01-04 17:55] LABS: Anisocytosis Present; Basophils # (auto) 0.04 K/uL (0-0.2); Basophils % (auto) 0.4 %; Eosinophils # (auto) 0.12 K/uL (0-0.5); Eosinophils % (auto) 1.3 %; Immature Granulocytes # (auto) 0.01 K/uL (0.00-0.02); Immature Granulocytes % (auto) 0.1 %; Lymphocytes # (auto) 1.77 K/uL (1.2-3.4); Lymphocytes % (auto) 19.9 %; Monocytes # (auto) 0.69 K/uL (0.11-0.59); Monocytes % (auto) 7.7 %; Neutrophils # (auto) 6.28 K/uL (1.4-6.5); Neutrophils % (auto) 70.6 %; Platelet Count 137 K/uL (130-400); Platelet Estimate Normal (Normal)
[2021-01-04 18:02] LABS: Globulin 3.7 gm/dl (2.5-4.0); Thyroid Stimulating Hormone 3.67 uIu/ml (0.300-4.500); Total Protein 7.4 gm/dl (6.4-8.2); Troponin I 0.021 ng/ml (0-0.045)
--- NOTE | 2021-01-04 19:06 | CT Scan Report ---
CT SCAN OF THE ABDOMEN AND PELVIS WITHOUT CONTRAST CLINICAL HISTORY: Pain status post trauma. Confusion. COMPARISON STUDY: July 2015 TECHNIQUE: CT scan of the abdomen and pelvis was performed from the lung bases to the proximal femurs . Images are reviewed in the axial, sagittal, and coronal planes. IV contrast was not administered fo r this examination. A dose lowering technique was utilized adhering to the principles of ALARA. CT DOSE: 2152.24 mGy.cm FINDINGS: Lower chest: There are no pleural effusions. There is no basilar pneumothorax. Liver: The unenhanced liver is normal in size, contour, and attenuation. There is no intrahepatic arlen iary ductal dilatation. Gallbladder: Surgically absent Spleen: Somewhat lobulated. No focal masses Pancreas: Unremarkable. Adrenal glands: Unremarkable. Kidneys: No renal, ureteral, or bladder calculi identified Bowel: There are no transition zones indicate bowel obstruction. The appendix appears normal. There i s severe left colonic diverticulosis. There is no evidence of acute diverticulitis. Peritoneum: There is no intraperitoneal free air or abdominal ascites. Vasculature: The abdominal aorta is normal in course and caliber. Adenopathy: None. Pelvic viscera: The uterus appears surgically absent Skeletal structures: No acute fractures are visualized. There is a right hip arthroplasty. There is a n old right pubic ramus fracture.. IMPRESSION: 1. Study limited by the lack of intravenous and oral contrast 2. No evidence of bowel obstruction. No evidence of free air 3. Normal appendix 4. Severe colonic diverticulosis. No evidence of acute diverticulitis 5. No renal, ureteral, or bladder calculi identified 6. No evidence of acute intra-abdominal or pelvic injury given the limitations of a noncontrast study . ACT 112: Negative or not required by law. Electronically signed by: Alphonse Hart M.D. 01/04/2021 7:04 PM
--- NOTE | 2021-01-04 19:06 | CT Scan Report ---
CT head/brain wo con CLINICAL HISTORY: Trauma. Confusion. COMPARISON STUDY: 01/25/2019 TECHNIQUE: Axial CT of the brain is performed from the vertex to the skull base. IV contrast was not administered for this examination. A dose lowering technique was utilized adhering to the principles of ALARA. CT DOSE: FINDINGS: There is a new right temporal lobe hypodensity, consistent with a subacute infarct. There is an old r ight parieto-occipital infarct. There is an old left occipital infarct. There is a old lacunar infarc t in the right thalamus. There is no acute hemorrhage. There is no midline shift. No mass lesions are visualized in this noncontrast study. There are patchy white matter hypodensities likely on a small vessel basis. There is no evidence of pathologic ventricular dilatation. There is no evidence of acute sinusitis. No calvarial fractures are visualized. IMPRESSION: 1. Interval development of a right temporal lobe hypodensity, consistent with a subacute infarct 2. Moderate white matter disease in all bilateral cortical infarcts redemonstrated. 3. No acute hemorrhage ACT 112: Negative or not required by law. Electronically signed by: Alphonse Hart M.D. 01/04/2021 7:04 PM
--- NOTE | 2021-01-04 19:09 | CT Scan Report ---
CT OF THE CERVICAL SPINE CLINICAL HISTORY: Acute change in mental status. Trauma. Possible neck fracture COMPARISON STUDY: June 2018 CT DOSE: TECHNIQUE: CT scan of the cervical spine was performed from the skull base to the thoracic inlet. Xochitl ges are reviewed in the axial, sagittal, and coronal planes. IV contrast was not administered for thi s examination. A dose lowering technique was utilized adhering to the principles of ALARA. FINDINGS: The visualized portions of the lung apices reveal no evidence of pneumothorax. The prevertebral soft tissues are normal. No acute fractures or traumatic subluxations are visualize d. There are moderate multilevel degenerative changes. Mild anterolisthesis of C3 on C4 is stable and is felt to be arthritic The examination is motion degraded. IMPRESSION: 1. Motion degraded study 2. Multilevel degenerative change 3. No acute fractures or traumatic subluxations identified ACT 112: Negative or not required by law. Electronically signed by: Alphonse Hart M.D. 01/04/2021 7:08 PM
[2021-01-04] MEDS ORDERED: METOPROLOL TARTRATE 1 MG/ML VIAL IV STA (19:13)
[2021-01-04] MEDS ORDERED: MAGNESIUM SULFATE / D5W 1 GM/100 ML BAG IV SCH (19:15)
--- NOTE | 2021-01-04 19:17 | CT Scan Report ---
CT chest diagnostic wo con CLINICAL HISTORY: Trauma. Confusion. COMPARISON STUDY: No previous studies for comparison. CT DOSE: TECHNIQUE: CT of the thorax was performed from the thoracic inlet to the lung bases. Images are revi ewed in the axial, sagittal, and coronal planes. IV contrast was not administered for this examinatio n. A dose lowering technique was utilized adhering to the principles of ALARA. FINDINGS: Thyroid: Imaged portions of the thyroid gland are normal in appearance. Thoracic aorta: The thoracic aorta is normal in course and caliber, noting standard 3 vessel arch hunter kishore. Heart: There are coronary artery calcifications. There is no significant pericardial fluid. Lungs and pleural spaces: There is no pneumothorax. There is no evidence of pulmonary contusion. Ther e are no pleural effusions. Mediastinum: There is no evidence of pathologic mediastinal lymphadenopathy. Aylin: There is no evidence of pathologic hilar adenopathy given the limitations of a noncontrast stud y. Axilla: There is no evidence of pathologic axillary lymphadenopathy. Upper abdomen: The right lobe the liver appears somewhat lobular. The spleen appears somewhat lobula chas. Skeletal structures: No acute fractures are visualized. IMPRESSION: 1. No evidence of acute intrathoracic injury given the limitations of a noncontrast study. ACT 112: Negative or not required by law. Electronically signed by: Alphonse Hart M.D. 01/04/2021 7:16 PM
[2021-01-04 19:33] LABS: Appearance Urine Clear (Clear); Bacteria Urine Automated Negative (Negative); Bilirubin Urine Negative (Negative); Blood Urine Negative (Negative); Cast Urine Automated 0 /lpf (0-5); Color Urine Yellow; Epithelial Cell Urine Auto >30 /lpf (0-5); Glucose Urine UA 1+ (Negative); Ketones Urine 4+ (Negative); Leukocyte Esterase Urine 1+ (Negative); Nitrite Urine Negative (Negative); Protein Urine Trace (Negative); RBC Urine Automated 0-4 /hpf (0-4); Specific Gravity Urine 1.022 (1.000-1.030); Urobilinogen Urine Negative (Negative)
[2021-01-04] MEDS ORDERED: SODIUM CHLORIDE 0.9% 500 ML IV ONE (20:39)
[2021-01-04] MEDS ORDERED: AZTREONAM 2,000 MG in DEXTROSE 5% 100 ML IV SCH (22:17)
[2021-01-04] MEDS ORDERED: ONDANSETRON INJ 2 MG/ML 2 ML VIAL IV PRN (22:17)
[2021-01-04] MEDS ORDERED: NITROGLYCERIN SL 0.4 MG/TAB TAB SL PRN (22:17)
[2021-01-04] MEDS ORDERED: traMADol HCL 50 MG TABLET PO PRN (22:17)
[2021-01-04] MEDS ORDERED: PHARMACIST DISCHARGE MED REC CONSULT PRN (22:17)
[2021-01-04] MEDS ORDERED: POLYETHYLENE (MIRALAX) 17 GM PACK PO PRN (22:17)
[2021-01-04] MEDS ORDERED: hydrOXYzine HCl 25 MG TAB PO PRN ×2 (22:17→23:06)
[2021-01-04] MEDS ORDERED: LABETALOL HCL IV 5 MG/ML 20ML IV PRN (22:17)
[2021-01-04] MEDS ORDERED: ACETAMINOPHEN 325 MG TAB PO PRN (22:17)
[2021-01-04] MEDS ORDERED: POTASSIUM CHLORIDE 20 MEQ/15 ML UDC PO STA (22:17)
[2021-01-04] MEDS ORDERED: AZTREONAM CONSULT ACTIVE PRN (22:35)
[2021-01-04] MEDS ORDERED: PNEUMOCOCCAL POLYSACCHARIDES 25 MCG/0.5 ML VIAL/SYR IM ONE (22:41)
[2021-01-04] MEDS ORDERED: GLUCOSE 40% GEL 15 GM TUBE PO PRN (23:00)
[2021-01-04] MEDS ORDERED: DEXTROSE 50% 50 ML SYRINGE IV PRN (23:00)
[2021-01-04] MEDS ORDERED: GLUCAGON FOR INJ 1 MG VIAL IM PRN (23:00)
[2021-01-04] MEDS ORDERED: GLUCOSE 10 TABS/TUBE PO PRN (23:00)
[2021-01-04] MEDS ORDERED: CARBOHYDRATES FOR HYPOGLYCEMIA PO PRN (23:00)
[2021-01-04] MEDS ORDERED: MECLIZINE HCL 25 MG TAB PO PRN (23:03)
[2021-01-04] MEDS: DOXEPIN HCL 10 MG CAPSULE PO SCH (23:07)
[2021-01-04] MEDS: FERROUS SULFATE 325 MG TAB PO SCH (23:07)
[2021-01-04] MEDS: APIXABAN 2.5 MG TAB PO SCH (23:07)
[2021-01-04] MEDS: GABAPENTIN 300 MG CAP PO SCH (23:08)
[2021-01-04] MEDS: D5W AND NSS 1,000 ML IV SCH (23:10)
[2021-01-04] MEDS: AZTREONAM 1,000 MG in DEXTROSE 5% 100 ML IV SCH (23:21)
--- NOTE | 2021-01-05 00:09 | History and Physical Report ---
CHIEF COMPLAINT: Altered mental status. HISTORY OF PRESENT ILLNESS: This 89-year-old female with past medical history significant for type 2 diabetes, not on any medication, hypothyroidism, hyperlipidemia, pancreatic cyst, diabetic polyneuropathy, paroxysmal atrial fibrillation, hypertension, chronic kidney disease stage III, B12 deficiency, polymyalgia rheumatica, osteoporosis, TMJ, osteoarthritis of the knee, depression, insomnia, tremors, history of CVA, history of visual field loss post-CVA, history of colon polyps, history of status post right hip fracture. The patient lives alone at home. She ambulates with a cane. Patient was apparently doing okay until . She is independent as per son, she can cook her own food and she converses well. On , the son took her to groceries and bought her groceries. On Wednesday afternoon he talked to her and she seemed fine and today at 1:00pm he called her again and she did not answer, so he went to the house and found her sitting on the chair, confused. She could not even recognize him and groceries spoiling on the table. There was a question of a temperature. Per EMS heart rate was somewhat elevated. Sugars were in normal range and she was brought in here. Here, workup shows right temporal lobe hypodensity consistent with a subacute infarct. Patient is currently totally not oriented, could not tell her name, but obeying simple commands. Able to lift her upper extremities on command, able to take deep breath, able to move, and the patient denying any pain, says nothing bothering her. Denies any nausea. But could not get any complete history from the patient currently. ALLERGIES: CODEINE, INVANZ, LISINOPRIL AND PENICILLINS. PAST MEDICAL HISTORY: As mentioned above. PAST SURGICAL HISTORY: Biopsy of the breast, colonoscopy, EGD with biopsy and EGD with endoscopic ultrasound, bladder tack for incontinence, laparoscopic cholecystectomy, partial hysterectomy, right total hip replacement, umbilical hernia repair. MEDICATIONS: Supposed to be on Eliquis 2.5 mg p.o. b.i.d., aspirin 81 mg p.o. daily, atorvastatin 40 mg p.o. a.m., vitamin B12 1000 mcg p.o. daily, doxepin 10 mg p.o. at bedtime, ferrous sulfate 325 mg p.o. b.i.d., gabapentin 300 mg p.o. t.i.d., hydroxyzine 25 mg p.o. t.i.d. p.r.n., levothyroxine 88 mcg p.o. daily, meclizine 25 mg p.o. t.i.d. p.r.n., Toprol XL 50 mg p.o. daily, prednisone 1 mg p.o. q.a.m., tramadol 25 mg p.o. q. 6 hours p.r.n. FAMILY HISTORY: Significant for father has heart disorder, lung disorder. Mother has heart disorder. SOCIAL HISTORY: , lives alone. No smoking. Alcohol occasional. No drug use. REVIEW OF SYSTEMS: Could not be obtained as patient is confused. PHYSICAL EXAMINATION: GENERAL: The patient is alert and awake, but not oriented. VITAL SIGNS: Temperature 36.8, pulse 87, respiratory rate 20, blood pressure 181/104, oxygen 100% on room air. HEENT: Pupils equal, round and reactive to light. Oral mucosa moist. NECK: No JVD. No neck masses. CARDIOVASCULAR: S1 and S2 heard. Regular rate and rhythm. No murmur, no gallop. RESPIRATORY SYSTEM: Normal AP diameter. No accessory muscle use. No wheezing, no crackles. ABDOMEN: Soft, bowel sounds present, nontender, no distention. CENTRAL NERVOUS SYSTEM: Alert and awake, not oriented. Obeys simple commands. Able to open her mouth. Able to lift her extremities on command, able to take deep breaths on command, but could not do a complete exam because the patient is somewhat confused. EXTREMITIES: No edema, no erythema. LABORATORY DATA: WBC 8.9, hemoglobin 11.6, hematocrit 36.8, platelets 137. PT 10, INR 1. Sodium 140, potassium 3.2, chloride 106, bicarbonate 23, BUN 29, creatinine 0.9, serum glucose 140. Lactate 1.4, calcium 9.3, magnesium 1.8, total bilirubin 1, AST 27, ALT 18, alkaline phosphatase 106, total creatinine kinase 215. Troponin I 0.02. TSH 3.6. Urinalysis, +4 ketones, +1 glucose, +1 leukocyte esterase. SARS-CoV-[address], no evidence of acute intrathoracic injury. CT of the abdomen and pelvis. Study limited by lack of intravenous and oral contrast. No evidence of bowel obstruction, no evidence of free air. Normal appendix, severe colonic diverticulosis, no evidence of acute diverticulitis. No renal, ureteral or bladder calculi identified. No evidence of acute intraabdominal or pelvic injury. Pelvic x-ray, no fracture or dislocations identified. CT of the head, interval development of the right temporal lobe hypodensity consistent with a subacute infarct. Moderate white matter disease in all bicortical and cortical infarcts. No acute hemorrhage. Forearm x-ray, no acute fracture or dislocations are identified. Chest x-ray, no active disease in the chest. Cervical spine CT, multilevel degenerative changes. No acute fracture or traumatic subluxation is identified. EKG: Atrial fibrillation with rapid ventricular response at rate of 122, nonspecific ST-T abnormality, left axis deviation. ASSESSMENT AND PLAN: This is an 89-year-old female who presents with altered mental status and found to have a subacute stroke. PROBLEM LIST: 1. Altered mental status most likely secondary to CVA. CAT scan of the head showing subacute right temporal lobe hypodensity. We will confirm with MRI scan. We will do stroke workup with MRI scan and echo, carotid Dopplers. Neurology consult. Speech evaluation, PT, OT evaluation in a.m. Patient already on Eliquis and aspirin and statin. Patient has history of stroke in the past. We will monitor in the tele floor. 2. History of atrial fibrillation. Continue Toprol-XL and Eliquis. Question of compliance with the medications, need to confirm. 3. History of diabetes, currently not on medication. Follow HbA1c levels. Place on insulin sliding scale. 4. Hypothyroidism. Continue Synthroid. 5. Hyperlipidemia. Continue statin. 6. Polymyalgia rheumatica. Continue prednisone. 7. Possible starvation ketosis, mild metabolic acidosis. We will place on D5 normal saline. Follow repeat labs in a.m. 8. Possible UTI. Place on Azactam. The patient is allergic to PENICILLINS and INVANZ. Follow the cultures. 9. Hypertension, currently allow permissive hypertension, continue home Toprol- XL and labetalol p.r.n. 10. Chronic kidney disease stage III. Creatinine is 0.9. We will follow the labs. 11. DVT prophylaxis, on Eliquis. DISPOSITION: Closely monitor in tele floor. CODE STATUS: DNR as per my discussion with the son. PT/OT before discharge. rehab services aide to help with discharge planning. Job ID: [id number]
[2021-01-05] MEDS: POTASSIUM CHLORIDE / WTR 10 MEQ/100 ML PLCT IV SCH ×4 (00:20→07:59)
[2021-01-05] MEDS: LEVOTHYROXINE SODIUM 88 MCG TABLET PO SCH (05:50)
[2021-01-05 06:33] LABS: Basophils # (auto) 0.04 K/uL (0-0.2); Basophils % (auto) 0.4 %; Eosinophils # (auto) 0.44 K/uL (0-0.5); Eosinophils % (auto) 4.8 %; Hemoglobin 11.3 g/dL (12.0-16.0); Immature Granulocytes # (auto) 0.01 K/uL (0.00-0.02); Immature Granulocytes % (auto) 0.1 %; Lymphocytes # (auto) 2.06 K/uL (1.2-3.4); Lymphocytes % (auto) 22.3 %; Mean Corpuscular Hemoglobin 25.1 pg (25-34); Mean Corpuscular Hgb Conc 31.4 g/dL (32-36); Mean Corpuscular Volume 79.8 fL (80-100); Mean Platelet Volume 11.2 fL (7.4-10.4); Monocytes # (auto) 0.86 K/uL (0.11-0.59); Monocytes % (auto) 9.3 %; Neutrophils # (auto) 5.84 K/uL (1.4-6.5); Neutrophils % (auto) 63.1 %; Platelet Count 140 K/uL (130-400); RDW Standard Deviation 58.7 fL (36.4-46.3); Red Blood Count 4.51 M/uL (4.2-5.4); White Blood Count 9.25 K/uL (4.8-10.8)
[2021-01-05 06:56] LABS: Anisocytosis Present
[2021-01-05 07:11] LABS: BUN Creatinine Ratio 22.5 (10-20); Calcium 8.1 mg/dl (8.5-10.1); Est GFR (African American) 76.3 ml/min; Est GFR (Non-African American) 65.8 ml/min; Potassium 3.6 mmol/L (3.5-5.1)
--- NOTE | 2021-01-05 07:26 | Hospitalist Progress Note ---
Date of Service January 05, 2021 Assessment & Plan (1) Stroke: ASSESSMENT AND PLAN: This is an 89-year-old female who presents with altered mental status and found to have a subacute stroke. 1. Altered mental status most likely secondary to CVA. CT scan of the head showing subacute right temporal lobe hypodensity. CT scan of the head showing subacute infarct in the right temporal region. Confirm with MRI scan. We will do echo, carotid Dopplers. Speech evaluation, PT, OT evaluation today. Eliquis, aspirin and statin. Patient has history of stroke in the past. Monitor on tele floor. 2. History of atrial fibrillation. Continue Toprol-XL and Eliquis. 3. History of diabetes, currently not on medication. Follow HbA1c levels. Place on insulin sliding scale. 4. Hypothyroidism. Continue Synthroid. 5. Hyperlipidemia. Continue statin. 6. Polymyalgia rheumatica. Continue prednisone. 7. Possible starvation ketosis, mild metabolic acidosis. D5 normal saline. Monitor daily labs. 8. Possible UTI. Azactam. The patient is allergic to PENICILLINS and INVANZ. Follow the cultures. 9. Hypertension, currently allow permissive hypertension, continue home Toprol- XL and labetalol p.r.n. 10. Chronic kidney Disease stage III. Creatinine is 0.9. We will follow the labs. 11. DVT prophylaxis, on Eliquis. DISPOSITION: Closely monitor in tele floor. CODE STATUS: DNR as per my discussion with the son. PT/OT before discharge. clinical services assistant to help with discharge planning. Labs Checked ROS-No Headache, No Visual Changes, No Nausea, No Vomiting, No Fever, No Chills, No Neck Pain or Stiffness, No Chest Pain, No Palpitations, No SOB, No RUELAS, No Cough, No Sputum, No Wheezing, No Abdominal Pain, No Diarrhea, No Hematemesis, No Hemoptysis, No Unexpected Weight Loss, No Flank pain, No Melena, No Hematochezia, No Frequency, No Urgency, No Burning, No Hematuria, No Rashes, No Diaphoresis. Appetite is Normal Physical Exam Gen-AAO x 1, NAD, Afebrile, Demented Head-NCAT, EOMI, PERRLA, Anicteric Sclera, No Posterior Pharyngeal Erythema Neck-Supple, No JVD, No Thyromegaly, No Masses, No LAD, No Bruits Lungs-Clear to Auscultation Bilaterally, No Rales, No Rhonchi, No Wheezing, No Crepitus Chest-No S4, +S1, +S2, No S3, No Murmurs, No Rubs, No Gallops, No Ectopy Abdomen-Soft, Bowel Sounds Present, Non Tender, Non Distended, No Hepatomegaly, No Splenomegaly, No Palpable Masses, No Rebound, No Rigidity, No Guarding Musculoskeletal-Full Range of Motion Bilaterally, No CVAT Extremities-No Cyanosis, No Clubbing, No Edema Nuero-Cranial Nerves II-XII grossly intact, Motor WNL, DTRs WNL, Strength WNL, Non Focal Psych-Normal Mood Admission and Anticipated Discharge Date Admission Date: January 04, 2021 Results & Data Results & Data ([facility]) Vital Signs (Past 12 Hours) Vital Signs Temp Pulse Pulse Resp BP BP BP 01/05/21 06:39 36.5 C 87 19 155/75 H 01/05/21 02:55 188/101 H 178/112 H 01/05/21 02:54 36.5 C 96 H 20 176/88 H 01/04/21 22:29 36.4 C L 105 H 18 170/91 H 01/04/21 22:20 102 H 01/04/21 22:17 36.4 C L 01/04/21 22:06 96 H 01/04/21 21:36 36.8 C 87 20 181/104 H 01/04/21 20:31 88 16 185/112 H 01/04/21 20:30 91 H 19 01/04/21 20:20 93 H 20 01/04/21 20:10 84 22 01/04/21 20:01 84 14 01/04/21 20:00 83 15 206/105 H 01/04/21 19:51 86 15 147/112 H 01/04/21 19:50 86 87 15 147/112 H 01/04/21 19:40 76 23 01/04/21 19:31 106 H 17 01/04/21 19:30 118 H 20 190/110 H 01/04/21 19:23 122 H 16 165/141 H Pulse Ox 01/05/21 06:39 97 01/05/21 02:55 01/05/21 02:54 98 01/04/21 22:29 95 01/04/21 22:20 01/04/21 22:17 01/04/21 22:06 01/04/21 21:36 100 01/04/21 20:31 100 01/04/21 20:30 100 01/04/21 20:20 98 01/04/21 20:10 100 01/04/21 20:01 100 01/04/21 20:00 01/04/21 19:51 01/04/21 19:50 01/04/21 19:40 01/04/21 19:31 01/04/21 19:30 01/04/21 19:23 93 (1) Stroke CVA mechanism: unspecified Qualified Code(s): I63.9 - Cerebral infarction, unspecified
--- NOTE | 2021-01-05 07:41 | Ultrasound Report ---
ULTRASOUND OF THE CAROTID ARTERIES CLINICAL HISTORY: Stroke COMPARISON STUDY: December 2017 TECHNIQUE: Real-time, grayscale, and color Doppler sonography of the carotid arteries was performed. Imaging reviewed in the transverse and longitudinal planes. NASCET criteria was utilized for stenosis calcification. FINDINGS: There is mild atherosclerotic plaque present . The peak systolic velocity within the right internal carotid artery is 78 cm/sec. The systolic velocity ratio of right internal to common carotid artery is 1.8. The peak systolic velocity within the left internal carotid artery is 57 cm/sec. The systolic velocity ratio left internal to common carotid artery is 1.1. Antegrade flow is seen in the vertebral arteries. The external carotid arteries are patent. Blood pressure in the right arm measured 181 mm/Hg. Blood pressure in the left arm measured 185 mm/H g. IMPRESSION: No evidence of hemodynamically significant carotid stenosis. ACT 112: Negative or not required by law. Electronically signed by: Alphonse Hart M.D. 01/05/2021 7:40 AM
[2021-01-05] MEDS: AZTREONAM 1,000 MG in DEXTROSE 5% 100 ML IV SCH ×3 (08:24→22:07)
[2021-01-05] MEDS: INSULIN ASPART 100 UNITS/ML 3 ML PEN SC SCH ×4 (08:29→22:06)
[2021-01-05] MEDS: FERROUS SULFATE 325 MG TAB PO SCH ×2 (08:30→21:10)
[2021-01-05] MEDS: GABAPENTIN 300 MG CAP PO SCH ×3 (08:30→21:10)
[2021-01-05] MEDS: APIXABAN 2.5 MG TAB PO SCH ×2 (08:30→21:10)
[2021-01-05] MEDS: ATORVASTATIN 40 MG TAB PO SCH (08:31)
[2021-01-05] MEDS: ASPIRIN 81 MG ECTAB PO SCH (08:31)
[2021-01-05] MEDS: METOPROLOL SUCC 50MG EXT REL TAB PO SCH (08:31)
[2021-01-05] MEDS: predniSONE 1 MG TAB PO SCH (08:31)
[2021-01-05] MEDS: CYANOCOBALAMIN 500 MCG TABLET (VITAMIN B-12) PO SCH (08:31)
[2021-01-05] MEDS: D5W AND NSS 1,000 ML IV SCH (12:02)
[2021-01-05] MEDS ORDERED: GADOBUTROL 30ML VIAL IV ONE (14:35)
--- NOTE | 2021-01-05 15:34 | Magnetic Resonance Report ---
MRI OF THE BRAIN COMBO CLINICAL HISTORY: Stroke. COMPARISON STUDY: CT of the brain dated 01/04/2021. TECHNIQUE: MRI of the brain was performed utilizing various T1 and T2-weighted sequences in the axial , sagittal, and coronal planes. Contrast-enhanced sequences were acquired following the administratio n of 5.5 cc of Gadavist. FINDINGS: Brain parenchyma: There is a large focus of restricted diffusion identified throughout the right temp oral lobe consistent with subacute ischemia. Additional smaller cortical infarct identified in the ri ght parietal lobe. There is no evidence of hemorrhage. There is mild effacement of the overlying marianela ical sulci. No midline shift is seen. There is age-related involutional change noting moderate subcor tical and periventricular microangiopathic disease. No enhancing mass lesion is identified on the pos tcontrast images. Bilateral occipital encephalomalacia is consistent with remote infarcts. No extra-a xial fluid collection is seen. The cerebellar tonsils are normal in configuration. Ventricles, sulci, and cisterns: Prominent secondary to involutional change. Pituitary and sella: Partially empty sella is incidentally noted. Intracranial vasculature: Normal flow voids are maintained at the skull base. Orbits: The bony orbits are grossly intact. Orbital contents are normal in appearance noting bilatera l ocular lens implants. Sinuses and mastoids: Clear. Calvarium: Unremarkable. Cervical cord: Partially visualized cervical spinal cord is normal in morphology and signal intensity . IMPRESSION: 1. There is a large subacute infarct in the right MCA territory, largely involving the temporal lobe. 2. Additional smaller infarcts are identified in the right parietal cortex. 3. There is no hemorrhage or midline shift. 4. Additional chronic infarcts as above. ACT 112: Negative or not required by law. Electronically signed by: Maged Rosario M.D. 01/05/2021 3:33 PM
--- NOTE | 2021-01-05 16:37 | Communication Note ---
Date of Service: January 05, 2021 Mera Hinojosa is 89 years old is right-handed and was admitted to the hospital this morning after having been found unresponsive in her home by her son and it is likely that she had some form of acute change in mental status Wednesday night or perhaps Wednesday as she had been grocery shopping with her son who groceries have been sent out when he found her they were sitting on the table spoiling and had not been opened. 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 Today she insists that she was taking them at home but is very confused and unreliable Her other problems include prior vascular events involving occipital cortices with variable degrees of field cut, hypertension, osteoporosis, hypothyroidism, polymyalgia rheumatica now resolved, type 2 diabetes, pancreatic cyst, dyslipidemia, colonic polyps, diverticular disease of the colon, ambulatory dysfunction likely secondary to diabetic neuropathy and the effects of her small vessel events and chronic atrial fibrillation Medications at home include Eliquis aspirin low-dose atorvastatin, B12, doxepin, ferrous sulfate, 300 mg of gabapentin 3 times a day, hydroxyzine levothyroxine, meclizine, metoprolol, prednisone and tramadol but again is not clear how compliant she has been Laboratory studies have shown a mild anemia with no significant leukocytosis and possible urinary tract infection but are otherwise largely unremarkable and echocardiogram shows no significant potential cardiogenic source of emboli at this point other than the paroxysmal atrial fibrillation Imaging studies are discussed above Social history reveals her to be living alone but was a support of her son Family history is noncontributory Review of systems cannot be obtained from the patient and were obtained by review of the chart and are recorded on prior notations by other providers On exam blood pressure is 140/78 pulse 82 respirations 18 she is afebrile O2 saturation 97% She is awake alert but not oriented as to location although she does recognize she is in the hospital and thought it was Luiz. He does recognize me from prior visits over the years but I last saw her probably 5 years ago She does have a mild left upper motor neuron facial paresis, head and eye deviation to the right and a mild left hemiparesis involving the face and arm a little more than the leg There is evidence for a left field cut and neglected bilaterally presented visual stimuli Tone is somewhat hypotonic on the left and reflexes at this point are symmetrical but the toe sign is equivocal and [place] signs are trace positive on the left Strength testing reveals an upper motor neuron distal greater than proximal pattern of weakness without associated atrophy and there is already some edema of the left arm due to disuse and his abrasions on the left forearm probably due to fall or trauma occurring at the time of the acute stroke Sensory examination reveals significant neglect and left-sided cutaneous stimuli but with retained ability to identify her left arm and leg and to localize stimuli placed there independently My suspicions are that this was an embolic stroke likely related to paroxysmal atrial fibrillation possibly due to poor drug compliance. We do have an normal duplex of the carotid arteries but I certainly cannot exclude a source of embolization due to an ulcerated plaque or a lesion at the level of the aorta To some degree the issue is academic. She is going to need rehabilitation likely placement in extended-care facility afterwards unless she recovers more significantly and should be back on her Eliquis and antiplatelet agents but I think she probably ought to have a repeat CT scan of the head in about 24 to 48 hours just to be sure there is no significant hemorrhagic transformation I will order the CT scan to be done and will check the results by computer and will check back with her when I am next in the hospital tomorrow Sandoval Miguel MD
[2021-01-05] MEDS: DOXEPIN HCL 10 MG CAPSULE PO SCH (21:10)
[2021-01-05] MEDS: SODIUM CHLORIDE 0.9% 1000ML 1,000 ML IV SCH (22:07)
[2021-01-06] MEDS: LEVOTHYROXINE SODIUM 88 MCG TABLET PO SCH (06:22)
[2021-01-06 06:39] LABS: Mean Corpuscular Hgb Conc 29.8 g/dL (32-36)
[2021-01-06 06:48] LABS: Hematocrit (blood only) 37.9 % (37-47); Hemoglobin 11.3 g/dL (12.0-16.0); Mean Corpuscular Hemoglobin 24.7 pg (25-34); Mean Corpuscular Volume 82.8 fL (80-100); RDW Coefficient of Variation 20.7 % (11.5-14.5); RDW Standard Deviation 62.3 fL (36.4-46.3); Red Blood Count 4.58 M/uL (4.2-5.4)
[2021-01-06 06:55] LABS: Estimated Average Glucose 160 mg/dl; Hemoglobin A1C 7.2 % (4.5-5.6)
[2021-01-06 07:10] LABS: BUN Creatinine Ratio 18.4 (10-20); Calcium 8.3 mg/dl (8.5-10.1); Creatinine Clr Calc Pharmacy 40.6 ml/min; Est GFR (African American) 85.2 ml/min; Est GFR (Non-African American) 73.5 ml/min; Potassium 3.6 mmol/L (3.5-5.1)
[2021-01-06 07:38] LABS: Basophils # (auto) 0.08 K/uL (0-0.2); Basophils % (auto) 1.2 %; Eosinophils # (auto) 0.83 K/uL (0-0.5); Eosinophils % (auto) 12.6 %; Immature Granulocytes # (auto) 0.01 K/uL (0.00-0.02); Immature Granulocytes % (auto) 0.2 %; Lymphocytes # (auto) 1.69 K/uL (1.2-3.4); Lymphocytes % (auto) 25.6 %; Mean Platelet Volume 11.5 fL (7.4-10.4); Monocytes # (auto) 0.64 K/uL (0.11-0.59); Monocytes % (auto) 9.7 %; Neutrophils # (auto) 3.35 K/uL (1.4-6.5); Neutrophils % (auto) 50.7 %; Platelet Count 120 K/uL (130-400); Platelet Estimate Decreased (Normal)
--- NOTE | 2021-01-06 08:05 | Hospitalist Progress Note ---
Date of Service January 06, 2021 Assessment & Plan (1) Stroke: ASSESSMENT AND PLAN: This is an 89-year-old female who presents with altered mental status and found to have a subacute stroke. 1. Altered mental status most likely secondary to CVA. CT scan of the head showing subacute right temporal lobe hypodensity. CT scan of the head showing subacute infarct in the right temporal region. Confirmed with MRI scan. We will do echo, carotid Dopplers are negative. Continue Speech, PT, OT. Eliquis, aspirin and statin. Patient has history of stroke in the past. Monitor on tele floor. Repeat CT today ordered by Neuro 2. History of atrial fibrillation. Continue Toprol-XL and Eliquis. 3. History of diabetes, currently not on medication. Follow HbA1c levels. Place on insulin sliding scale. 4. Hypothyroidism. Continue Synthroid. 5. Hyperlipidemia. Continue statin. 6. Polymyalgia rheumatica. Continue prednisone. 7. Possible starvation ketosis, mild metabolic acidosis. D5 normal saline. Monitor daily labs. 8. Possible UTI. Azactam. The patient is allergic to PENICILLINS and INVANZ. Follow the cultures. 9. Hypertension, currently allow permissive hypertension, continue home Toprol- XL and labetalol p.r.n. 10. Chronic kidney Disease stage III. Creatinine is 0.9. We will follow the labs. 11. DVT prophylaxis, on Eliquis. DISPOSITION: Closely monitor in tele floor. CODE STATUS: DNR as per my discussion with the son. Acute rehab/SNF on DC Labs Checked ROS-No Headache, No Visual Changes, No Nausea, No Vomiting, No Fever, No Chills, No Neck Pain or Stiffness, No Chest Pain, No Palpitations, No SOB, No RUELAS, No Cough, No Sputum, No Wheezing, No Abdominal Pain, No Diarrhea, No Hematemesis, No Hemoptysis, No Unexpected Weight Loss, No Flank pain, No Melena, No Hematochezia, No Frequency, No Urgency, No Burning, No Hematuria, No Rashes, No Diaphoresis. Appetite is Normal Physical Exam Gen-AAO x 1, NAD, Afebrile, Demented Head-NCAT, EOMI, PERRLA, Anicteric Sclera, No Posterior Pharyngeal Erythema Neck-Supple, No JVD, No Thyromegaly, No Masses, No LAD, No Bruits Lungs-Clear to Auscultation Bilaterally, No Rales, No Rhonchi, No Wheezing, No Crepitus Chest-No S4, +S1, +S2, No S3, No Murmurs, No Rubs, No Gallops, No Ectopy Abdomen-Soft, Bowel Sounds Present, Non Tender, Non Distended, No Hepatomegaly, No Splenomegaly, No Palpable Masses, No Rebound, No Rigidity, No Guarding Musculoskeletal-Full Range of Motion Bilaterally, No CVAT Extremities-No Cyanosis, No Clubbing, No Edema Nuero-R Gaze, left hemiparesis, L Facial, Weak Psych-Normal Mood Admission and Anticipated Discharge Date Admission Date: January 04, 2021 Results & Data Results & Data ([facility]) Vital Signs (Past 12 Hours) Vital Signs Temp Pulse Resp BP Pulse Ox 01/06/21 07:44 36.7 C 81 19 162/85 H 94 01/06/21 03:00 36.6 C 80 16 132/76 90 01/05/21 23:00 36.7 C 73 18 140/88 90 (1) Stroke CVA mechanism: unspecified Qualified Code(s): I63.9 - Cerebral infarction, unspecified
[2021-01-06] MEDS: AZTREONAM 1,000 MG in DEXTROSE 5% 100 ML IV SCH ×3 (08:12→22:38)
[2021-01-06] MEDS: GABAPENTIN 300 MG CAP PO SCH ×3 (08:12→20:33)
[2021-01-06] MEDS: ATORVASTATIN 40 MG TAB PO SCH (08:13)
[2021-01-06] MEDS: FERROUS SULFATE 325 MG TAB PO SCH ×2 (08:13→20:33)
[2021-01-06] MEDS: APIXABAN 2.5 MG TAB PO SCH ×2 (08:13→20:34)
[2021-01-06] MEDS: CYANOCOBALAMIN 500 MCG TABLET (VITAMIN B-12) PO SCH (08:14)
[2021-01-06] MEDS: METOPROLOL SUCC 50MG EXT REL TAB PO SCH (08:14)
[2021-01-06] MEDS: ASPIRIN 81 MG ECTAB PO SCH (08:14)
[2021-01-06] MEDS: predniSONE 1 MG TAB PO SCH (08:14)
[2021-01-06] MEDS: INSULIN ASPART 100 UNITS/ML 3 ML PEN SC SCH ×4 (08:15→20:30)
[2021-01-06] MEDS: SODIUM CHLORIDE 0.9% 1000ML 1,000 ML IV SCH (11:42)
--- NOTE | 2021-01-06 13:31 | CT Scan Report ---
HEAD CT NONCONTRAST CT DOSE: 1003.45 mGycm HISTORY: Evaluate stroke evolution. follow up on cva please do 01/06 midday TECHNIQUE: Multiaxial CT images of the head were performed without the use of intravenous contrast. A utomated exposure control was utilized for this study. A dose lowering technique was utilized adheri ng to the principles of ALARA. Comparison: Brain MRI 01/05/2021. Findings: The paranasal sinuses and mastoid air cells are clear. The calvarium and skull base are int act. Progressive hypodensity within the right temporal lobe consistent with the right MCA territory i nfarct. This is consistent with expected evolution of the infarct. No evidence for hemorrhagic transf ormation at this time. A few additional old small infarct within the left occipital lobe and left tem poral lobe. There is no mass or midline shift. Impression: 1. Mild motion artifact. 2. Expected evolution of the large subacute right MCA territory infarct primarily involving the right temporal lobe. No evidence for hemorrhagic transformation. 3. Additional old infarcts as described above. ACT 112: Negative or not required by law. Electronically signed by: Jeffrey Sloan M.D. 01/06/2021 1:30 PM
--- NOTE | 2021-01-06 13:48 | Electrocardiogram Report ---
Test Reason : Blood Pressure : / mmHG Vent. Rate : 122 BPM Atrial Rate : 127 BPM P-R Int : 000 ms QRS Dur : 120 ms QT Int : 374 ms P-R-T Axes : 000 -35 111 degrees QTc Int : 532 ms Probable Multifocal atrial tachycardia Left axis deviation Left bundle branch block Abnormal ECG When compared with ECG of 16-MAY-2019 15:45, Multifocal atrial tachycardia has replaced Sinus rhythm Vent. rate has increased BY 52 BPM QRS duration has increased Confirmed by Blanco Hoover ([id number]) on 01/06/2021 1:47:24 PM Referred By: REFERRED SELF Confirmed By:Blanco Hoover
--- NOTE | 2021-01-06 15:37 | Communication Note ---
Date of Service: January 06, 2021 Mera is ambulating with assistance today still seems to have some left-sided neglect and is confused and having trouble following directions but the degree of paralysis is better than yesterday and she is clearly able to support her weight with her leg and has a little drift of the left upper extremity The CT was done yesterday which was not my intent but does show no evidence for hemorrhagic transformation of the right middle cerebral artery primarily temporal lobe infarction and at this point she is back on her novel anticoagulant and aspirin and I would recommend this be continued I think no new symptoms this was probably an embolic event from paroxysmal atrial fibrillation I think neonatal social worker clearly going to have to get involved here and she will probably need rehabilitation and I think this would be better done at an extended care facility although [facility] might provide a good service as well and certainly would be more intense Her major deficits unfortunate going to be due to right nondominant temporal lobe issues and patients with this type of problem and have all sorts of neuropsychiatric problems in addition to the visual spatial disorientation issues that come with the nondominant hemispheric localization It appears that the medial portion of the temporal lobe were relatively spared so some of the more overt psychoses that come out of this type of infarct may well be avoided At this point neurology has no further recommendations will be signing off the case. As per the standard post stroke protocol I suppose we are going to be obligated to see her in our office in about 4 to 6 weeks time but this could be done theoretically by video to an extended care facility we will by telephonic visit as transporting her may prove to be difficult and in this setting probably really not necessary as would not not make any further recommendations for diagnostic studies or changes in treatment Sandoval Miguel MD
--- NOTE | 2021-01-06 16:18 | Electrocardiogram Report ---
Test Reason : Blood Pressure : / mmHG Vent. Rate : 107 BPM Atrial Rate : 125 BPM P-R Int : 000 ms QRS Dur : 118 ms QT Int : 390 ms P-R-T Axes : 000 065 117 degrees QTc Int : 520 ms Atrial fibrillation with rapid ventricular response vs MAT Incomplete left bundle block Nonspecific ST and T wave abnormality Abnormal ECG When compared with ECG of 04-JAN-2021 17:07, (unconfirmed) QRS axis Shifted right T wave inversion less evident in Lateral leads Confirmed by Blanco Hoover ([id number]) on 01/06/2021 4:18:25 PM Referred By: REFERRED SELF Confirmed By:Blanco Hoover
--- NOTE | 2021-01-06 16:20 | Electrocardiogram Report ---
Test Reason : Blood Pressure : / mmHG Vent. Rate : 094 BPM Atrial Rate : 125 BPM P-R Int : 000 ms QRS Dur : 118 ms QT Int : 400 ms P-R-T Axes : 086 069 128 degrees QTc Int : 500 ms Multifocal atrial tachycardia Incomplete left bundle block Nonspecific ST and T wave abnormality Abnormal ECG When compared with ECG of 05-JAN-2021 06:17, (unconfirmed) No significant change Confirmed by Blanco Hoover ([id number] on 01/06/2021 4:19:46 PM Referred By: REFERRED SELF Confirmed By:Blanco Hoover
[2021-01-06] MEDS: DOXEPIN HCL 10 MG CAPSULE PO SCH (20:34)
[2021-01-07] MEDS: SODIUM CHLORIDE 0.9% 1000ML 1,000 ML IV SCH (02:45)
[2021-01-07] MEDS: LEVOTHYROXINE SODIUM 88 MCG TABLET PO SCH (06:18)
[2021-01-07] MEDS: AZTREONAM 1,000 MG in DEXTROSE 5% 100 ML IV SCH (06:23)
[2021-01-07 06:57] LABS: Mean Corpuscular Hgb Conc 30.2 g/dL (32-36)
[2021-01-07 07:13] LABS: Hematocrit (blood only) 36.1 % (37-47); Hemoglobin 10.9 g/dL (12.0-16.0); Mean Corpuscular Hemoglobin 25.2 pg (25-34); Mean Corpuscular Volume 83.6 fL (80-100); RDW Coefficient of Variation 20.6 % (11.5-14.5); RDW Standard Deviation 63.2 fL (36.4-46.3); Red Blood Count 4.32 M/uL (4.2-5.4)
[2021-01-07 07:24] LABS: BUN Creatinine Ratio 22.5 (10-20); Calcium 8.3 mg/dl (8.5-10.1); Creatinine Clr Calc Pharmacy 40.6 ml/min; Est GFR (African American) 85.2 ml/min; Est GFR (Non-African American) 73.5 ml/min; Potassium 3.6 mmol/L (3.5-5.1)
[2021-01-07 07:34] LABS: Basophils # (auto) 0.06 K/uL (0-0.2); Basophils % (auto) 0.9 %; Eosinophils # (auto) 0.86 K/uL (0-0.5); Eosinophils % (auto) 13.2 %; Lymphocytes # (auto) 2.05 K/uL (1.2-3.4); Lymphocytes % (auto) 31.5 %; Mean Platelet Volume 11.3 fL (7.4-10.4); Monocytes # (auto) 0.53 K/uL (0.11-0.59); Monocytes % (auto) 8.2 %; Neutrophils % (auto) 46.2 %; Platelet Count 111 K/uL (130-400); Platelet Estimate Decreased (Normal)
--- NOTE | 2021-01-07 08:20 | Discharge Summary ---
Date of Service January 07, 2021 Admission HPI Per Admitting Provider 89-year-old female with past medical history significant for type 2 diabetes, not on any medication, hypothyroidism, hyperlipidemia, pancreatic cyst, diabetic polyneuropathy, paroxysmal atrial fibrillation, hypertension, chronic kidney disease stage III, B12 deficiency, polymyalgia rheumatica, osteoporosis, TMJ, osteoarthritis of the knee, depression, insomnia, tremors, history of CVA, history of visual field loss post-CVA, history of colon polyps, history of status post right hip fracture. The patient lives alone at home. She ambulates with a cane. Patient was apparently doing okay until . She is i ndependent as per son, she can cook her own food and she converses well. On , the son took her to groceries and bought her groceries. On Wednesday afternoon he talked to her and she seemed fine and today at 1:00pm he called her again and she did not answer, so he went to the house and found her sitting on the chair, confused. She could not even recognize him and groceries spoiling on the table. There was a question of a temperature. Per EMS heart rate was somewhat elevated. Sugars were in normal range and she was brought in here. Here, workup shows right temporal lobe hypodensity consistent with a subacute infarct. Patient is currently totally not oriented, could not tell her name, but obeying simple commands. Able to lift her upper extremities on command, able to take deep breath, able to move, and the patient denying any pain, says nothing bothering her. Denies any nausea. But could not get any complete history from the patient currently. Admission Exam Per Admitting Provider PHYSICAL EXAMINATION: GENERAL: The patient is alert and awake, but not oriented. VITAL SIGNS: Temperature 36.8, pulse 87, respiratory rate 20, blood pressure 181/104, oxygen 100% on room air. HEENT: Pupils equal, round and reactive to light. Oral mucosa moist. NECK: No JVD. No neck masses. CARDIOVASCULAR: S1 and S2 heard. Regular rate and rhythm. No murmur, no gallop. RESPIRATORY SYSTEM: Normal AP diameter. No accessory muscle use. No wheezing, no crackles. ABDOMEN: Soft, bowel sounds present, nontender, no distention. CENTRAL NERVOUS SYSTEM: Alert and awake, not oriented. Obeys simple commands. Able to open her mouth. Able to lift her extremities on command, able to take deep breaths on command, but could not do a complete exam because the patient is somewhat confused. Principal Diagnosis 1. Altered mental status secondary to CVA 2. History of atrial fibrillation. 3. History of diabetes 4. Hypothyroidism 5. Hyperlipidemia 6. Polymyalgia rheumatica 7. Possible starvation ketosis, mild metabolic acidosis 8. Possible UTI. 9. Hypertension. 10. Chronic kidney Disease stage III. Discharge Exam See below Discharge Data Allergies Allergy/AdvReac Type Severity Reaction Status Date / Time ertapenem [From Invanz] Allergy Intermediate RASH/ITCHIN Verified 05/16/19 16:47 G lisinopril Allergy Intermediate RASH Verified 05/16/19 16:47 Penicillins Allergy Intermediate EDEMA Verified 05/16/19 16:47 codeine AdvReac Intermediate NAUSEA, Verified 05/16/19 16:47 VOMITING Consultations 01/04/21 19:13 ED Decision to Admit Stat 01/05/21 08:00 Consult Neurology Routine Ordered Studies 01/04/21 17:09 CT cervical spine wo con Stat CT head/brain wo con Stat 01/04/21 18:40 CT abd pelvis wo con Stat CT chest diagnostic wo con Stat 01/04/21 22:17 US carotid doppler BI Routine 01/05/21 09:00 MR brain wo/w con Routine 01/05/21 16:37 CT head/brain wo con Routine Current Diagnoses Cerebral infarction, unspecified (01/04/21) Allergies ertapenem [From Invanz] Allergy (Intermediate, Verified 05/16/19 16:47) RASH/ITCHING lisinopril Allergy (Intermediate, Verified 05/16/19 16:47) RASH Penicillins Allergy (Intermediate, Verified 05/16/19 16:47) EDEMA codeine Adverse Reaction (Intermediate, Verified 05/16/19 16:47) NAUSEA, VOMITING Height/Weight/Isolation Height 5 ft 1.2 in Weight 55.6 kg Chemistry 01/06/21 01/07/21 06:22 06:39 Sodium 142 145 Potassium 3.6 3.6 Chloride 115 H 117 H Carbon Dioxide 22 22 Anion Gap 5.0 6.0 BUN 13 16 Creatinine 0.73 0.73 Glucose 111 H 121 H Microbiology 01/04/21 18:14 Blood Aerobic Blood Culture - Preliminary No growth in Aerobic bottle after 48 hours. 01/04/21 18:14 Blood Anaerobic Blood Culture - Final 01/04/21 17:22 Blood Aerobic Blood Culture - Preliminary No growth in Aerobic bottle after 48 hours. 01/04/21 17:22 Blood Anaerobic Blood Culture - Preliminary No growth in Anaerobic bottle after 48 hours. 01/04/21 19:20 Urine,Straight Cath Urine Culture - Final Three types of organisms present, all low counts probable skin codi. No further identifications or sensitivities to follow. Hospital Course (1) Stroke: ASSESSMENT AND PLAN: This is an 89-year-old female who presents with altered mental status and found to have a subacute stroke. 1. Altered mental status secondary to CVA. CT scan of the head showing subacute right temporal lobe hypodensity. CT scan of the head showing subacute infarct in the right temporal region. Confirmed with MRI scan. Echo done, carotid Dopplers are negative. Continue Speech, PT, OT. Eliquis, aspirin and statin. Patient has history of stroke in the past. SNF on DC 2. History of atrial fibrillation. Continue Toprol-XL and Eliquis. 3. History of diabetes, currently not on medication. Follow HbA1c levels. Place on insulin sliding scale. 4. Hypothyroidism. Continue Synthroid. 5. Hyperlipidemia. Continue statin. 6. Polymyalgia rheumatica. Continue prednisone. 7. Possible starvation ketosis, mild metabolic acidosis. D5 normal saline. Monitor daily labs. 8. Possible UTI. Azactam. The patient is allergic to PENICILLINS and INVANZ. Follow the cultures. 9. Hypertension, currently allow permissive hypertension, continue home Toprol- XL and labetalol p.r.n. 10. Chronic kidney Disease stage III. Creatinine is 0.9. We will follow the labs. 11. DVT prophylaxis, on Eliquis. CODE STATUS: DNR SNF on DC Labs Checked ROS-No Headache, No Visual Changes, No Nausea, No Vomiting, No Fever, No Chills, No Neck Pain or Stiffness, No Chest Pain, No Palpitations, No SOB, No URELAS, No Cough, No Sputum, No Wheezing, No Abdominal Pain, No Diarrhea, No Hematemesis, No Hemoptysis, No Unexpected Weight Loss, No Flank pain, No Melena, No Hematochezia, No Frequency, No Urgency, No Burning, No Hematuria, No Rashes, No Diaphoresis. Appetite is Normal Physical Exam Gen-AAO x 1, NAD, Afebrile, Demented Head-NCAT, EOMI, PERRLA, Anicteric Sclera, No Posterior Pharyngeal Erythema Neck-Supple, No JVD, No Thyromegaly, No Masses, No LAD, No Bruits Lungs-Clear to Auscultation Bilaterally, No Rales, No Rhonchi, No Wheezing, No Crepitus Chest-No S4, +S1, +S2, No S3, No Murmurs, No Rubs, No Gallops, No Ectopy Abdomen-Soft, Bowel Sounds Present, Non Tender, Non Distended, No Hepatomegaly, No Splenomegaly, No Palpable Masses, No Rebound, No Rigidity, No Guarding Musculoskeletal-Full Range of Motion Bilaterally, No CVAT Extremities-No Cyanosis, No Clubbing, No Edema Nuero-R Gaze, left hemiparesis, L Facial, Weak Psych-Normal Mood Total Time Total Time Spent Total Time Spent (In Minutes): 45 mins Total Time Includes: Examination of the Patient, Discharge Planning, Medication Reconciliation and Communication With Other Providers Discharge Plan Discharge Items Patient Disposition: Transfer [facility] Reason For Visit: AMS Discharge Diagnosis: 1. Altered mental status secondary to CVA 2. History of atrial fibrillation. 3. History of diabetes 4. Hypothyroidism 5. Hyperlipidemia 6. Polymyalgia rheumatica 7. Possible starvation ketosis, mild metabolic acidosis 8. Possible UTI. 9. Hypertension. 10. Chronic kidney Disease stage III Condition on Discharge: Fair Health Concerns: Recurring stroke Activity: As commented below Activity Comment: Ad jn Lifting: None Bathing: No limitations Exercise/Sports: None Driving/Machine Use: none Weightbearing: Full weightbearing Non-emergency contact: Primary Care Provider and Neurologist Call non-emergency contact if: you have any medication questions Follow-up/Referrals: Liu Antunez MD [Primary Care Provider] - Sandoval Miguel MD [Physician] - (4-6 weeks) Stand-Alone Forms: My [email or web address] Medications and DC Order Prescriptions: No Action atorvastatin 40 mg Tablet 40 mg PO QAM RF: 0 prednisone 1 mg Tablet 1 mg PO QAM RF: 0 gabapentin 300 mg Capsule 300 mg PO TID RF: 0 meclizine 25 mg Tablet 25 mg PO TID PRN (Reason: Vertigo) RF: 0 doxepin 10 mg capsule 10 mg PO HS RF: 0 hydroxyzine HCl 25 mg Tablet 25 mg PO TID PRN (Reason: Insomnia) RF: 0 aspirin 81 mg Tablet,Delayed Release (Dr/Ec) 81 mg PO DAILY RF: 0 tramadol 50 mg tablet 25 mg PO Q6H PRN (Reason: moderate pain) RF: 0 metoprolol succinate [Toprol XL] 50 mg tablet extended release 24 hr 50 mg PO DAILY RF: 0 cyanocobalamin (vitamin B-12) [Vitamin B-12] 1,000 mcg tablet 1,000 mcg PO DAILY RF: 0 levothyroxine [Synthroid] 88 mcg tablet 88 mcg PO DAILYBB RF: 0 ferrous sulfate 325 mg (65 mg iron) Tablet 325 mg PO BID RF: 0 Eliquis 2.5 mg tablet 2.5 mg PO BID RF: 0 Krames/Other Patient Handouts: High Blood Sugar (Hyperglycemia), Hypoglycemia (Low Blood Sugar), Managing Type 2 Diabetes, A1C Admission Data Admit Date/Time: 01/04/21 20:59 Attending Provider: Zachary Bhatti Admit Provider: Franky Hernandez Primary Care Provider: Liu Antunez Other Providers: Franky Hernandez ; Su Morel ; Sandoval Miguel ; Su Jalloh ; Ye Gonzalez ; [facility]
[2021-01-07] MEDS: INSULIN ASPART 100 UNITS/ML 3 ML PEN SC SCH ×2 (08:41→11:40)
[2021-01-07] MEDS: ASPIRIN 81 MG ECTAB PO SCH (08:42)
[2021-01-07] MEDS: APIXABAN 2.5 MG TAB PO SCH (08:42)
[2021-01-07] MEDS: ATORVASTATIN 40 MG TAB PO SCH (08:42)
[2021-01-07] MEDS: CYANOCOBALAMIN 500 MCG TABLET (VITAMIN B-12) PO SCH (08:42)
[2021-01-07] MEDS: GABAPENTIN 300 MG CAP PO SCH ×2 (08:43→14:17)
[2021-01-07] MEDS: FERROUS SULFATE 325 MG TAB PO SCH (08:43)
[2021-01-07] MEDS: predniSONE 1 MG TAB PO SCH (08:44)
[2021-01-07] MEDS: METOPROLOL SUCC 50MG EXT REL TAB PO SCH (08:44)
[2021-01-07] MEDS ORDERED: STROKE PATIENT DISCHARGE STA (10:02)
== END 2021-01-07 15:40 | DRG 65 ==
LOC: ED 16:59 → 2S 20:59